=== PATIENT | female | born 1955 | race Caucasian/White ===

== ENCOUNTER → 2016-12-12 | Outpatient (CLI) | payer OTHER ==
[2016-12-12 11:57] LABS: Glucose 2 Hour 123 mg/dL
== END | disposition home or self-care (01) ==
LOC: LABWHC1 08:31
PROVIDERS: ATTEND Family Medicine
DX: R42 Dizziness and giddiness (principal)
CPT/HCPCS: 36415; 82947; 82950

== ENCOUNTER 2018-01-08 10:31 | Observation (INO) | payer OTHER ==
[2018-01-08] MEDS ORDERED: IPRATROPIUM-ALBUTEROL 3 ML NEB INHALATION STA (10:50)
[2018-01-08] MEDS ORDERED: SODIUM CHLORIDE 0.9% 1,000 ML IV STA (10:50)
--- NOTE | 2018-01-08 10:54 | ED ---
SOB HPI - General Chief Complaint: Shortness of Breath Stated Complaint: SRINI Time Seen by Provider: 01/08/18 10:40 Source: patient, RN notes reviewed Mode of arrival: ambulatory Limitations: no limitations - History of Present Illness Initial Comments: This is a 62-year-old female with no prior history of heart or lung disease who states she's had shortness of breath for the past several days she states she also has some chest tightness 3 days ago. She feels like she can't get a good breath of air when she breathes. She has any cough fevers chills nausea vomiting sweats or other symptoms. She states she does have ALLERGIES does only But the Previous any ALLERGIES she states she was sent over from her doctor 's office for evaluation. She states she does not smoke she did grow with parents a smoker. MD Complaint: shortness of breath - Related Data Home Medications Medication Instructions Recorded Confirmed Ibuprofen [Motrin Ib] 400 mg PO Q8H PRN 01/08/18 01/08/18 Allergies Allergy/AdvReac Type Severity Reaction Status Date / Time latex AdvReac Rash/Hives Verified 01/08/18 11:38 mushroom AdvReac CONGESTION Verified 01/08/18 11:38 Penicillins AdvReac Rash/Hives Verified 01/08/18 11:38 Sulfa (Sulfonamide AdvReac Rash/Hives Verified 01/08/18 11:38 Antibiotics) Review of Systems ROS Statement: Those systems with pertinent positive or pertinent negative responses have been documented in the HPI. ROS Other: All systems not noted in ROS Statement are negative. Past Medical History Past Medical History: No Reported History History of Any Multi-Drug Resistant Organisms: None Reported Past Surgical History: Tubal Ligation Past Psychological History: No Psychological Hx Reported Smoking Status: Never smoker Past Alcohol Use History: Rare Past Drug Use History: None Reported General Exam - General Exam Comments Initial Comments: This is a well-developed well-nourished awake alert oriented 3 female Limitations: no limitations General appearance: alert, in no apparent distress Head exam: Present: atraumatic, normocephalic, normal inspection Eye exam: Present: normal appearance, PERRL, EOMI. Absent: scleral icterus, conjunctival injection, periorbital swelling ENT exam: Present: normal exam, mucous membranes moist Neck exam: Present: normal inspection. Absent: tenderness, meningismus, lymphadenopathy Respiratory exam: Present: decreased breath sounds. Absent: respiratory distress, wheezes, rales, rhonchi, stridor Cardiovascular Exam: Present: regular rate, normal rhythm, normal heart sounds. Absent: systolic murmur, diastolic murmur, rubs, gallop, clicks GI/Abdominal exam: Present: soft, normal bowel sounds. Absent: distended, tenderness, guarding, rebound, rigid Extremities exam: Present: normal inspection, full ROM, normal capillary refill. Absent: tenderness, pedal edema, joint swelling, calf tenderness Back exam: Present: normal inspection Neurological exam: Present: alert, oriented X3, CN II-XII intact Psychiatric exam: Present: normal affect, normal mood Skin exam: Present: warm, dry, intact, normal color. Absent: rash Course Vital Signs 01/08/18 01/08/18 01/08/18 10:36 11:17 11:26 Temperature 97.8 F Pulse Rate 67 64 64 Respiratory 18 Rate Blood Pressure 130/74 O2 Sat by Pulse 97 Oximetry 01/08/18 01/08/18 13:16 14:10 Temperature Pulse Rate 66 62 Respiratory 18 18 Rate Blood Pressure 134/66 115/60 O2 Sat by Pulse 99 99 Oximetry Medical Decision Making - Medical Decision Making I did discuss the findings with the patient and with Dr. Blackmon who is covering Dr. Bernardo. Patient will be admitted with cardiology consultation - Lab Data Result diagrams: 01/08/18 11:05 01/08/18 11:05 Lab Results 01/08/18 01/08/18 01/08/18 Range/Units 11:05 11:05 11:05 WBC 5.7 (3.8-10.6) k/uL RBC 4.77 (3.80-5.40) m/uL Hgb 14.3 (11.4-16.0) gm/dL Hct 43.6 (34.0-46.0) % MCV 91.4 (80.0-100.0) fL MCH 30.0 (25.0-35.0) pg MCHC 32.8 (31.0-37.0) g/dL RDW 12.1 (11.5-15.5) % Plt Count 240 (150-450) k/uL Neutrophils % 48 % Lymphocytes % 40 % Monocytes % 6 % Eosinophils % 4 % Basophils % 1 % Neutrophils # 2.7 (1.3-7.7) k/uL Lymphocytes # 2.3 (1.0-4.8) k/uL Monocytes # 0.4 (0-1.0) k/uL Eosinophils # 0.2 (0-0.7) k/uL Basophils # 0.0 (0-0.2) k/uL PT (9.0-12.0) sec INR (<1.2) APTT (22.0-30.0) sec D-Dimer (<0.60) mg/L FEU Sodium 140 (137-145) mmol/L Potassium 4.3 (3.5-5.1) mmol/L Chloride 108 H (98-107) mmol/L Carbon Dioxide 25 (22-30) mmol/L Anion Gap 7 mmol/L BUN 12 (7-17) mg/dL Creatinine 0.54 (0.52-1.04) mg/dL Est GFR (CKD-EPI)AfAm >90 (>60 ml/min/1.73 sqM) Est GFR (CKD-EPI)NonAf >90 (>60 ml/min/1.73 sqM) Glucose 91 (74-99) mg/dL Calcium 9.4 (8.4-10.2) mg/dL Magnesium 2.3 (1.6-2.3) mg/dL Total Bilirubin 0.9 (0.2-1.3) mg/dL AST 21 (14-36) U/L ALT 26 (9-52) U/L Alkaline Phosphatase 119 (38-126) U/L Total Creatine Kinase 51 (30-135) U/L CK-MB (CK-2) 0.4 (0.0-2.4) ng/mL CK-MB (CK-2) Rel Index 0.8 Troponin I <0.012 (0.000-0.034) ng/mL NT-Pro-B Natriuret Pep pg/mL Total Protein 6.9 (6.3-8.2) g/dL Albumin 4.1 (3.5-5.0) g/dL 01/08/18 01/08/18 Range/Units 11:05 11:05 WBC (3.8-10.6) k/uL RBC (3.80-5.40) m/uL Hgb (11.4-16.0) gm/dL Hct (34.0-46.0) % MCV (80.0-100.0) fL MCH (25.0-35.0) pg MCHC (31.0-37.0) g/dL RDW (11.5-15.5) % Plt Count (150-450) k/uL Neutrophils % % Lymphocytes % % Monocytes % % Eosinophils % % Basophils % % Neutrophils # (1.3-7.7) k/uL Lymphocytes # (1.0-4.8) k/uL Monocytes # (0-1.0) k/uL Eosinophils # (0-0.7) k/uL Basophils # (0-0.2) k/uL PT 9.6 (9.0-12.0) sec INR 1.0 (<1.2) APTT 25.2 (22.0-30.0) sec D-Dimer 0.33 (<0.60) mg/L FEU Sodium (137-145) mmol/L Potassium (3.5-5.1) mmol/L Chloride (98-107) mmol/L Carbon Dioxide (22-30) mmol/L Anion Gap mmol/L BUN (7-17) mg/dL Creatinine (0.52-1.04) mg/dL Est GFR (CKD-EPI)AfAm (>60 ml/min/1.73 sqM) Est GFR (CKD-EPI)NonAf (>60 ml/min/1.73 sqM) Glucose (74-99) mg/dL Calcium (8.4-10.2) mg/dL Magnesium (1.6-2.3) mg/dL Total Bilirubin (0.2-1.3) mg/dL AST (14-36) U/L ALT (9-52) U/L Alkaline Phosphatase (38-126) U/L Total Creatine Kinase (30-135) U/L CK-MB (CK-2) (0.0-2.4) ng/mL CK-MB (CK-2) Rel Index Troponin I (0.000-0.034) ng/mL NT-Pro-B Natriuret Pep 185 pg/mL Total Protein (6.3-8.2) g/dL Albumin (3.5-5.0) g/dL - EKG Data -: EKG Interpreted by Me EKG shows normal: sinus rhythm (Normal sinus rhythm a 62. Interval 186 QRS duration 90 QT since QTC 432/438 this is a normal-appearing EKG.) - Radiology Data Radiology results: report reviewed, image reviewed (I did review the imaging and report there is evidence of increased pulmonary vascular congestion) Disposition Clinical Impression: Chest pain, Angina at rest Disposition: ADMITTED IP TO THIS [facility] Condition: Stable Referrals: Katya Olmos MD [Primary Care Provider] - 1-2 days
[2018-01-08 11:32] LABS: ALT 26 U/L (9-52); AST 21 U/L (14-36); Albumin 4.1 g/dL (3.5-5.0); Alkaline Phosphatase 119 U/L (38-126); Anion Gap 7 mmol/L; Basophils % (A) 1 %; Blood Urea Nitrogen 12 mg/dL (7-17); Calcium 9.4 mg/dL (8.4-10.2); Carbon Dioxide 25 mmol/L (22-30); Chloride 108 mmol/L (98-107); Eosinophils # (A) 0.2 k/uL (0-0.7); Eosinophils % (A) 4 %; Glucose 91 mg/dL (74-99); HCT 43.6 % (34.0-46.0); HGB 14.3 gm/dL (11.4-16.0); Lymphocytes # (A) 2.3 k/uL (1.0-4.8); Lymphocytes % (A) 40 %; MCHC 32.8 g/dL (31.0-37.0); MCV 91.4 fL (80.0-100.0); Magnesium 2.3 mg/dL (1.6-2.3); Mean Platelet Volume 7.1; Monocytes # (A) 0.4 k/uL (0-1.0); Monocytes % (A) 6 %; Neutrophils # (A) 2.7 k/uL (1.3-7.7); Neutrophils % (A) 48 %; Platelet Count 240 k/uL (150-450); Potassium 4.3 mmol/L (3.5-5.1); RBC 4.77 m/uL (3.80-5.40); RDW 12.1 % (11.5-15.5); Sodium 140 mmol/L (137-145); Total Bilirubin 0.9 mg/dL (0.2-1.3); Total Protein 6.9 g/dL (6.3-8.2); WBC 5.7 k/uL (3.8-10.6)
[2018-01-08 11:48] LABS: Creatine Kinase 51 U/L (30-135)
[2018-01-08 12:01] LABS: Creatine Kinase MB 0.4 ng/mL (0.0-2.4); Troponin I <0.012 ng/mL (0.000-0.034)
--- NOTE | 2018-01-08 12:07 | XR ---
EXAMINATION TYPE: XR chest 2V DATE OF EXAM: 01/08/2018 COMPARISON: NONE HISTORY: Difficulty breathing today. TECHNIQUE: Frontal and lateral views of the chest are obtained. FINDINGS: Overlying EKG leads are seen. There is no focal air space opacity, pleural effusion, or pne umothorax seen. Perhaps mild central vascular congestion is present. The cardiac silhouette size is upper limits of normal. The osseous structures are intact. IMPRESSION: Perhaps mild central vascular congestion. Correlate for fluid overload state or early CH F exacerbation.
[2018-01-08 12:14] LABS: D-Dimer 0.33 mg/L FEU (<0.60); Partial Thromboplastin Time 25.2 sec (22.0-30.0); Prothrombin Time 9.6 sec (9.0-12.0)
[2018-01-08] MEDS ORDERED: NITROGLYCERIN SL TABS 0.4 MG TAB SUBLINGUAL STA (13:09)
[2018-01-08] MEDS ORDERED: HEPARIN SODIUM,PORCINE 5,000 UNIT/ML 1 ML VIAL IV ONE (15:07)
[2018-01-08] MEDS ORDERED: NITROGLYCERIN SL TABS 0.4 MG TAB SUBLINGUAL PRN (15:07)
[2018-01-08] MEDS ORDERED: HEPARIN SOD,PORK IN 0.45% NACL 25,000 UNIT in 0.45% NACL 1 500ML.BAG IV SCH (15:15)
[2018-01-08] MEDS ORDERED: SODIUM CHLORIDE 0.9% 1,000 ML IV SCH (15:15)
--- NOTE | 2018-01-08 16:07 | P.HPIM ---
History of Present Illness H&P Date: 01/08/18 Chief Complaint: Palpitation and chest tightness 62-year-old nonsmoker female fairly stable state of health had an episode of shortness of breath with the some chest tightness started about 3 days ago and symptoms have been going on comes to appointment that she decided to come into the emergency department she feels that she has some air hunger cannot take a deep breath today she felt that her throat is closing she denies any cough or sputum production denies any fever or chills, she has similar episodes about 1-1 /2 years ago which was transient and resolve, she denies any loss of consciousness and progresses denies any night sweats fever or chills, denies any nausea vomiting or diarrhea denies any bowel or bladder dysfunction otherwise, she does have history of ALLERGY to multiple agents including latex mushroom penicillin and sulfa Ammann in the emergency department her labs were normal her chest x-ray was unremarkable her EKG was sinus rhythm without any significant changes she is admitted into the hospital for further evaluation and therapy, her d-dimer was normal as well Review of Systems All systems: negative Past Medical History Past Medical History: No Reported History Additional Past Medical History / Comment(s): low bp at times History of Any Multi-Drug Resistant Organisms: None Reported Past Surgical History: Tubal Ligation Past Anesthesia/Blood Transfusion Reactions: No Reported Reaction Smoking Status: Never smoker - Past Family History Mother Additional Family Medical History / Comment(s): "heart disease" in her 70's Father Additional Family Medical History / Comment(s): "heart disease" in his 70's Medications and Allergies Home Medications Medication Instructions Recorded Confirmed Type Ibuprofen [Motrin Ib] 400 mg PO Q8H PRN 01/08/18 01/08/18 History Allergies Allergy/AdvReac Type Severity Reaction Status Date / Time latex AdvReac Rash/Hives Verified 01/08/18 11:38 mushroom AdvReac CONGESTION Verified 01/08/18 11:38 Penicillins AdvReac Rash/Hives Verified 01/08/18 11:38 Sulfa (Sulfonamide AdvReac Rash/Hives Verified 01/08/18 11:38 Antibiotics) Physical Exam Vitals: Vital Signs Temp Pulse Resp BP Pulse Ox 01/08/18 14:10 62 18 115/60 99 01/08/18 13:16 66 18 134/66 99 01/08/18 11:26 64 01/08/18 11:17 64 01/08/18 10:36 97.8 F 67 18 130/74 97 Intake and Output 01/08/18 01/08/18 01/08/18 06:59 14:59 22:59 Other: Weight 71.668 kg - Constitutional General appearance: average body habitus, cooperative, no acute distress - EENT Eyes: EOMI, PERRLA, normal appearance Ears: bilateral: normal - Neck Neck: normal ROM Carotids: bilateral: upstroke normal, bruit absent Thyroid: bilateral: normal size - Respiratory Respiratory: bilateral: CTA - Cardiovascular Heart sounds: normal: S1, S2 - Integumentary Integumentary: normal, normal turgor - Neurologic Neurologic: CNII-XII intact - Musculoskeletal Musculoskeletal: gait normal, generalized weakness, strength equal bilaterally - Psychiatric Psychiatric: A&O x's 3, appropriate affect, intact judgment & insight Results CBC & Chem 7: 01/08/18 11:05 01/08/18 11:05 Labs: Abnormal Lab Results - Last 24 Hours (Table) 01/08/18 Range/Units 11:05 Chloride 108 H (98-107) mmol/L Chest x-ray: report reviewed, image reviewed (Chest x-ray suggestive prominent interstitium vascular congestion early CHF cannot be excluded) Assessment and Plan Assessment: Acute onset of the chest tightness and shortness of breath Early mild congestive heart failure with normal BNP Interstitial pneumonia/atypical pneumonia Episode of acute asthma resolved spontaneously Plan: Serial cardiac enzyme Consult cardiology 2-D echocardiogram Patient will pulmonary evaluation with PFTs on outpatient setting however in the meantime we'll do labs for ALLERGIC asthma Put patient on as needed inhalers for now Further care plan as per finding above-mentioned test results and report and clinical response of the patient Time with Patient: Greater than 30
[2018-01-08 17:46] LABS: Creatine Kinase 42 U/L (30-135)
[2018-01-08 17:58] LABS: Creatine Kinase MB 0.3 ng/mL (0.0-2.4); Troponin I <0.012 ng/mL (0.000-0.034)
[2018-01-08 20:10] VITALS: RESP 16
[2018-01-08] MEDS: LORATADINE 10 MG TAB PO PRN (22:11)
[2018-01-08 23:28] LABS: Creatine Kinase 43 U/L (30-135)
[2018-01-08 23:40] LABS: Creatine Kinase MB 0.3 ng/mL (0.0-2.4); Troponin I <0.012 ng/mL (0.000-0.034)
[2018-01-09 04:03] LABS: Cholesterol 183 mg/dL (<200); HDL Cholesterol 55 mg/dL (40-60); LDL Cholesterol,Calculated 108 mg/dL (0-99); Triglycerides 102 mg/dL (<150)
--- NOTE | 2018-01-09 07:16 | P.CRDCN ---
History of Present Illness Consult date: 01/09/18 Chief complaint: Shortness of breath History of present illness: This is a pleasant 62-year-old female patient was no past medical history of coronary artery disease or diabetes or hypertension or dyslipidemia but history of ALLERGY presented to the hospital complaining of shortness of breath. The patient has been dealing with ALLERGY for the last several weeks and yesterday she was receiving new ALLERGY injections. She stated that the shortness of breath started after the new injections. She described the shortness of breath as difficult to take a deeper breath. He is clearly not exertional shortness of breath. Beside that she did not have any orthopnea or PND. No bilateral lower extremities edema. No chest pain or chest discomfort. No fever or chills. And no cough. The patient does not have any significant past medical history. She does not smoke or drink alcohol. And no significant family history of coronary artery disease. The EKG showed sinus rhythm without any ischemic ST or T-wave abnormalities. The cardiac enzymes were checked and came in to be unremarkable as well. The patient stated that she is already scheduled to undergo a stress test and echocardiogram this morning and will follow-up with that. Past Medical History Past Medical History: No Reported History Additional Past Medical History / Comment(s): low bp at times History of Any Multi-Drug Resistant Organisms: None Reported Past Surgical History: Tubal Ligation Past Anesthesia/Blood Transfusion Reactions: No Reported Reaction Smoking Status: Never smoker - Past Family History Mother Additional Family Medical History / Comment(s): "heart disease" in her 70's Father Additional Family Medical History / Comment(s): "heart disease" in his 70's Medications and Allergies Home Medications Medication Instructions Recorded Confirmed Type Ibuprofen [Motrin Ib] 400 mg PO Q8H PRN 01/08/18 01/08/18 History Allergies Allergy/AdvReac Type Severity Reaction Status Date / Time latex AdvReac Rash/Hives Verified 01/08/18 11:38 mushroom AdvReac CONGESTION Verified 01/08/18 11:38 Penicillins AdvReac Rash/Hives Verified 01/08/18 11:38 Sulfa (Sulfonamide AdvReac Rash/Hives Verified 01/08/18 11:38 Antibiotics) Physical Exam Vitals: Vital Signs Temp Pulse Pulse Resp BP BP Pulse Ox 01/09/18 07:11 98 01/09/18 04:00 97.8 F 77 16 115/71 98 01/09/18 03:10 16 01/08/18 23:34 16 01/08/18 23:23 98.2 F 64 16 111/62 96 01/08/18 20:10 97.4 F L 69 16 117/72 97 01/08/18 17:50 98.5 F 65 18 121/73 97 01/08/18 17:38 98.3 F 74 18 115/53 94 L 01/08/18 17:00 72 18 01/08/18 16:00 70 18 125/56 95 01/08/18 15:00 68 18 01/08/18 14:10 62 18 115/60 99 01/08/18 13:16 66 18 134/66 99 01/08/18 11:26 64 01/08/18 11:17 64 01/08/18 10:36 97.8 F 67 18 130/74 97 Intake and Output 01/08/18 01/09/18 01/09/18 22:59 06:59 14:59 Other: Voiding Method Toilet Toilet # Voids 1 Weight 71.8 kg - Constitutional General appearance: no acute distress - Respiratory Respiratory: bilateral: CTA - Cardiovascular Rhythm: regular Heart sounds: normal: S1, S2 Results 01/08/18 11:05 01/08/18 11:05 Cardiac Enzymes 01/08/18 01/08/18 01/08/18 Range/Units 11:05 11:05 17:10 AST 21 (14-36) U/L CK-MB (CK-2) 0.4 0.3 (0.0-2.4) ng/mL Troponin I <0.012 <0.012 (0.000-0.034) ng/mL 01/08/18 Range/Units 22:55 AST (14-36) U/L CK-MB (CK-2) 0.3 (0.0-2.4) ng/mL Troponin I <0.012 (0.000-0.034) ng/mL Coagulation 01/08/18 Range/Units 11:05 PT 9.6 (9.0-12.0) sec APTT 25.2 (22.0-30.0) sec Lipids 01/08/18 Range/Units 10:05 Triglycerides 102 (<150) mg/dL Cholesterol 183 (<200) mg/dL HDL Cholesterol 55 (40-60) mg/dL CBC 01/08/18 Range/Units 11:05 WBC 5.7 (3.8-10.6) k/uL RBC 4.77 (3.80-5.40) m/uL Hgb 14.3 (11.4-16.0) gm/dL Hct 43.6 (34.0-46.0) % Plt Count 240 (150-450) k/uL Comprehensive Metabolic Panel 01/08/18 Range/Units 11:05 Sodium 140 (137-145) mmol/L Potassium 4.3 (3.5-5.1) mmol/L Chloride 108 H (98-107) mmol/L Carbon Dioxide 25 (22-30) mmol/L BUN 12 (7-17) mg/dL Creatinine 0.54 (0.52-1.04) mg/dL Glucose 91 (74-99) mg/dL Calcium 9.4 (8.4-10.2) mg/dL AST 21 (14-36) U/L ALT 26 (9-52) U/L Alkaline Phosphatase 119 (38-126) U/L Total Protein 6.9 (6.3-8.2) g/dL Albumin 4.1 (3.5-5.0) g/dL Current Medications Generic Name Dose Route Start Last Admin Trade Name Freq PRN Reason Stop Dose Admin Aspirin 325 mg 01/09/18 09:00 Aspirin PO DAILY DYLAN Sodium Chloride 1,000 mls @ 20 mls/hr 01/08/18 10:50 01/08/18 13:15 Saline 0.9% IV 01/09/18 10:49 20 mls/hr .Q24H STA Administration Heparin Sodium/Sodium Chloride 500 mls @ 17.2 mls/hr 01/08/18 15:15 01/08/18 17:34 25,000 unit/ Sodium Chloride IV Not Given .Q24H DYLAN Protocol 12 UNITS/KG/HR Sodium Chloride 1,000 mls @ 20 mls/hr 01/08/18 15:15 01/08/18 17:37 Saline 0.9% IV 20 mls/hr .Q24H DYLAN Administration Loratadine 5 mg 01/08/18 21:11 01/08/18 22:11 Claritin PO 5 mg Q12HR PRN Administration Allergy Symptoms Nitroglycerin 0.4 mg 01/08/18 15:07 Nitrostat SUBLINGUAL Q5M PRN Chest Pain Intake and Output 01/08/18 01/09/18 01/09/18 22:59 06:59 14:59 Other: Voiding Method Toilet Toilet # Voids 1 Weight 71.8 kg 01/08/18 11:05 01/08/18 11:05 Assessment and Plan Assessment: Assessment #1 shortness of breath Plan #1 the patient was ruled out for acute coronary event #2 severe underlying CAD to be ruled out #3 the patient already scheduled to undergo a stress test and echocardiogram and will follow-up with that #4 follow-up with the patient Thank you for allowing us participate in her care
[2018-01-09] MEDS ORDERED: ASPIRIN 325 MG TAB PO SCH (09:00)
[2018-01-09 11:42] VITALS: BP 123/82; PULSE 68; TEMP 98.6
[2018-01-09] MEDS: LORATADINE 10 MG TAB PO PRN (11:54)
--- NOTE | 2018-01-09 12:49 | ECHOF ---
Referral Reason:Chest pain, angina MEASUREMENTS -------- HEIGHT: 160.0 cm WEIGHT: 71.7 kg BP: 115/60 RVIDd: 2.7 cm (< 3.3) IVSd: 0.8 cm (0.6 - 1.1) LVIDd: 4.3 cm (3.9 - 5.3) LVPWd: 0.9 cm (0.6 - 1.1) IVSs: 1.3 cm LVIDs: 2.8 cm LVPWs: 1.2 cm LA Diam: 4.5 cm (2.7 - 3.8) LAESV Index (A-L): 43.21 ml/m Ao Diam: 2.4 cm (2.0 - 3.7) AV Cusp: 1.4 cm (1.5 - 2.6) LA Diam: 3.7 cm (2.7 - 3.8) EPSS: 0.3 cm MV E Earl: 0.94 m/s MV DecT: 340 ms MV A Earl: 1.03 m/s MV E/A Ratio: 0.91 RAP: 5.00 mmHg RVSP: 12.90 mmHg MV EF SLOPE: 103.92 mm/s (70 - 150) MV EXCURSION: 1.68 cm (> 18.000) FINDINGS -------- Sinus rhythm. This was a technically adequate study. The left ventricular size is normal. Left ventricular wall thickness is normal. Overall left vent ricular systolic function is normal with, an EF between 55 - 60 %. The right ventricle is normal in size and function. LA is severely dilated >40 ml/m2 RA appears enlarged. Aortic valve is trileaflet and is mildly thickened. There is no evidence of aortic regurgitation. There is no evidence of aortic stenosis. The mitral valve leaflets are mildly thickened. Mild mitral annular calcification present. Modera [id number]-[id number] mitral regurgitation is present. Moderate prolapse of the posterior mitral valve leafl et. Trace tricuspid regurgitation present. Right ventricular systolic pressure is normal at < 35 mmHg. There is no evidence of pulmonary hypertension. The pulmonic valve was not well visualized. The aortic root size is normal. Normal inferior vena cava with normal inspiratory collapse consistent with estimated right atrial pre ssure of 5 mmHg. There is no pericardial effusion. CONCLUSIONS -------- 1. Sinus rhythm. 2. This was a technically adequate study. 3. The left ventricular size is normal. 4. Left ventricular wall thickness is normal. 5. Overall left ventricular systolic function is normal with, an EF between 55 - 60 %. 6. LA is severely dilated >40 ml/m2 7. RA appears enlarged. 8. Aortic valve is trileaflet and is mildly thickened. 9. The mitral valve leaflets are mildly thickened. 10. Mild mitral annular calcification present. 11. Veaywtum-nf-pwdgap mitral regurgitation is present. 12. Moderate prolapse of the posterior mitral valve leaflet. 13. Trace tricuspid regurgitation present. 14. Right ventricular systolic pressure is normal at < 35 mmHg. 15. There is no evidence of pulmonary hypertension. 16. The pulmonic valve was not well visualized. 17. The aortic root size is normal. 18. There is no pericardial effusion. CABIN FURNISHINGS INSTALLER: Joss Hernandez RDCS
--- NOTE | 2018-01-09 13:08 | EST ---
EXERCISE STRESS AGE: 62 SEX: F HT: 63 WT: 158 PROTOCOL: Stress Test STAGE: 2 DURATION OF EXERCISE: 5:15 HEART RATE REST: 76 BLOOD PRESSURE REST: 135/76 MAXIMUM HEART RATE ACHIEVED: 135 MAXIMUM BLOOD PRESSURE: 174/43 85% MPHR: 133 100% MPHR: 156. METS: 6.0 INDICATION: Chest pain. CLINICAL INFORMATION: STRESS DATA: Pretesting physical examination showed a heart rate of 76, pressure is 135/76 mmHg. Baseline EKG showed sinus mechanism. The patient exercised on the treadmill according to Avila protocol for a total of 5 minutes and achieved 6.0 of METS. Max heart rate was 135, which is about 86% of maximum predicted heart rate. Maximum blood pressure was 174/43 mmHg. Clinically, the patient developed severe shortness of breath in response to exercise and the EKG showed mild ST-segment changes, did not meet the criteria for ischemia. CONCLUSION: 1. Poor exercise tolerance. 2. Mild EKG changes and response to exercise. 3. A stress test with imaging modality is recommended for better clarification. MMODL / IJN: [id number] /
--- NOTE | 2018-01-09 15:24 | P.DS ---
Providers Date of admission: 01/08/18 15:07 Expected date of discharge: 01/09/18 Attending physician: Darron Blackmon Consults: 01/08/18 15:07 Consult Physician Urgent Consulting Provider: Nir Olmos Consult Reason/Comments: Chest pain Do you want consulting provider notified?: Yes Primary care physician: Katya Olmos Hospital Course: Discharge Diagnosis 1. Acute onset of the chest tightness and shortness of breath. D-dimer 0.033. Troponins negative. EKG showing normal sinus rhythm. Discussed case with beauty counselor Dr. Peralta. oK to discharge home and for patient to follow-up outpatient for possible EILEEN 2. Early mild congestive heart failure with normal BNP. X-ray completed showing perhaps mild central vascular congestion. Correlate for fluid overload state early CHF exacerbation. 2-D echo completed. EF 55-60%. Moderate to severe mitral regurg and moderate prolapse of the posterior mitral valve leaflet. Discussed in depth with Dr. Peralta per cardiology. Okay for patient to be discharged home and outpatient management with possible EILEEN. 3. Episode of acute asthma resolved spontaneously 4. seasonal ALLERGIES. 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 IgE 27.5 Hospital course 62-year-old nonsmoker female fairly stable state of health had an episode of shortness of breath with the some chest tightness started about 3 days ago and symptoms have been going on comes to appointment that she decided to come into the emergency department she feels that she has some air hunger cannot take a deep breath today she felt that her throat is closing she denies any cough or sputum production denies any fever or chills, she has similar episodes about 1-1 /2 years ago which was transient and resolve, she denies any loss of consciousness and progresses denies any night sweats fever or chills, denies any nausea vomiting or diarrhea denies any bowel or bladder dysfunction otherwise, she does have history of ALLERGY to multiple agents including latex mushroom penicillin and sulfa Ammann in the emergency department her labs were normal her chest x-ray was unremarkable her EKG was sinus rhythm without any significant changes she is admitted into the hospital for further evaluation and therapy, her d-dimer was normal as well On 01/09/2018 patient is eager to go home. Discussed in length with Dr. Peralta per cardiology. Patient has been cleared for discharge from cardiology will be followed up outpatient for possible EILEEN. Patient to follow-up closely with primary care provider. Patient Condition at Discharge: Stable Plan - Discharge Summary Discharge Rx Participant: No New Discharge Prescriptions: New Loratadine [Claritin] 5 mg PO Q12HR PRN tab PRN Reason: Allergy Symptoms Continue Ibuprofen [Motrin Ib] 400 mg PO Q8H PRN PRN Reason: Pain Discharge Medication List Ibuprofen [Motrin Ib] 400 mg PO Q8H PRN 01/08/18 [History] Loratadine [Claritin] 5 mg PO Q12HR PRN tab 01/09/18 [Rx] Follow up Appointment(s)/Referral(s): Katya Olmos MD [Primary Care Provider] - 1-2 days Zbigniew Mcgowan MD [STAFF PHYSICIAN] - 01/24/18 4:00 pm Patient Instructions/Handouts: Dyspnea (GEN) Activity/Diet/Wound Care/Special Instructions: diet:Regular Activity: Per cardiolgoy limited exertion until f/u appointment
[2018-01-15 23:53] LABS: Alternaria Alternata IgG < 2.0 mcg/mL (< 13.6); Aspergillus fumigatus IgG Not detected (Not detected); Aureobasidium pullulans IgG < 2.0 mcg/mL (< 13.6); Cladosporium herbarium IgG 10.9 mcg/mL (< 14.7); Phoma ssp. IgG 9.6 mcg/mL (< 6.6); Saccaharomospora viridis Not detected (Not detected); Saccaharopoly. rectivirgula Not detected (Not detected)
== END 2018-01-09 15:53 | disposition home or self-care (01) ==
LOC: EC 10:31 → 3OBS 15:07
PROVIDERS: ADMIT Internal Medicine Sleep Medicine; ATTEND Internal Medicine Sleep Medicine
DX: R07.89 Other chest pain (principal); I50.9 Heart failure, unspecified; J45.909 Unspecified asthma, uncomplicated; I34.0 Nonrheumatic mitral (valve) insufficiency; R53.1 Weakness; Z91.040 Latex allergy status; Z88.0 Allergy status to penicillin; Z88.2 Allergy status to sulfonamides; Z91.018 Allergy to other foods; Z98.51 Tubal ligation status; Z82.49 Family history of ischemic heart disease and other diseases of the circulatory system; Z81.2 Family history of tobacco abuse and dependence
CPT/HCPCS: 99285 ×2; 36415; 94640; 94760; 93005; 93017; 93306; 85379; 83880; 80061; 80053; 86001; 82550; 82553; 83735; 84484; 85025; 85610; 85730; 86609; 86606; 82785; 71046; G0378 ×2

== ENCOUNTER 2018-01-13 14:10 | Observation (INO) | payer OTHER ==
[2018-01-13] MEDS ORDERED: SODIUM CHLORIDE 0.9% 500 ML IV STA (14:12)
--- NOTE | 2018-01-13 14:16 | ED ---
General Adult HPI - General Stated complaint: Dizziness Time Seen by Provider: 01/13/18 14:10 Source: RN notes reviewed - History of Present Illness Initial comments: This is a 62-year-old female who presents to the emergency department complaining of a near syncopal episode. Patient states she was just seen in the hospital approximately one week ago for similar that had occurred after she had been fasting and getting a blood draw today she was just walking around doing her daily job and had a couple episodes of lightheadedness when she finally got back to the office she became extremely lightheaded and thought she was going to pass out. Patient denies any palpitations patient denies chest pain or pressure. Denies shortness breath or difficulty breathing. According to EMS when they arrived she seemed extremely anxious continues to be that way we and the patient was reluctant to believe any this could possibly be related to anxiety. Patient denies any recent fever chills or cough. Patient denies any history of having had a syncopal episode. Patient denies any headache patient denies numbness weakness. Patient denies any early pain. Patient denies any nausea vomiting diarrhea recently. - Related Data Home Medications Medication Instructions Recorded Confirmed Ibuprofen [Motrin Ib] 400 mg PO Q8H PRN 01/08/18 01/13/18 Cetirizine HCl [Zyrtec] 10 mg PO DAILY PRN 01/13/18 01/13/18 Fluticasone Nasal [place] [Flonase 1 spray EA NOSTRIL DAILY PRN 01/13/18 01/13/18 Nasal [place]] Allergies Allergy/AdvReac Type Severity Reaction Status Date / Time latex AdvReac Rash/Hives Verified 01/13/18 14:35 mushroom AdvReac CONGESTION Verified 01/13/18 14:35 Penicillins AdvReac Rash/Hives Verified 01/13/18 14:35 Sulfa (Sulfonamide AdvReac Rash/Hives Verified 01/13/18 14:35 Antibiotics) Review of Systems ROS Statement: Those systems with pertinent positive or pertinent negative responses have been documented in the HPI. ROS Other: All systems not noted in ROS Statement are negative. Past Medical History Past Medical History: No Reported History Additional Past Medical History / Comment(s): low bp at times History of Any Multi-Drug Resistant Organisms: None Reported Past Surgical History: Tubal Ligation Past Anesthesia/Blood Transfusion Reactions: No Reported Reaction Smoking Status: Never smoker - Past Family History Mother Additional Family Medical History / Comment(s): "heart disease" in her 70's Father Additional Family Medical History / Comment(s): "heart disease" in his 70's General Exam - General Exam Comments Initial Comments: GENERAL: Patient is well-developed and well-nourished. Patient is nontoxic and well- hydrated and is in no acute distress. ENT: Neck is soft and supple. No significant lymphadenopathy is noted. Oropharynx is clear. Moist mucous membranes. Neck has full range of motion without eliciting any pain. EYES: The sclera were anicteric and conjunctiva were pink and moist. Extraocular movements were intact and pupils were equal round and reactive to light. Eyelids were unremarkable. PULMONARY: Unlabored respirations. Good breath sounds bilaterally. No audible rales rhonchi or wheezing was noted. CARDIOVASCULAR: There is a regular rate and rhythm without any murmurs gallops or rubs. ABDOMEN: Soft and nontender with normal bowel sounds. No palpable organomegaly was noted. There is no palpable pulsatile mass. SKIN: Skin is clear with no lesions or rashes and otherwise unremarkable. NEUROLOGIC: Patient is alert and oriented x3. Cranial nerves II through XII are grossly intact. Motor and sensory are also intact. Normal speech, volume and content. Symmetrical smile. MUSCULOSKELETAL: Normal extremities with adequate strength and full range of motion. No lower extremity swelling or edema. No calf tenderness. LYMPHATICS: No significant lymphadenopathy is noted PSYCHIATRIC: Normal psychiatric evaluation. Normal interpersonal interactions appears functionally intact in deals appropriately with others. No signs of depression. No signs of anxiety Course Vital Signs 01/13/18 01/13/18 01/13/18 14:14 14:23 15:03 Temperature 98.8 F Pulse Rate 73 77 Pulse Rate [ 80 Right Sitting Supervisor Home Energy Consultant ] Pulse Rate [ 87 Right Standing Supervisor Home Energy Consultant ] Pulse Rate [ 77 Right Supine Supervisor Home Energy Consultant ] Respiratory 18 18 16 Rate Blood Pressure 138/68 124/71 Blood Pressure 123/74 [Right Arm Sitting] Blood Pressure 127/62 [Right Arm Standing] Blood Pressure 124/76 [Right Arm Supine] O2 Sat by Pulse 100 100 Oximetry Medical Decision Making - Medical Decision Making EKG shows sinus rhythm with occasional PVC at 76 bpm QRS is 88 QT interval is 186 QT interval 44 QTC is 454 patient's EKG shows no ST segment elevation or depression or T wave abnormalities are noted. I spoke with EMS they stated that the patient symptoms in the ambulance and when she was having the symptoms none of her vitals changed at all. Orthostatics were negative and the ER. CAT scan of the brain showed no acute normalities. Chest x-ray showed no acute normalities. Patient was uncomfortable about going home so I admitted the patient to Dr. Bernardo agreed to the admission I wrote admitting orders. - Lab Data Result diagrams: 01/13/18 14:20 01/13/18 14:20 Lab Results 01/13/18 01/13/18 01/13/18 Range/Units 14:18 14:20 14:20 WBC 7.4 (3.8-10.6) k/uL RBC 4.46 (3.80-5.40) m/uL Hgb 13.4 (11.4-16.0) gm/dL Hct 40.2 (34.0-46.0) % MCV 90.2 (80.0-100.0) fL MCH 30.1 (25.0-35.0) pg MCHC 33.4 (31.0-37.0) g/dL RDW 12.1 (11.5-15.5) % Plt Count 259 (150-450) k/uL Neutrophils % 52 % Lymphocytes % 39 % Monocytes % 6 % Eosinophils % 2 % Basophils % 0 % Neutrophils # 3.8 (1.3-7.7) k/uL Lymphocytes # 2.9 (1.0-4.8) k/uL Monocytes # 0.4 (0-1.0) k/uL Eosinophils # 0.1 (0-0.7) k/uL Basophils # 0.0 (0-0.2) k/uL PT (9.0-12.0) sec INR (<1.2) APTT (22.0-30.0) sec Sodium (137-145) mmol/L Potassium (3.5-5.1) mmol/L Chloride (98-107) mmol/L Carbon Dioxide (22-30) mmol/L Anion Gap mmol/L BUN (7-17) mg/dL Creatinine (0.52-1.04) mg/dL Est GFR (CKD-EPI)AfAm (>60 ml/min/1.73 sqM) Est GFR (CKD-EPI)NonAf (>60 ml/min/1.73 sqM) Glucose (74-99) mg/dL POC Glucose (mg/dL) 134 H (75-99) mg/dL POC Glu Pharmacy Technician Assistant Shantell Ybarra Calcium (8.4-10.2) mg/dL Magnesium (1.6-2.3) mg/dL Total Bilirubin (0.2-1.3) mg/dL AST (14-36) U/L ALT (9-52) U/L Alkaline Phosphatase (38-126) U/L Total Creatine Kinase 50 (30-135) U/L CK-MB (CK-2) 0.3 (0.0-2.4) ng/mL CK-MB (CK-2) Rel Index 0.6 Troponin I <0.012 (0.000-0.034) ng/mL Total Protein (6.3-8.2) g/dL Albumin (3.5-5.0) g/dL TSH (0.465-4.680) mIU/L 01/13/18 01/13/18 Range/Units 14:20 14:20 WBC (3.8-10.6) k/uL RBC (3.80-5.40) m/uL Hgb (11.4-16.0) gm/dL Hct (34.0-46.0) % MCV (80.0-100.0) fL MCH (25.0-35.0) pg MCHC (31.0-37.0) g/dL RDW (11.5-15.5) % Plt Count (150-450) k/uL Neutrophils % % Lymphocytes % % Monocytes % % Eosinophils % % Basophils % % Neutrophils # (1.3-7.7) k/uL Lymphocytes # (1.0-4.8) k/uL Monocytes # (0-1.0) k/uL Eosinophils # (0-0.7) k/uL Basophils # (0-0.2) k/uL PT 9.8 (9.0-12.0) sec INR 1.0 (<1.2) APTT 24.3 (22.0-30.0) sec Sodium 138 (137-145) mmol/L Potassium 4.0 (3.5-5.1) mmol/L Chloride 108 H (98-107) mmol/L Carbon Dioxide 21 L (22-30) mmol/L Anion Gap 9 mmol/L BUN 12 (7-17) mg/dL Creatinine 0.58 (0.52-1.04) mg/dL Est GFR (CKD-EPI)AfAm >90 (>60 ml/min/1.73 sqM) Est GFR (CKD-EPI)NonAf >90 (>60 ml/min/1.73 sqM) Glucose 129 H (74-99) mg/dL POC Glucose (mg/dL) (75-99) mg/dL POC Glu Pharmacy Technician Assistant ID Calcium 9.3 (8.4-10.2) mg/dL Magnesium 2.2 (1.6-2.3) mg/dL Total Bilirubin 0.6 (0.2-1.3) mg/dL AST 24 (14-36) U/L ALT 22 (9-52) U/L Alkaline Phosphatase 87 (38-126) U/L Total Creatine Kinase (30-135) U/L CK-MB (CK-2) (0.0-2.4) ng/mL CK-MB (CK-2) Rel Index Troponin I (0.000-0.034) ng/mL Total Protein 6.6 (6.3-8.2) g/dL Albumin 3.9 (3.5-5.0) g/dL TSH 1.510 (0.465-4.680) mIU/L Disposition Clinical Impression: Near syncope Disposition: HOME SELF-CARE Referrals: Katya Olmos MD [Primary Care Provider] - 1-2 days Time of Disposition: 15:48
[2018-01-13 14:22] LABS: Glucose,Whole Blood 134 mg/dL (75-99)
[2018-01-13 14:36] LABS: Basophils % (A) 0 %; Eosinophils # (A) 0.1 k/uL (0-0.7); Eosinophils % (A) 2 %; HCT 40.2 % (34.0-46.0); HGB 13.4 gm/dL (11.4-16.0); Lymphocytes # (A) 2.9 k/uL (1.0-4.8); Lymphocytes % (A) 39 %; MCH 30.1 pg (25.0-35.0); MCHC 33.4 g/dL (31.0-37.0); MCV 90.2 fL (80.0-100.0); Mean Platelet Volume 7.2; Monocytes # (A) 0.4 k/uL (0-1.0); Monocytes % (A) 6 %; Neutrophils # (A) 3.8 k/uL (1.3-7.7); Neutrophils % (A) 52 %; Platelet Count 259 k/uL (150-450); RBC 4.46 m/uL (3.80-5.40); RDW 12.1 % (11.5-15.5); WBC 7.4 k/uL (3.8-10.6)
[2018-01-13 14:45] LABS: Partial Thromboplastin Time 24.3 sec (22.0-30.0); Prothrombin Time 9.8 sec (9.0-12.0)
[2018-01-13 14:48] LABS: ALT 22 U/L (9-52); AST 24 U/L (14-36); Albumin 3.9 g/dL (3.5-5.0); Alkaline Phosphatase 87 U/L (38-126); Anion Gap 9 mmol/L; Blood Urea Nitrogen 12 mg/dL (7-17); Calcium 9.3 mg/dL (8.4-10.2); Carbon Dioxide 21 mmol/L (22-30); Chloride 108 mmol/L (98-107); Glucose 129 mg/dL (74-99); Magnesium 2.2 mg/dL (1.6-2.3); Sodium 138 mmol/L (137-145); Total Bilirubin 0.6 mg/dL (0.2-1.3); Total Protein 6.6 g/dL (6.3-8.2)
[2018-01-13 14:57] LABS: Creatine Kinase 50 U/L (30-135)
--- NOTE | 2018-01-13 15:00 | XR ---
EXAMINATION TYPE: XR chest 2V DATE OF EXAM: 01/13/2018 COMPARISON: 01/08/2018 HISTORY: Difficulty breathing. TECHNIQUE: Frontal and lateral views of the chest are obtained. FINDINGS: There is no focal air space opacity, pleural effusion, or pneumothorax seen. The cardiac silhouette size is within normal limits. The osseous structures are intact. Bilateral nipple shadow s are noted. IMPRESSION: No acute cardiopulmonary process.
[2018-01-13 15:08] LABS: Creatine Kinase MB 0.3 ng/mL (0.0-2.4); Troponin I <0.012 ng/mL (0.000-0.034)
--- NOTE | 2018-01-13 15:19 | CT ---
EXAMINATION TYPE: CT brain wo con DATE OF EXAM: 01/13/2018 COMPARISON: None HISTORY: Dizziness and lightheadedness x [address] DLP: 1090.[address] of the brain was performed. The ventricles, basal cisterns and sulci overlying the cerebral convexities demonstrate mild enlargem ent. There is no evidence for intracranial hemorrhage or sulcal effacement. There is decreased attenuation about the periventricular white matter and deep white matter of both c erebral hemispheres, compatible with chronic small vessel ischemia. Differential diagnosis does inclu de demyelination. No mass effects are seen.No midline shift. Osseous calvarium is intact. If symptoms persist consider MRI. IMPRESSION: 1. Age related atrophic and chronic small vessel ischemic change without acute intracranial process s een at this time.
[2018-01-13] MEDS ORDERED: SODIUM CHLORIDE 0.9% 1,000 ML IV ONE (15:48)
--- NOTE | 2018-01-13 21:53 | P.CNNES ---
History of Present Illness Consult date: 01/13/18 History of Present Illness: The patient is a 62-year-old woman who states that at 1:00 this afternoon she was sitting at her desk at work and she felt lightheadedness. She could not continue her work. She tried to lay down. Her coworkers suggested calling EMS. Her coworker said she looked pale and felt warm. The patient states she was diaphoretic. States she felt like she was on a pass out but she did not. There is no history of syncope. She denied any other neurologic complaints such as focal weakness numbness headache or vertigo. Patient was admitted last week to [facility] similar symptoms. Dates she's had these symptoms off and on for the last 2 years. Patient had a CT of the brain which showed age-related atrophy and chronic small vessel ischemic changes. When asked to describe what symptoms she experiences when she gets lightheaded she states her eyes become blurry she feels like she is can a blackout and she feels a need to take a deep inspiration. Feels as if her diaphragm is not working or functioning properly. Times he continues to get this feeling in the diaphragm even without the lightheadedness. Review of Systems Constitutional: Denies chills, Denies fever Eyes: denies blurred vision, denies pain Ears, nose, mouth and throat: Reports as per HPI Cardiovascular: Denies chest pain, Denies shortness of breath Respiratory: Denies cough Musculoskeletal: Denies myalgias Neurological: Reports as per HPI Psychiatric: Denies anxiety, Denies depression Past Medical History Past Medical History: Chest Pain / Angina Additional Past Medical History / Comment(s): low bp at times, stress test . pt stated she" has a leaky mitral vlave" History of Any Multi-Drug Resistant Organisms: None Reported Past Surgical History: Tubal Ligation Past Anesthesia/Blood Transfusion Reactions: No Reported Reaction Smoking Status: Never smoker - Past Family History Mother Additional Family Medical History / Comment(s): "heart disease" in her 70's Father Additional Family Medical History / Comment(s): "heart disease" in his 70's Medications and Allergies Home Medications Medication Instructions Recorded Confirmed Type Ibuprofen [Motrin Ib] 400 mg PO Q8H PRN 01/08/18 01/13/18 History Cetirizine HCl [Zyrtec] 10 mg PO DAILY PRN 01/13/18 01/13/18 History Fluticasone Nasal [place] [Flonase 1 spray EA NOSTRIL DAILY PRN 01/13/18 01/13/18 History Nasal [place]] Allergies Allergy/AdvReac Type Severity Reaction Status Date / Time latex AdvReac Rash/Hives Verified 01/13/18 14:35 mushroom AdvReac CONGESTION Verified 01/13/18 14:35 Penicillins AdvReac Rash/Hives Verified 01/13/18 14:35 Sulfa (Sulfonamide AdvReac Rash/Hives Verified 01/13/18 14:35 Antibiotics) Physical Examination - Vital Signs Vital Signs: Vital Signs Temp Pulse Pulse Pulse Pulse Resp BP 01/13/18 19:32 98.8 F 71 16 130/76 01/13/18 16:40 98.4 F 77 16 121/71 01/13/18 15:03 77 16 124/71 01/13/18 14:23 80 87 77 18 01/13/18 14:14 98.8 F 73 18 138/68 BP BP BP Pulse Ox 01/13/18 19:32 99 01/13/18 16:40 100 01/13/18 15:03 100 01/13/18 14:23 123/74 127/62 124/76 01/13/18 14:14 100 Intake and Output 01/13/18 01/13/18 01/13/18 06:59 14:59 22:59 Other: Weight 68.039 kg - Constitutional General appearance: cooperative - EENT EENT: PERRL, hearing intact, vision intact - Respiratory Respiratory: lungs clear - Cardiovascular Cardiovascular: regular rate, normal S1 - Neurologic Neurologic examination: Mental status he she was awake alert and oriented. There was no a aphasia or dysarthria. Cranial nerve examination: EOMI, VFF, face symmetric, tongue midline, intact Speech examination: intact Sensorimotor examination: intact Detailed motor examination: grossly full strength in all extremities Detailed sensory examination: intact Reflex and gait examination: intact Reflexes: 2+: knee - Psychiatric Psychiatric: mood/affect appropriate Results - Laboratory Findings CBC and BMP: 01/13/18 14:20 01/13/18 14:20 Abnormal Lab Findings: Abnormal Labs 01/13/18 01/13/18 14:18 14:20 Chloride 108 H Carbon Dioxide 21 L Glucose 129 H POC Glucose (mg/dL) 134 H Assessment and Plan (1) Near syncope Current Visit: Yes Status: Acute SNOMED Code(s): 739817534 Plan: The patient is a 62-year-old woman with near syncopal symptoms for 2 years off- and-on with a recent exacerbation in the past week. Recommend cardiology consultation. If cardiac workup negative also there was s recommend possible pulmonary evaluation for pulmonary status and pulmonary function testing. Will check EEG and carotid ultrasound.
[2018-01-14] MEDS ORDERED: FLUTICASONE 50MCG/SPRAY NASAL 16GM EA NOSTRIL PRN (09:01)
[2018-01-14] MEDS ORDERED: IBUPROFEN 400 MG TAB PO PRN (09:01)
[2018-01-14] MEDS ORDERED: LORATADINE 10 MG TAB PO PRN (09:01)
--- NOTE | 2018-01-14 09:16 | P.HPIM ---
History of Present Illness H&P Date: 01/14/18 Chief Complaint: dizziness and SOB This is a 62-year-old female patient of Dr. Olmos. Patient presented to the emergency department with complaints of near syncopal episode. Patient was here for the same reason approximately 1 week ago. At that time cardiology service was consulted and a stress test was completed. Patient was cleared for discharge from cardiology and was supposed to follow-up outpatient for a EILEEN. Patient has a known past medical history of chest pain, low blood pressure and tubal ligation. CT of the head was completed showing age-related atrophic and chronic small vessel ischemic change without acute intracranial process seen at this time. EKG completed showing sinus rhythm with occasional premature ventricular complexes. Neurology services consulted. EEG and carotid ultrasound have been ordered per neurology. Pulmonary cardiology services also consulted. Patient denies chest pain this time. Denies nausea vomiting or diarrhea. Nice any urinary symptoms Review of Systems please refer to HPI otherwise unremarkable Past Medical History Past Medical History: Chest Pain / Angina Additional Past Medical History / Comment(s): low bp at times, stress test . pt stated she" has a leaky mitral vlave" History of Any Multi-Drug Resistant Organisms: None Reported Past Surgical History: Tubal Ligation Past Anesthesia/Blood Transfusion Reactions: No Reported Reaction Smoking Status: Never smoker - Past Family History Mother Additional Family Medical History / Comment(s): "heart disease" in her 70's Father Additional Family Medical History / Comment(s): "heart disease" in his 70's Medications and Allergies Home Medications Medication Instructions Recorded Confirmed Type Ibuprofen [Motrin Ib] 400 mg PO Q8H PRN 01/08/18 01/13/18 History Cetirizine HCl [Zyrtec] 10 mg PO DAILY PRN 01/13/18 01/13/18 History Fluticasone Nasal [place] [Flonase 1 spray EA NOSTRIL DAILY PRN 01/13/18 01/13/18 History Nasal [place]] Allergies Allergy/AdvReac Type Severity Reaction Status Date / Time latex AdvReac Rash/Hives Verified 01/13/18 14:35 mushroom AdvReac CONGESTION Verified 01/13/18 14:35 Penicillins AdvReac Rash/Hives Verified 01/13/18 14:35 Sulfa (Sulfonamide AdvReac Rash/Hives Verified 01/13/18 14:35 Antibiotics) Physical Exam Vitals: Vital Signs Temp Pulse Pulse Pulse Pulse Resp BP 01/14/18 08:00 97.9 F 75 90 18 01/14/18 04:00 97.1 F L 74 16 01/14/18 00:00 97.6 F 65 17 01/13/18 23:13 97.6 F 76 90 89 16 01/13/18 19:32 98.8 F 71 16 130/76 01/13/18 16:40 98.4 F 77 16 121/71 01/13/18 15:03 77 16 124/71 01/13/18 14:23 80 87 77 18 01/13/18 14:14 98.8 F 73 18 138/68 BP BP BP Pulse Ox 01/14/18 08:00 98 01/14/18 04:00 95/66 97 01/14/18 00:00 98/44 97 01/13/18 23:13 128/69 114/75 126/66 96 01/13/18 19:32 99 01/13/18 16:40 100 01/13/18 15:03 100 01/13/18 14:23 123/74 127/62 124/76 01/13/18 14:14 100 Intake and Output 01/13/18 01/14/18 01/14/18 22:59 06:59 14:59 Intake Total 10 600 Output Total 500 Balance -490 600 Intake: Intake, IV Titration 10 Amount Sodium Chloride 0.9% 1, 10 000 ml @ 75 mls/hr IV . [id number] ONE Rx#:[id number] Oral 600 Output: Urine 500 Other: Voiding Method Toilet Toilet # Voids 2 Weight 66 kg Head normocephalic Neck supple Lungs clear to auscultation bilaterally no wheezing or crackles Heart regular rate and rhythm S1-S2, no rub or gallop Abdomen is soft nontender nondistended positive bowel sounds no hepatosplenomegaly Extremities no edema Neuro alert and orientated to 3 Results CBC & Chem 7: 01/13/18 14:20 01/13/18 14:20 Labs: Abnormal Lab Results - Last 24 Hours (Table) 01/13/18 01/13/18 Range/Units 14:18 14:20 Chloride 108 H (98-107) mmol/L Carbon Dioxide 21 L (22-30) mmol/L Glucose 129 H (74-99) mg/dL POC Glucose (mg/dL) 134 H (75-99) mg/dL Thrombosis Risk Factor Assmnt - Choose All That Apply Any of the Below Risk Factors Present?: No Other Risk Factors: Yes Each Risk Factor Represents 2 Points: Age 61-74 years Other congenital or acquired thrombophilia - If yes, enter type in comment: No Thrombosis Risk Factor Assessment Total Risk Factor Score: 2 Thrombosis Risk Factor Assessment Level: Low Risk Assessment and Plan Assessment: 1. Near syncopal episode. CT of head completed showing age-related atrophic and chronic small vessel ischemic change without acute intracranial process seen at this time. Neurology services have been consulted. EEG and carotid ultrasound have been ordered. 2. Shortness of breath. Chest x-ray completed showing no acute cardiopulmonary process. Dr. Blackmon per pulmonary services have been consulted. D -dimer has been ordered. 3. History of early mild congestive heart failure. Cardiology services have been consulted. Last admission patient underwent stress. Patient was to follow -up on a 01/[address] Mcgowan for possible EILEEN. EKG completed showing sinus rhythm with occasional PVCs. Troponin negative. Cardiology services have been consulted. 4. History of asthma. No exacerbation noted at this time. Pulmonary services have been consulted 5. Seasonal ALLERGIES. 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 Patient has been receiving ALLERGY shots. IgE completed last admission 27.5. Home Claritin and Flonase have been ordered DVT prophylaxis Lovenox. GI prophylaxis Pepcid Repeat AM labs have been ordered Time with Patient: Greater than 30 (Greater than 60% of the total time spent in counseling and coordination of care. I performed an examination of the patient and discussed their management with the Nurse Practitioner. I have reviewed the Nurse Practitioner's notes and agree with the documented findings and plan of care)
--- NOTE | 2018-01-14 09:42 | P.CNPUL ---
History of Present Illness Consult date: 01/14/18 Reason for consult: dyspnea, chest pain Chief complaint: Ongoing intermittent dizziness and lightheadedness for several weeks History of present illness: 62-year-old nonsmoker female has been having dizzy episodes going on for couple of weeks patient was initially admitted earlier this month was evaluated by cardiovascular services she does have symptoms of some chest tightness and feeling of closure in throat she underwent as my evaluation of formal PFT has not been performed by her labs for ALLERGIC asthma including IgE level is normal , patient had an echocardiogram performed in last admitted to revealed severe mitral regurgitation with enlarged LA right atrial dilatation was noted as well however no significant pulmonary hypertension was noted patient was supposed to go to [facility] and follow with cardiovascular services however readmitted for recurrence of symptoms, she denies any cough or sputum production does have intermittent feeling of chest tightness and feeling of throat closure though she does get short of breath on activity and exertion symptoms have significantly progressed in the last several weeks, review of the data revealed that patient d-dimer was normal previous admission, on specific questioning she denies any night sweats fever or chills denies any sputum production does not have any significant cough denies any seizure-like activity or complete loss of consciousness, denies any bowel or bladder dysfunction Ammann she does have a history of multiple ALLERGIES including latex mushroom penicillin sulfa medications Review of Systems All systems: negative Past Medical History Past Medical History: Chest Pain / Angina Additional Past Medical History / Comment(s): low bp at times, stress test . pt stated she" has a leaky mitral vlave" History of Any Multi-Drug Resistant Organisms: None Reported Past Surgical History: Tubal Ligation Past Anesthesia/Blood Transfusion Reactions: No Reported Reaction Smoking Status: Never smoker - Past Family History Mother Additional Family Medical History / Comment(s): "heart disease" in her 70's Father Additional Family Medical History / Comment(s): "heart disease" in his 70's Medications and Allergies Home Medications Medication Instructions Recorded Confirmed Type Ibuprofen [Motrin Ib] 400 mg PO Q8H PRN 01/08/18 01/13/18 History Cetirizine HCl [Zyrtec] 10 mg PO DAILY PRN 01/13/18 01/13/18 History Fluticasone Nasal [place] [Flonase 1 spray EA NOSTRIL DAILY PRN 01/13/18 01/13/18 History Nasal [place]] Allergies Allergy/AdvReac Type Severity Reaction Status Date / Time latex AdvReac Rash/Hives Verified 01/13/18 14:35 mushroom AdvReac CONGESTION Verified 01/13/18 14:35 Penicillins AdvReac Rash/Hives Verified 01/13/18 14:35 Sulfa (Sulfonamide AdvReac Rash/Hives Verified 01/13/18 14:35 Antibiotics) Physical Exam Vitals: Vital Signs Temp Pulse Pulse Pulse Pulse Resp BP 01/14/18 08:00 97.9 F 75 90 18 01/14/18 04:00 97.1 F L 74 16 01/14/18 00:00 97.6 F 65 17 01/13/18 23:13 97.6 F 76 90 89 16 01/13/18 19:32 98.8 F 71 16 130/76 01/13/18 16:40 98.4 F 77 16 121/71 01/13/18 15:03 77 16 124/71 01/13/18 14:23 80 87 77 18 01/13/18 14:14 98.8 F 73 18 138/68 BP BP BP Pulse Ox 01/14/18 08:00 98 01/14/18 04:00 95/66 97 01/14/18 00:00 98/44 97 01/13/18 23:13 128/69 114/75 126/66 96 01/13/18 19:32 99 01/13/18 16:40 100 01/13/18 15:03 100 01/13/18 14:23 123/74 127/62 124/76 01/13/18 14:14 100 Intake and Output 01/13/18 01/14/18 01/14/18 22:59 06:59 14:59 Intake Total 10 600 Output Total 500 Balance -490 600 Intake: Intake, IV Titration 10 Amount Sodium Chloride 0.9% 1, 10 000 ml @ 75 mls/hr IV . [id number] ONE Rx#:[id number] Oral 600 Output: Urine 500 Other: Voiding Method Toilet Toilet # Voids 2 Weight 66 kg GENERAL: Patient is well-developed and well-nourished. Patient is nontoxic and well- hydrated and is in no acute distress. ENT: Neck is soft and supple. No significant lymphadenopathy is noted. Oropharynx is clear. Moist mucous membranes. Neck has full range of motion without eliciting any pain. EYES: The sclera were anicteric and conjunctiva were pink and moist. Extraocular movements were intact and pupils were equal round and reactive to light. Eyelids were unremarkable. PULMONARY: Unlabored respirations. Good breath sounds bilaterally. No audible rales rhonchi or wheezing was noted. CARDIOVASCULAR: There is a regular rate and rhythm without any murmurs gallops or rubs. ABDOMEN: Soft and nontender with normal bowel sounds. No palpable organomegaly was noted. There is no palpable pulsatile mass. SKIN: Skin is clear with no lesions or rashes and otherwise unremarkable. NEUROLOGIC: Patient is alert and oriented x3. Cranial nerves II through XII are grossly intact. Motor and sensory are also intact. Normal speech, volume and content. Symmetrical smile. MUSCULOSKELETAL: Normal extremities with adequate strength and full range of motion. No lower extremity swelling or edema. No calf tenderness. LYMPHATICS: No significant lymphadenopathy is noted PSYCHIATRIC: Normal psychiatric evaluation. Normal interpersonal interactions appears functionally intact in deals appropriately with others. No signs of depression. No signs of anxiety Results - Laboratory Findings CBC and BMP: 01/13/18 14:20 01/13/18 14:20 PT/INR, D-dimer PT 9.8 sec (9.0-12.0) 01/13/18 14:20 INR 1.0 (<1.2) 01/13/18 14:20 Abnormal lab findings: Abnormal Labs 01/13/18 01/13/18 14:18 14:20 Chloride 108 H Carbon Dioxide 21 L Glucose 129 H POC Glucose (mg/dL) 134 H - Diagnostic Findings Chest x-ray: report reviewed, image reviewed (Chest x-ray is normal) Assessment and Plan Assessment: Near syncope, Likely etiology is valvular heart disease and heart failure related to severe mitral regurgitation Severe mitral regurgitation Acute systolic heart failure with apparent normal ejection fraction but in light of severe mitral regurgitation it is in fact suboptimal History of chest tightness throat closure likely related to low cardiac output Doubt pneumonia or asthma, similarly doubt pulmonary embolism however in case if d-dimer is elevated would do a spiral computed tomography scan of the chest Arrange a pulmonary function test as well Plan: As noted above Time with Patient: Greater than 30
--- NOTE | 2018-01-14 10:34 | US ---
EXAMINATION TYPE: US carotid duplex BILAT DATE OF EXAM: 01/14/2018 COMPARISON: NONE CLINICAL HISTORY: Near syncope. EXAM MEASUREMENTS: RIGHT: Peak Systolic Velocity (PSV) cm/sec ----- Right CCA: 73.8 ----- Right ICA: 76.3 ----- Right ECA: 89.8 ICA/CCA ratio: 1.0 RIGHT: End Diastole cm/sec ----- Right CCA: 19.7 ----- Right ICA: 26.7 ----- Right ECA: 13.8 LEFT: Peak Systolic Velocity (PSV) cm/sec ----- Left CCA: 83.1 ----- Left ICA: 67.9 ----- Left ECA: 92.1 ICA/CCA ratio: 0.8 LEFT: End Diastole cm/sec ----- Left CCA: 22.6 ----- Left ICA: 26.0 ----- Left ECA: 16.0 VERTEBRALS (direction of flow): Right Vertebral: Antegrade Left Vertebral: Antegrade Rhythm: Normal Grayscale images show no significant focal plaque at carotid bulb level bilaterally. IMPRESSION: No hemodynamically significant stenosis is seen in either internal carotid artery. Criteria for Assigning % of Stenosis / Diameter reduction (Estimation based on the indirect measurements of the internal carotid artery velocities (ICA PSV). 1. Normal (no stenosis)=ICA PSV < 125 cm/s: ratio < 2.0: ICA EDV<40 cm/s. 2. Less than 50% stenosis=ICA PSV < 125 cm/s: ratio < 2.0: ICA EDV<40 cm/s. 3. 50 to 69% stenosis=ICA PSV of 125 to 230 cm/s: ration 2.0 ? 4.0: ICA EDV 40-100 cm/s. 4. Greater than 70% stenosis to near occlusion= ICA PSV > 230 cm/s: ratio > 4.0: ICA EDV > 100 cm/s. 5. Near occlusion= ICA PSV velocities may be low or undetectable: variable ratio and ICA EDV. 6. Total occlusion=unable to detect flow.
--- NOTE | 2018-01-14 19:37 | EEG ---
ELECTROENCEPHALOGRAM REPORT DATE OF EE01/14/2018 ELECTROENCEPHALOGRAPHIC EXAMINATION REPORT: INDICATION FOR EXAMINATION: This patient is a 62-year-old female being evaluated for syncopal episode at work. AGE: [age]. EEG FINDINGS: A routine 21-channel awake digital EEG recording was accomplished utilizing the 10-20 international system with bipolar and referential montages. The background activity in the most alert resting state consists of a low to medium amplitude, fairly well developed and well sustained 7-8 Hz activity over the posterior head regions. This posterior rhythm attenuates to eye opening. There is a small amount of low amplitude 18-20 Hz beta activity seen maximally over the anterior head regions. Muscle and movement artifact was observed on a few occasions during the tracing. Hyperventilation was not performed. Photic stimulation at flash frequencies of 2-30 Hz produced a good symmetrical occipital driving response. No epileptiform discharges were seen. IMPRESSION: This EEG is within normal limits for the patient's age. The EEG failed to reveal any focal, lateralized, or epileptiform abnormalities. Clinical correlation is recommended. MMODL / IJN: [id number] /
--- NOTE | 2018-01-14 22:43 | CONS ---
CONSULTATION Mrs. Daily is a 62-year-old female, who is seen for cardiac evaluation. The patient's medical records reviewed. The patient was working and sitting at her desk at work and she felt lightheaded. She could not continue to work. She tried to lay down but her coworker suggested calling EMS. The patient looked pale and felt warm. The patient was also diaphoretic. She felt like that she may pass out but she did not. The patient did not have any definite syncope. The patient denied any chest pain or fluttering. This patient was admitted with symptoms of reaction to the allergy shots about a week ago. At that time, patient had a CT scan of the brain which is revealed age related atrophy and chronic small vessel disease. The patient does have intermittent episodes of dizziness. Review of the system is otherwise unremarkable. PAST MEDICAL HISTORY: Includes angina. The patient denies any significant shortness of breath. During the previous admission patient was found to have moderate to severe mitral regurgitation. Mitral valve prolapse and she had a stress test which showed nonspecific ST-T changes. HOME MEDICATIONS: Include Zyrtec and nasal spray and ibuprofen. PHYSICAL EXAMINATION: At present reveals a 62-year-old female, who does not appear to be in any acute distress. Blood pressure is 124/76 mmHg. Head/ENT examination is unremarkable. Chest is symmetrical. Heart the PMI is not felt. First and second heart sounds are normal. There is a grade 3/6 mid systolic murmur is noted. Lungs are clinically clear to auscultation and percussion. Abdomen is negative. Extremities: Peripheral pulses are 2+. EKG shows nonspecific ST wave changes. Patient's electrolytes are normal. D-dimer test was 0.3 and the troponins are normal. FINAL IMPRESSION: This patient has a history suggestive of a vasovagal episode. Patient did not have a definite syncope. The patient does have a moderate to severe mitral regurgitation. The patient's symptoms are not related to that. The patient was supposed to be evaluated by Dr. Mcgowan as an outpatient with a [facility]. I discussed with the patient, we will watch her 24 hour. If she is doing well, she can be discharged home and we will schedule for [facility] as an outpatient. MMODL / IJN: [id number] /
[2018-01-15 06:13] LABS: Basophils % (A) 1 %; Eosinophils # (A) 0.2 k/uL (0-0.7); Eosinophils % (A) 3 %; HCT 41.9 % (34.0-46.0); HGB 13.6 gm/dL (11.4-16.0); Lymphocytes # (A) 2.7 k/uL (1.0-4.8); Lymphocytes % (A) 42 %; MCH 29.8 pg (25.0-35.0); MCHC 32.6 g/dL (31.0-37.0); MCV 91.4 fL (80.0-100.0); Mean Platelet Volume 7.2; Monocytes # (A) 0.5 k/uL (0-1.0); Monocytes % (A) 8 %; Neutrophils # (A) 2.8 k/uL (1.3-7.7); Neutrophils % (A) 45 %; Platelet Count 259 k/uL (150-450); RBC 4.58 m/uL (3.80-5.40); RDW 12.2 % (11.5-15.5); WBC 6.3 k/uL (3.8-10.6)
[2018-01-15 06:23] LABS: ALT 21 U/L (9-52); AST 16 U/L (14-36); Albumin 3.7 g/dL (3.5-5.0); Alkaline Phosphatase 88 U/L (38-126); Anion Gap 7 mmol/L; Blood Urea Nitrogen 15 mg/dL (7-17); Calcium 9.1 mg/dL (8.4-10.2); Carbon Dioxide 25 mmol/L (22-30); Chloride 108 mmol/L (98-107); Glucose 91 mg/dL (74-99); Potassium 4.3 mmol/L (3.5-5.1); Sodium 140 mmol/L (137-145); Total Bilirubin 0.6 mg/dL (0.2-1.3); Total Protein 6.3 g/dL (6.3-8.2)
[2018-01-15] MEDS ORDERED: ENOXAPARIN 40 MG/0.4 ML SYRINGE SQ SCH (09:00)
[2018-01-15] MEDS ORDERED: FAMOTIDINE 20 MG TAB PO SCH (09:00)
[2018-01-15 11:13] VITALS: BP 116/75; PULSE 72; RESP 18; TEMP 97
--- NOTE | 2018-01-15 14:16 | P.PN ---
Subjective Progress Note Date: 01/15/18 This is a 62-year-old female seen in consultation by Dr. VC Olmos yesterday. Patient presented to the hospital following a near syncopal episode. She denied any chest discomfort or fluttering in the chest. She does intermittently get episodes of dizziness. Past medical history significant for moderate to severe mitral regurgitation, mitral valve prolapse. Patient's symptoms on presentation here were not secondary to her mitral valve. Patient was supposed to be evaluated by Dr. Peralta as an outpatient with a [facility], we will get a date for that to be scheduled prior to her discharge. Hemodynamically she is stable today, she should be able to be discharged home from our perspective. Objective - Vital Signs Vital signs: Vital Signs Temp 97.0 F L 01/15/18 08:00 Pulse 72 01/15/18 11:19 Resp 18 01/15/18 11:19 BP 116/75 01/15/18 08:00 Pulse Ox 95 01/15/18 08:00 Intake & Output 01/14/18 01/15/18 01/15/18 18:59 06:59 18:59 Intake Total 660 10 Output Total 0 Balance 660 10 0 Weight 70.2 kg Intake: IV 10 Invasive Line 1 10 Oral 660 Output: Urine 0 Other: Voiding Method Toilet Toilet Toilet # Voids 1 2 - Exam PHYSICAL EXAMINATION: GENERAL: 62-year-old female in no acute distress at the time of my examination HEENT: Head is atraumatic, normocephalic. Pupils equal, round. Sclera anicteric. Conjunctiva are clear. Mucous membranes of the mouth are moist. Neck is supple. There is no elevated jugular venous pressure.] bruit is heard. HEART EXAMINATION: Heart S1-S2 there is a grade 3/6 mid systolic murmur noted CHEST EXAMINATION: Lungs are clear to auscultation and precussion. No chest wall tenderness is noted on palpation or with deep breathing. ABDOMEN: Soft, nontender. Bowel sounds are heard. No organomegaly noted. EXTREMITIES: 2+ peripheral pulses with no evidence of peripheral edema and no calf tenderness noted. NEUROLOGIC patient is awake, alert and oriented ?-3. . - Labs CBC & Chem 7: 01/15/18 05:46 01/15/18 05:46 Labs: Abnormal Lab Results - Last 24 Hours (Table) 01/15/18 Range/Units 05:46 Chloride 108 H (98-107) mmol/L Assessment and Plan Plan: Assessment and plan #1 symptoms suggestive of vasovagal episode. hemodynamically the patient is stable. #2 moderate to severe mitral regurgitation #3 history of asthma Plan From cardiology's perspective, patient may be able to be discharged home today. We will schedule her for an outpatient [facility] before she leaves. After the [facility] is performed she can follow-up with Dr. Peralta in the office. DNP note has been reviewed, I agree with a documented findings and plan of care. Patient was seen and examined.
--- NOTE | 2018-01-15 14:43 | P.DS ---
Providers Date of admission: 01/13/18 15:48 Expected date of discharge: 01/15/18 Attending physician: Ariadne Bernardo Consults: 01/13/18 15:48 Consult Physician Urgent Consulting Provider: Yulissa Pearce Consult Reason/Comments: Near syncope Do you want consulting provider notified?: Yes 01/14/18 08:59 Consult Physician Routine Consulting Provider: Darron Blackmon Consult Reason/Comments: follow up from previous admission Do you want consulting provider notified?: Yes Consult Physician Routine Consulting Provider: Zbigniew Mcgowan Consult Reason/Comments: syncopal episode Do you want consulting provider notified?: Yes Primary care physician: Katya Olmos [facility] Course: Discharge diagnosis 1. Near syncopal episode. CT of head completed showing age-related atrophic and chronic small vessel ischemic change without acute intracranial process seen at this time. Neurology services have been consulted. EEG and carotid ultrasound have been ordered. EEG completed showing within normal limits for the patient's age. Cardiology symptoms suggestive of vasovagal episode. EEG failed to reveal any focal lateralized or epileptiform abnormalities. Carotid Doppler completed showing no hemodynamically significant stenosis is seen in either internal carotid artery. Patient will follow up outpatient with neurology 2. Shortness of breath. Chest x-ray completed showing no acute cardiopulmonary process. Dr. Blackmon per pulmonary services have been consulted. D -dimer has been ordered. D-dimer 0.43. Patient will be discharged and follow- up outpatient with Dr. Blackmon per pulmonary services for pulmonary function test 3. History of early mild congestive heart failure. Cardiology services have been consulted. Last admission patient underwent stress. Patient was to follow -up on a 01/[address] Mcgowan for possible [facility]. EKG completed showing sinus rhythm with occasional PVCs. Troponin negative. Cardiology services have been consulted. ALLERGIES cleared patient for discharge. [facility] will be scheduled for outpatient and patient will be further followed by Dr. Peralta in the office. 4. History of asthma. No exacerbation noted at this time. Pulmonary services have been consulted. Patient will be discharged and follow-up outpatient with Dr. Blackmon per pulmonary services for pulmonary function test 5. Seasonal ALLERGIES. 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 Patient has been receiving ALLERGY shots. IgE completed last admission 27.5. Home Claritin and Flonase have been ordered Hospital Course This is a 62-year-old female patient of Dr. Olmos. Patient presented to the emergency department with complaints of near syncopal episode. Patient was here for the same reason approximately 1 week ago. At that time cardiology service was consulted and a stress test was completed. Patient was cleared for discharge from cardiology and was supposed to follow-up outpatient for a [facility]. Patient has a known past medical history of chest pain, low blood pressure and tubal ligation. CT of the head was completed showing age-related atrophic and chronic small vessel ischemic change without acute intracranial process seen at this time. EKG completed showing sinus rhythm with occasional premature ventricular complexes. Neurology services consulted. EEG and carotid ultrasound have been ordered per neurology. Pulmonary cardiology services also consulted. Patient denies chest pain this time. Denies nausea vomiting or diarrhea. Nice any urinary symptoms On 01/15/2018 patient has been cleared for discharge from consulting providers. Per cardiology patient will follow-up outpatient with [facility] and in his office with Dr. Peralta. Denies chest pain or shortness breath at this time. Denies nausea vomiting or diarrhea. Patient denies any urinary symptoms. patient to follow-up closely with primary care provider Dr. olmos. Patient Condition at Discharge: Stable Plan - Discharge Summary Discharge Rx Participant: Yes New Discharge Prescriptions: Continue Ibuprofen [Motrin Ib] 400 mg PO Q8H PRN PRN Reason: Pain Fluticasone Nasal [place] [Flonase Nasal [place]] 1 spray EA NOSTRIL DAILY PRN PRN Reason: Allergy Symptoms Cetirizine HCl [Zyrtec] 10 mg PO DAILY PRN PRN Reason: Allergy Symptoms Discharge Medication List Ibuprofen [Motrin Ib] 400 mg PO Q8H PRN 01/08/18 [History] Cetirizine HCl [Zyrtec] 10 mg PO DAILY PRN 01/13/18 [History] Fluticasone Nasal [place] [Flonase Nasal [place]] 1 spray EA NOSTRIL DAILY PRN 01/13 [History] Follow up Appointment(s)/Referral(s): Catrachita Grossman NPC [Nurse Practitioner] - 01/23/18 8:00 am () Shaye Pearce MD [STAFF PHYSICIAN] - 1 Week (Office to call with follow up appointment.) Darron Blackmon MD [STAFF PHYSICIAN] - 1 Week Katya Olmos MD [Primary Care Provider] - 1-2 Days Zbigniew Mcgowan MD [STAFF PHYSICIAN] - 1 Week Activity/Diet/Wound Care/Special Instructions: Diet heart healthy Activity as tolerated Patient to have scheduled [facility] outpatient arranged prior to discharge Discharge Disposition: HOME SELF-CARE
== END 2018-01-15 15:59 | disposition home or self-care (01) ==
LOC: EC 14:10 → 3OBS 15:48 → 6SEL 20:12
PROVIDERS: ADMIT Internal Medicine; ATTEND Internal Medicine
DX: R55 Syncope and collapse (principal); J45.909 Unspecified asthma, uncomplicated; Z82.49 Family history of ischemic heart disease and other diseases of the circulatory system; Z79.51 Long term (current) use of inhaled steroids; Z91.040 Latex allergy status; Z88.0 Allergy status to penicillin; Z88.2 Allergy status to sulfonamides; Z91.018 Allergy to other foods; R61 Generalized hyperhidrosis; I34.0 Nonrheumatic mitral (valve) insufficiency; I50.21 Acute systolic (congestive) heart failure; I34.1 Nonrheumatic mitral (valve) prolapse
CPT/HCPCS: 99285; 96360 ×2; 36415; 95819; 93005; 85379; 80053 ×2; 82550; 82553; 83735; 84443; 84484; 85025 ×2; 85610; 85730; 71046; 93880; 70450; G0378 ×4

== ENCOUNTER 2018-01-22 07:22 | Day surgery (SDC) | payer OTHER ==
[2018-01-17 11:47] VITALS: BMI 27.4
[2018-01-22] MEDS ORDERED: IV FLUID CONTINUATION 400 ML IV ONE (07:45)
[2018-01-22 07:54] VITALS: PULSE 68; RESP 20; TEMP 97.9
[2018-01-22] MEDS ORDERED: MIDAZOLAM 2 MG/2 ML VIAL ONE ×2 (08:41→09:06)
[2018-01-22] MEDS ORDERED: fentaNYL (PF) 50 MCG/ML 2 ML AMP ONE (08:41)
[2018-01-22] MEDS ORDERED: BENZOCAINE SPRAY 1 CAN MUCOUS MEM ONE (08:52)
[2018-01-22] MEDS ORDERED: MIDAZOLAM 2 MG/2 ML VIAL IVP ONE ×2 (08:55→09:07)
[2018-01-22] MEDS: MIDAZOLAM 2 MG/2 ML VIAL IVP ONE ×2 (08:57→08:59)
[2018-01-22] MEDS ORDERED: fentaNYL (PF) 50 MCG/ML 2 ML AMP IVP ONE (09:00)
[2018-01-22] MEDS ORDERED: PHENYLEPHRINE-0.9% NACL SYG 1 MG/10 ML SYRINGE ONE (09:25)
[2018-01-22] MEDS ORDERED: LIDOCAINE 1% INJ 10MG/ML (20 ML MDV) ONE (09:25)
[2018-01-22] MEDS ORDERED: PROPOFOL 10 MG/ML 20 ML VIAL IV ONE (09:25)
--- NOTE | 2018-01-22 10:21 | ECHOT ---
TRANSESOPHAGEAL ECHOCARDIOGRAM DATE OF SERVICE: January 22, 2018 PERFORMING PHYSICIAN: Zbigniew Mcgowan MD, metal mover. PROCEDURE PERFORMED: Transesophageal echocardiogram. INDICATION: This is a pleasant 62-year-old female patient who presented to the hospital few weeks ago with shortness of breath. She was ruled out for acute coronary event. She underwent an echocardiogram and that revealed moderate to severe mitral regurgitation. She was brought today for further evaluation of the mitral valve apparatus. COMPLICATION: None. LEVEL OF SEDATION: Initially we tried conscious sedation, but the patient did not tolerate it and because of that we pursued with deep sedation with propofol with SCALE TANK OPERATOR in the room. PROCEDURE DESCRIPTION: After obtaining an informed consent, the patient was brought to the transesophageal echocardiogram suite. The pulse oximetry and heart rate monitors were attached to the patient. Subsequently the patient was turned into left lateral position. We attempted giving the patient 4 mg of Versed and 25 mcg of fentanyl and the patient did not tolerate advancing the probe to the mid esophagus and we had to pull the probe out. Because of that, we called anesthesia. The patient was given a propofol. Subsequently the transesophageal echocardiogram probe was advanced to the mid esophagus where 2D echocardiogram images and color Doppler images of various cardiac structures were obtained. Particular attention was made to the mitral valve apparatus. The procedure itself was performed without any complication. FINDINGS: The left ventricular dimension and systolic function appeared to be within normal limits. The ejection fraction appeared to be in the range of 55% and normal wall motion. Right ventricle is of normal size and function. The left atrium appeared to be moderately dilated. The left atrial appendage appeared to be free from any thrombus. The aortic valve is trileaflet valve without stenosis or regurgitation. The mitral valve is thickened and calcified with evidence of mitral valve prolapse of both the anterior as well as posterior mitral leaflet with more dominant P2 prolapsing of the posterior mitral leaflet and evidence of severe mitral regurgitation by color flow Doppler, by Vena Contracta, by and evidence of reversal flow in the pulmonic vein. The tricuspid valve and pulmonic valve appear to be within normal limits. There is no evidence of any pericardial effusion seen. CONCLUSION: 1. 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 The severe mitral regurgitation was confirmed by color-flow Doppler, Vena contracta, by , and there was evidence of reversal of flow in the pulmonic vein. 2. Normal left ventricular dimension and systolic function. The ejection fraction appeared to be in the range of 55%. 3. Trileaflet aortic valve without stenosis or regurgitation. 4. Normal tricuspid valve and pulmonic valve. 5. Intact interatrial septum without any evidence of shunt. 6. Normal left atrial appendage. 7. No evidence of pericardial effusion. MMODL / IJN: [id number] /
[2018-01-22 14:06] VITALS: BP 114/62
== END 2018-01-22 13:30 | disposition home or self-care (01) ==
LOC: CATHCVL 07:22
PROVIDERS: ATTEND Internal Medicine Interventional Cardiology
DX: I34.0 Nonrheumatic mitral (valve) insufficiency (principal); Z91.040 Latex allergy status; Z88.0 Allergy status to penicillin; Z88.2 Allergy status to sulfonamides; Z91.018 Allergy to other foods
CPT/HCPCS: 93312; 93320; 93325; J2250; J2001; J3010; J2370; J2704

== ENCOUNTER → 2018-02-04 | Day surgery (SDC) | payer OTHER ==
[2018-01-29 12:02] VITALS: BMI 27.4
[~2018-02-04] MED LIST: ALPRAZolam 0.25 MG TAB PO PRN; ALPRAZolam 0.5 MG TAB PO PRN; ASPIRIN 325 MG TAB PO STA; ATORVASTATIN 80 MG TAB PO STA; HEPARIN SODIUM 1,000 UN/ML (10ML VL) ONE; IOPAMIDOL-370 125ML BTL INJ ONE; IV FLUID CONTINUATION 1,000 ML IV ONE; LIDOCAINE 2% (PF) 20 MG/ML 10 ML AMP SQ ONE; MIDAZOLAM 2 MG/2 ML VIAL IV ONE; MIDAZOLAM 2 MG/2 ML VIAL ONE; NITROGLYCERIN SL TABS 0.4 MG TAB SUBLINGUAL PRN; RX INFO: IV CONTRAST WAS GIVEN 1 EACH MISC MISCELLANE PRN; SODIUM CHLORIDE 0.9% 1,000 ML IV SCH; SODIUM CHLORIDE 0.9% 1,000 ML in EMPTY BAG 1 BAG IV ONE; VERAPAMIL 2.5 MG/ML 2 ML AMP ONE; fentaNYL (PF) 50 MCG/ML 2 ML AMP IV ONE; fentaNYL (PF) 50 MCG/ML 2 ML AMP ONE
[2018-02-04] MEDS: VERAPAMIL SYRINGE (5 MG/10 ML) INTRAARTER ONE ×2 (12:02→12:14)
--- NOTE | 2018-02-04 12:51 | CC ---
CARDIAC CATHETERIZATION REPORT DATE OF SERVICE: February 04, 2018 PERFORMING PHYSICIAN: Zbigniew Mcgowan MD, mass communications professor. PROCEDURE PERFORMED: 1. Selective right and left coronary angiogram. 2. Left heart catheterization. 3. Left ventriculography. INDICATION: This is a pleasant 62-year-old female patient who diagnosed recently with severe symptomatic mitral regurgitation and she is scheduled to undergo an open heart surgery for mitral valve repair. She was brought today to undergo a heart catheterization for her open heart surgery. APPROACH: Right radial artery. COMPLICATION: None. LEVEL OF SEDATION: Moderate with sedation length of 16 minutes. PROCEDURE DESCRIPTION: After obtaining an informed consent, the patient was brought to cardiac labor crew supervisor. The right radial artery was cannulated using micropuncture technique, the micropuncture wire passed easily then I placed a 5-Sierra Leonean sheath in the right radial artery. After that, I did selective right and left coronary angiogram using JR4 and JL3.5 catheters. Left heart catheterization was performed using 5-Sierra Leonean pigtail catheter. The procedure was completed without any complication. SELECTIVE CORONARY ANGIOGRAM: 1. The right coronary artery is a large caliber vessel and it is a dominant vessel and it is angiographically normal. It distally bifurcates into PDA and PLV branches both are angiographically normal. 2. The left main is angiographically normal. It bifurcates into left circumflex and left anterior descending artery. 3. The left circumflex is a large caliber vessel. It is a nondominant vessel. The proximal circumflex is normal and gives rise into a large OM branch which bifurcates distally into 2 separate branches. The OM 1 is normal. The left circumflex continues after that as a medium caliber vessel in the AV groove and gives distally another second OM branch which is small to medium caliber vessel. 4. The LAD: The proximal LAD is angiographically normal. It gives rise into first diagonal branch which is a large caliber vessel, seems to be angiographically normal. The mid and distal LAD appears to be angiographically normal. HEMODYNAMICS: The left ventricular end-diastolic pressure was 12 mmHg and no significant gradient was seen across the aortic valve. LEFT VENTRICULOGRAPHY: Left ventriculography was performed in the CHAUDHRY projection and using a power injection. The left ventricular systolic function is normal with EF around 60% with at least 3+ MR. CONCLUSION: 1. Normal coronary angiogram. 2. Normal left ventricular systolic function. 3. Three plus mitral regurgitation seen. MMODL / IJN: [id number] /
--- NOTE | 2018-02-04 12:51 | LTR ---
February 04, 2018 Re: Yuko Daily Dear Dr. Olmos: Ms. Yuko Daily underwent a heart catheterization and that revealed normal coronaries. As you know, she is going to have mitral valve repair by Dr. Rory Red in the next few weeks. I want to thank you for allowing me to participate in her care and please do not hesitate to call if question or concern. Sincerely, MD POPEYE Goncalves / STEWART: [id number] /
[2018-02-04 13:26] VITALS: TEMP 98
--- NOTE | 2018-02-04 15:54 | XR ---
EXAMINATION TYPE: XR chest 2V DATE OF EXAM: 02/04/2018 COMPARISON: NONE TECHNIQUE: PA and lateral views submitted. HISTORY: Preop FINDINGS: The lungs are clear and there is no pneumothorax, pleural effusion, or focal pneumonia. Hypertrophi c changes of the spine. IMPRESSION: 1. No acute process.
[2018-02-04 16:47] LABS: Basophils % (A) 1 %; Eosinophils # (A) 0.2 k/uL (0-0.7); Eosinophils % (A) 2 %; HCT 39.7 % (34.0-46.0); HGB 12.7 gm/dL (11.4-16.0); Lymphocytes % (A) 42 %; MCH 30.1 pg (25.0-35.0); MCHC 32.1 g/dL (31.0-37.0); MCV 93.7 fL (80.0-100.0); Mean Platelet Volume 6.8; Monocytes # (A) 0.4 k/uL (0-1.0); Monocytes % (A) 6 %; Neutrophils # (A) 3.4 k/uL (1.3-7.7); Neutrophils % (A) 48 %; Platelet Count 253 k/uL (150-450); RBC 4.24 m/uL (3.80-5.40); RDW 12.2 % (11.5-15.5); WBC 7.1 k/uL (3.8-10.6)
[2018-02-04 16:54] LABS: Prothrombin Time 9.8 sec (9.0-12.0)
[2018-02-04 16:55] LABS: Partial Thromboplastin Time 28.1 sec (22.0-30.0)
[2018-02-04 17:07] LABS: ALT 25 U/L (9-52); AST 24 U/L (14-36); Albumin 3.5 g/dL (3.5-5.0); Alkaline Phosphatase 69 U/L (38-126); Anion Gap 6 mmol/L; Blood Urea Nitrogen 15 mg/dL (7-17); Calcium 8.8 mg/dL (8.4-10.2); Carbon Dioxide 25 mmol/L (22-30); Chloride 109 mmol/L (98-107); Cholesterol 171 mg/dL (<200); Glucose 103 mg/dL (74-99); HDL Cholesterol 54 mg/dL (40-60); LDL Cholesterol,Calculated 76 mg/dL (0-99); Magnesium 2.2 mg/dL (1.6-2.3); Sodium 140 mmol/L (137-145); Total Bilirubin 0.6 mg/dL (0.2-1.3); Total Protein 6.3 g/dL (6.3-8.2); Triglycerides 207 mg/dL (<150)
[2018-02-04 17:17] LABS: Potassium 4.2 mmol/L (3.5-5.1)
[2018-02-04 17:32] VITALS: BP 110/56; PULSE 68; RESP 18
[2018-02-04 20:21] LABS: Appearance,Urine Clear (Clear); Bacteria,Urine Occasional /hpf; Bilirubin,Urine Negative (Negative); Blood,Urine Negative (Negative); Color,Urine Colorless; Glucose,Urine (UA) Negative (Negative); Ketones,Urine Negative (Negative); Leukocyte Esterase,Urine Moderate (Negative); Nitrite,Urine Negative (Negative); Protein,Urine Negative (Negative); RBC,Urine 1 /hpf (0-5); Specific Gravity,Urine 1.007 (1.001-1.035); Squamous Epithelial Cell,Urine 5 /hpf (0-4); Urobilinogen,Urine <2.0 mg/dL (<2.0); WBC,Urine 5 /hpf (0-5)
[2018-02-05 05:05] LABS: Hemoglobin A1C 5.3 % (4.0-6.0)
[2018-02-05 08:55] LABS: Hepatitis B Core IgM Non-Reactive (Non-Reactive)
--- NOTE | 2018-02-05 09:15 | P.PN ---
Progress Note - Text Progress Note Date: 02/04/18 5 meter walk test completed 02/04/18: #1 4.46 sec #2 3.63 sec #3 3.63 sec
[2018-02-05 16:30] LABS: Hepatitis A Antibody IgM Non-Reactive (Non-Reactive)
== END ==
LOC: CATHCVL 10:48
PROVIDERS: ATTEND Internal Medicine Interventional Cardiology
DX: Z01.818 Encounter for other preprocedural examination (principal); I34.0 Nonrheumatic mitral (valve) insufficiency; Z79.82 Long term (current) use of aspirin; Z79.899 Other long term (current) drug therapy; Z88.0 Allergy status to penicillin
CPT/HCPCS: 94150; 93458; 83880; 80061; 80053; 80074; 84443; 83735; 85025; 85610; 85730; 81001; 87070; 87086; 83036; 71046; C1894; J2250; J2001; J3010; J1644; Q9967; 86850; 86900; 86901; 86920

== ENCOUNTER 2018-02-14 05:35 | Inpatient (IN) | payer OTHER ==
[~2018-02-14 05:35] MED LIST changes: +ALBUMIN HUMAN 25% 50 ML IV ONE; +ALBUMIN HUMAN 5% 500 ML IVPB ONE; -ALPRAZolam 0.25 MG TAB PO PRN; -ALPRAZolam 0.5 MG TAB PO PRN; -ASPIRIN 325 MG TAB PO STA; +ASPIRIN 81 MG PO ONE; +ATORVASTATIN 10 MG TAB PO ONE; -ATORVASTATIN 80 MG TAB PO STA; +CALCIUM CHLORIDE 100 MG/ML 10 ML SYRINGE IV ONE; +CARDIOPLEGIC SOLN (K+ 16 MEQ/L 1,000 ML with SODIUM BICARB (1 MEQ/ML) 20 ML, LIDOCAINE ... PERFUSION ONE; +CHLORHEXIDINE GLUCONATE 15 ML CUP MUCOUS MEM ONE; +CLEVIDIPINE BUTYRATE 25 MG in EMPTY BAG 1 BAG IV ONE; +HEPARIN SODIUM 1,000 UN/ML (10ML VL) IV ONE; -HEPARIN SODIUM 1,000 UN/ML (10ML VL) ONE; +HEPARIN SODIUM,PORCINE 5,000 UNIT in SODIUM CHLORIDE 0.9% 500 ML IV ONE; +INSULIN REGULAR 100 UNIT in SODIUM CHLORIDE 0.9% 100 ML IV ONE; -IOPAMIDOL-370 125ML BTL INJ ONE; -IV FLUID CONTINUATION 1,000 ML IV ONE; +LACTATED RINGERS 1,000 ML IV ONE; -LIDOCAINE 2% (PF) 20 MG/ML 10 ML AMP SQ ONE; +MAGNESIUM SULFATE MG 500 MG/ML VIAL IV ONE; +MANNITOL 25% 12.5 GM/50 ML VIAL IV ONE; +METOPROLOL TARTRATE 12.5 MG TAB PO ONE; -MIDAZOLAM 2 MG/2 ML VIAL IV ONE; -MIDAZOLAM 2 MG/2 ML VIAL ONE; -NITROGLYCERIN SL TABS 0.4 MG TAB SUBLINGUAL PRN; +NITROGLYCERIN-D5W PMX 25 MG/250 ML BTL IV ONE; +NITROGLYCERIN-D5W PMX 50 MG in DEXTROSE/WATER 1 250ML.BAG IV ONE; +NOREPINEPHRINE 4 MG in SODIUM CHLORIDE 0.9% 250 ML IV ONE; +PHENYLEPHRINE 40 MG in SODIUM CHLORIDE 0.9% 250 ML IV ONE; +PHENYLEPHRINE-0.9% NACL SYG 1 MG/10 ML SYRINGE IV ONE; +PROPOFOL 1,000 MG/100 ML VIAL IV ONE; +PROTAMINE SULFATE 10 MG/ML 25 ML VIAL IV ONE; +PROTAMINE SULFATE 250 MG in EMPTY BAG 1 BAG IV ONE; -RX INFO: IV CONTRAST WAS GIVEN 1 EACH MISC MISCELLANE PRN; +SODIUM BICARB 8.4% 50 ML SYR (1 MEQ/ML) IV ONE; +SODIUM CHLORIDE 0.9% 1,000 ML IV ONE; -SODIUM CHLORIDE 0.9% 1,000 ML IV SCH; -SODIUM CHLORIDE 0.9% 1,000 ML in EMPTY BAG 1 BAG IV ONE; +TRANEXAMIC ACID 2,000 MG in SODIUM CHLORIDE 0.9% 180 ML IV ONE; -VERAPAMIL 2.5 MG/ML 2 ML AMP ONE; +ceFAZolin 1,000 MG in SODIUM CHLORIDE 0.9% IRRIGATIO 1,000 ML IRRIGATION ONE; +ceFAZolin 2,000 MG in SODIUM CHLORIDE 0.9% 30 ML IVPB ONE; +ceFAZolin IN SWFI 2 GM/20 ML SYRINGE IVP ONE; -fentaNYL (PF) 50 MCG/ML 2 ML AMP IV ONE; -fentaNYL (PF) 50 MCG/ML 2 ML AMP ONE
[2018-02-14] MEDS ORDERED: VECURONIUM 10 MG VIAL IV ONE ×2 (07:51→22:30)
[2018-02-14] MEDS ORDERED: SODIUM CHLORIDE 0.9% 250 ML BAG ONE (07:51)
[2018-02-14] MEDS ORDERED: fentaNYL (PF) 50 MCG/ML 50 ML VIAL ONE (07:51)
[2018-02-14] MEDS ORDERED: ALBUMIN HUMAN 5% 500 ML VIAL IVPB ONE (07:51)
[2018-02-14] MEDS ORDERED: ELECTROLYTE-R (PH 7.4) 1,000 ML IV.SOLN IV ONE (07:51)
[2018-02-14] MEDS ORDERED: WATER FOR INJECTION, STERILE 10 ML VIAL IV ONE ×2 (07:51→22:30)
[2018-02-14] MEDS ORDERED: TRANEXAMIC ACID 1,000 MG/10 ML VIAL ONE (07:51)
[2018-02-14] MEDS ORDERED: SODIUM BICARB 8.4% 50 ML SYR (1 MEQ/ML) ONE (07:51)
[2018-02-14] MEDS ORDERED: ePHEDrine SULFATE/0.9% NACL/PF 50 MG/5 ML SYRINGE IV ONE (07:51)
[2018-02-14] MEDS ORDERED: LIDOCAINE 2% SYG (PF) 100 MG/5 ML ONE (07:51)
[2018-02-14] MEDS ORDERED: PHENYLEPHRINE-0.9% NACL SYG 1 MG/10 ML SYRINGE ONE (07:51)
[2018-02-14] MEDS ORDERED: CALCIUM CHLORIDE 100 MG/ML 10 ML SYRINGE ONE (07:51)
[2018-02-14] MEDS ORDERED: SODIUM CHLORIDE 0.9% IRRIG 1,000 ML BTL IRRIGATION ONE ×2 (07:51→22:30)
[2018-02-14] MEDS ORDERED: HEPARIN SODIUM,PORCINE 10,000 UNIT/ML 1 ML VIAL ONE (07:51)
[2018-02-14] MEDS ORDERED: PROTAMINE SULFATE 10 MG/ML 25 ML VIAL IV ONE (07:51)
[2018-02-14] MEDS ORDERED: MAGNESIUM SULFATE 4 MEQ/ML 2 ML VIAL ONE (07:51)
[2018-02-14] MEDS ORDERED: PROPOFOL 10 MG/ML 20 ML VIAL IV ONE ×2 (07:51→22:30)
[2018-02-14] MEDS ORDERED: fentaNYL (PF) 50 MCG/ML 2 ML AMP ONE (07:51)
[2018-02-14] MEDS ORDERED: MIDAZOLAM 2 MG/2 ML VIAL ONE (07:51)
[2018-02-14] MEDS ORDERED: SUCCINYLCHOLINE CHLORIDE 100 MG/5 ML SYR IV ONE (07:51)
[2018-02-14 08:29] LABS: ABG Base Excess 1.8 mmol/L; ABG HCO3 26 mmol/L (21-25); ABG PCO2 37 mmHg (35-45); ABG PH 7.45 (7.35-7.45); ABG PO2 417 mmHg (83-108); ABG Potassium Whole Blood 4.1 mmol/L (3.4-4.5); ABG Sodium Whole Blood 140 mmol/L (135-146); ABG TCO2 27 mmol/L (19-24)
[2018-02-14 09:35] LABS: ABG Base Excess -1.7 mmol/L; ABG HCO3 23 mmol/L (21-25); ABG PCO2 37 mmHg (35-45); ABG PH 7.41 (7.35-7.45); ABG PO2 408 mmHg (83-108); ABG Potassium Whole Blood 4.6 mmol/L (3.4-4.5); ABG Sodium Whole Blood 136 mmol/L (135-146); ABG TCO2 24 mmol/L (19-24)
[2018-02-14 10:06] LABS: ABG Base Excess -0.8 mmol/L; ABG HCO3 25 mmol/L (21-25); ABG PCO2 46 mmHg (35-45); ABG PH 7.34 (7.35-7.45); ABG Potassium Whole Blood 4.5 mmol/L (3.4-4.5); ABG Sodium Whole Blood 137 mmol/L (135-146); ABG TCO2 26 mmol/L (19-24)
[2018-02-14 10:40] LABS: ABG Base Excess -1.5 mmol/L; ABG HCO3 23 mmol/L (21-25); ABG PCO2 34 mmHg (35-45); ABG PH 7.43 (7.35-7.45); ABG PO2 415 mmHg (83-108); ABG Potassium Whole Blood 4.8 mmol/L (3.4-4.5); ABG Sodium Whole Blood 138 mmol/L (135-146); ABG TCO2 24 mmol/L (19-24)
[2018-02-14 11:41] LABS: ABG Base Excess -0.4 mmol/L; ABG HCO3 24 mmol/L (21-25); ABG PCO2 40 mmHg (35-45); ABG PO2 371 mmHg (83-108); ABG Potassium Whole Blood 3.9 mmol/L (3.4-4.5); ABG Sodium Whole Blood 143 mmol/L (135-146); ABG TCO2 26 mmol/L (19-24)
[2018-02-14 11:57] LABS: ABG PO2 >420 mmHg (83-108)
--- NOTE | 2018-02-14 12:27 | P.OP ---
Date of Procedure: 02/14/18 Preoperative Diagnosis: Mitral Regurgitation Postoperative Diagnosis: same Procedure(s) Performed: Complex trouble valve repair with closure of base of P1 and P2 cleft and annuloplasty with 26 mm AnnuloFlex ring, epi-aortic ultrasound, closure of left atrial appendage, EILEEN by anesthesia Implants: 26 mm AnnuloFlex ring Anesthesia: MURIEL Surgeon: Rory Red Commercial Loan Closer #1: Will Ruiz Commercial Loan Closer #2: Mat Garcia Estimated Blood Loss (ml): 200 IV fluids (ml): 2,000 Urine output (ml): 600 Pathology: none sent Condition: stable Disposition: ICU Indications for Procedure: 62-year-old female with exertional dyspnea and shortness of breath found to have severe mitral regurgitation on echocardiography confirmed on EILEEN. There is posterior leaflet prolapse without flail. There is central and somewhat anterior directed multiple jets. Ventricular function is well-preserved. Coronary catheterization was normal. There was note tricuspid regurgitation. Patient had no history of atrial fibrillation. Elective mitral valve repair was recommended and scheduled. Operative Findings: Intraoperative EILEEN findings were consistent with the preoperative EILEEN. Intraoperative epi-aortic ultrasound demonstrated posterior plaque in the mid descending thoracic aorta was protruding less than 0.5 cm. 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 The anterior leaflet was not myxomatous however the chordae were somewhat shortened and thickened leading to mild restriction of the anterior leaflet. EILEEN following repair demonstrated no evidence of mitral regurgitation, normal ventricular function. Description of Procedure: The patient was brought to the operating room, placed supine on the operating table, anesthetized and intubated. The anterior torso and lower extremities were sterilely prepped and draped in standard fashion. Midline sternotomy was performed. Bilateral pleural spaces were opened. The pericardium was opened in the midline and the patient was systemically heparinized. Heart was exposed with pericardial sutures. Epi-aortic ultrasonography was performed with evidence of some posterior plaque in the mid to proximal ascending aorta. Care was taken to cannulate and cross clamp above this area. Patient was cannulated with a 7 mm soft flow cannula in the distal ascending aorta, a 34 straight venous cannula through the right atrial appendage into the inferior vena cava, 28 right angle cannula in the superior vena cava, standard antegrade and retrograde cardioplegia lines. The atrial tissue was very thin and friable and did not hold sutures well. Patient was placed on cross-clamp and stabilized. The interatrial groove was developed. Aorta was crossclamped and the heart arrested with cold crystalloid antegrade cardioplegia followed by retrograde cardioplegia. Left atrium was opened through the inner atrial septum and the atrial valve exposed with the Tacos retractor. Left atrial appendage was oversewn from inside with a 2 layer running closure of 3-0 Prolene suture. Mitral valve was now carefully explored. 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 There was posterior annular calcification in the area P2 leading into the area of P1. The anterior leaflet was not myxomatous. It was small and somewhat restricted by short and thickened chordae. Was normally mobile however and was not felt to need any type of repair. It was felt that it was likely that and simple annuloplasty ring would control the mitral regurgitation and the given the shortening of the anterior cords that the risk of Swapnil would be very low even given the very high and enlarged posterior leaflet. Circumferential annuloplasty sutures were placed for complete ring placement. Annuloplasty sutures were difficult in the region of the calcium near P1 and P2. Once the sutures were in place the anterior leaflet was sized and a 26 AnnuloFlex ring was chosen. Annuloplasty sutures were placed through the ring and the ring was seated and the sutures tied. The valve was not tested. Regurgitation was much improved but there were still regurgitation at the base of P1 and P2 cleft. This was closed with 5 -0 Prolene with relief of the regurgitation. We injected down to about 34. We now rewarmed to systemic temperature. The left atrium was closed with a single layer running closure of 3-0 Prolene. It was de-aired prior to tying. Patient was placed in Trendelenburg and the cross-clamp was removed. Heart slowly returned to sinus rhythm. We initially paced with AV pacing but did not need that by the end of the case. The retrograde cardioplegia line was removed. The heart was de-aired under EILEEN guidance. We did not need to vent the apex. The inferior caval cannula was pulled back into the right atrium. The superior vena caval cannula was removed. Pursestring was tied bleeding from the left medial wall of the IVC and this was repaired with a single pledgeted Prolene 50 stitch. Second pledgeted 5-0 Prolene stitch was used to reinforce the cannulation site at the left atrial appendage as the tissue was very thin and tearing. We now weaned from cardiopulmonary bypass without the use of inotropic support. The aortic cannula was removed and the site reinforced with a 4-0 Prolene pledgeted suture. The aortic vent site was similarly removed and reinforced. The venous cannula was removed and the site reinforced with the previously placed 5-0 Prolene. Good hemostasis was now observed throughout. Heparin was reversed with protamine. Bilateral pleural spaces were drained with 32-Macedonian chest tubes in the mediastinum with a 36- Macedonian chest tube. After assuring good hemostasis and stable hemodynamics on no inotropic support and also assuring the EILEEN findings of no mitral regurgitation and good ventricular function, the chest was irrigated with antibiotic solution and the sternum closed with 8 sternal wires. The fascia was closed with 0 Ethibond. Subcutaneous and subcuticular layers with layers of Vicryl suture. Dry sterile dressings were applied and the patient was transferred to CCU in stable hemodynamic condition. Patient required no blood transfusions.
[2018-02-14] MEDS ORDERED: IPRATROPIUM-ALBUTEROL 3 ML NEB INHALATION PRN (12:40)
[2018-02-14] MEDS ORDERED: Phosphorus Replacement Protoco 1 EACH MISC MISCELLANE PRN (12:40)
[2018-02-14] MEDS ORDERED: BENZOCAINE/MENTHOL LOZENG 1 EACH LOZENGE MUCOUS MEM PRN (12:40)
[2018-02-14] MEDS ORDERED: AMIODARONE 450 MG in DEXTROSE 5% IN WATER 250 ML IV PRN ×2 (12:40)
[2018-02-14] MEDS ORDERED: Potassium Replacement Protocol 1 EACH MISC MISCELLANE PRN ×2 (12:40→19:08)
[2018-02-14] MEDS ORDERED: Magnesium Replacement Protocol 1 EACH MISC MISCELLANE PRN (12:40)
[2018-02-14] MEDS ORDERED: METOCLOPRAMIDE 5 MG/ML 2 ML VIAL IVP PRN (12:40)
[2018-02-14] MEDS: PROPOFOL 1,000 MG in EMPTY BAG 1 BAG IV SCH ×2 (12:40→18:32)
[2018-02-14] MEDS ORDERED: DEXTROSE 5% IN WATER 100 ML with AMIODARONE 150 MG IV PRN (12:40)
[2018-02-14] MEDS ORDERED: CALCIUM CHLORIDE 1,000 MG in SODIUM CHLORIDE 0.9% 100 ML IV PRN (12:40)
[2018-02-14 12:43] LABS: ABG Base Excess -4.8 mmol/L; ABG HCO3 20 mmol/L (21-25); ABG PCO2 37 mmHg (35-45); ABG PH 7.35 (7.35-7.45); ABG PO2 377 mmHg (83-108); ABG Potassium Whole Blood 3.9 mmol/L (3.4-4.5); ABG Sodium Whole Blood 139 mmol/L (135-146); ABG TCO2 22 mmol/L (19-24)
[2018-02-14 12:49] LABS: Glucose,Whole Blood 105 mg/dL (75-99)
[2018-02-14 13:04] LABS: Basophils % (A) 0 %; Eosinophils # (A) 0.1 k/uL (0-0.7); Eosinophils % (A) 1 %; Lymphocytes # (A) 1.4 k/uL (1.0-4.8); Lymphocytes % (A) 14 %; MCH 31.1 pg (25.0-35.0); MCV 94.5 fL (80.0-100.0); Mean Platelet Volume 7.5; Monocytes # (A) 0.3 k/uL (0-1.0); Monocytes % (A) 3 %; Neutrophils # (A) 8.1 k/uL (1.3-7.7); Neutrophils % (A) 82 %; RBC 1.97 m/uL (3.80-5.40); RDW 12.3 % (11.5-15.5); WBC 9.9 k/uL (3.8-10.6)
[2018-02-14 13:09] LABS: INR 1.4 (<1.2); Prothrombin Time 13.5 sec (9.0-12.0)
[2018-02-14 13:10] LABS: Partial Thromboplastin Time 48.6 sec (22.0-30.0)
[2018-02-14 13:11] LABS: Ionized Calcium 4.2 mg/dL (4.5-5.3)
[2018-02-14 13:12] LABS: HGB 6.1 gm/dL (11.4-16.0)
[2018-02-14 13:13] LABS: HCT 18.6 % (34.0-46.0)
--- NOTE | 2018-02-14 13:16 | XR ---
EXAMINATION TYPE: XR chest 1V portable DATE OF EXAM: 02/14/2018 CLINICAL HISTORY: Post open cardiac surgery. TECHNIQUE: Single AP portable frontal supine view of the chest is obtained. COMPARISON: Chest x-ray from 10 days earlier. FINDINGS: There is new endotracheal tube terminating at inferior clavicular level approximately 4 to 5 cm above gina. There is new orogastric tube projecting below left hemidiaphragm. There is new ri ght internal jugular Caro-Abimael catheter terminating at level of the pulmonary outflow track in the ce ntral mid chest. There are new bilateral chest tubes and mediastinal drainage catheter. There are new sternotomy wires noted as well as hypodense cardiac valvular ring just superior to mitral annular ca lcifications. There is more prominent cardiomegaly with bilateral central horizontal opacities favoring atelectasis and/or fluid within fissures. Small bilateral pleural effusions are felt present. No sizable pneumot horax is seen. There is patchy left basilar atelectasis now identified. Osseous structures are intact . IMPRESSION: 1. New tubes and lines felt satisfactory in position as detailed above. 2. More prominent cardiomegaly with mild central vascular congestion and small bilateral pleural effu sions with bilateral perihilar mild fluid in fissure or linear atelectasis and patchy left basilar at electasis all now identified.
[2018-02-14 13:36] LABS: Platelet Count 79 k/uL (150-450)
[2018-02-14 13:40] LABS: ABG HCO3 24 mmol/L (21-25); ABG PCO2 52 mmHg (35-45); ABG PH 7.27 (7.35-7.45); ABG PO2 280 mmHg (83-108); ABG TCO2 26 mmol/L (19-24)
[2018-02-14 13:54] LABS: Glucose,Whole Blood 161 mg/dL (75-99)
[2018-02-14 13:59] LABS: ALT 26 U/L (9-52); AST 26 U/L (14-36); Albumin 2.8 g/dL (3.5-5.0); Alkaline Phosphatase 26 U/L (38-126); Anion Gap 8 mmol/L; Blood Urea Nitrogen 8 mg/dL (7-17); Carbon Dioxide 23 mmol/L (22-30); Chloride 111 mmol/L (98-107); Glucose 92 mg/dL (74-99); Magnesium 3.1 mg/dL (1.6-2.3); Potassium 4.3 mmol/L (3.5-5.1); Sodium 142 mmol/L (137-145); Total Bilirubin 0.6 mg/dL (0.2-1.3); Total Protein 4.3 g/dL (6.3-8.2)
[2018-02-14 14:12] LABS: Calcium 6.3 mg/dL (8.4-10.2)
--- NOTE | 2018-02-14 14:49 | P.CONS ---
History of Present Illness - Reason for Consult Consult date: 02/14/18 Medical management Requesting physician: Rory Red - Chief Complaint Mitral valve repair - History of Present Illness This is a 62-year-old female, patient of Dr. Olmos. She has a known past medical history of severe mitral regurgitation. Otherwise no real significant other history. She does have some seasonal ALLERGIES. Patient underwent mitral valve repair today with Dr. Red. She's currently in the ICU and intubated. Hemoglobin was 6.1 and she is receiving 1 unit of blood. Patient has been slightly hypotensive and is receiving fluids. Currently not on any vasopressors. We have been consulted for medical management. Patient is currently stable. Review of Systems Please refer to HPI otherwise unremarkable Past Medical History Past Medical History: Chest Pain / Angina Additional Past Medical History / Comment(s): low bp at times, " has a leaky mitral valve",occasional feeling of lightheadness, seasonal allergies starting History of Any Multi-Drug Resistant Organisms: None Reported Past Surgical History: Heart Catheterization, Tubal Ligation Additional Past Surgical History / Comment(s): recent EILEEN & heart cath. Past Anesthesia/Blood Transfusion Reactions: No Reported Reaction Smoking Status: Never smoker - Past Family History Mother Additional Family Medical History / Comment(s): "heart disease" in her 70's Father Additional Family Medical History / Comment(s): "heart disease" in his 70's Medications and Allergies Home Medications Medication Instructions Recorded Confirmed Type Ibuprofen [Motrin Ib] 400 mg PO Q8H PRN 01/08/18 02/14/18 History Cetirizine HCl [Zyrtec] 10 mg PO QAM PRN 01/13/18 02/11/18 History Aspirin 81 mg PO DAILY 01/29/18 02/14/18 History Metoprolol Succinate [Toprol XL] 25 mg PO HS 01/29/18 02/14/18 History Triamcinolone Acetonide [Nasacort] 1 spray EA NOSTRIL DAILY PRN 02/11/18 History Azelastine HCl [Astepro] 1 spray NASAL BID PRN 02/13/18 02/14/18 History Allergies Allergy/AdvReac Type Severity Reaction Status Date / Time latex AdvReac Rash/Hives Verified 02/14/18 05:50 mushroom AdvReac CONGESTION Verified 02/14/18 05:50 Penicillins AdvReac Rash/Hives Verified 02/14/18 05:50 Sulfa (Sulfonamide AdvReac Rash/Hives Verified 02/14/18 05:50 Antibiotics) Physical Exam Vitals: Vital Signs Temp Pulse Pulse Resp BP BP BP 02/14/18 14:35 97.0 F L 85 40 H 69/32 02/14/18 14:34 97.0 F L 82 25 H 81/38 02/14/18 14:25 97.7 F 82 35 H 79/38 02/14/18 14:13 97.7 F 81 25 H 81/45 02/14/18 13:43 97.5 F L 82 25 H 87/52 02/14/18 13:33 97.7 F 82 19 92/54 02/14/18 13:30 97.7 F 82 12 02/14/18 13:20 81 12 02/14/18 13:10 81 12 02/14/18 13:00 87 12 02/14/18 12:50 96.8 F L 82 12 02/14/18 12:43 82 12 02/14/18 12:40 02/14/18 05:59 97.1 F L 72 16 135/85 131/78 Pulse Ox 02/14/18 14:35 95 02/14/18 14:34 02/14/18 14:25 96 02/14/18 14:13 96 02/14/18 13:43 94 L 02/14/18 13:33 100 02/14/18 13:30 100 02/14/18 13:20 100 02/14/18 13:10 100 02/14/18 13:00 100 02/14/18 12:50 100 02/14/18 12:43 100 02/14/18 12:40 100 02/14/18 05:59 98 Intake and Output 02/13/18 02/14/18 02/14/18 22:59 06:59 14:59 Intake Total 50 583 Output Total 2525 Balance 50 -194 Intake: IV 50 2 Blood Product 581 Ffp 24 Cpd Unit 0 [id number] Ffp 24 Cpd Unit 271 [id number] Rc Cpda-1 Unit 310 [id number] Output: Urine 525 Estimated Blood Loss 1999 Other: Weight 71.1 kg ABP, PAP, CO, CI - Last 8 Hours Arterial Blood Pressure 97/50 Arterial Blood Pressure 105/56 Arterial Blood Pressure 108/60 Arterial Blood Pressure 116/63 Arterial Blood Pressure 114/63 Arterial Blood Pressure 121/69 Pulmonary Artery Pressure 35/20 Pulmonary Artery Pressure 34/20 Pulmonary Artery Pressure 36/21 Pulmonary Artery Pressure 37/22 Pulmonary Artery Pressure 37/23 Pulmonary Artery Pressure 37/24 Cardiac Output 4.7 Cardiac Output 4.9 Cardiac Output 4.9 Cardiac Output 4.9 Cardiac Output 4.9 Cardiac Index 2.7 Cardiac Index 2.8 Head normocephalic Neck supple Lungs clear to auscultation bilaterally no wheezing or crackles chest tubes present Heart regular rate and rhythm S1-S2, no rub or gallop positive murmur Abdomen is soft nontender nondistended positive bowel sounds no hepatosplenomegaly Extremities no edema Neuro patient is intubated and sedated Results CBC & Chem 7: 02/14/18 12:40 02/14/18 12:40 Labs: Abnormal Lab Results - Last 24 Hours (Table) 02/04/18 02/14/18 02/14/18 Range/Units 16:15 06:09 08:32 RBC (3.80-5.40) m/uL Hgb (11.4-16.0) gm/dL Hct (34.0-46.0) % Plt Count (150-450) k/uL Neutrophils # (1.3-7.7) k/uL PT (9.0-12.0) sec INR (<1.2) APTT (22.0-30.0) sec Fibrinogen (200-500) mg/dL ABG pH (7.35-7.45) ABG pCO2 (35-45) mmHg ABG pO2 417 H (83-108) mmHg ABG HCO3 26 H (21-25) mmol/L ABG Total CO2 27 H (19-24) mmol/L ABG O2 Saturation 100.0 H (94-97) % ABG Hematocrit (34.0-46.0) % ABG Potassium (3.4-4.5) mmol/L ABG Ionized Calcium (4.5-5.3) mg/dL ABG Glucose 111 H (75-99) mg/dL ABG Lactic Acid (0.5-1.6) mmol/L Hemoglobin (11.4-16.0) gm/dL Chloride (98-107) mmol/L Creatinine (0.52-1.04) mg/dL POC Glucose (mg/dL) (75-99) mg/dL Calcium (8.4-10.2) mg/dL Ionized Calcium Gavin (4.5-5.3) mg/dL Magnesium (1.6-2.3) mg/dL Alkaline Phosphatase (38-126) U/L Total Protein (6.3-8.2) g/dL Albumin (3.5-5.0) g/dL Arterial Blood Potassium (3.4-4.5) mmol/L Arterial Blood Glucose 111 H (75-99) mg/dL Crossmatch See Detail See Detail 02/14/18 02/14/18 02/14/18 Range/Units 09:38 10:09 10:42 RBC (3.80-5.40) m/uL Hgb (11.4-16.0) gm/dL Hct (34.0-46.0) % Plt Count (150-450) k/uL Neutrophils # (1.3-7.7) k/uL PT (9.0-12.0) sec INR (<1.2) APTT (22.0-30.0) sec Fibrinogen (200-500) mg/dL ABG pH 7.34 L (7.35-7.45) ABG pCO2 46 H 34 L (35-45) mmHg ABG pO2 408 H >420 H 415 H (83-108) mmHg ABG HCO3 (21-25) mmol/L ABG Total CO2 26 H (19-24) mmol/L ABG O2 Saturation 100.0 H 100.0 H 100.0 H (94-97) % ABG Hematocrit 20 L* 24 L 21 L (34.0-46.0) % ABG Potassium 4.6 H 4.8 H (3.4-4.5) mmol/L ABG Ionized Calcium 3.9 L 4.3 L 4.0 L (4.5-5.3) mg/dL ABG Glucose 120 H 142 H 155 H (75-99) mg/dL ABG Lactic Acid (0.5-1.6) mmol/L Hemoglobin 6.7 L* 7.8 L 7.0 L* (11.4-16.0) gm/dL Chloride (98-107) mmol/L Creatinine (0.52-1.04) mg/dL POC Glucose (mg/dL) (75-99) mg/dL Calcium (8.4-10.2) mg/dL Ionized Calcium Gavin (4.5-5.3) mg/dL Magnesium (1.6-2.3) mg/dL Alkaline Phosphatase (38-126) U/L Total Protein (6.3-8.2) g/dL Albumin (3.5-5.0) g/dL Arterial Blood Potassium 4.6 H 4.8 H (3.4-4.5) mmol/L Arterial Blood Glucose 120 H 142 H 155 H (75-99) mg/dL Crossmatch 02/14/18 02/14/18 02/14/18 Range/Units 11:33 11:44 12:40 RBC 1.97 L (3.80-5.40) m/uL Hgb 6.1 L* (11.4-16.0) gm/dL Hct 18.6 L* (34.0-46.0) % Plt Count 79 L (150-450) k/uL Neutrophils # 8.1 H (1.3-7.7) k/uL PT (9.0-12.0) sec INR (<1.2) APTT (22.0-30.0) sec Fibrinogen (200-500) mg/dL ABG pH (7.35-7.45) ABG pCO2 (35-45) mmHg ABG pO2 377 H 371 H (83-108) mmHg ABG HCO3 20 L (21-25) mmol/L ABG Total CO2 26 H (19-24) mmol/L ABG O2 Saturation 100.0 H 100.0 H (94-97) % ABG Hematocrit 21 L 22 L (34.0-46.0) % ABG Potassium (3.4-4.5) mmol/L ABG Ionized Calcium 3.8 L 3.7 L (4.5-5.3) mg/dL ABG Glucose 124 H 116 H (75-99) mg/dL ABG Lactic Acid 3.0 H* 2.5 H* (0.5-1.6) mmol/L Hemoglobin 6.7 L* 7.3 L (11.4-16.0) gm/dL Chloride (98-107) mmol/L Creatinine (0.52-1.04) mg/dL POC Glucose (mg/dL) (75-99) mg/dL Calcium (8.4-10.2) mg/dL Ionized Calcium Gavin (4.5-5.3) mg/dL Magnesium (1.6-2.3) mg/dL Alkaline Phosphatase (38-126) U/L Total Protein (6.3-8.2) g/dL Albumin (3.5-5.0) g/dL Arterial Blood Potassium (3.4-4.5) mmol/L Arterial Blood Glucose 124 H 116 H (75-99) mg/dL Crossmatch 02/14/18 02/14/18 02/14/18 Range/Units 12:40 12:40 12:40 RBC (3.80-5.40) m/uL Hgb (11.4-16.0) gm/dL Hct (34.0-46.0) % Plt Count (150-450) k/uL Neutrophils # (1.3-7.7) k/uL PT 13.5 H (9.0-12.0) sec INR 1.4 H (<1.2) APTT 48.6 H (22.0-30.0) sec Fibrinogen 105 L (200-500) mg/dL ABG pH (7.35-7.45) ABG pCO2 (35-45) mmHg ABG pO2 (83-108) mmHg ABG HCO3 (21-25) mmol/L ABG Total CO2 (19-24) mmol/L ABG O2 Saturation (94-97) % ABG Hematocrit (34.0-46.0) % ABG Potassium (3.4-4.5) mmol/L ABG Ionized Calcium (4.5-5.3) mg/dL ABG Glucose (75-99) mg/dL ABG Lactic Acid (0.5-1.6) mmol/L Hemoglobin (11.4-16.0) gm/dL Chloride 111 H (98-107) mmol/L Creatinine 0.43 L (0.52-1.04) mg/dL POC Glucose (mg/dL) (75-99) mg/dL Calcium 6.3 L* (8.4-10.2) mg/dL Ionized Calcium Gavin 4.2 L (4.5-5.3) mg/dL Magnesium 3.1 H (1.6-2.3) mg/dL Alkaline Phosphatase 26 L (38-126) U/L Total Protein 4.3 L (6.3-8.2) g/dL Albumin 2.8 L (3.5-5.0) g/dL Arterial Blood Potassium (3.4-4.5) mmol/L Arterial Blood Glucose (75-99) mg/dL Crossmatch 02/14/18 02/14/18 02/14/18 Range/Units 12:47 13:36 13:50 RBC (3.80-5.40) m/uL Hgb (11.4-16.0) gm/dL Hct (34.0-46.0) % Plt Count (150-450) k/uL Neutrophils # (1.3-7.7) k/uL PT (9.0-12.0) sec INR (<1.2) APTT (22.0-30.0) sec Fibrinogen (200-500) mg/dL ABG pH 7.27 L (7.35-7.45) ABG pCO2 52 H (35-45) mmHg ABG pO2 280 H (83-108) mmHg ABG HCO3 (21-25) mmol/L ABG Total CO2 26 H (19-24) mmol/L ABG O2 Saturation 100.0 H (94-97) % ABG Hematocrit (34.0-46.0) % ABG Potassium (3.4-4.5) mmol/L ABG Ionized Calcium (4.5-5.3) mg/dL ABG Glucose (75-99) mg/dL ABG Lactic Acid (0.5-1.6) mmol/L Hemoglobin (11.4-16.0) gm/dL Chloride (98-107) mmol/L Creatinine (0.52-1.04) mg/dL POC Glucose (mg/dL) 105 H 161 H (75-99) mg/dL Calcium (8.4-10.2) mg/dL Ionized Calcium Gavin (4.5-5.3) mg/dL Magnesium (1.6-2.3) mg/dL Alkaline Phosphatase (38-126) U/L Total Protein (6.3-8.2) g/dL Albumin (3.5-5.0) g/dL Arterial Blood Potassium (3.4-4.5) mmol/L Arterial Blood Glucose (75-99) mg/dL Crossmatch Assessment and Plan Assessment: 1. Severe mitral regurgitation status post mitral valve repair with Dr. Red. Postop day #0. 2. Postoperative mechanical ventilation: pulmonary service to manage 3. Expected acute blood loss anemia secondary to surgery. Hemoglobin 6.1 patient receiving 1 unit of blood 4. Hyperlipidemia continue Lipitor 5. Hypocalcemia patient receiving calcium chloride 6. Seasonal ALLERGIES Thank you for this consultation. We will continue to follow along during patient's hospitalization. Time with Patient: Greater than 30 (Greater than 60% of the total time spent in counseling and coordination of care.I performed an examination of the patient and discussed their management with the physician Pricing Analyst. I have reviewed the Physician Pricing Analyst's notes and agree with the documented findings and plan of care)
[2018-02-14] MEDS ORDERED: methylPREDNISolone SOD SUCCI 125 MG/2 ML VIAL IV STA (14:50)
[2018-02-14] MEDS ORDERED: EPINEPHrine 2 MG in DEXTROSE 5% IN WATER 250 ML IV SCH ×2 (15:00)
[2018-02-14 15:07] LABS: ABG Base Excess -1.7 mmol/L; ABG HCO3 24 mmol/L (21-25); ABG Oxygen Saturation 89.3 % (94-97); ABG PCO2 43 mmHg (35-45); ABG PH 7.36 (7.35-7.45); ABG TCO2 25 mmol/L (19-24)
[2018-02-14] MEDS: EPINEPHrine 2 MG in DEXTROSE 5% IN WATER 250 ML IV SCH ×2 (15:07)
[2018-02-14 15:12] LABS: ABG PO2 53 mmHg (83-108)
[2018-02-14] MEDS: diphenhydrAMINE 50 MG/ML 1 ML VIAL IVP STA ×2 (15:16→15:26)
[2018-02-14] MEDS ORDERED: diphenhydrAMINE 50 MG/ML 1 ML VIAL IVP STA (15:28)
[2018-02-14] MEDS: INSULIN REGULAR 100 UNIT in SODIUM CHLORIDE 0.9% 100 ML IV SCH (15:35)
[2018-02-14 15:38] LABS: Glucose,Whole Blood 197 mg/dL (75-99)
[2018-02-14] MEDS: LACTATED RINGERS 1,000 ML IV SCH (15:40)
[2018-02-14 15:53] LABS: ABG Base Excess -3.5 mmol/L; ABG HCO3 22 mmol/L (21-25); ABG PCO2 42 mmHg (35-45); ABG PH 7.33 (7.35-7.45); ABG PO2 225 mmHg (83-108); ABG TCO2 24 mmol/L (19-24)
[2018-02-14] MEDS: CLEVIDIPINE BUTYRATE 25 MG in EMPTY BAG 1 BAG IV SCH (15:57)
[2018-02-14] MEDS: ceFAZolin IN SWFI 2 GM/20 ML SYRINGE IVP SCH (15:58)
[2018-02-14] MEDS ORDERED: IPRATROPIUM-ALBUTEROL 3 ML NEB INHALATION SCH (16:00)
[2018-02-14] MEDS ORDERED: MEPERIDINE 50 MG/ML SYRINGE IVP STA (16:03)
[2018-02-14 16:28] LABS: Basophils % (A) 0 %; Eosinophils % (A) 0 %; Lymphocytes % (A) 21 %; MCH 31.3 pg (25.0-35.0); MCHC 33.3 g/dL (31.0-37.0); Monocytes # (A) 0.4 k/uL (0-1.0); Monocytes % (A) 4 %; Neutrophils # (A) 6.9 k/uL (1.3-7.7); Neutrophils % (A) 74 %; RBC 1.78 m/uL (3.80-5.40); RDW 12.8 % (11.5-15.5); WBC 9.3 k/uL (3.8-10.6)
[2018-02-14] MEDS: IPRATROPIUM-ALBUTEROL 3 ML NEB INHALATION SCH ×2 (16:29→20:23)
[2018-02-14 16:32] LABS: HCT 16.8 % (34.0-46.0); HGB 5.6 gm/dL (11.4-16.0); Platelet Count 171 k/uL (150-450)
[2018-02-14 17:23] LABS: Glucose,Whole Blood 203 mg/dL (75-99)
[2018-02-14] MEDS ORDERED: ALBUMIN HUMAN 5% 250 ML in EMPTY BAG 1 BAG IVPB ONE (18:00)
[2018-02-14 18:03] LABS: Potassium 3.5 mmol/L (3.5-5.1)
[2018-02-14 18:17] LABS: Glucose,Whole Blood 164 mg/dL (75-99)
[2018-02-14] MEDS: ACETAMINOPHEN IV (For NPO) 1,000 MG in EMPTY BAG 1 BAG IVPB SCH (19:10)
[2018-02-14] MEDS: ALBUMIN HUMAN 5% 250 ML in EMPTY BAG 1 BAG IVPB PRN ×3 (19:16→21:21)
[2018-02-14 19:19] LABS: Glucose,Whole Blood 173 mg/dL (75-99)
[2018-02-14] MEDS ORDERED: CALCIUM GLUCONATE 1,000 MG in SODIUM CHLORIDE 0.9% 100 ML IVPB ONE (20:04)
[2018-02-14 20:10] LABS: Glucose,Whole Blood 162 mg/dL (75-99)
[2018-02-14 20:19] LABS: Basophils % (A) 0 %; Eosinophils % (A) 0 %; HCT 20.2 % (34.0-46.0); Lymphocytes % (A) 9 %; MCH 31.3 pg (25.0-35.0); MCHC 34.6 g/dL (31.0-37.0); MCV 90.5 fL (80.0-100.0); Mean Platelet Volume 6.9; Monocytes % (A) 3 %; Neutrophils % (A) 87 %; Platelet Count 131 k/uL (150-450); RBC 2.23 m/uL (3.80-5.40); RDW 13.3 % (11.5-15.5); WBC 4.9 k/uL (3.8-10.6)
[2018-02-14 20:20] LABS: Lymphocytes # (A) 0.5 k/uL (1.0-4.8); Monocytes # (A) 0.2 k/uL (0-1.0); Neutrophils # (A) 4.3 k/uL (1.3-7.7)
[2018-02-14 20:28] LABS: INR 1.2 (<1.2); Partial Thromboplastin Time 29.7 sec (22.0-30.0); Prothrombin Time 11.6 sec (9.0-12.0)
[2018-02-14] MEDS: POTASSIUM CHLORIDE 20 MEQ in WATER FOR INJECTION 1 100ML.BAG IVPB SCH (20:33)
[2018-02-14] MEDS ORDERED: MUPIROCIN 2% OINT 22 GM TUBE NASAL SCH (21:00)
[2018-02-14 21:08] LABS: Glucose,Whole Blood 196 mg/dL (75-99)
[2018-02-14] MEDS ORDERED: ceFAZolin 1,000 MG in SODIUM CHLORIDE 0.9% 1,000 ML IRRIGATION ONE (23:21)
--- NOTE | 2018-02-14 23:42 | P.CNPUL ---
History of Present Illness Consult date: 02/14/18 Reason for consult: hypoxemia Chief complaint: Critical care management History of present illness: 62-year-old female who was seen evaluated examined in the ICU patient is intubated on full ventilator support patient underwent mitral valve replacement for severe mitral regurgitation patient was seen evaluated examined postoperatively in the ICU she just have received the blood products developed some hives it is not clear if they were associated with the cephalosporin or blood products anyhow patient has significant bleeding from the chest tubes as well as which seems to be settling down, ventilator setting reviewed patient has significant hypercapnia hypoxemia ventilator has been adjusted with requiring higher PEEP of 8, patient is not a candidate for rapid weaning and extubation given mediastinal bleeding, labs reviewed medications reviewed radiographic studies reviewed as well, patient has been taken back to OR for reexploration and clot removal for details please look at the operative report Review of Systems ROS unobtainable: due to endotracheal tube Past Medical History Past Medical History: Chest Pain / Angina Additional Past Medical History / Comment(s): low bp at times, " has a leaky mitral valve",occasional feeling of lightheadness, seasonal allergies starting History of Any Multi-Drug Resistant Organisms: None Reported Past Surgical History: Heart Catheterization, Tubal Ligation Additional Past Surgical History / Comment(s): recent EILEEN & heart cath. Past Anesthesia/Blood Transfusion Reactions: No Reported Reaction Smoking Status: Never smoker - Past Family History Mother Additional Family Medical History / Comment(s): "heart disease" in her 70's Father Additional Family Medical History / Comment(s): "heart disease" in his 70's Medications and Allergies Home Medications Medication Instructions Recorded Confirmed Type Ibuprofen [Motrin Ib] 400 mg PO Q8H PRN 01/08/18 02/14/18 History Cetirizine HCl [Zyrtec] 10 mg PO QAM PRN 01/13/18 02/14/18 History Aspirin 81 mg PO DAILY 01/29/18 02/14/18 History Metoprolol Succinate [Toprol XL] 25 mg PO HS 01/29/18 02/14/18 History Triamcinolone Acetonide [Nasacort] 1 spray EA NOSTRIL DAILY PRN 02/11/18 History Azelastine HCl [Astepro] 1 spray NASAL BID PRN 02/13/18 02/14/18 History Allergies Allergy/AdvReac Type Severity Reaction Status Date / Time latex AdvReac Rash/Hives Verified 02/14/18 22:54 mushroom AdvReac CONGESTION Verified 02/14/18 22:54 Penicillins AdvReac Rash/Hives Verified 02/14/18 22:54 Sulfa (Sulfonamide AdvReac Rash/Hives Verified 02/14/18 22:54 Antibiotics) Physical Exam Vitals: Vital Signs Temp Pulse Pulse Resp BP BP BP 02/14/18 22:10 100.6 F H 109 H 26 H 86/47 02/14/18 22:03 100.5 F H 111 H 24 98/69 02/14/18 22:00 112 H 26 H 116/44 02/14/18 21:58 100.5 F H 112 H 24 116/44 02/14/18 21:48 100.6 F H 113 H 20 76/55 02/14/18 21:30 111 H 20 02/14/18 21:00 110 H 20 02/14/18 20:30 105 H 20 02/14/18 20:24 102 H 02/14/18 20:00 92 20 02/14/18 19:30 92 20 97/59 02/14/18 19:00 100.4 F H 92 20 97/59 02/14/18 18:47 100.2 F H 95 20 113/61 02/14/18 18:30 100.2 F H 105 H 20 97/59 02/14/18 18:02 100 F H 108 H 20 106/63 02/14/18 18:00 100 F H 111 H 02/14/18 17:30 110 H 02/14/18 17:00 108 H 02/14/18 16:50 107 H 02/14/18 16:44 100 F H 82 21 96/54 02/14/18 16:42 100 F H 110 H 21 90/52 02/14/18 16:40 111 H 02/14/18 16:30 100 F H 115 H 02/14/18 16:29 107 H 02/14/18 16:18 107 H 02/14/18 16:04 99.5 F 105 H 20 113/59 02/14/18 16:00 108 H 66/38 02/14/18 15:57 99.1 F 108 H 20 115/61 02/14/18 15:47 98.8 F 105 H 20 105/59 02/14/18 15:44 98.6 F 103 H 20 94/59 02/14/18 15:34 98.1 F 101 H 20 81/47 18 15:31 98.1 F 101 H 20 83/54 02/14/18 15:30 97.7 F 95 66/38 02/14/18 15:24 97.5 F L 93 20 89/49 02/14/18 15:00 93 66/38 02/14/18 14:52 96.3 F L 87 24 82/36 02/14/18 14:40 96.6 F L 97 66/38 02/14/18 14:35 97.0 F L 85 40 H 69/32 02/14/18 14:34 97.0 F L 82 25 H 81/38 02/14/18 14:30 97.2 F L 84 66/38 02/14/18 14:25 97.7 F 82 35 H 79/38 02/14/18 14:20 82 02/14/18 14:13 97.7 F 81 25 H 81/45 02/14/18 14:10 83 02/14/18 14:00 85 02/14/18 13:50 84 02/14/18 13:43 97.5 F L 82 25 H 87/52 02/14/18 13:40 97.7 F 83 02/14/18 13:33 97.7 F 82 19 92/54 02/14/18 13:30 97.7 F 82 12 02/14/18 13:20 81 12 02/14/18 13:10 81 12 02/14/18 13:00 87 20 02/14/18 12:50 96.8 F L 82 12 02/14/18 12:43 82 12 02/14/18 12:40 02/14/18 05:59 97.1 F L 72 16 135/85 131/78 Pulse Ox 02/14/18 22:10 100 02/14/18 22:03 02/14/18 22:00 100 02/14/18 21:58 02/14/18 21:48 02/14/18 21:30 100 02/14/18 21:00 100 02/14/18 20:30 100 02/14/18 20:24 09/14/18 20:00 100 02/14/18 19:30 100 02/14/18 19:00 100 02/14/18 18:47 100 02/14/18 18:30 100 02/14/18 18:02 100 02/14/18 18:00 100 02/14/18 17:30 100 02/14/18 17:00 100 02/14/18 16:50 100 02/14/18 16:44 100 02/14/18 16:42 100 02/14/18 16:40 100 02/14/18 16:30 100 02/14/18 16:29 02/14/18 16:18 02/14/18 16:04 100 02/14/18 16:00 100 02/14/18 15:57 100 02/14/18 15:47 100 02/14/18 15:44 99 02/14/18 15:34 100 02/14/18 15:31 100 02/14/18 15:30 99 02/14/18 15:24 97 02/14/18 15:00 92 L 02/14/18 14:52 02/14/18 14:40 82 L 02/14/18 14:35 95 02/14/18 14:34 02/14/18 14:30 91 L 02/14/18 14:25 96 02/14/18 14:20 62 L 02/14/18 14:13 96 02/14/18 14:10 100 02/14/18 14:00 100 02/14/18 13:50 100 02/14/18 13:43 94 L 02/14/18 13:40 100 02/14/18 13:33 100 02/14/18 13:30 100 02/14/18 13:20 100 02/14/18 13:10 100 02/14/18 13:00 100 02/14/18 12:50 100 02/14/18 12:43 100 02/14/18 12:40 100 02/14/18 05:59 98 Intake and Output 02/14/18 02/14/18 02/15/18 14:59 22:59 06:59 Intake Total 1281 3535.456 1 Output Total 4195 2651 Balance -2914 884.456 1 Intake: IV 240 1504 1 Albumin Human 5% 250 ml 500 In Empty Bag 1 bag @ 250 mls/hr IVPB Q1HR PRN Rx#: [id number] Bolus CO 70 130 Calcium Gluconate 1,000 100 mg In Sodium Chloride 0.9 % 100 ml @ 100 mls/hr IVPB ONCE ONE Rx#: [id number] Lactated Ringers 1,000 ml 225 @ 50 mls/hr IV .Q20H [facility] Rx#:[id number] NS 150 395 NS Pressure Bag 18 54 Potassium Chloride 20 meq 100 In Water For Injection 1 100ml.bag @ 50 mls/hr IVPB Q2H [facility] Rx#: [id number] Intake, IV Titration 181.456 Amount EPINEPHrine 2 mg In 95.571 Dextrose 5% in Water 250 ml @ 2 MCG/MIN 15.12 mls/ hr IV .[id number] [facility] Rx#: [id number] Insulin Regular 100 unit 16.222 In Sodium Chloride 0.9% 100 ml @ Per Protocol IV .Q0M [facility] Rx#:[id number] Propofol 1,000 mg In 69.663 Empty Bag 1 bag @ Titrate IV .Q0M [facility] Rx#: [id number] Blood Product 1041 1550 Ffp 24 Cpd Unit 312 [id number] Ffp 24 Cpd Unit 262 [id number] Ffp 24 Cpd Unit 271 [id number] Platelet Pheresis Acda2 198 Unit [id number] Platelet Pheresis Acda2 199 Unit [id number] Pooled Cryoprecipitate 109 Unit [id number] Rc As-1 Unit 310 [id number] Rc As-3 Unit 0 [id number] Rc As-3 Unit 310 [id number] Rc Cpda-1 Unit 310 [id number] Rc Cpda-1 Unit 310 [id number] Other 300 Rc As-1 Unit 300 [id number] Output: Chest Tube Drainage 1310 2062 Chest Tube Bilateral 435 1270 Chest Tube Upper 875 792 Mediastinal Urine 885 589 Estimated Blood Loss 1999 Other: Voiding Method Indwelling Catheter Weight 71.1 kg ABP, PAP, CO, CI - Last 8 Hours Arterial Blood Pressure 84/76 Arterial Blood Pressure 73/52 Arterial Blood Pressure 85/53 Arterial Blood Pressure 86/53 Arterial Blood Pressure 83/49 Arterial Blood Pressure 94/54 Arterial Blood Pressure 106/59 Arterial Blood Pressure 112/64 Arterial Blood Pressure 82/54 Arterial Blood Pressure 112/62 Arterial Blood Pressure 116/64 Arterial Blood Pressure 105/58 Arterial Blood Pressure 109/60 Arterial Blood Pressure 104/60 Arterial Blood Pressure 110/55 Pulmonary Artery Pressure 46/18 Pulmonary Artery Pressure 40/30 Pulmonary Artery Pressure 40/29 Pulmonary Artery Pressure 32/19 Pulmonary Artery Pressure 34/22 Pulmonary Artery Pressure 35/23 Pulmonary Artery Pressure 34/23 Pulmonary Artery Pressure 41/26 Pulmonary Artery Pressure 38/27 Pulmonary Artery Pressure 38/26 Pulmonary Artery Pressure 41/28 Pulmonary Artery Pressure 40/27 Pulmonary Artery Pressure 41/26 Pulmonary Artery Pressure 42/29 Pulmonary Artery Pressure 54/35 Cardiac Output 5 Cardiac Output 5 Cardiac Output 3.1 Cardiac Output 3.1 Cardiac Output 3.8 Cardiac Output 3.8 Cardiac Output 3.8 Cardiac Output 5.3 Cardiac Output 5.3 Cardiac Output 5.3 Cardiac Index 2.9 Cardiac Index 1.8 Cardiac Index 2.2 - Constitutional General appearance: average body habitus, disheveled, no acute distress - EENT Eyes: anicteric sclerae, dentition normal, normal appearance Ears: bilateral: normal - Neck Neck: normal ROM Carotids: bilateral: upstroke normal Thyroid: bilateral: normal size - Respiratory Respiratory: bilateral: diminished, rales (At the bases) - Cardiovascular Heart sounds: normal: S1, S2 - Gastrointestinal General gastrointestinal: decreased bowel sounds, soft - Integumentary Integumentary: decreased turgor, normal, normal turgor - Neurologic Neurologic: CNII-XII intact - Musculoskeletal Unable to assess patient being on a ventilator - Psychiatric Unable to assess at length this patient has been intubated and on ventilator Results - Laboratory Findings CBC and BMP: 02/14/18 20:07 02/14/18 17:40 ABG ABG pH 7.33 (7.35-7.45) L 02/14/18 15:51 ABG pCO2 42 mmHg (35-45) 02/14/18 15:51 ABG pO2 225 mmHg (83-108) H 02/14/18 15:51 ABG O2 Saturation 100.0 % (94-97) H 02/14/18 15:51 PT/INR, D-dimer PT 11.6 sec (9.0-12.0) 02/14/18 20:07 INR 1.2 (<1.2) H 02/14/18 20:07 Abnormal lab findings: Abnormal Labs 02/04/18 02/14/18 02/14/18 16:15 06:09 08:32 RBC Hgb Hct Plt Count Neutrophils # Lymphocytes # PT INR APTT Fibrinogen ABG pH ABG pCO2 ABG pO2 417 H ABG HCO3 26 H ABG Total CO2 27 H ABG O2 Saturation 100.0 H ABG Hematocrit ABG Potassium ABG Ionized Calcium ABG Glucose 111 H ABG Lactic Acid Hemoglobin Chloride Creatinine POC Glucose (mg/dL) Calcium Ionized Calcium Gavin Magnesium Alkaline Phosphatase Total Protein Albumin Arterial Blood Potassium Arterial Blood Glucose 111 H Crossmatch See Detail See Detail 02/14/18 02/14/18 02/14/18 09:38 10:09 10:42 RBC Hgb Hct Plt Count Neutrophils # Lymphocytes # PT INR APTT Fibrinogen ABG pH 7.34 L ABG pCO2 46 H 34 L ABG pO2 408 H >420 H 415 H ABG HCO3 ABG Total CO2 26 H ABG O2 Saturation 100.0 H 100.0 H 100.0 H ABG Hematocrit 20 L* 24 L 21 L ABG Potassium 4.6 H 4.8 H ABG Ionized Calcium 3.9 L 4.3 L 4.0 L ABG Glucose 120 H 142 H 155 H ABG Lactic Acid Hemoglobin 6.7 L* 7.8 L 7.0 L* Chloride Creatinine POC Glucose (mg/dL) Calcium Ionized Calcium Gavin Magnesium Alkaline Phosphatase Total Protein Albumin Arterial Blood Potassium 4.6 H 4.8 H Arterial Blood Glucose 120 H 142 H 155 H Crossmatch 02/14/18 02/14/18 02/14/18 11:33 11:44 12:40 RBC 1.97 L Hgb 6.1 L* Hct 18.6 L* Plt Count 79 L Neutrophils # 8.1 H Lymphocytes # PT INR APTT Fibrinogen ABG pH ABG pCO2 ABG pO2 377 H 371 H ABG HCO3 20 L ABG Total CO2 26 H ABG O2 Saturation 100.0 H 100.0 H ABG Hematocrit 21 L 22 L ABG Potassium ABG Ionized Calcium 3.8 L 3.7 L ABG Glucose 124 H 116 H ABG Lactic Acid 3.0 H* 2.5 H* Hemoglobin 6.7 L* 7.3 L Chloride Creatinine POC Glucose (mg/dL) Calcium Ionized Calcium Gavin Magnesium Alkaline Phosphatase Total Protein Albumin Arterial Blood Potassium Arterial Blood Glucose 124 H 116 H Crossmatch 02/14/18 02/14/18 02/14/18 12:40 12:40 12:40 RBC Hgb Hct Plt Count Neutrophils # Lymphocytes # PT 13.5 H INR 1.4 H APTT 48.6 H Fibrinogen 105 L ABG pH ABG pCO2 ABG pO2 ABG HCO3 ABG Total CO2 ABG O2 Saturation ABG Hematocrit ABG Potassium ABG Ionized Calcium ABG Glucose ABG Lactic Acid Hemoglobin Chloride 111 H Creatinine 0.43 L POC Glucose (mg/dL) Calcium 6.3 L* Ionized Calcium Gavin 4.2 L Magnesium 3.1 H Alkaline Phosphatase 26 L Total Protein 4.3 L Albumin 2.8 L Arterial Blood Potassium Arterial Blood Glucose Crossmatch 02/14/18 02/14/18 02/14/18 12:47 13:36 13:50 RBC Hgb Hct Plt Count Neutrophils # Lymphocytes # PT INR APTT Fibrinogen ABG pH 7.27 L ABG pCO2 52 H ABG pO2 280 H ABG HCO3 ABG Total CO2 26 H ABG O2 Saturation 100.0 H ABG Hematocrit ABG Potassium ABG Ionized Calcium ABG Glucose ABG Lactic Acid Hemoglobin Chloride Creatinine POC Glucose (mg/dL) 105 H 161 H Calcium Ionized Calcium Gavin Magnesium Alkaline Phosphatase Total Protein Albumin Arterial Blood Potassium Arterial Blood Glucose Crossmatch 02/14/18 02/14/18 02/14/18 15:31 15:51 16:10 RBC 1.78 L Hgb 5.6 L* Hct 16.8 L* Plt Count Neutrophils # Lymphocytes # PT INR APTT Fibrinogen ABG pH 7.33 L ABG pCO2 ABG pO2 225 H ABG HCO3 ABG Total CO2 ABG O2 Saturation 100.0 H ABG Hematocrit ABG Potassium ABG Ionized Calcium ABG Glucose ABG Lactic Acid Hemoglobin Chloride Creatinine POC Glucose (mg/dL) 197 H Calcium Ionized Calcium Gavin Magnesium Alkaline Phosphatase Total Protein Albumin Arterial Blood Potassium Arterial Blood Glucose Crossmatch 02/14/18 02/14/18 02/14/18 17:22 17:40 17:40 RBC Hgb Hct Plt Count Neutrophils # Lymphocytes # PT INR APTT Fibrinogen ABG pH ABG pCO2 ABG pO2 ABG HCO3 ABG Total CO2 ABG O2 Saturation ABG Hematocrit ABG Potassium ABG Ionized Calcium ABG Glucose ABG Lactic Acid Hemoglobin Chloride 109 H Creatinine POC Glucose (mg/dL) 203 H Calcium 7.6 L Ionized Calcium Gavin Magnesium Alkaline Phosphatase Total Protein Albumin Arterial Blood Potassium Arterial Blood Glucose Crossmatch 02/14/18 02/14/18 02/14/18 18:16 19:16 20:07 RBC Hgb Hct Plt Count Neutrophils # Lymphocytes # PT INR 1.2 H APTT Fibrinogen ABG pH ABG pCO2 ABG pO2 ABG HCO3 ABG Total CO2 ABG O2 Saturation ABG Hematocrit ABG Potassium ABG Ionized Calcium ABG Glucose ABG Lactic Acid Hemoglobin Chloride Creatinine POC Glucose (mg/dL) 164 H 173 H Calcium Ionized Calcium Gavin Magnesium Alkaline Phosphatase Total Protein Albumin Arterial Blood Potassium Arterial Blood Glucose Crossmatch 02/14/18 02/14/18 02/14/18 20:07 20:07 21:06 RBC 2.23 L Hgb 7.0 L Hct 20.2 L Plt Count 131 L Neutrophils # Lymphocytes # 0.5 L PT INR APTT Fibrinogen ABG pH ABG pCO2 ABG pO2 ABG HCO3 ABG Total CO2 ABG O2 Saturation ABG Hematocrit ABG Potassium ABG Ionized Calcium ABG Glucose ABG Lactic Acid Hemoglobin Chloride Creatinine POC Glucose (mg/dL) 162 H 196 H Calcium Ionized Calcium Gavin Magnesium Alkaline Phosphatase Total Protein Albumin Arterial Blood Potassium Arterial Blood Glucose Crossmatch - Diagnostic Findings Chest x-ray: report reviewed, image reviewed Assessment and Plan Assessment: 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
--- NOTE | 2018-02-14 23:53 | P.OP ---
Date of Procedure: 02/14/18 Preoperative Diagnosis: Postoperative hemorrhage Postoperative Diagnosis: Same Procedure(s) Performed: Sternal re-exploration with evacuation of hematoma Anesthesia: MURIEL Surgeon: Rory Red Ticket Marker #1: Will Ruiz Ticket Marker #2: Mat Garcia Estimated Blood Loss (ml): 2,000 IV fluids (ml): 1,000 Urine output (ml): 200 Pathology: none sent Condition: stable Disposition: ICU Indications for Procedure: Patient 62-year-old female status post mitral valve repair. At the time of closure the sternum chest was dry. The patient had some left pleural chest tube drainage in ICU. When this persisted she was treated with some blood products. It improved but then worsened again. He developed some mild hemodynamic instability. She again responded to volume but we decided to bring her back to the OR for persistent chest tube drainage. Operative Findings: There was no active bleeding. There was quite a bit of blood clot between the heart and the sternum particularly to the left and a large amount of blood clot and bloody fluid in the left pleural cavity. All of this was evacuated for a total of 2 L. Description of Procedure: The patient was brought to the operating room in stable hemodynamic condition. He is placed on the operating table. The anterior chest was sterilely prepped and draped following induction of general anesthesia and placement of a EILEEN probe. The EILEEN probe demonstrated excellent ventricular function with no evidence of mitral regurgitation and evidence of left pleural clot. Midline sternotomy was reopened. There was no active bleeding noted. There was moderate clot anteriorly in the mediastinum extending into the left pleural cavity. There was a large volume of clot and bloody fluid in the left pleural space. There was minimal fluid in the right pleural space. We aggressively evacuated all the clot and fluid. Once the clot and fluid was all evacuated, there was no evidence of ongoing bleeding. After completely evacuating all the hematoma from the chest and exploring both pleural cavities and the entire mediastinum, the chest was irrigated with antibiotic solution. The clots were removed from the chest tubes and they were replaced. After again assuring good hemostasis, the sternum was again closed with 8 sternal wires. Fascia was closed with 0 Ethibond. Subcutaneous and subcuticular layers were closed with layers of Vicryl suture. Dry sterile dressings were applied and the patient was transferred back to ICU. Patient remained hemodynamically stable throughout. Once the chest was opened, we were able to discontinue the epinephrine drip that had been started in the ICU.
[2018-02-15 00:24] LABS: Basophils % (A) 0 %; Eosinophils % (A) 1 %; Lymphocytes # (A) 0.7 k/uL (1.0-4.8); Lymphocytes % (A) 18 %; MCH 30.2 pg (25.0-35.0); MCHC 32.9 g/dL (31.0-37.0); MCV 91.6 fL (80.0-100.0); Mean Platelet Volume 7.7; Monocytes # (A) 0.2 k/uL (0-1.0); Monocytes % (A) 5 %; Neutrophils # (A) 3.2 k/uL (1.3-7.7); Neutrophils % (A) 77 %; RBC 2.05 m/uL (3.80-5.40); RDW 13.6 % (11.5-15.5); WBC 4.1 k/uL (3.8-10.6)
[2018-02-15 00:27] LABS: HCT 18.8 % (34.0-46.0); HGB 6.2 gm/dL (11.4-16.0)
[2018-02-15 00:29] LABS: INR 1.5 (<1.2); Ionized Calcium 4.7 mg/dL (4.5-5.3)
[2018-02-15 00:38] LABS: ALT 29 U/L (9-52); AST 44 U/L (14-36); Alkaline Phosphatase <20 U/L (38-126); Anion Gap 6 mmol/L; Blood Urea Nitrogen 10 mg/dL (7-17); Calcium 6.9 mg/dL (8.4-10.2); Carbon Dioxide 25 mmol/L (22-30); Chloride 110 mmol/L (98-107); Glucose 149 mg/dL (74-99); Potassium 4.2 mmol/L (3.5-5.1); Sodium 141 mmol/L (137-145); Total Protein 3.2 g/dL (6.3-8.2)
[2018-02-15 00:44] LABS: Platelet Count 67 k/uL (150-450)
[2018-02-15 00:44] LABS: Glucose,Whole Blood 167 mg/dL (75-99)
[2018-02-15 01:05] LABS: Glucose,Whole Blood 205 mg/dL (75-99)
[2018-02-15] MEDS: POTASSIUM CHLORIDE 20 MEQ in WATER FOR INJECTION 1 100ML.BAG IVPB SCH (01:09)
[2018-02-15] MEDS: ceFAZolin IN SWFI 2 GM/20 ML SYRINGE IVP SCH ×2 (01:13→08:14)
[2018-02-15] MEDS: ACETAMINOPHEN IV (For NPO) 1,000 MG in EMPTY BAG 1 BAG IVPB SCH ×4 (01:14→17:38)
--- NOTE | 2018-02-15 02:03 | P.PCN ---
Date of Procedure: 02/15/18 Preoperative Diagnosis: Mitral regurgitation, status post mitral valvular replacement, acute blood loss anemia Postoperative Diagnosis: As above Procedure(s) Performed: Right-sided PA [place]-Abimael catheter placement Surgeon: Darron Blackmon Condition: critical Disposition: ICU Indications for Procedure: As above Operative Findings: As below Description of Procedure: Through the existing right internal jugular introducer 8.5-Greek PA catheter was inserted after passing about 12-14 cm balloon was inflated the balloon was inflated CVP was around 12-14 RV pressure couldn't be assessed due to lack of taking good waveform however able to get PA pressure which was 38/24, the wedge pressure was 20, catheter secured at 50 cm stone, post procedure chest x-ray checked good position of PA catheter into the descending branch of right PA, patient tolerated the procedure well no complication noted
[2018-02-15 02:06] LABS: Glucose,Whole Blood 167 mg/dL (75-99)
--- NOTE | 2018-02-15 02:11 | XR ---
EXAMINATION TYPE: XR chest 1V portable DATE OF EXAM: 02/15/2018 COMPARISON: 02/14/2018 HISTORY: Gipsy placement TECHNIQUE: Single frontal view of the chest is obtained. FINDINGS: There is right jugular catheter with the tip in the right pulmonary artery. There are ster nal wires. Endotracheal tube appears in good position 5 cm from the gina. There is nasogastric tube in good position. There are bilateral chest tubes. No heart failure. There is some patchy atelectasi s in both lungs. IMPRESSION: Tubing in good position. There is some atelectasis that is improved compared to last exa m. No heart failure.
[2018-02-15 03:21] LABS: Glucose,Whole Blood 131 mg/dL (75-99)
[2018-02-15 03:39] LABS: ABG Base Excess 0.8 mmol/L; ABG HCO3 23 mmol/L (21-25); ABG PCO2 28 mmHg (35-45); ABG PH 7.54 (7.35-7.45); ABG PO2 115 mmHg (83-108); ABG TCO2 24 mmol/L (19-24)
[2018-02-15 04:09] LABS: Glucose,Whole Blood 121 mg/dL (75-99)
[2018-02-15 04:19] LABS: Basophils % (A) 0 %; Eosinophils % (A) 0 %; HCT 23.9 % (34.0-46.0); Lymphocytes # (A) 1.8 k/uL (1.0-4.8); Lymphocytes % (A) 27 %; MCH 30.2 pg (25.0-35.0); MCHC 34.2 g/dL (31.0-37.0); MCV 88.5 fL (80.0-100.0); Mean Platelet Volume 8.4; Monocytes # (A) 0.5 k/uL (0-1.0); Monocytes % (A) 8 %; Neutrophils # (A) 4.1 k/uL (1.3-7.7); Neutrophils % (A) 63 %; RDW 14.1 % (11.5-15.5); WBC 6.4 k/uL (3.8-10.6)
[2018-02-15 04:25] LABS: HGB 8.2 gm/dL (11.4-16.0); Platelet Count 119 k/uL (150-450)
[2018-02-15] MEDS: PROPOFOL 1,000 MG in EMPTY BAG 1 BAG IV SCH (05:08)
[2018-02-15 05:18] LABS: Glucose,Whole Blood 128 mg/dL (75-99)
[2018-02-15 06:11] LABS: Glucose,Whole Blood 129 mg/dL (75-99)
--- NOTE | 2018-02-15 06:53 | XR ---
EXAMINATION TYPE: XR chest 1V portable DATE OF EXAM: 02/15/2018 HISTORY: Post Operative Cardiac Surgery. REFERENCE: Previous study dated 02/15/2018. FINDINGS: The patient is intubated. ET tube is unchanged in appearance. There is an NG tube in place. There is a [place]-Abimael catheter in place via a right internal jugular approach. The tip is in the righ t interlobar artery. There are bilateral pleural drains in place. There is vascular congestion. There is left basilar airspace disease. There are small, bilateral effu sions. IMPRESSION: CONTINUING POSTOPERATIVE CHANGE.
[2018-02-15 07:17] LABS: Glucose,Whole Blood 126 mg/dL (75-99)
[2018-02-15] MEDS: IPRATROPIUM-ALBUTEROL 3 ML NEB INHALATION SCH ×4 (07:21→19:40)
[2018-02-15 08:02] LABS: Ionized Calcium 4.8 mg/dL (4.5-5.3)
[2018-02-15 08:12] LABS: Glucose,Whole Blood 128 mg/dL (75-99)
[2018-02-15] MEDS: ASPIRIN 325 MG TAB PO SCH (08:14)
[2018-02-15] MEDS: EPINEPHrine 2 MG in DEXTROSE 5% IN WATER 250 ML IV SCH ×2 (08:15)
[2018-02-15] MEDS: PANTOPRAZOLE 40 MG/10 ML VIAL IVP SCH (08:17)
[2018-02-15 08:28] LABS: ALT 25 U/L (9-52); AST 81 U/L (14-36); Albumin 2.4 g/dL (3.5-5.0); Alkaline Phosphatase 29 U/L (38-126); Anion Gap 4 mmol/L; Blood Urea Nitrogen 11 mg/dL (7-17); Calcium 7.5 mg/dL (8.4-10.2); Carbon Dioxide 25 mmol/L (22-30); Chloride 112 mmol/L (98-107); Glucose 115 mg/dL (74-99); Magnesium 2.2 mg/dL (1.6-2.3); Phosphorus 1.9 mg/dL (2.5-4.5); Potassium 3.8 mmol/L (3.5-5.1); Sodium 141 mmol/L (137-145); Total Bilirubin 1.5 mg/dL (0.2-1.3); Total Protein 4.1 g/dL (6.3-8.2)
[2018-02-15] MEDS ORDERED: DEXMEDETOMIDINE/0.9% NACL(PMX) 400 MCG in EMPTY BAG 1 BAG IV SCH (08:45)
[2018-02-15 09:11] LABS: Glucose,Whole Blood 107 mg/dL (75-99)
--- NOTE | 2018-02-15 09:11 | P.PN ---
Subjective Progress Note Date: 02/15/18 Principal diagnosis: Congestive heart failure related to valvular heart disease associated with severe mitral regurgitation, acute blood loss anemia postoperative anticipated complication of mitral valve surgery, status post mitral valve replacement for severe mitral regurgitation, hypertension hypertensive cardiovascular disease 02/15/2018, patient seen and evaluated examined during the rounds critical care time spent 35 minutes, patient is supposed up day #2 of mitral valve replacement and evacuation of blood clots from mediastinum afterwards care plan discussed with cardiothoracic surgery as well, patient is on assist control mode with PEEP of 8 respiratory rate is 20 patient is breathing about 20-21 currently she is on propofol also on 1 unit of insulin drip, patient is getting LR on maintenance basis, chest x-ray reviewed the output through the chest tube are minimal, [place]-Abimael catheter in a stable position descending branch PA, noted. Pressure are improved now is 35/24, patient is making urine, does respond to physical stimuli, and labs reviewed medications reviewed radiographic studies reviewed as well 62-year-old female who was seen evaluated examined in the ICU patient is intubated on full ventilator support patient underwent mitral valve replacement for severe mitral regurgitation patient was seen evaluated examined postoperatively in the ICU she just have received the blood products developed some hives it is not clear if they were associated with the cephalosporin or blood products anyhow patient has significant bleeding from the chest tubes as well as which seems to be settling down, ventilator setting reviewed patient has significant hypercapnia hypoxemia ventilator has been adjusted with requiring higher PEEP of 8, patient is not a candidate for rapid weaning and extubation given mediastinal bleeding, labs reviewed medications reviewed radiographic studies reviewed as well, patient has been taken back to OR for reexploration and clot removal for details please look at the operative report Objective - Vital Signs Vital signs: Vital Signs Temp 99.5 F 02/15/18 03:35 Pulse 85 02/15/18 08:00 Resp 20 02/15/18 08:00 BP 114/59 02/15/18 08:00 Pulse Ox 100 02/15/18 08:00 Intake & Output 02/14/18 02/15/18 02/15/18 18:59 06:59 18:59 Intake Total 3342.613 4275.277 186.421 Output Total 5537 3891 234 Balance -2194.387 384.277 -47.579 Weight 71.1 kg 83.5 kg Intake: IV 626 2938 122 ACETAMINOPHEN IV (For NPO 200 ) 1,000 mg In Empty Bag 1 bag @ 400 mls/hr IVPB Q6HR [facility] Rx#:[id number] Albumin Human 5% 250 ml 500 In Empty Bag 1 bag @ 250 mls/hr IVPB Q1HR PRN Rx#: [id number] Bolus CO 120 170 20 Calcium Gluconate 1,000 100 mg In Sodium Chloride 0.9 % 100 ml @ 100 mls/hr IVPB ONCE ONE Rx#: [id number] Lactated Ringers 1,000 ml 505 90 @ 50 mls/hr IV .Q20H [facility] Rx#:[id number] NS 450 195 NS Pressure Bag 54 36 12 PLT 201 PRBC 930 Potassium Chloride 20 meq 100 In Water For Injection 1 100ml.bag @ 50 mls/hr IVPB Q2H [facility] Rx#: [id number] Intake, IV Titration 135.613 206.277 64.421 Amount EPINEPHrine 2 mg In 56.826 38.745 Dextrose 5% in Water 250 ml @ 2 MCG/MIN 15.12 mls/ hr IV .[id number] [facility] Rx#: [id number] Heparin Sodium,Porcine 5, 37 000 unit In Sodium Chloride 0.9% 500 ml @ Per Protocol IV ONCE ONE Rx#:[id number] Insulin Regular 100 unit 9.124 26.053 5.252 In Sodium Chloride 0.9% 100 ml @ Per Protocol IV .Q0M [facility] Rx#:[id number] Propofol 1,000 mg In 69.663 104.479 59.169 Empty Bag 1 bag @ Titrate IV .Q0M [facility] Rx#: [id number] Blood Product 2281 1131 Ffp 24 Cpd Unit 312 [id number] Ffp 24 Cpd Unit 262 [id number] Ffp 24 Cpd Unit 271 [id number] Platelet Pheresis Acda1 201 Unit [id number] Platelet Pheresis Acda2 198 Unit [id number] Platelet Pheresis Acda2 199 Unit [id number] Pooled Cryoprecipitate 109 Unit [id number] Rc As-1 Unit 310 [id number] Rc As-1 Unit 310 [id number] Rc As-3 Unit 310 [id number] Rc As-3 Unit 310 [id number] Rc Cpda-1 Unit 310 [id number] Rc Cpda-1 Unit 310 [id number] Other 300 Rc As-1 Unit 300 [id number] Output: Chest Tube Drainage 2372 1277 64 Chest Tube Bilateral 875 876 24 Chest Tube Upper 1497 401 40 Mediastinal Urine 1165 614 170 Estimated Blood Loss 1999 1999 Other: Voiding Method Indwelling Catheter Indwelling Catheter Indwelling Catheter ABP, PAP, CO, CI - Last Documented Arterial Blood Pressure 136/67 Pulmonary Artery Pressure 31/21 Cardiac Output 4.5 Cardiac Index 2.6 - Exam - Constitutional General appearance: average body habitus, disheveled, no acute distress - EENT Eyes: anicteric sclerae, dentition normal, normal appearance Ears: bilateral: normal - Neck Neck: normal ROM Carotids: bilateral: upstroke normal Thyroid: bilateral: normal size - Respiratory Respiratory: bilateral: diminished, rales (At the bases) - Cardiovascular Heart sounds: normal: S1, S2 - Gastrointestinal General gastrointestinal: decreased bowel sounds, soft - Integumentary Integumentary: decreased turgor, normal, normal turgor - Neurologic Neurologic: CNII-XII intact - Musculoskeletal Unable to assess patient being on a ventilator - Psychiatric Unable to assess at length this patient has been intubated and on ventilator - Labs CBC & Chem 7: 02/15/18 04:12 02/15/18 07:35 Labs: Abnormal Lab Results - Last 24 Hours (Table) 02/04/18 02/14/18 02/14/18 Range/Units 16:15 06:09 08:32 RBC (3.80-5.40) m/uL Hgb (11.4-16.0) gm/dL Hct (34.0-46.0) % Plt Count (150-450) k/uL Neutrophils # (1.3-7.7) k/uL Lymphocytes # (1.0-4.8) k/uL PT (9.0-12.0) sec INR (<1.2) APTT (22.0-30.0) sec Fibrinogen (200-500) mg/dL ABG pH (7.35-7.45) ABG pCO2 (35-45) mmHg ABG pO2 417 H (83-108) mmHg ABG HCO3 26 H (21-25) mmol/L ABG Total CO2 27 H (19-24) mmol/L ABG O2 Saturation 100.0 H (94-97) % ABG Hematocrit (34.0-46.0) % ABG Potassium (3.4-4.5) mmol/L ABG Ionized Calcium (4.5-5.3) mg/dL ABG Glucose 111 H (75-99) mg/dL ABG Lactic Acid (0.5-1.6) mmol/L Hemoglobin (11.4-16.0) gm/dL Chloride (98-107) mmol/L Creatinine (0.52-1.04) mg/dL Glucose (74-99) mg/dL POC Glucose (mg/dL) (75-99) mg/dL Calcium (8.4-10.2) mg/dL Ionized Calcium Gavin (4.5-5.3) mg/dL Phosphorus (2.5-4.5) mg/dL Magnesium (1.6-2.3) mg/dL Total Bilirubin (0.2-1.3) mg/dL AST (14-36) U/L Alkaline Phosphatase (38-126) U/L Total Protein (6.3-8.2) g/dL Albumin (3.5-5.0) g/dL Arterial Blood Potassium (3.4-4.5) mmol/L Arterial Blood Glucose 111 H (75-99) mg/dL Crossmatch See Detail See Detail 02/14/18 02/14/18 02/14/18 Range/Units 09:38 10:09 10:42 RBC (3.80-5.40) m/uL Hgb (11.4-16.0) gm/dL Hct (34.0-46.0) % Plt Count (150-450) k/uL Neutrophils # (1.3-7.7) k/uL Lymphocytes # (1.0-4.8) k/uL PT (9.0-12.0) sec INR (<1.2) APTT (22.0-30.0) sec Fibrinogen (200-500) mg/dL ABG pH 7.34 L (7.35-7.45) ABG pCO2 46 H 34 L (35-45) mmHg ABG pO2 408 H >420 H 415 H (83-108) mmHg ABG HCO3 (21-25) mmol/L ABG Total CO2 26 H (19-24) mmol/L ABG O2 Saturation 100.0 H 100.0 H 100.0 H (94-97) % ABG Hematocrit 20 L* 24 L 21 L (34.0-46.0) % ABG Potassium 4.6 H 4.8 H (3.4-4.5) mmol/L ABG Ionized Calcium 3.9 L 4.3 L 4.0 L (4.5-5.3) mg/dL ABG Glucose 120 H 142 H 155 H (75-99) mg/dL ABG Lactic Acid (0.5-1.6) mmol/L Hemoglobin 6.7 L* 7.8 L 7.0 L* (11.4-16.0) gm/dL Chloride (98-107) mmol/L Creatinine (0.52-1.04) mg/dL Glucose (74-99) mg/dL POC Glucose (mg/dL) (75-99) mg/dL Calcium (8.4-10.2) mg/dL Ionized Calcium Gavin (4.5-5.3) mg/dL Phosphorus (2.5-4.5) mg/dL Magnesium (1.6-2.3) mg/dL Total Bilirubin (0.2-1.3) mg/dL AST (14-36) U/L Alkaline Phosphatase (38-126) U/L Total Protein (6.3-8.2) g/dL Albumin (3.5-5.0) g/dL Arterial Blood Potassium 4.6 H 4.8 H (3.4-4.5) mmol/L Arterial Blood Glucose 120 H 142 H 155 H (75-99) mg/dL Crossmatch 02/14/18 02/14/18 02/14/18 Range/Units 11:33 11:44 12:40 RBC 1.97 L (3.80-5.40) m/uL Hgb 6.1 L* (11.4-16.0) gm/dL Hct 18.6 L* (34.0-46.0) % Plt Count 79 L (150-450) k/uL Neutrophils # 8.1 H (1.3-7.7) k/uL Lymphocytes # (1.0-4.8) k/uL PT (9.0-12.0) sec INR (<1.2) APTT (22.0-30.0) sec Fibrinogen (200-500) mg/dL ABG pH (7.35-7.45) ABG pCO2 (35-45) mmHg ABG pO2 377 H 371 H (83-108) mmHg ABG HCO3 20 L (21-25) mmol/L ABG Total CO2 26 H (19-24) mmol/L ABG O2 Saturation 100.0 H 100.0 H (94-97) % ABG Hematocrit 21 L 22 L (34.0-46.0) % ABG Potassium (3.4-4.5) mmol/L ABG Ionized Calcium 3.8 L 3.7 L (4.5-5.3) mg/dL ABG Glucose 124 H 116 H (75-99) mg/dL ABG Lactic Acid 3.0 H* 2.5 H* (0.5-1.6) mmol/L Hemoglobin 6.7 L* 7.3 L (11.4-16.0) gm/dL Chloride (98-107) mmol/L Creatinine (0.52-1.04) mg/dL Glucose (74-99) mg/dL POC Glucose (mg/dL) (75-99) mg/dL Calcium (8.4-10.2) mg/dL Ionized Calcium Gavin (4.5-5.3) mg/dL Phosphorus (2.5-4.5) mg/dL Magnesium (1.6-2.3) mg/dL Total Bilirubin (0.2-1.3) mg/dL AST (14-36) U/L Alkaline Phosphatase (38-126) U/L Total Protein (6.3-8.2) g/dL Albumin (3.5-5.0) g/dL Arterial Blood Potassium (3.4-4.5) mmol/L Arterial Blood Glucose 124 H 116 H (75-99) mg/dL Crossmatch 02/14/18 02/14/18 02/14/18 Range/Units 12:40 12:40 12:40 RBC (3.80-5.40) m/uL Hgb (11.4-16.0) gm/dL Hct (34.0-46.0) % Plt Count (150-450) k/uL Neutrophils # (1.3-7.7) k/uL Lymphocytes # (1.0-4.8) k/uL PT 13.5 H (9.0-12.0) sec INR 1.4 H (<1.2) APTT 48.6 H (22.0-30.0) sec Fibrinogen 105 L (200-500) mg/dL ABG pH (7.35-7.45) ABG pCO2 (35-45) mmHg ABG pO2 (83-108) mmHg ABG HCO3 (21-25) mmol/L ABG Total CO2 (19-24) mmol/L ABG O2 Saturation (94-97) % ABG Hematocrit (34.0-46.0) % ABG Potassium (3.4-4.5) mmol/L ABG Ionized Calcium (4.5-5.3) mg/dL ABG Glucose (75-99) mg/dL ABG Lactic Acid (0.5-1.6) mmol/L Hemoglobin (11.4-16.0) gm/dL Chloride 111 H (98-107) mmol/L Creatinine 0.43 L (0.52-1.04) mg/dL Glucose (74-99) mg/dL POC Glucose (mg/dL) (75-99) mg/dL Calcium 6.3 L* (8.4-10.2) mg/dL Ionized Calcium Gavin 4.2 L (4.5-5.3) mg/dL Phosphorus (2.5-4.5) mg/dL Magnesium 3.1 H (1.6-2.3) mg/dL Total Bilirubin (0.2-1.3) mg/dL AST (14-36) U/L Alkaline Phosphatase 26 L (38-126) U/L Total Protein 4.3 L (6.3-8.2) g/dL Albumin 2.8 L (3.5-5.0) g/dL Arterial Blood Potassium (3.4-4.5) mmol/L Arterial Blood Glucose (75-99) mg/dL Crossmatch 02/14/18 02/14/18 02/14/18 Range/Units 12:47 13:36 13:50 RBC (3.80-5.40) m/uL Hgb (11.4-16.0) gm/dL Hct (34.0-46.0) % Plt Count (150-450) k/uL Neutrophils # (1.3-7.7) k/uL Lymphocytes # (1.0-4.8) k/uL PT (9.0-12.0) sec INR (<1.2) APTT (22.0-30.0) sec Fibrinogen (200-500) mg/dL ABG pH 7.27 L (7.35-7.45) ABG pCO2 52 H (35-45) mmHg ABG pO2 280 H (83-108) mmHg ABG HCO3 (21-25) mmol/L ABG Total CO2 26 H (19-24) mmol/L ABG O2 Saturation 100.0 H (94-97) % ABG Hematocrit (34.0-46.0) % ABG Potassium (3.4-4.5) mmol/L ABG Ionized Calcium (4.5-5.3) mg/dL ABG Glucose (75-99) mg/dL ABG Lactic Acid (0.5-1.6) mmol/L Hemoglobin (11.4-16.0) gm/dL Chloride (98-107) mmol/L Creatinine (0.52-1.04) mg/dL Glucose (74-99) mg/dL POC Glucose (mg/dL) 105 H 161 H (75-99) mg/dL Calcium (8.4-10.2) mg/dL Ionized Calcium Gavin (4.5-5.3) mg/dL Phosphorus (2.5-4.5) mg/dL Magnesium (1.6-2.3) mg/dL Total Bilirubin (0.2-1.3) mg/dL AST (14-36) U/L Alkaline Phosphatase (38-126) U/L Total Protein (6.3-8.2) g/dL Albumin (3.5-5.0) g/dL Arterial Blood Potassium (3.4-4.5) mmol/L Arterial Blood Glucose (75-99) mg/dL Crossmatch 02/14/18 02/14/18 02/14/18 Range/Units 15:31 15:51 16:10 RBC 1.78 L (3.80-5.40) m/uL Hgb 5.6 L* (11.4-16.0) gm/dL Hct 16.8 L* (34.0-46.0) % Plt Count (150-450) k/uL Neutrophils # (1.3-7.7) k/uL Lymphocytes # (1.0-4.8) k/uL PT (9.0-12.0) sec INR (<1.2) APTT (22.0-30.0) sec Fibrinogen (200-500) mg/dL ABG pH 7.33 L (7.35-7.45) ABG pCO2 (35-45) mmHg ABG pO2 225 H (83-108) mmHg ABG HCO3 (21-25) mmol/L ABG Total CO2 (19-24) mmol/L ABG O2 Saturation 100.0 H (94-97) % ABG Hematocrit (34.0-46.0) % ABG Potassium (3.4-4.5) mmol/L ABG Ionized Calcium (4.5-5.3) mg/dL ABG Glucose (75-99) mg/dL ABG Lactic Acid (0.5-1.6) mmol/L Hemoglobin (11.4-16.0) gm/dL Chloride (98-107) mmol/L Creatinine (0.52-1.04) mg/dL Glucose (74-99) mg/dL POC Glucose (mg/dL) 197 H (75-99) mg/dL Calcium (8.4-10.2) mg/dL Ionized Calcium Gavin (4.5-5.3) mg/dL Phosphorus (2.5-4.5) mg/dL Magnesium (1.6-2.3) mg/dL Total Bilirubin (0.2-1.3) mg/dL AST (14-36) U/L Alkaline Phosphatase (38-126) U/L Total Protein (6.3-8.2) g/dL Albumin (3.5-5.0) g/dL Arterial Blood Potassium (3.4-4.5) mmol/L Arterial Blood Glucose (75-99) mg/dL Crossmatch 02/14/18 02/14/18 02/14/18 Range/Units 17:22 17:40 17:40 RBC (3.80-5.40) m/uL Hgb (11.4-16.0) gm/dL Hct (34.0-46.0) % Plt Count (150-450) k/uL Neutrophils # (1.3-7.7) k/uL Lymphocytes # (1.0-4.8) k/uL PT (9.0-12.0) sec INR (<1.2) APTT (22.0-30.0) sec Fibrinogen (200-500) mg/dL ABG pH (7.35-7.45) ABG pCO2 (35-45) mmHg ABG pO2 (83-108) mmHg ABG HCO3 (21-25) mmol/L ABG Total CO2 (19-24) mmol/L ABG O2 Saturation (94-97) % ABG Hematocrit (34.0-46.0) % ABG Potassium (3.4-4.5) mmol/L ABG Ionized Calcium (4.5-5.3) mg/dL ABG Glucose (75-99) mg/dL ABG Lactic Acid (0.5-1.6) mmol/L Hemoglobin (11.4-16.0) gm/dL Chloride 109 H (98-107) mmol/L Creatinine (0.52-1.04) mg/dL Glucose (74-99) mg/dL POC Glucose (mg/dL) 203 H (75-99) mg/dL Calcium 7.6 L (8.4-10.2) mg/dL Ionized Calcium Gavin (4.5-5.3) mg/dL Phosphorus (2.5-4.5) mg/dL Magnesium (1.6-2.3) mg/dL Total Bilirubin (0.2-1.3) mg/dL AST (14-36) U/L Alkaline Phosphatase (38-126) U/L Total Protein (6.3-8.2) g/dL Albumin (3.5-5.0) g/dL Arterial Blood Potassium (3.4-4.5) mmol/L Arterial Blood Glucose (75-99) mg/dL Crossmatch 02/14/18 02/14/18 02/14/18 Range/Units 18:16 19:16 20:07 RBC (3.80-5.40) m/uL Hgb (11.4-16.0) gm/dL Hct (34.0-46.0) % Plt Count (150-450) k/uL Neutrophils # (1.3-7.7) k/uL Lymphocytes # (1.0-4.8) k/uL PT (9.0-12.0) sec INR 1.2 H (<1.2) APTT (22.0-30.0) sec Fibrinogen (200-500) mg/dL ABG pH (7.35-7.45) ABG pCO2 (35-45) mmHg ABG pO2 (83-108) mmHg ABG HCO3 (21-25) mmol/L ABG Total CO2 (19-24) mmol/L ABG O2 Saturation (94-97) % ABG Hematocrit (34.0-46.0) % ABG Potassium (3.4-4.5) mmol/L ABG Ionized Calcium (4.5-5.3) mg/dL ABG Glucose (75-99) mg/dL ABG Lactic Acid (0.5-1.6) mmol/L Hemoglobin (11.4-16.0) gm/dL Chloride (98-107) mmol/L Creatinine (0.52-1.04) mg/dL Glucose (74-99) mg/dL POC Glucose (mg/dL) 164 H 173 H (75-99) mg/dL Calcium (8.4-10.2) mg/dL Ionized Calcium Gavin (4.5-5.3) mg/dL Phosphorus (2.5-4.5) mg/dL Magnesium (1.6-2.3) mg/dL Total Bilirubin (0.2-1.3) mg/dL AST (14-36) U/L Alkaline Phosphatase (38-126) U/L Total Protein (6.3-8.2) g/dL Albumin (3.5-5.0) g/dL Arterial Blood Potassium (3.4-4.5) mmol/L Arterial Blood Glucose (75-99) mg/dL Crossmatch 02/14/18 02/14/18 02/14/18 Range/Units 20:07 20:07 21:06 RBC 2.23 L (3.80-5.40) m/uL Hgb 7.0 L (11.4-16.0) gm/dL Hct 20.2 L (34.0-46.0) % Plt Count 131 L (150-450) k/uL Neutrophils # (1.3-7.7) k/uL Lymphocytes # 0.5 L (1.0-4.8) k/uL PT (9.0-12.0) sec INR (<1.2) APTT (22.0-30.0) sec Fibrinogen (200-500) mg/dL ABG pH (7.35-7.45) ABG pCO2 (35-45) mmHg ABG pO2 (83-108) mmHg ABG HCO3 (21-25) mmol/L ABG Total CO2 (19-24) mmol/L ABG O2 Saturation (94-97) % ABG Hematocrit (34.0-46.0) % ABG Potassium (3.4-4.5) mmol/L ABG Ionized Calcium (4.5-5.3) mg/dL ABG Glucose (75-99) mg/dL ABG Lactic Acid (0.5-1.6) mmol/L Hemoglobin (11.4-16.0) gm/dL Chloride (98-107) mmol/L Creatinine (0.52-1.04) mg/dL Glucose (74-99) mg/dL POC Glucose (mg/dL) 162 H 196 H (75-99) mg/dL Calcium (8.4-10.2) mg/dL Ionized Calcium Gavin (4.5-5.3) mg/dL Phosphorus (2.5-4.5) mg/dL Magnesium (1.6-2.3) mg/dL Total Bilirubin (0.2-1.3) mg/dL AST (14-36) U/L Alkaline Phosphatase (38-126) U/L Total Protein (6.3-8.2) g/dL Albumin (3.5-5.0) g/dL Arterial Blood Potassium (3.4-4.5) mmol/L Arterial Blood Glucose (75-99) mg/dL Crossmatch 02/15/18 02/15/18 02/15/18 Range/Units 00:14 00:14 00:14 RBC (3.80-5.40) m/uL Hgb (11.4-16.0) gm/dL Hct (34.0-46.0) % Plt Count (150-450) k/uL Neutrophils # (1.3-7.7) k/uL Lymphocytes # (1.0-4.8) k/uL PT 14.0 H (9.0-12.0) sec INR 1.5 H (<1.2) APTT (22.0-30.0) sec Fibrinogen (200-500) mg/dL ABG pH (7.35-7.45) ABG pCO2 (35-45) mmHg ABG pO2 (83-108) mmHg ABG HCO3 (21-25) mmol/L ABG Total CO2 (19-24) mmol/L ABG O2 Saturation (94-97) % ABG Hematocrit (34.0-46.0) % ABG Potassium (3.4-4.5) mmol/L ABG Ionized Calcium (4.5-5.3) mg/dL ABG Glucose (75-99) mg/dL ABG Lactic Acid (0.5-1.6) mmol/L Hemoglobin (11.4-16.0) gm/dL Chloride 110 H (98-107) mmol/L Creatinine 0.41 L (0.52-1.04) mg/dL Glucose 149 H (74-99) mg/dL POC Glucose (mg/dL) 167 H (75-99) mg/dL Calcium 6.9 L (8.4-10.2) mg/dL Ionized Calcium Gavin (4.5-5.3) mg/dL Phosphorus (2.5-4.5) mg/dL Magnesium (1.6-2.3) mg/dL Total Bilirubin 2.0 H (0.2-1.3) mg/dL AST 44 H (14-36) U/L Alkaline Phosphatase <20 L (38-126) U/L Total Protein 3.2 L (6.3-8.2) g/dL Albumin 2.0 L (3.5-5.0) g/dL Arterial Blood Potassium (3.4-4.5) mmol/L Arterial Blood Glucose (75-99) mg/dL Crossmatch 02/15/18 02/15/18 02/15/18 Range/Units 00:17 01:03 02:05 RBC 2.05 L (3.80-5.40) m/uL Hgb 6.2 L* (11.4-16.0) gm/dL Hct 18.8 L* (34.0-46.0) % Plt Count 67 L (150-450) k/uL Neutrophils # (1.3-7.7) k/uL Lymphocytes # 0.7 L (1.0-4.8) k/uL PT (9.0-12.0) sec INR (<1.2) APTT (22.0-30.0) sec Fibrinogen (200-500) mg/dL ABG pH (7.35-7.45) ABG pCO2 (35-45) mmHg ABG pO2 (83-108) mmHg ABG HCO3 (21-25) mmol/L ABG Total CO2 (19-24) mmol/L ABG O2 Saturation (94-97) % ABG Hematocrit (34.0-46.0) % ABG Potassium (3.4-4.5) mmol/L ABG Ionized Calcium (4.5-5.3) mg/dL ABG Glucose (75-99) mg/dL ABG Lactic Acid (0.5-1.6) mmol/L Hemoglobin (11.4-16.0) gm/dL Chloride (98-107) mmol/L Creatinine (0.52-1.04) mg/dL Glucose (74-99) mg/dL POC Glucose (mg/dL) 205 H 167 H (75-99) mg/dL Calcium (8.4-10.2) mg/dL Ionized Calcium Gavin (4.5-5.3) mg/dL Phosphorus (2.5-4.5) mg/dL Magnesium (1.6-2.3) mg/dL Total Bilirubin (0.2-1.3) mg/dL AST (14-36) U/L Alkaline Phosphatase (38-126) U/L Total Protein (6.3-8.2) g/dL Albumin (3.5-5.0) g/dL Arterial Blood Potassium (3.4-4.5) mmol/L Arterial Blood Glucose (75-99) mg/dL Crossmatch 02/15/18 02/15/18 02/15/18 Range/Units 03:18 03:35 04:07 RBC (3.80-5.40) m/uL Hgb (11.4-16.0) gm/dL Hct (34.0-46.0) % Plt Count (150-450) k/uL Neutrophils # (1.3-7.7) k/uL Lymphocytes # (1.0-4.8) k/uL PT (9.0-12.0) sec INR (<1.2) APTT (22.0-30.0) sec Fibrinogen (200-500) mg/dL ABG pH 7.54 H (7.35-7.45) ABG pCO2 28 L (35-45) mmHg ABG pO2 115 H (83-108) mmHg ABG HCO3 (21-25) mmol/L ABG Total CO2 (19-24) mmol/L ABG O2 Saturation 100.0 H (94-97) % ABG Hematocrit (34.0-46.0) % ABG Potassium (3.4-4.5) mmol/L ABG Ionized Calcium (4.5-5.3) mg/dL ABG Glucose (75-99) mg/dL ABG Lactic Acid (0.5-1.6) mmol/L Hemoglobin (11.4-16.0) gm/dL Chloride (98-107) mmol/L Creatinine (0.52-1.04) mg/dL Glucose (74-99) mg/dL POC Glucose (mg/dL) 131 H 121 H (75-99) mg/dL Calcium (8.4-10.2) mg/dL Ionized Calcium Gavin (4.5-5.3) mg/dL Phosphorus (2.5-4.5) mg/dL Magnesium (1.6-2.3) mg/dL Total Bilirubin (0.2-1.3) mg/dL AST (14-36) U/L Alkaline Phosphatase (38-126) U/L Total Protein (6.3-8.2) g/dL Albumin (3.5-5.0) g/dL Arterial Blood Potassium (3.4-4.5) mmol/L Arterial Blood Glucose (75-99) mg/dL Crossmatch 02/15/18 02/15/18 02/15/18 Range/Units 04:12 05:04 06:09 RBC 2.70 L (3.80-5.40) m/uL Hgb 8.2 L D (11.4-16.0) gm/dL Hct 23.9 L (34.0-46.0) % Plt Count 119 L D (150-450) k/uL Neutrophils # (1.3-7.7) k/uL Lymphocytes # (1.0-4.8) k/uL PT (9.0-12.0) sec INR (<1.2) APTT (22.0-30.0) sec Fibrinogen (200-500) mg/dL ABG pH (7.35-7.45) ABG pCO2 (35-45) mmHg ABG pO2 (83-108) mmHg ABG HCO3 (21-25) mmol/L ABG Total CO2 (19-24) mmol/L ABG O2 Saturation (94-97) % ABG Hematocrit (34.0-46.0) % ABG Potassium (3.4-4.5) mmol/L ABG Ionized Calcium (4.5-5.3) mg/dL ABG Glucose (75-99) mg/dL ABG Lactic Acid (0.5-1.6) mmol/L Hemoglobin (11.4-16.0) gm/dL Chloride (98-107) mmol/L Creatinine (0.52-1.04) mg/dL Glucose (74-99) mg/dL POC Glucose (mg/dL) 128 H 129 H (75-99) mg/dL Calcium (8.4-10.2) mg/dL Ionized Calcium Gavin (4.5-5.3) mg/dL Phosphorus (2.5-4.5) mg/dL Magnesium (1.6-2.3) mg/dL Total Bilirubin (0.2-1.3) mg/dL AST (14-36) U/L Alkaline Phosphatase (38-126) U/L Total Protein (6.3-8.2) g/dL Albumin (3.5-5.0) g/dL Arterial Blood Potassium (3.4-4.5) mmol/L Arterial Blood Glucose (75-99) mg/dL Crossmatch 02/15/18 02/15/18 02/15/18 Range/Units 07:16 07:35 08:10 RBC (3.80-5.40) m/uL Hgb (11.4-16.0) gm/dL Hct (34.0-46.0) % Plt Count (150-450) k/uL Neutrophils # (1.3-7.7) k/uL Lymphocytes # (1.0-4.8) k/uL PT (9.0-12.0) sec INR (<1.2) APTT (22.0-30.0) sec Fibrinogen (200-500) mg/dL ABG pH (7.35-7.45) ABG pCO2 (35-45) mmHg ABG pO2 (83-108) mmHg ABG HCO3 (21-25) mmol/L ABG Total CO2 (19-24) mmol/L ABG O2 Saturation (94-97) % ABG Hematocrit (34.0-46.0) % ABG Potassium (3.4-4.5) mmol/L ABG Ionized Calcium (4.5-5.3) mg/dL ABG Glucose (75-99) mg/dL ABG Lactic Acid (0.5-1.6) mmol/L Hemoglobin (11.4-16.0) gm/dL Chloride 112 H (98-107) mmol/L Creatinine 0.47 L (0.52-1.04) mg/dL Glucose 115 H (74-99) mg/dL POC Glucose (mg/dL) 126 H 128 H (75-99) mg/dL Calcium 7.5 L (8.4-10.2) mg/dL Ionized Calcium Gavin (4.5-5.3) mg/dL Phosphorus 1.9 L (2.5-4.5) mg/dL Magnesium (1.6-2.3) mg/dL Total Bilirubin 1.5 H (0.2-1.3) mg/dL AST 81 H (14-36) U/L Alkaline Phosphatase 29 L (38-126) U/L Total Protein 4.1 L (6.3-8.2) g/dL Albumin 2.4 L (3.5-5.0) g/dL Arterial Blood Potassium (3.4-4.5) mmol/L Arterial Blood Glucose (75-99) mg/dL Crossmatch Assessment and Plan Assessment: 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, status post mitral valve replacement postop day #1 Significant mediastinal bleed anticipated postoperative course, requiring reexploration and removal of clots, postop day #1 Acute blood loss anemia Hypertension hypertensive cardiovascular disease Morbid obesity Plan: Continue ventilator support and adjust FiO2 and PEEP as tolerated Ready for weaning and extubation protocol, care plan discussed with cardiothoracic surgery and nursing staff once switch of sedation completed then we will initiate the CPAP and do CPAP gases We will initiate patient on Precedex and DC propofol Ventilator setting adjusted Blood products as needed follow clinical course closely further recommendations pending, initiate weaning once patient is lifting more stable Time with Patient: Greater than 30
[2018-02-15] MEDS: POTASSIUM PHOSPHATE 10 MMOL in SODIUM CHLORIDE 0.9% 100 ML IV SCH ×2 (09:35→12:35)
[2018-02-15] MEDS: METOPROLOL TARTRATE 25 MG TAB PO SCH ×2 (09:40→21:08)
[2018-02-15] MEDS: LACTATED RINGERS 1,000 ML IV SCH ×2 (09:42→15:01)
[2018-02-15 10:13] LABS: Glucose,Whole Blood 126 mg/dL (75-99)
--- NOTE | 2018-02-15 10:40 | P.PN ---
Subjective Progress Note Date: 02/15/18 Principal diagnosis: Severe mitral valve regurgitation, history of asthma, hypertriglyceridemia and history of near syncopal event. POD #1 complex mitral valve repair with closure of the base of P1 and P2 cleft and annuloplasty with a #26 mm a little flex ring, closure of left atrial appendage, intraoperative epi-aortic ultrasound and intraoperative transesophageal echocardiogram performed by anesthesia. POD #1 sternal reexploration with evacuation of hematoma. Postoperative hemorrhage, an unexpected but potential outcome of surgery. The patient remains intubated with mechanical ventilator support, she remains sedated on propofol drip at 45 mcg/kg/m. She is in no acute distress. The patient had some postoperative bleeding and hemodynamic instability requiring sternal reexploration with evacuation of hematoma performed by Dr. Red. Currently the patient is not following any verbal commands but is moving all 4 extremities and withdraws from noxious stimuli.. Since her postoperative reexploration with removal of hematoma her chest tube drainage has been controlled. She is hemodynamically stable with current cardiac output 5.1 and cardiac index 2.9. Current laboratory results are showing a hemoglobin of 8.2, platelets 119, BUN 11, creatinine 0.47, potassium 3.8, phosphorus 1.9. Objective - Vital Signs Vital signs: Vital Signs Temp 99.5 F 02/15/18 03:35 Pulse 85 02/15/18 07:33 Resp 20 02/15/18 07:30 BP 110/63 02/15/18 07:00 Pulse Ox 100 02/15/18 07:54 Intake & Output 02/14/18 02/15/18 02/15/18 18:59 06:59 18:59 Intake Total 3342.613 4275.277 43 Output Total 5537 3891 104 Balance -2194.387 384.277 -61 Weight 71.1 kg 83.5 kg Intake: IV 626 2938 43 ACETAMINOPHEN IV (For NPO 200 ) 1,000 mg In Empty Bag 1 bag @ 400 mls/hr IVPB Q6HR [facility] Rx#:[id number] Albumin Human 5% 250 ml 500 In Empty Bag 1 bag @ 250 mls/hr IVPB Q1HR PRN Rx#: [id number] Bolus CO 120 170 Calcium Gluconate 1,000 100 mg In Sodium Chloride 0.9 % 100 ml @ 100 mls/hr IVPB ONCE ONE Rx#: [id number] Lactated Ringers 1,000 ml 505 40 @ 50 mls/hr IV .Q20H [facility] Rx#:[id number] NS 450 195 NS Pressure Bag 54 36 3 PLT 201 PRBC 930 Potassium Chloride 20 meq 100 In Water For Injection 1 100ml.bag @ 50 mls/hr IVPB Q2H [facility] Rx#: [id number] Intake, IV Titration 135.613 206.277 Amount EPINEPHrine 2 mg In 56.826 38.745 Dextrose 5% in Water 250 ml @ 2 MCG/MIN 15.12 mls/ hr IV .[id number] [facility] Rx#: [id number] Heparin Sodium,Porcine 5, 37 000 unit In Sodium Chloride 0.9% 500 ml @ Per Protocol IV ONCE ONE Rx#:[id number] Insulin Regular 100 unit 9.124 26.053 In Sodium Chloride 0.9% 100 ml @ Per Protocol IV .Q0M [facility] Rx#:[id number] Propofol 1,000 mg In 69.663 104.479 Empty Bag 1 bag @ Titrate IV .Q0M [facility] Rx#: [id number] Blood Product 2281 1131 Ffp 24 Cpd Unit 312 [id number] Ffp 24 Cpd Unit 262 [id number] Ffp 24 Cpd Unit 271 [id number] Platelet Pheresis Acda1 201 Unit [id number] Platelet Pheresis Acda2 198 Unit [id number] Platelet Pheresis Acda2 199 Unit [id number] Pooled Cryoprecipitate 109 Unit [id number] Rc As-1 Unit 310 [id number] Rc As-1 Unit 310 [id number] Rc As-3 Unit 310 [id number] Rc As-3 Unit 310 [id number] Rc Cpda-1 Unit 310 [id number] Rc Cpda-1 Unit 310 [id number] Other 300 Rc As-1 Unit 300 [id number] Output: Chest Tube Drainage 2372 1277 34 Chest Tube Bilateral 875 876 14 Chest Tube Upper 1497 401 20 Mediastinal Urine 1165 614 70 Estimated Blood Loss 1999 1999 Other: Voiding Method Indwelling Catheter Indwelling Catheter ABP, PAP, CO, CI - Last Documented Arterial Blood Pressure 151/73 Pulmonary Artery Pressure 32/22 Cardiac Output 5.1 Cardiac Index 2.9 - Constitutional Constitutional Comment(s): Remains with mechanical ventilator support, sedated with propofol drip at 45 mcg /kg/m. Moving all 4 extremities, not following any verbal commands at this time. General appearance: Present: no acute distress, obese - EENT Eyes: Present: PERRLA - Respiratory Details: Lungs sounds are essentially clear throughout, diminished bilateral bases. Respirations are symmetrical and nonlabored with mechanical ventilator support. Current ventilator settings are as follows: AC 20, TV 500, FiO2 40%, PEEP of 5. ABG results this morning are pH 7.54, pCO2 28, pO2 115, HCO3 23, BE 0.8, O2 sats 100%. Oxygen saturations are 100% on current ventilator settings. Mediastinal, left and right pleural chest tubes in place to low continuous wall suction -20 cm H2O. No air leak is present. Draining thin serosanguineous drainage. Mediastinal chest tubes with 1800 mL output since surgery, 210 mL output the last 8 hours. Left and right pleural chest tubes with 1750 mL output since surgery, 170 mL output in the last 8 hours. - Cardiovascular Details: Regular rhythm and rate. S1 and S2 present, negative for S3, gallop or murmur. Sternum is stable. Bedside telemetry showing normal sinus rhythm heart rate 85. Left radial arterial line intact and functioning. Right IJ Cordis with [place]-Abimael catheter in place and functioning. Current cardiac output is 5.1, cardiac index 2.9, PA pressures 31/21, CVP 16 mmHg. Atrial and ventricular epicardial pacemaker wires intact and connected to a backup generator with a VVIR 50. Heart hugger is in place. Knee-high sequential compression devices and Christofer wrap's in place to bilateral lower extremities. +1 generalized edema present. - Gastrointestinal Gastrointestinal Comment(s): Abdomen is soft, nontender and nondistended. Hypoactive bowel sounds present to all 4 abdominal quadrants. OG tube in place with 50 mL output in the last 8 hours. - Genitourinary Genitourinary Comment(s): Lisa catheter for accurate I&O. Draining clear yellow urine. 475 mL output in the last 8 hours. - Integumentary Integumentary Comment(s): Skin is warm and dry. No clubbing or cyanosis present. Midline sternal incision clean dry and approximated. No drainage or redness present. No rash or abnormal pigmentation present. - Neurologic Neurologic: Present: CNII-XII intact - Musculoskeletal Musculoskeletal: Present: generalized weakness - Psychiatric Psychiatric Comment(s): Remains sedated on propofol drip. - Allied health notes Allied health notes reviewed: nursing - Labs CBC & Chem 7: 02/15/18 04:12 02/15/18 07:35 Labs: Abnormal Lab Results - Last 24 Hours (Table) 02/04/18 02/14/18 02/14/18 Range/Units 16:15 06:09 08:32 RBC (3.80-5.40) m/uL Hgb (11.4-16.0) gm/dL Hct (34.0-46.0) % Plt Count (150-450) k/uL Neutrophils # (1.3-7.7) k/uL Lymphocytes # (1.0-4.8) k/uL PT (9.0-12.0) sec INR (<1.2) APTT (22.0-30.0) sec Fibrinogen (200-500) mg/dL ABG pH (7.35-7.45) ABG pCO2 (35-45) mmHg ABG pO2 417 H (83-108) mmHg ABG HCO3 26 H (21-25) mmol/L ABG Total CO2 27 H (19-24) mmol/L ABG O2 Saturation 100.0 H (94-97) % ABG Hematocrit (34.0-46.0) % ABG Potassium (3.4-4.5) mmol/L ABG Ionized Calcium (4.5-5.3) mg/dL ABG Glucose 111 H (75-99) mg/dL ABG Lactic Acid (0.5-1.6) mmol/L Hemoglobin (11.4-16.0) gm/dL Chloride (98-107) mmol/L Creatinine (0.52-1.04) mg/dL Glucose (74-99) mg/dL POC Glucose (mg/dL) (75-99) mg/dL Calcium (8.4-10.2) mg/dL Ionized Calcium Gavin (4.5-5.3) mg/dL Magnesium (1.6-2.3) mg/dL Total Bilirubin (0.2-1.3) mg/dL AST (14-36) U/L Alkaline Phosphatase (38-126) U/L Total Protein (6.3-8.2) g/dL Albumin (3.5-5.0) g/dL Arterial Blood Potassium (3.4-4.5) mmol/L Arterial Blood Glucose 111 H (75-99) mg/dL Crossmatch See Detail See Detail 02/14/18 02/14/18 02/14/18 Range/Units 09:38 10:09 10:42 RBC (3.80-5.40) m/uL Hgb (11.4-16.0) gm/dL Hct (34.0-46.0) % Plt Count (150-450) k/uL Neutrophils # (1.3-7.7) k/uL Lymphocytes # (1.0-4.8) k/uL PT (9.0-12.0) sec INR (<1.2) APTT (22.0-30.0) sec Fibrinogen (200-500) mg/dL ABG pH 7.34 L (7.35-7.45) ABG pCO2 46 H 34 L (35-45) mmHg ABG pO2 408 H >420 H 415 H (83-108) mmHg ABG HCO3 (21-25) mmol/L ABG Total CO2 26 H (19-24) mmol/L ABG O2 Saturation 100.0 H 100.0 H 100.0 H (94-97) % ABG Hematocrit 20 L* 24 L 21 L (34.0-46.0) % ABG Potassium 4.6 H 4.8 H (3.4-4.5) mmol/L ABG Ionized Calcium 3.9 L 4.3 L 4.0 L (4.5-5.3) mg/dL ABG Glucose 120 H 142 H 155 H (75-99) mg/dL ABG Lactic Acid (0.5-1.6) mmol/L Hemoglobin 6.7 L* 7.8 L 7.0 L* (11.4-16.0) gm/dL Chloride (98-107) mmol/L Creatinine (0.52-1.04) mg/dL Glucose (74-99) mg/dL POC Glucose (mg/dL) (75-99) mg/dL Calcium (8.4-10.2) mg/dL Ionized Calcium Gavin (4.5-5.3) mg/dL Magnesium (1.6-2.3) mg/dL Total Bilirubin (0.2-1.3) mg/dL AST (14-36) U/L Alkaline Phosphatase (38-126) U/L Total Protein (6.3-8.2) g/dL Albumin (3.5-5.0) g/dL Arterial Blood Potassium 4.6 H 4.8 H (3.4-4.5) mmol/L Arterial Blood Glucose 120 H 142 H 155 H (75-99) mg/dL Crossmatch 02/14/18 02/14/18 02/14/18 Range/Units 11:33 11:44 12:40 RBC 1.97 L (3.80-5.40) m/uL Hgb 6.1 L* (11.4-16.0) gm/dL Hct 18.6 L* (34.0-46.0) % Plt Count 79 L (150-450) k/uL Neutrophils # 8.1 H (1.3-7.7) k/uL Lymphocytes # (1.0-4.8) k/uL PT (9.0-12.0) sec INR (<1.2) APTT (22.0-30.0) sec Fibrinogen (200-500) mg/dL ABG pH (7.35-7.45) ABG pCO2 (35-45) mmHg ABG pO2 377 H 371 H (83-108) mmHg ABG HCO3 20 L (21-25) mmol/L ABG Total CO2 26 H (19-24) mmol/L ABG O2 Saturation 100.0 H 100.0 H (94-97) % ABG Hematocrit 21 L 22 L (34.0-46.0) % ABG Potassium (3.4-4.5) mmol/L ABG Ionized Calcium 3.8 L 3.7 L (4.5-5.3) mg/dL ABG Glucose 124 H 116 H (75-99) mg/dL ABG Lactic Acid 3.0 H* 2.5 H* (0.5-1.6) mmol/L Hemoglobin 6.7 L* 7.3 L (11.4-16.0) gm/dL Chloride (98-107) mmol/L Creatinine (0.52-1.04) mg/dL Glucose (74-99) mg/dL POC Glucose (mg/dL) (75-99) mg/dL Calcium (8.4-10.2) mg/dL Ionized Calcium Gavin (4.5-5.3) mg/dL Magnesium (1.6-2.3) mg/dL Total Bilirubin (0.2-1.3) mg/dL AST (14-36) U/L Alkaline Phosphatase (38-126) U/L Total Protein (6.3-8.2) g/dL Albumin (3.5-5.0) g/dL Arterial Blood Potassium (3.4-4.5) mmol/L Arterial Blood Glucose 124 H 116 H (75-99) mg/dL Crossmatch 02/14/18 02/14/18 02/14/18 Range/Units 12:40 12:40 12:40 RBC (3.80-5.40) m/uL Hgb (11.4-16.0) gm/dL Hct (34.0-46.0) % Plt Count (150-450) k/uL Neutrophils # (1.3-7.7) k/uL Lymphocytes # (1.0-4.8) k/uL PT 13.5 H (9.0-12.0) sec INR 1.4 H (<1.2) APTT 48.6 H (22.0-30.0) sec Fibrinogen 105 L (200-500) mg/dL ABG pH (7.35-7.45) ABG pCO2 (35-45) mmHg ABG pO2 (83-108) mmHg ABG HCO3 (21-25) mmol/L ABG Total CO2 (19-24) mmol/L ABG O2 Saturation (94-97) % ABG Hematocrit (34.0-46.0) % ABG Potassium (3.4-4.5) mmol/L ABG Ionized Calcium (4.5-5.3) mg/dL ABG Glucose (75-99) mg/dL ABG Lactic Acid (0.5-1.6) mmol/L Hemoglobin (11.4-16.0) gm/dL Chloride 111 H (98-107) mmol/L Creatinine 0.43 L (0.52-1.04) mg/dL Glucose (74-99) mg/dL POC Glucose (mg/dL) (75-99) mg/dL Calcium 6.3 L* (8.4-10.2) mg/dL Ionized Calcium Gavin 4.2 L (4.5-5.3) mg/dL Magnesium 3.1 H (1.6-2.3) mg/dL Total Bilirubin (0.2-1.3) mg/dL AST (14-36) U/L Alkaline Phosphatase 26 L (38-126) U/L Total Protein 4.3 L (6.3-8.2) g/dL Albumin 2.8 L (3.5-5.0) g/dL Arterial Blood Potassium (3.4-4.5) mmol/L Arterial Blood Glucose (75-99) mg/dL Crossmatch 02/14/18 02/14/18 02/14/18 Range/Units 12:47 13:36 13:50 RBC (3.80-5.40) m/uL Hgb (11.4-16.0) gm/dL Hct (34.0-46.0) % Plt Count (150-450) k/uL Neutrophils # (1.3-7.7) k/uL Lymphocytes # (1.0-4.8) k/uL PT (9.0-12.0) sec INR (<1.2) APTT (22.0-30.0) sec Fibrinogen (200-500) mg/dL ABG pH 7.27 L (7.35-7.45) ABG pCO2 52 H (35-45) mmHg ABG pO2 280 H (83-108) mmHg ABG HCO3 (21-25) mmol/L ABG Total CO2 26 H (19-24) mmol/L ABG O2 Saturation 100.0 H (94-97) % ABG Hematocrit (34.0-46.0) % ABG Potassium (3.4-4.5) mmol/L ABG Ionized Calcium (4.5-5.3) mg/dL ABG Glucose (75-99) mg/dL ABG Lactic Acid (0.5-1.6) mmol/L Hemoglobin (11.4-16.0) gm/dL Chloride (98-107) mmol/L Creatinine (0.52-1.04) mg/dL Glucose (74-99) mg/dL POC Glucose (mg/dL) 105 H 161 H (75-99) mg/dL Calcium (8.4-10.2) mg/dL Ionized Calcium Gavin (4.5-5.3) mg/dL Magnesium (1.6-2.3) mg/dL Total Bilirubin (0.2-1.3) mg/dL AST (14-36) U/L Alkaline Phosphatase (38-126) U/L Total Protein (6.3-8.2) g/dL Albumin (3.5-5.0) g/dL Arterial Blood Potassium (3.4-4.5) mmol/L Arterial Blood Glucose (75-99) mg/dL Crossmatch 02/14/18 02/14/18 02/14/18 Range/Units 15:31 15:51 16:10 RBC 1.78 L (3.80-5.40) m/uL Hgb 5.6 L* (11.4-16.0) gm/dL Hct 16.8 L* (34.0-46.0) % Plt Count (150-450) k/uL Neutrophils # (1.3-7.7) k/uL Lymphocytes # (1.0-4.8) k/uL PT (9.0-12.0) sec INR (<1.2) APTT (22.0-30.0) sec Fibrinogen (200-500) mg/dL ABG pH 7.33 L (7.35-7.45) ABG pCO2 (35-45) mmHg ABG pO2 225 H (83-108) mmHg ABG HCO3 (21-25) mmol/L ABG Total CO2 (19-24) mmol/L ABG O2 Saturation 100.0 H (94-97) % ABG Hematocrit (34.0-46.0) % ABG Potassium (3.4-4.5) mmol/L ABG Ionized Calcium (4.5-5.3) mg/dL ABG Glucose (75-99) mg/dL ABG Lactic Acid (0.5-1.6) mmol/L Hemoglobin (11.4-16.0) gm/dL Chloride (98-107) mmol/L Creatinine (0.52-1.04) mg/dL Glucose (74-99) mg/dL POC Glucose (mg/dL) 197 H (75-99) mg/dL Calcium (8.4-10.2) mg/dL Ionized Calcium Gavin (4.5-5.3) mg/dL Magnesium (1.6-2.3) mg/dL Total Bilirubin (0.2-1.3) mg/dL AST (14-36) U/L Alkaline Phosphatase (38-126) U/L Total Protein (6.3-8.2) g/dL Albumin (3.5-5.0) g/dL Arterial Blood Potassium (3.4-4.5) mmol/L Arterial Blood Glucose (75-99) mg/dL Crossmatch 02/14/18 02/14/18 02/14/18 Range/Units 17:22 17:40 17:40 RBC (3.80-5.40) m/uL Hgb (11.4-16.0) gm/dL Hct (34.0-46.0) % Plt Count (150-450) k/uL Neutrophils # (1.3-7.7) k/uL Lymphocytes # (1.0-4.8) k/uL PT (9.0-12.0) sec INR (<1.2) APTT (22.0-30.0) sec Fibrinogen (200-500) mg/dL ABG pH (7.35-7.45) ABG pCO2 (35-45) mmHg ABG pO2 (83-108) mmHg ABG HCO3 (21-25) mmol/L ABG Total CO2 (19-24) mmol/L ABG O2 Saturation (94-97) % ABG Hematocrit (34.0-46.0) % ABG Potassium (3.4-4.5) mmol/L ABG Ionized Calcium (4.5-5.3) mg/dL ABG Glucose (75-99) mg/dL ABG Lactic Acid (0.5-1.6) mmol/L Hemoglobin (11.4-16.0) gm/dL Chloride 109 H (98-107) mmol/L Creatinine (0.52-1.04) mg/dL Glucose (74-99) mg/dL POC Glucose (mg/dL) 203 H (75-99) mg/dL Calcium 7.6 L (8.4-10.2) mg/dL Ionized Calcium Gavin (4.5-5.3) mg/dL Magnesium (1.6-2.3) mg/dL Total Bilirubin (0.2-1.3) mg/dL AST (14-36) U/L Alkaline Phosphatase (38-126) U/L Total Protein (6.3-8.2) g/dL Albumin (3.5-5.0) g/dL Arterial Blood Potassium (3.4-4.5) mmol/L Arterial Blood Glucose (75-99) mg/dL Crossmatch 02/14/18 02/14/18 02/14/18 Range/Units 18:16 19:16 20:07 RBC (3.80-5.40) m/uL Hgb (11.4-16.0) gm/dL Hct (34.0-46.0) % Plt Count (150-450) k/uL Neutrophils # (1.3-7.7) k/uL Lymphocytes # (1.0-4.8) k/uL PT (9.0-12.0) sec INR 1.2 H (<1.2) APTT (22.0-30.0) sec Fibrinogen (200-500) mg/dL ABG pH (7.35-7.45) ABG pCO2 (35-45) mmHg ABG pO2 (83-108) mmHg ABG HCO3 (21-25) mmol/L ABG Total CO2 (19-24) mmol/L ABG O2 Saturation (94-97) % ABG Hematocrit (34.0-46.0) % ABG Potassium (3.4-4.5) mmol/L ABG Ionized Calcium (4.5-5.3) mg/dL ABG Glucose (75-99) mg/dL ABG Lactic Acid (0.5-1.6) mmol/L Hemoglobin (11.4-16.0) gm/dL Chloride (98-107) mmol/L Creatinine (0.52-1.04) mg/dL Glucose (74-99) mg/dL POC Glucose (mg/dL) 164 H 173 H (75-99) mg/dL Calcium (8.4-10.2) mg/dL Ionized Calcium Gavin (4.5-5.3) mg/dL Magnesium (1.6-2.3) mg/dL Total Bilirubin (0.2-1.3) mg/dL AST (14-36) U/L Alkaline Phosphatase (38-126) U/L Total Protein (6.3-8.2) g/dL Albumin (3.5-5.0) g/dL Arterial Blood Potassium (3.4-4.5) mmol/L Arterial Blood Glucose (75-99) mg/dL Crossmatch 02/14/18 02/14/18 02/14/18 Range/Units 20:07 20:07 21:06 RBC 2.23 L (3.80-5.40) m/uL Hgb 7.0 L (11.4-16.0) gm/dL Hct 20.2 L (34.0-46.0) % Plt Count 131 L (150-450) k/uL Neutrophils # (1.3-7.7) k/uL Lymphocytes # 0.5 L (1.0-4.8) k/uL PT (9.0-12.0) sec INR (<1.2) APTT (22.0-30.0) sec Fibrinogen (200-500) mg/dL ABG pH (7.35-7.45) ABG pCO2 (35-45) mmHg ABG pO2 (83-108) mmHg ABG HCO3 (21-25) mmol/L ABG Total CO2 (19-24) mmol/L ABG O2 Saturation (94-97) % ABG Hematocrit (34.0-46.0) % ABG Potassium (3.4-4.5) mmol/L ABG Ionized Calcium (4.5-5.3) mg/dL ABG Glucose (75-99) mg/dL ABG Lactic Acid (0.5-1.6) mmol/L Hemoglobin (11.4-16.0) gm/dL Chloride (98-107) mmol/L Creatinine (0.52-1.04) mg/dL Glucose (74-99) mg/dL POC Glucose (mg/dL) 162 H 196 H (75-99) mg/dL Calcium (8.4-10.2) mg/dL Ionized Calcium Gavin (4.5-5.3) mg/dL Magnesium (1.6-2.3) mg/dL Total Bilirubin (0.2-1.3) mg/dL AST (14-36) U/L Alkaline Phosphatase (38-126) U/L Total Protein (6.3-8.2) g/dL Albumin (3.5-5.0) g/dL Arterial Blood Potassium (3.4-4.5) mmol/L Arterial Blood Glucose (75-99) mg/dL Crossmatch 02/15/18 02/15/18 02/15/18 Range/Units 00:14 00:14 00:14 RBC (3.80-5.40) m/uL Hgb (11.4-16.0) gm/dL Hct (34.0-46.0) % Plt Count (150-450) k/uL Neutrophils # (1.3-7.7) k/uL Lymphocytes # (1.0-4.8) k/uL PT 14.0 H (9.0-12.0) sec INR 1.5 H (<1.2) APTT (22.0-30.0) sec Fibrinogen (200-500) mg/dL ABG pH (7.35-7.45) ABG pCO2 (35-45) mmHg ABG pO2 (83-108) mmHg ABG HCO3 (21-25) mmol/L ABG Total CO2 (19-24) mmol/L ABG O2 Saturation (94-97) % ABG Hematocrit (34.0-46.0) % ABG Potassium (3.4-4.5) mmol/L ABG Ionized Calcium (4.5-5.3) mg/dL ABG Glucose (75-99) mg/dL ABG Lactic Acid (0.5-1.6) mmol/L Hemoglobin (11.4-16.0) gm/dL Chloride 110 H (98-107) mmol/L Creatinine 0.41 L (0.52-1.04) mg/dL Glucose 149 H (74-99) mg/dL POC Glucose (mg/dL) 167 H (75-99) mg/dL Calcium 6.9 L (8.4-10.2) mg/dL Ionized Calcium Gavin (4.5-5.3) mg/dL Magnesium (1.6-2.3) mg/dL Total Bilirubin 2.0 H (0.2-1.3) mg/dL AST 44 H (14-36) U/L Alkaline Phosphatase <20 L (38-126) U/L Total Protein 3.2 L (6.3-8.2) g/dL Albumin 2.0 L (3.5-5.0) g/dL Arterial Blood Potassium (3.4-4.5) mmol/L Arterial Blood Glucose (75-99) mg/dL Crossmatch 02/15/18 02/15/18 02/15/18 Range/Units 00:17 01:03 02:05 RBC 2.05 L (3.80-5.40) m/uL Hgb 6.2 L* (11.4-16.0) gm/dL Hct 18.8 L* (34.0-46.0) % Plt Count 67 L (150-450) k/uL Neutrophils # (1.3-7.7) k/uL Lymphocytes # 0.7 L (1.0-4.8) k/uL PT (9.0-12.0) sec INR (<1.2) APTT (22.0-30.0) sec Fibrinogen (200-500) mg/dL ABG pH (7.35-7.45) ABG pCO2 (35-45) mmHg ABG pO2 (83-108) mmHg ABG HCO3 (21-25) mmol/L ABG Total CO2 (19-24) mmol/L ABG O2 Saturation (94-97) % ABG Hematocrit (34.0-46.0) % ABG Potassium (3.4-4.5) mmol/L ABG Ionized Calcium (4.5-5.3) mg/dL ABG Glucose (75-99) mg/dL ABG Lactic Acid (0.5-1.6) mmol/L Hemoglobin (11.4-16.0) gm/dL Chloride (98-107) mmol/L Creatinine (0.52-1.04) mg/dL Glucose (74-99) mg/dL POC Glucose (mg/dL) 205 H 167 H (75-99) mg/dL Calcium (8.4-10.2) mg/dL Ionized Calcium Gavin (4.5-5.3) mg/dL Magnesium (1.6-2.3) mg/dL Total Bilirubin (0.2-1.3) mg/dL AST (14-36) U/L Alkaline Phosphatase (38-126) U/L Total Protein (6.3-8.2) g/dL Albumin (3.5-5.0) g/dL Arterial Blood Potassium (3.4-4.5) mmol/L Arterial Blood Glucose (75-99) mg/dL Crossmatch 02/15/18 02/15/18 02/15/18 Range/Units 03:18 03:35 04:07 RBC (3.80-5.40) m/uL Hgb (11.4-16.0) gm/dL Hct (34.0-46.0) % Plt Count (150-450) k/uL Neutrophils # (1.3-7.7) k/uL Lymphocytes # (1.0-4.8) k/uL PT (9.0-12.0) sec INR (<1.2) APTT (22.0-30.0) sec Fibrinogen (200-500) mg/dL ABG pH 7.54 H (7.35-7.45) ABG pCO2 28 L (35-45) mmHg ABG pO2 115 H (83-108) mmHg ABG HCO3 (21-25) mmol/L ABG Total CO2 (19-24) mmol/L ABG O2 Saturation 100.0 H (94-97) % ABG Hematocrit (34.0-46.0) % ABG Potassium (3.4-4.5) mmol/L ABG Ionized Calcium (4.5-5.3) mg/dL ABG Glucose (75-99) mg/dL ABG Lactic Acid (0.5-1.6) mmol/L Hemoglobin (11.4-16.0) gm/dL Chloride (98-107) mmol/L Creatinine (0.52-1.04) mg/dL Glucose (74-99) mg/dL POC Glucose (mg/dL) 131 H 121 H (75-99) mg/dL Calcium (8.4-10.2) mg/dL Ionized Calcium Gavin (4.5-5.3) mg/dL Magnesium (1.6-2.3) mg/dL Total Bilirubin (0.2-1.3) mg/dL AST (14-36) U/L Alkaline Phosphatase (38-126) U/L Total Protein (6.3-8.2) g/dL Albumin (3.5-5.0) g/dL Arterial Blood Potassium (3.4-4.5) mmol/L Arterial Blood Glucose (75-99) mg/dL Crossmatch 02/15/18 02/15/18 02/15/18 Range/Units 04:12 05:04 06:09 RBC 2.70 L (3.80-5.40) m/uL Hgb 8.2 L D (11.4-16.0) gm/dL Hct 23.9 L (34.0-46.0) % Plt Count 119 L D (150-450) k/uL Neutrophils # (1.3-7.7) k/uL Lymphocytes # (1.0-4.8) k/uL PT (9.0-12.0) sec INR (<1.2) APTT (22.0-30.0) sec Fibrinogen (200-500) mg/dL ABG pH (7.35-7.45) ABG pCO2 (35-45) mmHg ABG pO2 (83-108) mmHg ABG HCO3 (21-25) mmol/L ABG Total CO2 (19-24) mmol/L ABG O2 Saturation (94-97) % ABG Hematocrit (34.0-46.0) % ABG Potassium (3.4-4.5) mmol/L ABG Ionized Calcium (4.5-5.3) mg/dL ABG Glucose (75-99) mg/dL ABG Lactic Acid (0.5-1.6) mmol/L Hemoglobin (11.4-16.0) gm/dL Chloride (98-107) mmol/L Creatinine (0.52-1.04) mg/dL Glucose (74-99) mg/dL POC Glucose (mg/dL) 128 H 129 H (75-99) mg/dL Calcium (8.4-10.2) mg/dL Ionized Calcium Gavin (4.5-5.3) mg/dL Magnesium (1.6-2.3) mg/dL Total Bilirubin (0.2-1.3) mg/dL AST (14-36) U/L Alkaline Phosphatase (38-126) U/L Total Protein (6.3-8.2) g/dL Albumin (3.5-5.0) g/dL Arterial Blood Potassium (3.4-4.5) mmol/L Arterial Blood Glucose (75-99) mg/dL Crossmatch 02/15/18 Range/Units 07:16 RBC (3.80-5.40) m/uL Hgb (11.4-16.0) gm/dL Hct (34.0-46.0) % Plt Count (150-450) k/uL Neutrophils # (1.3-7.7) k/uL Lymphocytes # (1.0-4.8) k/uL PT (9.0-12.0) sec INR (<1.2) APTT (22.0-30.0) sec Fibrinogen (200-500) mg/dL ABG pH (7.35-7.45) ABG pCO2 (35-45) mmHg ABG pO2 (83-108) mmHg ABG HCO3 (21-25) mmol/L ABG Total CO2 (19-24) mmol/L ABG O2 Saturation (94-97) % ABG Hematocrit (34.0-46.0) % ABG Potassium (3.4-4.5) mmol/L ABG Ionized Calcium (4.5-5.3) mg/dL ABG Glucose (75-99) mg/dL ABG Lactic Acid (0.5-1.6) mmol/L Hemoglobin (11.4-16.0) gm/dL Chloride (98-107) mmol/L Creatinine (0.52-1.04) mg/dL Glucose (74-99) mg/dL POC Glucose (mg/dL) 126 H (75-99) mg/dL Calcium (8.4-10.2) mg/dL Ionized Calcium Gavin (4.5-5.3) mg/dL Magnesium (1.6-2.3) mg/dL Total Bilirubin (0.2-1.3) mg/dL AST (14-36) U/L Alkaline Phosphatase (38-126) U/L Total Protein (6.3-8.2) g/dL Albumin (3.5-5.0) g/dL Arterial Blood Potassium (3.4-4.5) mmol/L Arterial Blood Glucose (75-99) mg/dL Crossmatch - Imaging and Cardiology Chest x-ray: report reviewed, image reviewed Assessment and Plan (1) Severe mitral regurgitation Current Visit: Yes Status: Acute Code(s): I34.0 - NONRHEUMATIC MITRAL (VALVE ) INSUFFICIENCY SNOMED Code(s): 83440150 (2) Asthma Current Visit: Yes Status: Acute Code(s): J45.909 - UNSPECIFIED ASTHMA, UNCOMPLICATED SNOMED Code(s): 088008969 (3) Postoperative hemorrhage Current Visit: Yes Status: Acute Code(s): HCR4363 - SNOMED Code(s): 716275184 Plan: 1. Continue aspirin, statin, beta roseanne. Will increase beta roseanne therapy as tolerated. 2. Wean mechanical ventilator to extubate, managed by Dr. Blackmon from pulmonary medicine. 3. Once extubated increase activity, ambulate as tolerated. PT/OT/cardiac rehab consulted. 4. Discontinue propofol drip, start Precedex drip. 5. Continue right IJ [place] and [place] catheter. 6. Medical and insulin management per primary care service. 7. Monitor daily labs, chest x-rays. 8. GI/DVT prophylaxis. 9. Pain control per current when necessary orders. 10. Bronchodilators per pulmonology. 11. Continue chest tubes to low continuous wall suction. 12. More recommendations to follow based on patient's clinical course. Time with Patient: Greater than 30
[2018-02-15 11:00] LABS: ABG Base Excess 1.1 mmol/L; ABG HCO3 25 mmol/L (21-25); ABG Oxygen Saturation 99.4 % (94-97); ABG PCO2 36 mmHg (35-45); ABG PH 7.45 (7.35-7.45); ABG PO2 106 mmHg (83-108); ABG TCO2 26 mmol/L (19-24)
[2018-02-15 11:13] LABS: Glucose,Whole Blood 134 mg/dL (75-99)
[2018-02-15] MEDS: ALBUMIN HUMAN 5% 250 ML in EMPTY BAG 1 BAG IVPB PRN ×3 (11:57→14:38)
[2018-02-15] MEDS ORDERED: METOPROLOL TARTRATE 12.5 MG TAB PO SCH (12:15)
[2018-02-15 12:30] LABS: Glucose,Whole Blood 142 mg/dL (75-99)
[2018-02-15] MEDS: CLEVIDIPINE BUTYRATE 25 MG in EMPTY BAG 1 BAG IV SCH (12:48)
[2018-02-15] MEDS: ONDANSETRON 4 MG/2 ML VIAL IVP PRN (12:56)
[2018-02-15] MEDS: ATORVASTATIN 40 MG TAB PO SCH (13:11)
--- NOTE | 2018-02-15 13:22 | P.PN ---
Subjective Patient admitted for management of severe mitral valve regurgitation status post complex mitral valve repair left atrial appendage closure and sternal reexploration with hematoma evacuation for postoperative hemorrhage Her blood pressure this time is stable she is in sinus rhythm she is resting comfortably in bed no respiratory distress breath sounds are reduced bilaterally heart sounds are soft extremities are warm Impression mitral valve repair status post surgery Plan Continue current medications and watch for any atrial arrhythmias Objective - Vital Signs Vital signs: Vital Signs Temp 99.5 F 02/15/18 03:35 Pulse 84 02/15/18 13:00 Resp 14 02/15/18 13:00 BP 85/50 02/15/18 13:00 Pulse Ox 100 02/15/18 13:00 Intake & Output 02/14/18 02/15/18 02/15/18 18:59 06:59 18:59 Intake Total 3342.613 4275.277 1085.415 Output Total 5537 3891 504 Balance -2194.387 384.277 581.415 Weight 71.1 kg 83.5 kg 83.5 kg Intake: IV 626 2938 537 ACETAMINOPHEN IV (For NPO 200 100 ) 1,000 mg In Empty Bag 1 bag @ 400 mls/hr IVPB Q6HR [facility] Rx#:[id number] Albumin Human 5% 250 ml 500 In Empty Bag 1 bag @ 250 mls/hr IVPB Q1HR PRN Rx#: [id number] Bolus CO 120 170 40 Calcium Gluconate 1,000 100 mg In Sodium Chloride 0.9 % 100 ml @ 100 mls/hr IVPB ONCE ONE Rx#: [id number] Lactated Ringers 1,000 ml 505 340 @ 50 mls/hr IV .Q20H [facility] Rx#:[id number] NS 450 195 NS Pressure Bag 54 36 57 PLT 201 PRBC 930 Potassium Chloride 20 meq 100 In Water For Injection 1 100ml.bag @ 50 mls/hr IVPB Q2H [facility] Rx#: [id number] Intake, IV Titration 135.613 206.277 548.415 Amount Albumin Human 5% 250 ml 250 In Empty Bag 1 bag @ 250 mls/hr IVPB Q1HR PRN Rx#: [id number] Dexmedetomidine/0.9% NaCl 31.6 (Pmx) 400 mcg In Empty Bag 1 bag @ Titrate IV . Q0M [facility] Rx#:[id number] EPINEPHrine 2 mg In 56.826 38.745 Dextrose 5% in Water 250 ml @ 2 MCG/MIN 15.12 mls/ hr IV .[id number] [facility] Rx#: [id number] Heparin Sodium,Porcine 5, 37 000 unit In Sodium Chloride 0.9% 500 ml @ Per Protocol IV ONCE ONE Rx#:[id number] Insulin Regular 100 unit 9.124 26.053 7.646 In Sodium Chloride 0.9% 100 ml @ Per Protocol IV .Q0M [facility] Rx#:[id number] Potassium Phosphate 10 200 mmol In Sodium Chloride 0 .9% 100 ml @ 50 mls/hr IV Q2H [facility] Rx#:[id number] Propofol 1,000 mg In 69.663 104.479 59.169 Empty Bag 1 bag @ Titrate IV .Q0M [facility] Rx#: [id number] Blood Product 2281 1131 Ffp 24 Cpd Unit 312 [id number] Ffp 24 Cpd Unit 262 [id number] Ffp 24 Cpd Unit 271 [id number] Platelet Pheresis Acda1 201 Unit [id number] Platelet Pheresis Acda2 198 Unit [id number] Platelet Pheresis Acda2 199 Unit [id number] Pooled Cryoprecipitate 109 Unit [id number] Rc As-1 Unit 310 [id number] Rc As-1 Unit 310 [id number] Rc As-3 Unit 310 [id number] Rc As-3 Unit 310 [id number] Rc Cpda-1 Unit 310 [id number] Rc Cpda-1 Unit 310 [id number] Other 300 Rc As-1 Unit 300 [id number] Output: Chest Tube Drainage 2372 1277 184 Chest Tube Bilateral 875 876 44 Chest Tube Upper 1497 401 140 Mediastinal Urine 1165 614 320 Estimated Blood Loss 1999 1999 Other: Voiding Method Indwelling Catheter Indwelling Catheter Indwelling Catheter ABP, PAP, CO, CI - Last Documented Arterial Blood Pressure 92/51 Pulmonary Artery Pressure 28/16 Cardiac Output 6.5 Cardiac Index 3.1 - Labs CBC & Chem 7: 02/15/18 04:12 02/15/18 07:35 Labs: Abnormal Lab Results - Last 24 Hours (Table) 02/04/18 02/14/18 02/14/18 Range/Units 16:15 06:09 12:40 RBC 1.97 L (3.80-5.40) m/uL Hgb 6.1 L* (11.4-16.0) gm/dL Hct 18.6 L* (34.0-46.0) % Plt Count 79 L (150-450) k/uL Neutrophils # 8.1 H (1.3-7.7) k/uL Lymphocytes # (1.0-4.8) k/uL PT (9.0-12.0) sec INR (<1.2) Fibrinogen (200-500) mg/dL ABG pH (7.35-7.45) ABG pCO2 (35-45) mmHg ABG pO2 (83-108) mmHg ABG Total CO2 (19-24) mmol/L ABG O2 Saturation (94-97) % Chloride (98-107) mmol/L Creatinine (0.52-1.04) mg/dL Glucose (74-99) mg/dL POC Glucose (mg/dL) (75-99) mg/dL Calcium (8.4-10.2) mg/dL Ionized Calcium Gavin (4.5-5.3) mg/dL Phosphorus (2.5-4.5) mg/dL Magnesium (1.6-2.3) mg/dL Total Bilirubin (0.2-1.3) mg/dL AST (14-36) U/L Alkaline Phosphatase (38-126) U/L Total Protein (6.3-8.2) g/dL Albumin (3.5-5.0) g/dL Crossmatch See Detail See Detail 02/14/18 02/14/18 02/14/18 Range/Units 12:40 12:40 13:36 RBC (3.80-5.40) m/uL Hgb (11.4-16.0) gm/dL Hct (34.0-46.0) % Plt Count (150-450) k/uL Neutrophils # (1.3-7.7) k/uL Lymphocytes # (1.0-4.8) k/uL PT (9.0-12.0) sec INR (<1.2) Fibrinogen 105 L (200-500) mg/dL ABG pH 7.27 L (7.35-7.45) ABG pCO2 52 H (35-45) mmHg ABG pO2 280 H (83-108) mmHg ABG Total CO2 26 H (19-24) mmol/L ABG O2 Saturation 100.0 H (94-97) % Chloride 111 H (98-107) mmol/L Creatinine 0.43 L (0.52-1.04) mg/dL Glucose (74-99) mg/dL POC Glucose (mg/dL) (75-99) mg/dL Calcium 6.3 L* (8.4-10.2) mg/dL Ionized Calcium Gavin 4.2 L (4.5-5.3) mg/dL Phosphorus (2.5-4.5) mg/dL Magnesium 3.1 H (1.6-2.3) mg/dL Total Bilirubin (0.2-1.3) mg/dL AST (14-36) U/L Alkaline Phosphatase 26 L (38-126) U/L Total Protein 4.3 L (6.3-8.2) g/dL Albumin 2.8 L (3.5-5.0) g/dL Crossmatch 02/14/18 02/14/18 02/14/18 Range/Units 13:50 15:31 15:51 RBC (3.80-5.40) m/uL Hgb (11.4-16.0) gm/dL Hct (34.0-46.0) % Plt Count (150-450) k/uL Neutrophils # (1.3-7.7) k/uL Lymphocytes # (1.0-4.8) k/uL PT (9.0-12.0) sec INR (<1.2) Fibrinogen (200-500) mg/dL ABG pH 7.33 L (7.35-7.45) ABG pCO2 (35-45) mmHg ABG pO2 225 H (83-108) mmHg ABG Total CO2 (19-24) mmol/L ABG O2 Saturation 100.0 H (94-97) % Chloride (98-107) mmol/L Creatinine (0.52-1.04) mg/dL Glucose (74-99) mg/dL POC Glucose (mg/dL) 161 H 197 H (75-99) mg/dL Calcium (8.4-10.2) mg/dL Ionized Calcium Gavin (4.5-5.3) mg/dL Phosphorus (2.5-4.5) mg/dL Magnesium (1.6-2.3) mg/dL Total Bilirubin (0.2-1.3) mg/dL AST (14-36) U/L Alkaline Phosphatase (38-126) U/L Total Protein (6.3-8.2) g/dL Albumin (3.5-5.0) g/dL Crossmatch 02/14/18 02/14/18 02/14/18 Range/Units 16:10 17:22 17:40 RBC 1.78 L (3.80-5.40) m/uL Hgb 5.6 L* (11.4-16.0) gm/dL Hct 16.8 L* (34.0-46.0) % Plt Count (150-450) k/uL Neutrophils # (1.3-7.7) k/uL Lymphocytes # (1.0-4.8) k/uL PT (9.0-12.0) sec INR (<1.2) Fibrinogen (200-500) mg/dL ABG pH (7.35-7.45) ABG pCO2 (35-45) mmHg ABG pO2 (83-108) mmHg ABG Total CO2 (19-24) mmol/L ABG O2 Saturation (94-97) % Chloride 109 H (98-107) mmol/L Creatinine (0.52-1.04) mg/dL Glucose (74-99) mg/dL POC Glucose (mg/dL) 203 H (75-99) mg/dL Calcium (8.4-10.2) mg/dL Ionized Calcium Gavin (4.5-5.3) mg/dL Phosphorus (2.5-4.5) mg/dL Magnesium (1.6-2.3) mg/dL Total Bilirubin (0.2-1.3) mg/dL AST (14-36) U/L Alkaline Phosphatase (38-126) U/L Total Protein (6.3-8.2) g/dL Albumin (3.5-5.0) g/dL Crossmatch 02/14/18 02/14/18 02/14/18 Range/Units 17:40 18:16 19:16 RBC (3.80-5.40) m/uL Hgb (11.4-16.0) gm/dL Hct (34.0-46.0) % Plt Count (150-450) k/uL Neutrophils # (1.3-7.7) k/uL Lymphocytes # (1.0-4.8) k/uL PT (9.0-12.0) sec INR (<1.2) Fibrinogen (200-500) mg/dL ABG pH (7.35-7.45) ABG pCO2 (35-45) mmHg ABG pO2 (83-108) mmHg ABG Total CO2 (19-24) mmol/L ABG O2 Saturation (94-97) % Chloride (98-107) mmol/L Creatinine (0.52-1.04) mg/dL Glucose (74-99) mg/dL POC Glucose (mg/dL) 164 H 173 H (75-99) mg/dL Calcium 7.6 L (8.4-10.2) mg/dL Ionized Calcium Gavin (4.5-5.3) mg/dL Phosphorus (2.5-4.5) mg/dL Magnesium (1.6-2.3) mg/dL Total Bilirubin (0.2-1.3) mg/dL AST (14-36) U/L Alkaline Phosphatase (38-126) U/L Total Protein (6.3-8.2) g/dL Albumin (3.5-5.0) g/dL Crossmatch 02/14/18 02/14/18 02/14/18 Range/Units 20:07 20:07 20:07 RBC 2.23 L (3.80-5.40) m/uL Hgb 7.0 L (11.4-16.0) gm/dL Hct 20.2 L (34.0-46.0) % Plt Count 131 L (150-450) k/uL Neutrophils # (1.3-7.7) k/uL Lymphocytes # 0.5 L (1.0-4.8) k/uL PT (9.0-12.0) sec INR 1.2 H (<1.2) Fibrinogen (200-500) mg/dL ABG pH (7.35-7.45) ABG pCO2 (35-45) mmHg ABG pO2 (83-108) mmHg ABG Total CO2 (19-24) mmol/L ABG O2 Saturation (94-97) % Chloride (98-107) mmol/L Creatinine (0.52-1.04) mg/dL Glucose (74-99) mg/dL POC Glucose (mg/dL) 162 H (75-99) mg/dL Calcium (8.4-10.2) mg/dL Ionized Calcium Gavin (4.5-5.3) mg/dL Phosphorus (2.5-4.5) mg/dL Magnesium (1.6-2.3) mg/dL Total Bilirubin (0.2-1.3) mg/dL AST (14-36) U/L Alkaline Phosphatase (38-126) U/L Total Protein (6.3-8.2) g/dL Albumin (3.5-5.0) g/dL Crossmatch 02/14/18 02/15/18 02/15/18 Range/Units 21:06 00:14 00:14 RBC (3.80-5.40) m/uL Hgb (11.4-16.0) gm/dL Hct (34.0-46.0) % Plt Count (150-450) k/uL Neutrophils # (1.3-7.7) k/uL Lymphocytes # (1.0-4.8) k/uL PT 14.0 H (9.0-12.0) sec INR 1.5 H (<1.2) Fibrinogen (200-500) mg/dL ABG pH (7.35-7.45) ABG pCO2 (35-45) mmHg ABG pO2 (83-108) mmHg ABG Total CO2 (19-24) mmol/L ABG O2 Saturation (94-97) % Chloride 110 H (98-107) mmol/L Creatinine 0.41 L (0.52-1.04) mg/dL Glucose 149 H (74-99) mg/dL POC Glucose (mg/dL) 196 H (75-99) mg/dL Calcium 6.9 L (8.4-10.2) mg/dL Ionized Calcium Gavin (4.5-5.3) mg/dL Phosphorus (2.5-4.5) mg/dL Magnesium (1.6-2.3) mg/dL Total Bilirubin 2.0 H (0.2-1.3) mg/dL AST 44 H (14-36) U/L Alkaline Phosphatase <20 L (38-126) U/L Total Protein 3.2 L (6.3-8.2) g/dL Albumin 2.0 L (3.5-5.0) g/dL Crossmatch 02/15/18 02/15/18 02/15/18 Range/Units 00:14 00:17 01:03 RBC 2.05 L (3.80-5.40) m/uL Hgb 6.2 L* (11.4-16.0) gm/dL Hct 18.8 L* (34.0-46.0) % Plt Count 67 L (150-450) k/uL Neutrophils # (1.3-7.7) k/uL Lymphocytes # 0.7 L (1.0-4.8) k/uL PT (9.0-12.0) sec INR (<1.2) Fibrinogen (200-500) mg/dL ABG pH (7.35-7.45) ABG pCO2 (35-45) mmHg ABG pO2 (83-108) mmHg ABG Total CO2 (19-24) mmol/L ABG O2 Saturation (94-97) % Chloride (98-107) mmol/L Creatinine (0.52-1.04) mg/dL Glucose (74-99) mg/dL POC Glucose (mg/dL) 167 H 205 H (75-99) mg/dL Calcium (8.4-10.2) mg/dL Ionized Calcium Gavin (4.5-5.3) mg/dL Phosphorus (2.5-4.5) mg/dL Magnesium (1.6-2.3) mg/dL Total Bilirubin (0.2-1.3) mg/dL AST (14-36) U/L Alkaline Phosphatase (38-126) U/L Total Protein (6.3-8.2) g/dL Albumin (3.5-5.0) g/dL Crossmatch 02/15/18 02/15/18 02/15/18 Range/Units 02:05 03:18 03:35 RBC (3.80-5.40) m/uL Hgb (11.4-16.0) gm/dL Hct (34.0-46.0) % Plt Count (150-450) k/uL Neutrophils # (1.3-7.7) k/uL Lymphocytes # (1.0-4.8) k/uL PT (9.0-12.0) sec INR (<1.2) Fibrinogen (200-500) mg/dL ABG pH 7.54 H (7.35-7.45) ABG pCO2 28 L (35-45) mmHg ABG pO2 115 H (83-108) mmHg ABG Total CO2 (19-24) mmol/L ABG O2 Saturation 100.0 H (94-97) % Chloride (98-107) mmol/L Creatinine (0.52-1.04) mg/dL Glucose (74-99) mg/dL POC Glucose (mg/dL) 167 H 131 H (75-99) mg/dL Calcium (8.4-10.2) mg/dL Ionized Calcium Gavin (4.5-5.3) mg/dL Phosphorus (2.5-4.5) mg/dL Magnesium (1.6-2.3) mg/dL Total Bilirubin (0.2-1.3) mg/dL AST (14-36) U/L Alkaline Phosphatase (38-126) U/L Total Protein (6.3-8.2) g/dL Albumin (3.5-5.0) g/dL Crossmatch 02/15/18 02/15/18 02/15/18 Range/Units 04:07 04:12 05:04 RBC 2.70 L (3.80-5.40) m/uL Hgb 8.2 L D (11.4-16.0) gm/dL Hct 23.9 L (34.0-46.0) % Plt Count 119 L D (150-450) k/uL Neutrophils # (1.3-7.7) k/uL Lymphocytes # (1.0-4.8) k/uL PT (9.0-12.0) sec INR (<1.2) Fibrinogen (200-500) mg/dL ABG pH (7.35-7.45) ABG pCO2 (35-45) mmHg ABG pO2 (83-108) mmHg ABG Total CO2 (19-24) mmol/L ABG O2 Saturation (94-97) % Chloride (98-107) mmol/L Creatinine (0.52-1.04) mg/dL Glucose (74-99) mg/dL POC Glucose (mg/dL) 121 H 128 H (75-99) mg/dL Calcium (8.4-10.2) mg/dL Ionized Calcium Gavin (4.5-5.3) mg/dL Phosphorus (2.5-4.5) mg/dL Magnesium (1.6-2.3) mg/dL Total Bilirubin (0.2-1.3) mg/dL AST (14-36) U/L Alkaline Phosphatase (38-126) U/L Total Protein (6.3-8.2) g/dL Albumin (3.5-5.0) g/dL Crossmatch 02/15/18 02/15/18 02/15/18 Range/Units 06:09 07:16 07:35 RBC (3.80-5.40) m/uL Hgb (11.4-16.0) gm/dL Hct (34.0-46.0) % Plt Count (150-450) k/uL Neutrophils # (1.3-7.7) k/uL Lymphocytes # (1.0-4.8) k/uL PT (9.0-12.0) sec INR (<1.2) Fibrinogen (200-500) mg/dL ABG pH (7.35-7.45) ABG pCO2 (35-45) mmHg ABG pO2 (83-108) mmHg ABG Total CO2 (19-24) mmol/L ABG O2 Saturation (94-97) % Chloride 112 H (98-107) mmol/L Creatinine 0.47 L (0.52-1.04) mg/dL Glucose 115 H (74-99) mg/dL POC Glucose (mg/dL) 129 H 126 H (75-99) mg/dL Calcium 7.5 L (8.4-10.2) mg/dL Ionized Calcium Gavin (4.5-5.3) mg/dL Phosphorus 1.9 L (2.5-4.5) mg/dL Magnesium (1.6-2.3) mg/dL Total Bilirubin 1.5 H (0.2-1.3) mg/dL AST 81 H (14-36) U/L Alkaline Phosphatase 29 L (38-126) U/L Total Protein 4.1 L (6.3-8.2) g/dL Albumin 2.4 L (3.5-5.0) g/dL Crossmatch 02/15/18 02/15/18 02/15/18 Range/Units 08:10 09:09 10:09 RBC (3.80-5.40) m/uL Hgb (11.4-16.0) gm/dL Hct (34.0-46.0) % Plt Count (150-450) k/uL Neutrophils # (1.3-7.7) k/uL Lymphocytes # (1.0-4.8) k/uL PT (9.0-12.0) sec INR (<1.2) Fibrinogen (200-500) mg/dL ABG pH (7.35-7.45) ABG pCO2 (35-45) mmHg ABG pO2 (83-108) mmHg ABG Total CO2 (19-24) mmol/L ABG O2 Saturation (94-97) % Chloride (98-107) mmol/L Creatinine (0.52-1.04) mg/dL Glucose (74-99) mg/dL POC Glucose (mg/dL) 128 H 107 H 126 H (75-99) mg/dL Calcium (8.4-10.2) mg/dL Ionized Calcium Gavin (4.5-5.3) mg/dL Phosphorus (2.5-4.5) mg/dL Magnesium (1.6-2.3) mg/dL Total Bilirubin (0.2-1.3) mg/dL AST (14-36) U/L Alkaline Phosphatase (38-126) U/L Total Protein (6.3-8.2) g/dL Albumin (3.5-5.0) g/dL Crossmatch 02/15/18 02/15/18 02/15/18 Range/Units 10:57 11:11 12:27 RBC (3.80-5.40) m/uL Hgb (11.4-16.0) gm/dL Hct (34.0-46.0) % Plt Count (150-450) k/uL Neutrophils # (1.3-7.7) k/uL Lymphocytes # (1.0-4.8) k/uL PT (9.0-12.0) sec INR (<1.2) Fibrinogen (200-500) mg/dL ABG pH (7.35-7.45) ABG pCO2 (35-45) mmHg ABG pO2 (83-108) mmHg ABG Total CO2 26 H (19-24) mmol/L ABG O2 Saturation 99.4 H (94-97) % Chloride (98-107) mmol/L Creatinine (0.52-1.04) mg/dL Glucose (74-99) mg/dL POC Glucose (mg/dL) 134 H 142 H (75-99) mg/dL Calcium (8.4-10.2) mg/dL Ionized Calcium Gavin (4.5-5.3) mg/dL Phosphorus (2.5-4.5) mg/dL Magnesium (1.6-2.3) mg/dL Total Bilirubin (0.2-1.3) mg/dL AST (14-36) U/L Alkaline Phosphatase (38-126) U/L Total Protein (6.3-8.2) g/dL Albumin (3.5-5.0) g/dL Crossmatch
[2018-02-15 14:07] LABS: Glucose,Whole Blood 133 mg/dL (75-99)
[2018-02-15 14:24] LABS: Basophils % (A) 0 %; Eosinophils % (A) 0 %; Lymphocytes # (A) 1.3 k/uL (1.0-4.8); Lymphocytes % (A) 19 %; MCH 31.5 pg (25.0-35.0); MCHC 34.6 g/dL (31.0-37.0); MCV 91.1 fL (80.0-100.0); Mean Platelet Volume 7.8; Monocytes # (A) 0.4 k/uL (0-1.0); Monocytes % (A) 6 %; Neutrophils # (A) 5.1 k/uL (1.3-7.7); Neutrophils % (A) 74 %; Platelet Count 107 k/uL (150-450); RBC 2.17 m/uL (3.80-5.40); RDW 14.5 % (11.5-15.5)
[2018-02-15 14:26] LABS: HCT 19.8 % (34.0-46.0)
[2018-02-15 14:27] LABS: HGB 6.8 gm/dL (11.4-16.0)
[2018-02-15 15:07] LABS: Glucose,Whole Blood 132 mg/dL (75-99)
[2018-02-15 16:03] LABS: Glucose,Whole Blood 132 mg/dL (75-99)
--- NOTE | 2018-02-15 16:17 | P.PN ---
Subjective Progress Note Date: 02/15/18 This is a 62-year-old female, patient of Dr. Olmos. She has a known past medical history of severe mitral regurgitation. Otherwise no real significant other history. She does have some seasonal ALLERGIES. Patient underwent mitral valve repair today with Dr. Red. She's currently in the ICU and intubated. Hemoglobin was 6.1 and she is receiving 1 unit of blood. Patient has been slightly hypotensive and is receiving fluids. Currently not on any vasopressors. We have been consulted for medical management. Patient is currently stable. On 02/15/2018 patient was seen and examined in the intensive care unit, since yesterday she has been extubated, she has been maintained on oxygen via nasal cannula and is tolerating well, she is complaining that she is and able to take a deeper breath, she is complaining of pain at the surgical site but reasonably well-controlled, otherwise she denies any complaints there is no fever or chills no headache or dizziness no chest pain no cough no nausea or vomiting no abdominal pain and no urinary symptoms Objective - Vital Signs Vital signs: Vital Signs Temp 99.5 F 02/15/18 03:35 Pulse 84 02/15/18 16:02 Resp 16 02/15/18 16:00 BP 97/48 02/15/18 16:00 Pulse Ox 100 02/15/18 16:00 Intake & Output 02/14/18 02/15/18 02/15/18 18:59 06:59 18:59 Intake Total 3342.613 4275.277 1349.980 Output Total 5537 3891 729 Balance -2194.387 384.277 620.980 Weight 71.1 kg 83.5 kg 83.5 kg Intake: IV 636 2338 734 ACETAMINOPHEN IV (For NPO 200 100 ) 1,000 mg In Empty Bag 1 bag @ 400 mls/hr IVPB Q6HR [facility] Rx#:[id number] Albumin Human 5% 250 ml 500 In Empty Bag 1 bag @ 250 mls/hr IVPB Q1HR PRN Rx#: [id number] Bolus CO 120 170 60 Calcium Gluconate 1,000 100 mg In Sodium Chloride 0.9 % 100 ml @ 100 mls/hr IVPB ONCE ONE Rx#: [id number] Lactated Ringers 1,000 ml 505 490 @ 50 mls/hr IV .Q20H [facility] Rx#:[id number] NS 450 195 NS Pressure Bag 54 36 84 PLT 201 PRBC 930 Potassium Chloride 20 meq 100 In Water For Injection 1 100ml.bag @ 50 mls/hr IVPB Q2H [facility] Rx#: [id number] Intake, IV Titration 135.613 206.277 615.980 Amount Albumin Human 5% 250 ml 250 In Empty Bag 1 bag @ 250 mls/hr IVPB Q1HR PRN Rx#: [id number] Dexmedetomidine/0.9% NaCl 97.734 (Pmx) 400 mcg In Empty Bag 1 bag @ Titrate IV . Q0M [facility] Rx#:[id number] EPINEPHrine 2 mg In 56.826 38.745 Dextrose 5% in Water 250 ml @ 2 MCG/MIN 15.12 mls/ hr IV .[id number] [facility] Rx#: [id number] Heparin Sodium,Porcine 5, 37 000 unit In Sodium Chloride 0.9% 500 ml @ Per Protocol IV ONCE ONE Rx#:[id number] Insulin Regular 100 unit 9.124 26.053 9.077 In Sodium Chloride 0.9% 100 ml @ Per Protocol IV .Q0M [facility] Rx#:[id number] Potassium Phosphate 10 200 mmol In Sodium Chloride 0 .9% 100 ml @ 50 mls/hr IV Q2H [facility] Rx#:[id number] Propofol 1,000 mg In 69.663 104.479 59.169 Empty Bag 1 bag @ Titrate IV .Q0M [facility] Rx#: [id number] Blood Product 2281 1131 Ffp 24 Cpd Unit 312 [id number] Ffp 24 Cpd Unit 262 [id number] Ffp 24 Cpd Unit 271 [id number] Platelet Pheresis Acda1 201 Unit [id number] Platelet Pheresis Acda2 198 Unit [id number] Platelet Pheresis Acda2 199 Unit [id number] Pooled Cryoprecipitate 109 Unit [id number] Rc As-1 Unit 310 [id number] Rc As-1 Unit 310 [id number] Rc As-3 Unit 310 [id number] Rc As-3 Unit 310 [id number] Rc Cpda-1 Unit 310 [id number] Rc Cpda-1 Unit 310 [id number] Other 300 Rc As-1 Unit 300 [id number] Output: Chest Tube Drainage 2372 1277 324 Chest Tube Bilateral 875 876 94 Chest Tube Upper 1497 401 230 Mediastinal Urine 1165 614 405 Estimated Blood Loss 1999 1999 Other: Voiding Method Indwelling Catheter Indwelling Catheter Indwelling Catheter ABP, PAP, CO, CI - Last Documented Arterial Blood Pressure 100/47 Pulmonary Artery Pressure 28/17 Cardiac Output 5.2 Cardiac Index 3.0 - Exam Head normocephalic and atraumatic Neck supple no JVD no goiter Lungs clear to auscultation bilaterally no wheezing or crackles chest tubes present Heart regular rate and rhythm S1-S2, no rub or gallop positive murmur Abdomen is soft nontender nondistended positive bowel sounds no hepatosplenomegaly Extremities no edema no cyanosis or clubbing - Labs CBC & Chem 7: 02/15/18 14:05 02/15/18 07:35 Labs: Abnormal Lab Results - Last 24 Hours (Table) 02/04/18 02/14/18 02/14/18 Range/Units 16:15 06:09 16:10 RBC 1.78 L (3.80-5.40) m/uL Hgb 5.6 L* (11.4-16.0) gm/dL Hct 16.8 L* (34.0-46.0) % Plt Count (150-450) k/uL Lymphocytes # (1.0-4.8) k/uL PT (9.0-12.0) sec INR (<1.2) ABG pH (7.35-7.45) ABG pCO2 (35-45) mmHg ABG pO2 (83-108) mmHg ABG Total CO2 (19-24) mmol/L ABG O2 Saturation (94-97) % Chloride (98-107) mmol/L Creatinine (0.52-1.04) mg/dL Glucose (74-99) mg/dL POC Glucose (mg/dL) (75-99) mg/dL Calcium (8.4-10.2) mg/dL Phosphorus (2.5-4.5) mg/dL Total Bilirubin (0.2-1.3) mg/dL AST (14-36) U/L Alkaline Phosphatase (38-126) U/L Total Protein (6.3-8.2) g/dL Albumin (3.5-5.0) g/dL Crossmatch See Detail See Detail 02/14/18 02/14/18 02/14/18 Range/Units 17:22 17:40 17:40 RBC (3.80-5.40) m/uL Hgb (11.4-16.0) gm/dL Hct (34.0-46.0) % Plt Count (150-450) k/uL Lymphocytes # (1.0-4.8) k/uL PT (9.0-12.0) sec INR (<1.2) ABG pH (7.35-7.45) ABG pCO2 (35-45) mmHg ABG pO2 (83-108) mmHg ABG Total CO2 (19-24) mmol/L ABG O2 Saturation (94-97) % Chloride 109 H (98-107) mmol/L Creatinine (0.52-1.04) mg/dL Glucose (74-99) mg/dL POC Glucose (mg/dL) 203 H (75-99) mg/dL Calcium 7.6 L (8.4-10.2) mg/dL Phosphorus (2.5-4.5) mg/dL Total Bilirubin (0.2-1.3) mg/dL AST (14-36) U/L Alkaline Phosphatase (38-126) U/L Total Protein (6.3-8.2) g/dL Albumin (3.5-5.0) g/dL Crossmatch 02/14/18 02/14/18 02/14/18 Range/Units 18:16 19:16 20:07 RBC (3.80-5.40) m/uL Hgb (11.4-16.0) gm/dL Hct (34.0-46.0) % Plt Count (150-450) k/uL Lymphocytes # (1.0-4.8) k/uL PT (9.0-12.0) sec INR 1.2 H (<1.2) ABG pH (7.35-7.45) ABG pCO2 (35-45) mmHg ABG pO2 (83-108) mmHg ABG Total CO2 (19-24) mmol/L ABG O2 Saturation (94-97) % Chloride (98-107) mmol/L Creatinine (0.52-1.04) mg/dL Glucose (74-99) mg/dL POC Glucose (mg/dL) 164 H 173 H (75-99) mg/dL Calcium (8.4-10.2) mg/dL Phosphorus (2.5-4.5) mg/dL Total Bilirubin (0.2-1.3) mg/dL AST (14-36) U/L Alkaline Phosphatase (38-126) U/L Total Protein (6.3-8.2) g/dL Albumin (3.5-5.0) g/dL Crossmatch 02/14/18 02/14/18 02/14/18 Range/Units 20:07 20:07 21:06 RBC 2.23 L (3.80-5.40) m/uL Hgb 7.0 L (11.4-16.0) gm/dL Hct 20.2 L (34.0-46.0) % Plt Count 131 L (150-450) k/uL Lymphocytes # 0.5 L (1.0-4.8) k/uL PT (9.0-12.0) sec INR (<1.2) ABG pH (7.35-7.45) ABG pCO2 (35-45) mmHg ABG pO2 (83-108) mmHg ABG Total CO2 (19-24) mmol/L ABG O2 Saturation (94-97) % Chloride (98-107) mmol/L Creatinine (0.52-1.04) mg/dL Glucose (74-99) mg/dL POC Glucose (mg/dL) 162 H 196 H (75-99) mg/dL Calcium (8.4-10.2) mg/dL Phosphorus (2.5-4.5) mg/dL Total Bilirubin (0.2-1.3) mg/dL AST (14-36) U/L Alkaline Phosphatase (38-126) U/L Total Protein (6.3-8.2) g/dL Albumin (3.5-5.0) g/dL Crossmatch 02/15/18 02/15/18 02/15/18 Range/Units 00:14 00:14 00:14 RBC (3.80-5.40) m/uL Hgb (11.4-16.0) gm/dL Hct (34.0-46.0) % Plt Count (150-450) k/uL Lymphocytes # (1.0-4.8) k/uL PT 14.0 H (9.0-12.0) sec INR 1.5 H (<1.2) ABG pH (7.35-7.45) ABG pCO2 (35-45) mmHg ABG pO2 (83-108) mmHg ABG Total CO2 (19-24) mmol/L ABG O2 Saturation (94-97) % Chloride 110 H (98-107) mmol/L Creatinine 0.41 L (0.52-1.04) mg/dL Glucose 149 H (74-99) mg/dL POC Glucose (mg/dL) 167 H (75-99) mg/dL Calcium 6.9 L (8.4-10.2) mg/dL Phosphorus (2.5-4.5) mg/dL Total Bilirubin 2.0 H (0.2-1.3) mg/dL AST 44 H (14-36) U/L Alkaline Phosphatase <20 L (38-126) U/L Total Protein 3.2 L (6.3-8.2) g/dL Albumin 2.0 L (3.5-5.0) g/dL Crossmatch 02/15/18 02/15/18 02/15/18 Range/Units 00:17 01:03 02:05 RBC 2.05 L (3.80-5.40) m/uL Hgb 6.2 L* (11.4-16.0) gm/dL Hct 18.8 L* (34.0-46.0) % Plt Count 67 L (150-450) k/uL Lymphocytes # 0.7 L (1.0-4.8) k/uL PT (9.0-12.0) sec INR (<1.2) ABG pH (7.35-7.45) ABG pCO2 (35-45) mmHg ABG pO2 (83-108) mmHg ABG Total CO2 (19-24) mmol/L ABG O2 Saturation (94-97) % Chloride (98-107) mmol/L Creatinine (0.52-1.04) mg/dL Glucose (74-99) mg/dL POC Glucose (mg/dL) 205 H 167 H (75-99) mg/dL Calcium (8.4-10.2) mg/dL Phosphorus (2.5-4.5) mg/dL Total Bilirubin (0.2-1.3) mg/dL AST (14-36) U/L Alkaline Phosphatase (38-126) U/L Total Protein (6.3-8.2) g/dL Albumin (3.5-5.0) g/dL Crossmatch 02/15/18 02/15/18 02/15/18 Range/Units 03:18 03:35 04:07 RBC (3.80-5.40) m/uL Hgb (11.4-16.0) gm/dL Hct (34.0-46.0) % Plt Count (150-450) k/uL Lymphocytes # (1.0-4.8) k/uL PT (9.0-12.0) sec INR (<1.2) ABG pH 7.54 H (7.35-7.45) ABG pCO2 28 L (35-45) mmHg ABG pO2 115 H (83-108) mmHg ABG Total CO2 (19-24) mmol/L ABG O2 Saturation 100.0 H (94-97) % Chloride (98-107) mmol/L Creatinine (0.52-1.04) mg/dL Glucose (74-99) mg/dL POC Glucose (mg/dL) 131 H 121 H (75-99) mg/dL Calcium (8.4-10.2) mg/dL Phosphorus (2.5-4.5) mg/dL Total Bilirubin (0.2-1.3) mg/dL AST (14-36) U/L Alkaline Phosphatase (38-126) U/L Total Protein (6.3-8.2) g/dL Albumin (3.5-5.0) g/dL Crossmatch 02/15/18 02/15/18 02/15/18 Range/Units 04:12 05:04 06:09 RBC 2.70 L (3.80-5.40) m/uL Hgb 8.2 L D (11.4-16.0) gm/dL Hct 23.9 L (34.0-46.0) % Plt Count 119 L D (150-450) k/uL Lymphocytes # (1.0-4.8) k/uL PT (9.0-12.0) sec INR (<1.2) ABG pH (7.35-7.45) ABG pCO2 (35-45) mmHg ABG pO2 (83-108) mmHg ABG Total CO2 (19-24) mmol/L ABG O2 Saturation (94-97) % Chloride (98-107) mmol/L Creatinine (0.52-1.04) mg/dL Glucose (74-99) mg/dL POC Glucose (mg/dL) 128 H 129 H (75-99) mg/dL Calcium (8.4-10.2) mg/dL Phosphorus (2.5-4.5) mg/dL Total Bilirubin (0.2-1.3) mg/dL AST (14-36) U/L Alkaline Phosphatase (38-126) U/L Total Protein (6.3-8.2) g/dL Albumin (3.5-5.0) g/dL Crossmatch 02/15/18 02/15/18 02/15/18 Range/Units 07:16 07:35 08:10 RBC (3.80-5.40) m/uL Hgb (11.4-16.0) gm/dL Hct (34.0-46.0) % Plt Count (150-450) k/uL Lymphocytes # (1.0-4.8) k/uL PT (9.0-12.0) sec INR (<1.2) ABG pH (7.35-7.45) ABG pCO2 (35-45) mmHg ABG pO2 (83-108) mmHg ABG Total CO2 (19-24) mmol/L ABG O2 Saturation (94-97) % Chloride 112 H (98-107) mmol/L Creatinine 0.47 L (0.52-1.04) mg/dL Glucose 115 H (74-99) mg/dL POC Glucose (mg/dL) 126 H 128 H (75-99) mg/dL Calcium 7.5 L (8.4-10.2) mg/dL Phosphorus 1.9 L (2.5-4.5) mg/dL Total Bilirubin 1.5 H (0.2-1.3) mg/dL AST 81 H (14-36) U/L Alkaline Phosphatase 29 L (38-126) U/L Total Protein 4.1 L (6.3-8.2) g/dL Albumin 2.4 L (3.5-5.0) g/dL Crossmatch 02/15/18 02/15/18 02/15/18 Range/Units 09:09 10:09 10:57 RBC (3.80-5.40) m/uL Hgb (11.4-16.0) gm/dL Hct (34.0-46.0) % Plt Count (150-450) k/uL Lymphocytes # (1.0-4.8) k/uL PT (9.0-12.0) sec INR (<1.2) ABG pH (7.35-7.45) ABG pCO2 (35-45) mmHg ABG pO2 (83-108) mmHg ABG Total CO2 26 H (19-24) mmol/L ABG O2 Saturation 99.4 H (94-97) % Chloride (98-107) mmol/L Creatinine (0.52-1.04) mg/dL Glucose (74-99) mg/dL POC Glucose (mg/dL) 107 H 126 H (75-99) mg/dL Calcium (8.4-10.2) mg/dL Phosphorus (2.5-4.5) mg/dL Total Bilirubin (0.2-1.3) mg/dL AST (14-36) U/L Alkaline Phosphatase (38-126) U/L Total Protein (6.3-8.2) g/dL Albumin (3.5-5.0) g/dL Crossmatch 02/15/18 02/15/18 02/15/18 Range/Units 11:11 12:27 14:05 RBC 2.17 L (3.80-5.40) m/uL Hgb 6.8 L* (11.4-16.0) gm/dL Hct 19.8 L* (34.0-46.0) % Plt Count 107 L (150-450) k/uL Lymphocytes # (1.0-4.8) k/uL PT (9.0-12.0) sec INR (<1.2) ABG pH (7.35-7.45) ABG pCO2 (35-45) mmHg ABG pO2 (83-108) mmHg ABG Total CO2 (19-24) mmol/L ABG O2 Saturation (94-97) % Chloride (98-107) mmol/L Creatinine (0.52-1.04) mg/dL Glucose (74-99) mg/dL POC Glucose (mg/dL) 134 H 142 H (75-99) mg/dL Calcium (8.4-10.2) mg/dL Phosphorus (2.5-4.5) mg/dL Total Bilirubin (0.2-1.3) mg/dL AST (14-36) U/L Alkaline Phosphatase (38-126) U/L Total Protein (6.3-8.2) g/dL Albumin (3.5-5.0) g/dL Crossmatch 02/15/18 02/15/18 02/15/18 Range/Units 14:05 15:04 16:01 RBC (3.80-5.40) m/uL Hgb (11.4-16.0) gm/dL Hct (34.0-46.0) % Plt Count (150-450) k/uL Lymphocytes # (1.0-4.8) k/uL PT (9.0-12.0) sec INR (<1.2) ABG pH (7.35-7.45) ABG pCO2 (35-45) mmHg ABG pO2 (83-108) mmHg ABG Total CO2 (19-24) mmol/L ABG O2 Saturation (94-97) % Chloride (98-107) mmol/L Creatinine (0.52-1.04) mg/dL Glucose (74-99) mg/dL POC Glucose (mg/dL) 133 H 132 H 132 H (75-99) mg/dL Calcium (8.4-10.2) mg/dL Phosphorus (2.5-4.5) mg/dL Total Bilirubin (0.2-1.3) mg/dL AST (14-36) U/L Alkaline Phosphatase (38-126) U/L Total Protein (6.3-8.2) g/dL Albumin (3.5-5.0) g/dL Crossmatch Assessment and Plan Plan: 1. Severe mitral regurgitation status post mitral valve repair with Dr. Red. Postop day #1. 2. Postoperative mechanical ventilation: pulmonary service to manage, patient extubated since yesterday and tolerating well 3. Expected acute blood loss anemia secondary to surgery. Hemoglobin 6.1 patient receiving 1 unit of blood 4. Hyperlipidemia continue Lipitor 5. Hypocalcemia patient receiving calcium chloride 6. Seasonal ALLERGIES
[2018-02-15] MEDS: INSULIN REGULAR 100 UNIT in SODIUM CHLORIDE 0.9% 100 ML IV SCH (17:08)
[2018-02-15 17:09] LABS: Glucose,Whole Blood 131 mg/dL (75-99)
[2018-02-15 18:09] LABS: Glucose,Whole Blood 133 mg/dL (75-99)
[2018-02-15 20:12] LABS: Glucose,Whole Blood 140 mg/dL (75-99)
[2018-02-15] MEDS: SENNOSIDES-DOCUSATE SODIUM 1 EACH TAB PO SCH (21:08)
[2018-02-15] MEDS ORDERED: NOREPINEPHRINE 16 MG in SODIUM CHLORIDE 0.9% 250 ML IV SCH (21:15)
[2018-02-15 21:23] LABS: Glucose,Whole Blood 145 mg/dL (75-99)
[2018-02-16 00:05] LABS: Glucose,Whole Blood 114 mg/dL (75-99)
[2018-02-16] MEDS: HYDROcodone/APAP 5-325MG 1 EACH TAB PO PRN ×6 (00:12→19:59)
[2018-02-16] MEDS: ONDANSETRON 4 MG/2 ML VIAL IVP PRN ×4 (00:15→19:58)
[2018-02-16 01:11] LABS: Glucose,Whole Blood 120 mg/dL (75-99)
[2018-02-16 03:17] LABS: Glucose,Whole Blood 121 mg/dL (75-99)
[2018-02-16 05:18] LABS: Glucose,Whole Blood 134 mg/dL (75-99)
[2018-02-16 05:32] LABS: Basophils % (A) 0 %; Eosinophils # (A) 0.1 k/uL (0-0.7); Eosinophils % (A) 1 %; HCT 20.4 % (34.0-46.0); Lymphocytes # (A) 2.9 k/uL (1.0-4.8); Lymphocytes % (A) 23 %; MCH 31.3 pg (25.0-35.0); MCV 92.3 fL (80.0-100.0); Mean Platelet Volume 7.1; Monocytes # (A) 0.7 k/uL (0-1.0); Monocytes % (A) 6 %; Neutrophils # (A) 8.5 k/uL (1.3-7.7); Neutrophils % (A) 69 %; Platelet Count 110 k/uL (150-450); RBC 2.21 m/uL (3.80-5.40); RDW 14.9 % (11.5-15.5); WBC 12.4 k/uL (3.8-10.6)
[2018-02-16 05:33] LABS: HGB 6.9 gm/dL (11.4-16.0)
[2018-02-16 05:36] LABS: Ionized Calcium 4.8 mg/dL (4.5-5.3)
[2018-02-16 05:43] LABS: ALT 27 U/L (9-52); AST 52 U/L (14-36); Albumin 2.4 g/dL (3.5-5.0); Alkaline Phosphatase 30 U/L (38-126); Anion Gap 3 mmol/L; Blood Urea Nitrogen 14 mg/dL (7-17); Calcium 7.3 mg/dL (8.4-10.2); Carbon Dioxide 26 mmol/L (22-30); Chloride 107 mmol/L (98-107); Glucose 112 mg/dL (74-99); Magnesium 2.2 mg/dL (1.6-2.3); Potassium 3.9 mmol/L (3.5-5.1); Sodium 136 mmol/L (137-145); Total Bilirubin 0.9 mg/dL (0.2-1.3); Total Protein 4.1 g/dL (6.3-8.2)
--- NOTE | 2018-02-16 06:49 | XR ---
EXAMINATION TYPE: XR chest 1V portable DATE OF EXAM: 02/16/2018 HISTORY: Post Operative Cardiac Surgery. REFERENCE: Previous study dated 02/15/2018. FINDINGS: The patient has been extubated. The NG tube is been removed. There continues to be a Hague-G anz catheter in place via a right internal jugular approach. Its tip is in the right interlobar arter y. There are bilateral chest tubes in place. There has been a midline sternotomy. No definite pneumothorax is identified. The heart is mildly enlarged. There is left basilar airspace disease. There are small, bilateral effusions. There is developed subtle interstitial change from the previous study. IMPRESSION: 1. CONTINUING LEFT BASILAR AIRSPACE DISEASE. 2. SUBTLE CHANGES OF CONGESTIVE HEART FAILURE. 3. POSTSURGICAL CHANGE.
[2018-02-16] MEDS: IPRATROPIUM-ALBUTEROL 3 ML NEB INHALATION SCH ×4 (07:17→20:19)
[2018-02-16 07:30] LABS: Glucose,Whole Blood 131 mg/dL (75-99)
[2018-02-16] MEDS: PANTOPRAZOLE 40 MG/10 ML VIAL IVP SCH (08:11)
[2018-02-16] MEDS: ASPIRIN 325 MG TAB PO SCH (08:11)
[2018-02-16] MEDS: ATORVASTATIN 40 MG TAB PO SCH (08:11)
[2018-02-16] MEDS: INSULIN ASPART 100 UNIT/ML 1 ML 10 ML VIAL SQ SCH ×4 (08:11→19:56)
[2018-02-16] MEDS ORDERED: POTASSIUM CHLORIDE ER 20 MEQ TAB.ER PO SCH (09:00)
[2018-02-16] MEDS ORDERED: FUROSEMIDE 10 MG/ML 2 ML VIAL IV ONE (09:01)
--- NOTE | 2018-02-16 09:01 | P.PN ---
Subjective Progress Note Date: 02/16/18 Principal diagnosis: Severe mitral valve regurgitation, history of asthma, hypertriglyceridemia and history of near syncopal event. POD #2 complex mitral valve repair with closure of the base of P1 and P2 cleft and annuloplasty with a #26 mm a little flex ring, closure of left atrial appendage, intraoperative epi-aortic ultrasound and intraoperative transesophageal echocardiogram performed by anesthesia. POD #2 sternal reexploration with evacuation of hematoma. Postoperative hemorrhage, an unexpected but potential outcome of surgery. Postoperative acute blood loss anemia, and expected outcome of surgery due to cardiopulmonary bypass and hemodilution. The patient is sitting up to the bedside chair. She is in no acute distress. She denies any complaints of pain or shortness of breath at this time. Oxygen saturations are 95% on 2 L nasal cannula. She is achieving 500-750 mL on her incentive spirometry. She is awake, alert and oriented 3. Moving all 4 extremities appropriately. Laboratory results this morning show a WBC count of 12.4, hemoglobin 6.9, platelets of 110. Objective - Vital Signs Vital signs: Vital Signs Temp 99.5 F 02/15/18 03:35 Pulse 86 02/16/18 07:17 Resp 16 02/16/18 02:30 BP 103/53 02/16/18 02:30 Pulse Ox 95 02/16/18 02:30 Intake & Output 02/15/18 02/16/18 02/16/18 18:59 06:59 18:59 Intake Total 1569.438 741.447 Output Total 869 796 Balance 700.438 -54.553 Weight 83.5 kg 89.3 kg Intake: IV 952 556 ACETAMINOPHEN IV (For NPO 200 ) 1,000 mg In Empty Bag 1 bag @ 400 mls/hr IVPB Q6HR [facility] Rx#:[id number] Bolus CO 60 30 Lactated Ringers 1,000 ml 590 490 @ 50 mls/hr IV .Q20H [facility] Rx#:[id number] NS Pressure Bag 102 36 Intake, IV Titration 617.438 5.447 Amount Albumin Human 5% 250 ml 250 In Empty Bag 1 bag @ 250 mls/hr IVPB Q1HR PRN Rx#: [id number] Dexmedetomidine/0.9% NaCl 97.734 (Pmx) 400 mcg In Empty Bag 1 bag @ Titrate IV . Q0M [facility] Rx#:[id number] Insulin Regular 100 unit 10.535 5.447 In Sodium Chloride 0.9% 100 ml @ Per Protocol IV .Q0M [facility] Rx#:[id number] Potassium Phosphate 10 200 mmol In Sodium Chloride 0 .9% 100 ml @ 50 mls/hr IV Q2H [facility] Rx#:[id number] Propofol 1,000 mg In 59.169 Empty Bag 1 bag @ Titrate IV .Q0M [facility] Rx#: [id number] Oral 180 Output: Chest Tube Drainage 394 540 Chest Tube Bilateral 134 320 Chest Tube Upper 260 220 Mediastinal Urine 475 256 Other: Voiding Method Indwelling Catheter Indwelling Catheter ABP, PAP, CO, CI - Last Documented Arterial Blood Pressure 92/54 Pulmonary Artery Pressure 35/17 Cardiac Output 6 Cardiac Index 3.4 - Constitutional General appearance: Present: cooperative, no acute distress, obese - Respiratory Details: Lung sounds essentially clear throughout, few scattered crackles to bilateral bases. Respirations are symmetrical and nonlabored. Oxygen saturation are 95% on 2 L nasal cannula. She is achieving 500-750 mL on her incentive spirometry. Mediastinal, right and left pleural chest tubes in place to low continuous wall suction. Air leak present to pleural chest tubes. Chest tubes are draining thin serosanguineous drainage. Mediastinal chest tub drained 160 mL output in the last 8 hours, 570 mL output in the last 24 hours. Right and left pleural chest tubes drained 630 mL output in the last 8 hours, 930 mL output since surgery. - Cardiovascular Details: Regular rhythm and rate. S1 and S2 present, negative for S3, gallop or murmur. Sternum is stable. Bedside telemetry showing normal sinus rhythm heart rate 86. Heart hugger is in place and she is demonstrating appropriate use. No edema present. Atrial and ventricular epicardial pacemaker wires in place and grounded. Knee-high MARISA hose and sequential compression devices in place to bilateral lower extremities. Left radial arterial line in place and functioning. Right IJ Cordis with [place]-Abimael catheter in place and functioning. Current cardiac output 6.2, cardiac index 3.6, PA pressures 30/12, CVP 10 mmHg. - Gastrointestinal Gastrointestinal Comment(s): Abdomen is soft, nontender and nondistended. Hypoactive bowel sounds to all 4 abdominal quadrants. Tolerating oral intake. - Genitourinary Genitourinary Comment(s): Lisa catheter for accurate I&O. Draining clear yellow urine. 240 mL output in the last 8 hours. - Integumentary Integumentary Comment(s): Skin is warm and dry. No clubbing or cyanosis present. Midline sternal incision clean dry and approximated. No drainage or redness present. No rash or abnormal pigmentation present. Ecchymotic area to her left lateral thigh. - Neurologic Neurologic Comment(s): No focal deficits. Neurologic: Present: CNII-XII intact - Musculoskeletal Musculoskeletal: Present: gait normal, generalized weakness, strength equal bilaterally - Psychiatric Psychiatric: Present: A&O x's 3, appropriate affect, intact judgment & insight - Allied health notes Allied health notes reviewed: nursing - Labs CBC & Chem 7: 02/16/18 05:20 02/16/18 05:20 Labs: Abnormal Lab Results - Last 24 Hours (Table) 02/04/18 02/15/18 02/15/18 Range/Units 16:15 07:35 08:10 WBC (3.8-10.6) k/uL RBC (3.80-5.40) m/uL Hgb (11.4-16.0) gm/dL Hct (34.0-46.0) % Plt Count (150-450) k/uL Neutrophils # (1.3-7.7) k/uL ABG Total CO2 (19-24) mmol/L ABG O2 Saturation (94-97) % Sodium (137-145) mmol/L Chloride 112 H (98-107) mmol/L Creatinine 0.47 L (0.52-1.04) mg/dL Glucose 115 H (74-99) mg/dL POC Glucose (mg/dL) 128 H (75-99) mg/dL Calcium 7.5 L (8.4-10.2) mg/dL Phosphorus 1.9 L (2.5-4.5) mg/dL Total Bilirubin 1.5 H (0.2-1.3) mg/dL AST 81 H (14-36) U/L Alkaline Phosphatase 29 L (38-126) U/L Total Protein 4.1 L (6.3-8.2) g/dL Albumin 2.4 L (3.5-5.0) g/dL Crossmatch See Detail 02/15/18 02/15/18 02/15/18 Range/Units 09:09 10:09 10:57 WBC (3.8-10.6) k/uL RBC (3.80-5.40) m/uL Hgb (11.4-16.0) gm/dL Hct (34.0-46.0) % Plt Count (150-450) k/uL Neutrophils # (1.3-7.7) k/uL ABG Total CO2 26 H (19-24) mmol/L ABG O2 Saturation 99.4 H (94-97) % Sodium (137-145) mmol/L Chloride (98-107) mmol/L Creatinine (0.52-1.04) mg/dL Glucose (74-99) mg/dL POC Glucose (mg/dL) 107 H 126 H (75-99) mg/dL Calcium (8.4-10.2) mg/dL Phosphorus (2.5-4.5) mg/dL Total Bilirubin (0.2-1.3) mg/dL AST (14-36) U/L Alkaline Phosphatase (38-126) U/L Total Protein (6.3-8.2) g/dL Albumin (3.5-5.0) g/dL Crossmatch 02/15/18 02/15/18 02/15/18 Range/Units 11:11 12:27 14:05 WBC (3.8-10.6) k/uL RBC 2.17 L (3.80-5.40) m/uL Hgb 6.8 L* (11.4-16.0) gm/dL Hct 19.8 L* (34.0-46.0) % Plt Count 107 L (150-450) k/uL Neutrophils # (1.3-7.7) k/uL ABG Total CO2 (19-24) mmol/L ABG O2 Saturation (94-97) % Sodium (137-145) mmol/L Chloride (98-107) mmol/L Creatinine (0.52-1.04) mg/dL Glucose (74-99) mg/dL POC Glucose (mg/dL) 134 H 142 H (75-99) mg/dL Calcium (8.4-10.2) mg/dL Phosphorus (2.5-4.5) mg/dL Total Bilirubin (0.2-1.3) mg/dL AST (14-36) U/L Alkaline Phosphatase (38-126) U/L Total Protein (6.3-8.2) g/dL Albumin (3.5-5.0) g/dL Crossmatch 02/15/18 02/15/18 02/15/18 Range/Units 14:05 15:04 16:01 WBC (3.8-10.6) k/uL RBC (3.80-5.40) m/uL Hgb (11.4-16.0) gm/dL Hct (34.0-46.0) % Plt Count (150-450) k/uL Neutrophils # (1.3-7.7) k/uL ABG Total CO2 (19-24) mmol/L ABG O2 Saturation (94-97) % Sodium (137-145) mmol/L Chloride (98-107) mmol/L Creatinine (0.52-1.04) mg/dL Glucose (74-99) mg/dL POC Glucose (mg/dL) 133 H 132 H 132 H (75-99) mg/dL Calcium (8.4-10.2) mg/dL Phosphorus (2.5-4.5) mg/dL Total Bilirubin (0.2-1.3) mg/dL AST (14-36) U/L Alkaline Phosphatase (38-126) U/L Total Protein (6.3-8.2) g/dL Albumin (3.5-5.0) g/dL Crossmatch 02/15/18 02/15/18 02/15/18 Range/Units 17:07 18:07 20:11 WBC (3.8-10.6) k/uL RBC (3.80-5.40) m/uL Hgb (11.4-16.0) gm/dL Hct (34.0-46.0) % Plt Count (150-450) k/uL Neutrophils # (1.3-7.7) k/uL ABG Total CO2 (19-24) mmol/L ABG O2 Saturation (94-97) % Sodium (137-145) mmol/L Chloride (98-107) mmol/L Creatinine (0.52-1.04) mg/dL Glucose (74-99) mg/dL POC Glucose (mg/dL) 131 H 133 H 140 H (75-99) mg/dL Calcium (8.4-10.2) mg/dL Phosphorus (2.5-4.5) mg/dL Total Bilirubin (0.2-1.3) mg/dL AST (14-36) U/L Alkaline Phosphatase (38-126) U/L Total Protein (6.3-8.2) g/dL Albumin (3.5-5.0) g/dL Crossmatch 02/15/18 02/16/18 02/16/18 Range/Units 21:11 00:03 01:09 WBC (3.8-10.6) k/uL RBC (3.80-5.40) m/uL Hgb (11.4-16.0) gm/dL Hct (34.0-46.0) % Plt Count (150-450) k/uL Neutrophils # (1.3-7.7) k/uL ABG Total CO2 (19-24) mmol/L ABG O2 Saturation (94-97) % Sodium (137-145) mmol/L Chloride (98-107) mmol/L Creatinine (0.52-1.04) mg/dL Glucose (74-99) mg/dL POC Glucose (mg/dL) 145 H 114 H 120 H (75-99) mg/dL Calcium (8.4-10.2) mg/dL Phosphorus (2.5-4.5) mg/dL Total Bilirubin (0.2-1.3) mg/dL AST (14-36) U/L Alkaline Phosphatase (38-126) U/L Total Protein (6.3-8.2) g/dL Albumin (3.5-5.0) g/dL Crossmatch 02/16/18 02/16/18 02/16/18 Range/Units 03:16 05:16 05:20 WBC (3.8-10.6) k/uL RBC (3.80-5.40) m/uL Hgb (11.4-16.0) gm/dL Hct (34.0-46.0) % Plt Count (150-450) k/uL Neutrophils # (1.3-7.7) k/uL ABG Total CO2 (19-24) mmol/L ABG O2 Saturation (94-97) % Sodium 136 L (137-145) mmol/L Chloride (98-107) mmol/L Creatinine 0.48 L (0.52-1.04) mg/dL Glucose 112 H (74-99) mg/dL POC Glucose (mg/dL) 121 H 134 H (75-99) mg/dL Calcium 7.3 L (8.4-10.2) mg/dL Phosphorus (2.5-4.5) mg/dL Total Bilirubin (0.2-1.3) mg/dL AST 52 H (14-36) U/L Alkaline Phosphatase 30 L (38-126) U/L Total Protein 4.1 L (6.3-8.2) g/dL Albumin 2.4 L (3.5-5.0) g/dL Crossmatch 02/16/18 02/16/18 Range/Units 05:20 07:29 WBC 12.4 H (3.8-10.6) k/uL RBC 2.21 L (3.80-5.40) m/uL Hgb 6.9 L* (11.4-16.0) gm/dL Hct 20.4 L (34.0-46.0) % Plt Count 110 L (150-450) k/uL Neutrophils # 8.5 H (1.3-7.7) k/uL ABG Total CO2 (19-24) mmol/L ABG O2 Saturation (94-97) % Sodium (137-145) mmol/L Chloride (98-107) mmol/L Creatinine (0.52-1.04) mg/dL Glucose (74-99) mg/dL POC Glucose (mg/dL) 131 H (75-99) mg/dL Calcium (8.4-10.2) mg/dL Phosphorus (2.5-4.5) mg/dL Total Bilirubin (0.2-1.3) mg/dL AST (14-36) U/L Alkaline Phosphatase (38-126) U/L Total Protein (6.3-8.2) g/dL Albumin (3.5-5.0) g/dL Crossmatch - Imaging and Cardiology Chest x-ray: report reviewed, image reviewed Assessment and Plan (1) Severe mitral regurgitation Current Visit: Yes Status: Acute Code(s): I34.0 - NONRHEUMATIC MITRAL (VALVE ) INSUFFICIENCY SNOMED Code(s): 66819717 (2) Asthma Current Visit: Yes Status: Acute Code(s): J45.909 - UNSPECIFIED ASTHMA, UNCOMPLICATED SNOMED Code(s): 826108690 (3) Postoperative hemorrhage Current Visit: Yes Status: Acute Code(s): GSM9335 - SNOMED Code(s): 986253800 Plan: 1. Continue aspirin, statin, beta roseanne. Will decrease her metoprolol tartrate 12.5 mg by mouth twice a day. 2. Wean oxygen as tolerated. Encourage use of their incentive spirometry every hour while awake. 3. Increase activity as tolerated. PT/OT/cardiac rehab following. 4. Pulmonary management per Dr. Blackmon. 5. Continue right IJ Cordis and discontinue [place]-Abimael catheter. 6. Medical and insulin management per primary care service. 7. Monitor daily labs, chest x-rays. 8. GI/DVT prophylaxis. 9. Pain control per current when necessary orders. 10. Lasix 20 mg IV 1 now. 11. Continue chest tubes to low continuous wall suction. 12. More recommendations to follow based on patient's clinical course. Time with Patient: Greater than 30
--- NOTE | 2018-02-16 09:08 | P.PN ---
Subjective Progress Note Date: 02/16/18 Principal diagnosis: Congestive heart failure related to valvular heart disease associated with severe mitral regurgitation, acute blood loss anemia postoperative anticipated complication of mitral valve surgery, status post mitral valve replacement for severe mitral regurgitation, hypertension hypertensive cardiovascular disease 02/16/2018, patient seen eval examined during the rounds clinically patient has been doing well she has been successfully weaned and extubated sitting upright on the chair breathing relatively more comfortably off of oxygen patient is off of insulin currently on KVO LR, [place]-Abimael catheter is in stable position chest x -ray reviewed borderline cardiomegaly interstitial edema and trace pleural effusion is noted, both mediastinal and pleural chest tube in stable serous sanguinous pleural fluid and mediastinal fluid has been obtained but no significant hemorrhage has been noted, hemoglobin remained stable hemodynamic status stable last hemoglobin check was hemoglobin was 6.9 plan is to monitor observe, likely will keep the chest tube in today patient will be kept in ICU, medications reviewed laboratory data reviewed care plan discussed with cardiothoracic surgery as well as nursing staff at length 02/15/2018, patient seen and evaluated examined during the rounds critical care time spent 35 minutes, patient is supposed up day #2 of mitral valve replacement and evacuation of blood clots from mediastinum afterwards care plan discussed with cardiothoracic surgery as well, patient is on assist control mode with PEEP of 8 respiratory rate is 20 patient is breathing about 20-21 currently she is on propofol also on 1 unit of insulin drip, patient is getting LR on maintenance basis, chest x-ray reviewed the output through the chest tube are minimal, [place]-Abimael catheter in a stable position descending branch PA, noted. Pressure are improved now is 35/24, patient is making urine, does respond to physical stimuli, and labs reviewed medications reviewed radiographic studies reviewed as well 62-year-old female who was seen evaluated examined in the ICU patient is intubated on full ventilator support patient underwent mitral valve replacement for severe mitral regurgitation patient was seen evaluated examined postoperatively in the ICU she just have received the blood products developed some hives it is not clear if they were associated with the cephalosporin or blood products anyhow patient has significant bleeding from the chest tubes as well as which seems to be settling down, ventilator setting reviewed patient has significant hypercapnia hypoxemia ventilator has been adjusted with requiring higher PEEP of 8, patient is not a candidate for rapid weaning and extubation given mediastinal bleeding, labs reviewed medications reviewed radiographic studies reviewed as well, patient has been taken back to OR for reexploration and clot removal for details please look at the operative report Objective - Vital Signs Vital signs: Vital Signs Temp 99.5 F 02/15/18 03:35 Pulse 94 02/16/18 08:00 Resp 14 02/16/18 08:00 BP 99/56 02/16/18 08:00 Pulse Ox 96 02/16/18 08:00 Intake & Output 02/15/18 02/16/18 02/16/18 18:59 06:59 18:59 Intake Total 1569.438 907.447 262 Output Total 869 951 605 Balance 700.438 -43.553 -343 Weight 83.5 kg 89.3 kg Intake: IV 952 662 102 ACETAMINOPHEN IV (For NPO 200 ) 1,000 mg In Empty Bag 1 bag @ 400 mls/hr IVPB Q6HR [facility] Rx#:[id number] Bolus CO 60 30 20 Lactated Ringers 1,000 ml 590 590 70 @ 50 mls/hr IV .Q20H [facility] Rx#:[id number] NS Pressure Bag 102 42 12 Intake, IV Titration 617.438 5.447 Amount Albumin Human 5% 250 ml 250 In Empty Bag 1 bag @ 250 mls/hr IVPB Q1HR PRN Rx#: [id number] Dexmedetomidine/0.9% NaCl 97.734 (Pmx) 400 mcg In Empty Bag 1 bag @ Titrate IV . Q0M [facility] Rx#:[id number] Insulin Regular 100 unit 10.535 5.447 In Sodium Chloride 0.9% 100 ml @ Per Protocol IV .Q0M [facility] Rx#:[id number] Potassium Phosphate 10 200 mmol In Sodium Chloride 0 .9% 100 ml @ 50 mls/hr IV Q2H [facility] Rx#:[id number] Propofol 1,000 mg In 59.169 Empty Bag 1 bag @ Titrate IV .Q0M [facility] Rx#: [id number] Oral 240 160 Output: Chest Tube Drainage 394 640 500 Chest Tube Bilateral 134 390 420 Chest Tube Upper 260 250 80 Mediastinal Urine 475 311 105 Other: Voiding Method Indwelling Catheter Indwelling Catheter ABP, PAP, CO, CI - Last Documented Arterial Blood Pressure 96/52 Pulmonary Artery Pressure 30/15 Cardiac Output 5.7 Cardiac Index 3.3 - Exam - Constitutional General appearance: average body habitus, disheveled, no acute distress - EENT Eyes: anicteric sclerae, dentition normal, normal appearance Ears: bilateral: normal - Neck Neck: normal ROM Carotids: bilateral: upstroke normal Thyroid: bilateral: normal size - Respiratory Respiratory: bilateral: diminished, rales (At the bases), improved air entry bilaterally - Cardiovascular Heart sounds: normal: S1, S2, regular rate rhythm - Gastrointestinal General gastrointestinal: decreased bowel sounds, soft - Integumentary Integumentary: decreased turgor, normal, normal turgor - Neurologic Neurologic: CNII-XII intact - Musculoskeletal Good bilateral strength - Psychiatric Awake and alert, and comfortable - Labs CBC & Chem 7: 02/16/18 05:20 02/16/18 05:20 Labs: Abnormal Lab Results - Last 24 Hours (Table) 02/04/18 02/15/18 02/15/18 Range/Units 16:15 09:09 10:09 WBC (3.8-10.6) k/uL RBC (3.80-5.40) m/uL Hgb (11.4-16.0) gm/dL Hct (34.0-46.0) % Plt Count (150-450) k/uL Neutrophils # (1.3-7.7) k/uL ABG Total CO2 (19-24) mmol/L ABG O2 Saturation (94-97) % Sodium (137-145) mmol/L Creatinine (0.52-1.04) mg/dL Glucose (74-99) mg/dL POC Glucose (mg/dL) 107 H 126 H (75-99) mg/dL Calcium (8.4-10.2) mg/dL AST (14-36) U/L Alkaline Phosphatase (38-126) U/L Total Protein (6.3-8.2) g/dL Albumin (3.5-5.0) g/dL Crossmatch See Detail 02/15/18 02/15/18 02/15/18 Range/Units 10:57 11:11 12:27 WBC (3.8-10.6) k/uL RBC (3.80-5.40) m/uL Hgb (11.4-16.0) gm/dL Hct (34.0-46.0) % Plt Count (150-450) k/uL Neutrophils # (1.3-7.7) k/uL ABG Total CO2 26 H (19-24) mmol/L ABG O2 Saturation 99.4 H (94-97) % Sodium (137-145) mmol/L Creatinine (0.52-1.04) mg/dL Glucose (74-99) mg/dL POC Glucose (mg/dL) 134 H 142 H (75-99) mg/dL Calcium (8.4-10.2) mg/dL AST (14-36) U/L Alkaline Phosphatase (38-126) U/L Total Protein (6.3-8.2) g/dL Albumin (3.5-5.0) g/dL Crossmatch 02/15/18 02/15/18 02/15/18 Range/Units 14:05 14:05 15:04 WBC (3.8-10.6) k/uL RBC 2.17 L (3.80-5.40) m/uL Hgb 6.8 L* (11.4-16.0) gm/dL Hct 19.8 L* (34.0-46.0) % Plt Count 107 L (150-450) k/uL Neutrophils # (1.3-7.7) k/uL ABG Total CO2 (19-24) mmol/L ABG O2 Saturation (94-97) % Sodium (137-145) mmol/L Creatinine (0.52-1.04) mg/dL Glucose (74-99) mg/dL POC Glucose (mg/dL) 133 H 132 H (75-99) mg/dL Calcium (8.4-10.2) mg/dL AST (14-36) U/L Alkaline Phosphatase (38-126) U/L Total Protein (6.3-8.2) g/dL Albumin (3.5-5.0) g/dL Crossmatch 02/15/18 02/15/18 02/15/18 Range/Units 16:01 17:07 18:07 WBC (3.8-10.6) k/uL RBC (3.80-5.40) m/uL Hgb (11.4-16.0) gm/dL Hct (34.0-46.0) % Plt Count (150-450) k/uL Neutrophils # (1.3-7.7) k/uL ABG Total CO2 (19-24) mmol/L ABG O2 Saturation (94-97) % Sodium (137-145) mmol/L Creatinine (0.52-1.04) mg/dL Glucose (74-99) mg/dL POC Glucose (mg/dL) 132 H 131 H 133 H (75-99) mg/dL Calcium (8.4-10.2) mg/dL AST (14-36) U/L Alkaline Phosphatase (38-126) U/L Total Protein (6.3-8.2) g/dL Albumin (3.5-5.0) g/dL Crossmatch 02/15/18 02/15/18 02/16/18 Range/Units 20:11 21:11 00:03 WBC (3.8-10.6) k/uL RBC (3.80-5.40) m/uL Hgb (11.4-16.0) gm/dL Hct (34.0-46.0) % Plt Count (150-450) k/uL Neutrophils # (1.3-7.7) k/uL ABG Total CO2 (19-24) mmol/L ABG O2 Saturation (94-97) % Sodium (137-145) mmol/L Creatinine (0.52-1.04) mg/dL Glucose (74-99) mg/dL POC Glucose (mg/dL) 140 H 145 H 114 H (75-99) mg/dL Calcium (8.4-10.2) mg/dL AST (14-36) U/L Alkaline Phosphatase (38-126) U/L Total Protein (6.3-8.2) g/dL Albumin (3.5-5.0) g/dL Crossmatch 02/16/18 02/16/18 02/16/18 Range/Units 01:09 03:16 05:16 WBC (3.8-10.6) k/uL RBC (3.80-5.40) m/uL Hgb (11.4-16.0) gm/dL Hct (34.0-46.0) % Plt Count (150-450) k/uL Neutrophils # (1.3-7.7) k/uL ABG Total CO2 (19-24) mmol/L ABG O2 Saturation (94-97) % Sodium (137-145) mmol/L Creatinine (0.52-1.04) mg/dL Glucose (74-99) mg/dL POC Glucose (mg/dL) 120 H 121 H 134 H (75-99) mg/dL Calcium (8.4-10.2) mg/dL AST (14-36) U/L Alkaline Phosphatase (38-126) U/L Total Protein (6.3-8.2) g/dL Albumin (3.5-5.0) g/dL Crossmatch 02/16/18 02/16/18 02/16/18 Range/Units 05:20 05:20 07:29 WBC 12.4 H (3.8-10.6) k/uL RBC 2.21 L (3.80-5.40) m/uL Hgb 6.9 L* (11.4-16.0) gm/dL Hct 20.4 L (34.0-46.0) % Plt Count 110 L (150-450) k/uL Neutrophils # 8.5 H (1.3-7.7) k/uL ABG Total CO2 (19-24) mmol/L ABG O2 Saturation (94-97) % Sodium 136 L (137-145) mmol/L Creatinine 0.48 L (0.52-1.04) mg/dL Glucose 112 H (74-99) mg/dL POC Glucose (mg/dL) 131 H (75-99) mg/dL Calcium 7.3 L (8.4-10.2) mg/dL AST 52 H (14-36) U/L Alkaline Phosphatase 30 L (38-126) U/L Total Protein 4.1 L (6.3-8.2) g/dL Albumin 2.4 L (3.5-5.0) g/dL Crossmatch Assessment and Plan Assessment: 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, status post mitral valve replacement postop day #2 Significant mediastinal bleed anticipated postoperative course, requiring reexploration and removal of clots, postop day #2 Recurrent near-syncope related to severe mitral regurgitation and suboptimal cardiac output Acute blood loss anemia Hypertension hypertensive cardiovascular disease Morbid obesity Plan: Continue supplemental oxygen and adjust FiO2 as tolerated E breathing exercises incentive spirometry Blood products as needed follow clinical course closely further recommendations pending, initiate his increasing activity as tolerated We will recommend to leave mediastinal and pleural chest tube for now [place]-Abimael catheter can be removed Time with Patient: Greater than 30
[2018-02-16] MEDS: METOPROLOL TARTRATE 12.5 MG TAB PO SCH ×2 (09:09→21:18)
[2018-02-16] MEDS: FERROUS SULFATE 325 MG TAB PO SCH ×2 (11:56→13:29)
[2018-02-16] MEDS: ASCORBIC ACID 500 MG TAB PO SCH (11:56)
[2018-02-16 12:03] LABS: Glucose,Whole Blood 127 mg/dL (75-99)
--- NOTE | 2018-02-16 12:11 | P.PN ---
Subjective Patient is resting comfortably in bed. Does not appear to be short of breath. Sinus rhythm in the 90s. Beta roseanne dose was reduced on account of her low blood pressure Overall doing fairly well after mitral valve repair and left atrial appendectomy Breath sounds are reduced bilaterally Heart sounds are distant Abdomen soft No JVD no lower extremity edema Impression Complex mitral valve repair and left atrial appendectomy, maintains sinus rhythm , beta roseanne dose is being lowered at this time Suggest Continue current medications and maximize beta blockers as clinically tolerated Objective - Vital Signs Vital signs: Vital Signs Temp 99.5 F 02/15/18 03:35 Pulse 98 02/16/18 12:00 Resp 14 02/16/18 12:00 BP 105/55 02/16/18 12:00 Pulse Ox 97 02/16/18 12:00 Intake & Output 02/15/18 02/16/18 02/16/18 18:59 06:59 18:59 Intake Total 1569.438 907.447 486 Output Total 696 431 1299 Balance 700.438 -43.553 -1104 Weight 83.5 kg 89.3 kg Intake: IV 952 662 206 ACETAMINOPHEN IV (For NPO 200 ) 1,000 mg In Empty Bag 1 bag @ 400 mls/hr IVPB Q6HR [facility] Rx#:[id number] Bolus CO 60 30 20 Lactated Ringers 1,000 ml 590 590 150 @ 20 mls/hr IV .Q24H [facility] Rx#:[id number] NS Pressure Bag 102 42 36 Intake, IV Titration 617.438 5.447 Amount Albumin Human 5% 250 ml 250 In Empty Bag 1 bag @ 250 mls/hr IVPB Q1HR [facility] Rx#: [id number] Dexmedetomidine/0.9% NaCl 97.734 (Pmx) 400 mcg In Empty Bag 1 bag @ Titrate IV . Q0M [facility] Rx#:[id number] Insulin Regular 100 unit 10.535 5.447 In Sodium Chloride 0.9% 100 ml @ Per Protocol IV .Q0M [facility] Rx#:[id number] Potassium Phosphate 10 200 mmol In Sodium Chloride 0 .9% 100 ml @ 50 mls/hr IV Q2H [facility] Rx#:[id number] Propofol 1,000 mg In 59.169 Empty Bag 1 bag @ Titrate IV .Q0M [facility] Rx#: [id number] Oral 240 280 Output: Chest Tube Drainage 394 640 650 Chest Tube Bilateral 134 390 500 Chest Tube Upper 260 250 150 Mediastinal Urine 475 311 940 Other: Voiding Method Indwelling Catheter Indwelling Catheter Indwelling Catheter ABP, PAP, CO, CI - Last Documented Arterial Blood Pressure 93/55 Pulmonary Artery Pressure 32/16 Cardiac Output 5.7 Cardiac Index 3.3 - Labs CBC & Chem 7: 02/16/18 05:20 02/16/18 05:20 Labs: Abnormal Lab Results - Last 24 Hours (Table) 02/04/18 02/15/18 02/15/18 Range/Units 16:15 12:27 14:05 WBC (3.8-10.6) k/uL RBC 2.17 L (3.80-5.40) m/uL Hgb 6.8 L* (11.4-16.0) gm/dL Hct 19.8 L* (34.0-46.0) % Plt Count 107 L (150-450) k/uL Neutrophils # (1.3-7.7) k/uL Sodium (137-145) mmol/L Creatinine (0.52-1.04) mg/dL Glucose (74-99) mg/dL POC Glucose (mg/dL) 142 H (75-99) mg/dL Calcium (8.4-10.2) mg/dL AST (14-36) U/L Alkaline Phosphatase (38-126) U/L Total Protein (6.3-8.2) g/dL Albumin (3.5-5.0) g/dL Crossmatch See Detail 02/15/18 02/15/18 02/15/18 Range/Units 14:05 15:04 16:01 WBC (3.8-10.6) k/uL RBC (3.80-5.40) m/uL Hgb (11.4-16.0) gm/dL Hct (34.0-46.0) % Plt Count (150-450) k/uL Neutrophils # (1.3-7.7) k/uL Sodium (137-145) mmol/L Creatinine (0.52-1.04) mg/dL Glucose (74-99) mg/dL POC Glucose (mg/dL) 133 H 132 H 132 H (75-99) mg/dL Calcium (8.4-10.2) mg/dL AST (14-36) U/L Alkaline Phosphatase (38-126) U/L Total Protein (6.3-8.2) g/dL Albumin (3.5-5.0) g/dL Crossmatch 02/15/18 02/15/18 02/15/18 Range/Units 17:07 18:07 20:11 WBC (3.8-10.6) k/uL RBC (3.80-5.40) m/uL Hgb (11.4-16.0) gm/dL Hct (34.0-46.0) % Plt Count (150-450) k/uL Neutrophils # (1.3-7.7) k/uL Sodium (137-145) mmol/L Creatinine (0.52-1.04) mg/dL Glucose (74-99) mg/dL POC Glucose (mg/dL) 131 H 133 H 140 H (75-99) mg/dL Calcium (8.4-10.2) mg/dL AST (14-36) U/L Alkaline Phosphatase (38-126) U/L Total Protein (6.3-8.2) g/dL Albumin (3.5-5.0) g/dL Crossmatch 02/15/18 02/16/18 02/16/18 Range/Units 21:11 00:03 01:09 WBC (3.8-10.6) k/uL RBC (3.80-5.40) m/uL Hgb (11.4-16.0) gm/dL Hct (34.0-46.0) % Plt Count (150-450) k/uL Neutrophils # (1.3-7.7) k/uL Sodium (137-145) mmol/L Creatinine (0.52-1.04) mg/dL Glucose (74-99) mg/dL POC Glucose (mg/dL) 145 H 114 H 120 H (75-99) mg/dL Calcium (8.4-10.2) mg/dL AST (14-36) U/L Alkaline Phosphatase (38-126) U/L Total Protein (6.3-8.2) g/dL Albumin (3.5-5.0) g/dL Crossmatch 02/16/18 02/16/18 02/16/18 Range/Units 03:16 05:16 05:20 WBC (3.8-10.6) k/uL RBC (3.80-5.40) m/uL Hgb (11.4-16.0) gm/dL Hct (34.0-46.0) % Plt Count (150-450) k/uL Neutrophils # (1.3-7.7) k/uL Sodium 136 L (137-145) mmol/L Creatinine 0.48 L (0.52-1.04) mg/dL Glucose 112 H (74-99) mg/dL POC Glucose (mg/dL) 121 H 134 H (75-99) mg/dL Calcium 7.3 L (8.4-10.2) mg/dL AST 52 H (14-36) U/L Alkaline Phosphatase 30 L (38-126) U/L Total Protein 4.1 L (6.3-8.2) g/dL Albumin 2.4 L (3.5-5.0) g/dL Crossmatch 02/16/18 02/16/18 02/16/18 Range/Units 05:20 07:29 12:00 WBC 12.4 H (3.8-10.6) k/uL RBC 2.21 L (3.80-5.40) m/uL Hgb 6.9 L* (11.4-16.0) gm/dL Hct 20.4 L (34.0-46.0) % Plt Count 110 L (150-450) k/uL Neutrophils # 8.5 H (1.3-7.7) k/uL Sodium (137-145) mmol/L Creatinine (0.52-1.04) mg/dL Glucose (74-99) mg/dL POC Glucose (mg/dL) 131 H 127 H (75-99) mg/dL Calcium (8.4-10.2) mg/dL AST (14-36) U/L Alkaline Phosphatase (38-126) U/L Total Protein (6.3-8.2) g/dL Albumin (3.5-5.0) g/dL Crossmatch
--- NOTE | 2018-02-16 15:42 | P.PN ---
Subjective Progress Note Date: 02/16/18 This is a 62-year-old female, patient of Dr. Olmos. She has a known past medical history of severe mitral regurgitation. Otherwise no real significant other history. She does have some seasonal ALLERGIES. Patient underwent mitral valve repair today with Dr. Red. She's currently in the ICU and intubated. Hemoglobin was 6.1 and she is receiving 1 unit of blood. Patient has been slightly hypotensive and is receiving fluids. Currently not on any vasopressors. We have been consulted for medical management. Patient is currently stable. On 02/15/2018 patient was seen and examined in the intensive care unit, since yesterday she has been extubated, she has been maintained on oxygen via nasal cannula and is tolerating well, she is complaining that she is and able to take a deeper breath, she is complaining of pain at the surgical site but reasonably well-controlled, otherwise she denies any complaints there is no fever or chills no headache or dizziness no chest pain no cough no nausea or vomiting no abdominal pain and no urinary symptoms On 02/16/2018 patient was seen and examined in ICU she is alert and oriented 3 she is maintained on oxygen via nasal cannula and tolerating well she has some pain in the chest wall when moving otherwise she denies any complaints there is no fever or chills no headache or dizziness no shortness of breath no cough no nausea or vomiting no abdominal pain no diarrhea and no urinary symptoms. Objective - Vital Signs Vital signs: Vital Signs Temp 98.2 F 02/16/18 13:00 Pulse 90 02/16/18 15:35 Resp 18 02/16/18 15:00 BP 90/47 02/16/18 15:00 Pulse Ox 96 02/16/18 15:25 Intake & Output 02/15/18 02/16/18 02/16/18 18:59 06:59 18:59 Intake Total 1569.438 907.447 555 Output Total 089 764 6737 Balance 700.438 -43.553 -1370 Weight 83.5 kg 89.3 kg Intake: IV 952 662 275 ACETAMINOPHEN IV (For NPO 200 ) 1,000 mg In Empty Bag 1 bag @ 400 mls/hr IVPB Q6HR [facility] Rx#:[id number] Bolus CO 60 30 20 Lactated Ringers 1,000 ml 590 590 210 @ 20 mls/hr IV .Q24H [facility] Rx#:[id number] NS Pressure Bag 102 42 45 Intake, IV Titration 617.438 5.447 Amount Albumin Human 5% 250 ml 250 In Empty Bag 1 bag @ 250 mls/hr IVPB Q1HR [facility]N Rx#: [id number] Dexmedetomidine/0.9% NaCl 97.734 (Pmx) 400 mcg In Empty Bag 1 bag @ Titrate IV . Q0M [facility] Rx#:[id number] Insulin Regular 100 unit 10.535 5.447 In Sodium Chloride 0.9% 100 ml @ Per Protocol IV .Q0M [facility] Rx#:[id number] Potassium Phosphate 10 200 mmol In Sodium Chloride 0 .9% 100 ml @ 50 mls/hr IV Q2H [facility] Rx#:[id number] Propofol 1,000 mg In 59.169 Empty Bag 1 bag @ Titrate IV .Q0M [facility] Rx#: [id number] Oral 240 280 Output: Chest Tube Drainage 394 640 890 Chest Tube Bilateral 134 390 660 Chest Tube Upper 260 250 230 Mediastinal Urine 718 657 5378 Other: Voiding Method Indwelling Catheter Indwelling Catheter Indwelling Catheter ABP, PAP, CO, CI - Last Documented Arterial Blood Pressure 93/55 Pulmonary Artery Pressure 32/16 Cardiac Output 5.7 Cardiac Index 3.3 - Exam Head normocephalic and atraumatic Neck supple no JVD no goiter Lungs clear to auscultation bilaterally no wheezing or crackles chest tubes present Heart regular rate and rhythm S1-S2, no rub or gallop positive murmur Abdomen is soft nontender nondistended positive bowel sounds no hepatosplenomegaly Extremities no edema no cyanosis or clubbing - Labs CBC & Chem 7: 02/16/18 05:20 02/16/18 05:20 Labs: Abnormal Lab Results - Last 24 Hours (Table) 02/04/18 02/15/18 02/15/18 Range/Units 16:15 16:01 17:07 WBC (3.8-10.6) k/uL RBC (3.80-5.40) m/uL Hgb (11.4-16.0) gm/dL Hct (34.0-46.0) % Plt Count (150-450) k/uL Neutrophils # (1.3-7.7) k/uL Sodium (137-145) mmol/L Creatinine (0.52-1.04) mg/dL Glucose (74-99) mg/dL POC Glucose (mg/dL) 132 H 131 H (75-99) mg/dL Calcium (8.4-10.2) mg/dL AST (14-36) U/L Alkaline Phosphatase (38-126) U/L Total Protein (6.3-8.2) g/dL Albumin (3.5-5.0) g/dL Crossmatch See Detail 02/15/18 02/15/18 02/15/18 Range/Units 18:07 20:11 21:11 WBC (3.8-10.6) k/uL RBC (3.80-5.40) m/uL Hgb (11.4-16.0) gm/dL Hct (34.0-46.0) % Plt Count (150-450) k/uL Neutrophils # (1.3-7.7) k/uL Sodium (137-145) mmol/L Creatinine (0.52-1.04) mg/dL Glucose (74-99) mg/dL POC Glucose (mg/dL) 133 H 140 H 145 H (75-99) mg/dL Calcium (8.4-10.2) mg/dL AST (14-36) U/L Alkaline Phosphatase (38-126) U/L Total Protein (6.3-8.2) g/dL Albumin (3.5-5.0) g/dL Crossmatch 02/16/18 02/16/18 02/16/18 Range/Units 00:03 01:09 03:16 WBC (3.8-10.6) k/uL RBC (3.80-5.40) m/uL Hgb (11.4-16.0) gm/dL Hct (34.0-46.0) % Plt Count (150-450) k/uL Neutrophils # (1.3-7.7) k/uL Sodium (137-145) mmol/L Creatinine (0.52-1.04) mg/dL Glucose (74-99) mg/dL POC Glucose (mg/dL) 114 H 120 H 121 H (75-99) mg/dL Calcium (8.4-10.2) mg/dL AST (14-36) U/L Alkaline Phosphatase (38-126) U/L Total Protein (6.3-8.2) g/dL Albumin (3.5-5.0) g/dL Crossmatch 02/16/18 02/16/18 02/16/18 Range/Units 05:16 05:20 05:20 WBC 12.4 H (3.8-10.6) k/uL RBC 2.21 L (3.80-5.40) m/uL Hgb 6.9 L* (11.4-16.0) gm/dL Hct 20.4 L (34.0-46.0) % Plt Count 110 L (150-450) k/uL Neutrophils # 8.5 H (1.3-7.7) k/uL Sodium 136 L (137-145) mmol/L Creatinine 0.48 L (0.52-1.04) mg/dL Glucose 112 H (74-99) mg/dL POC Glucose (mg/dL) 134 H (75-99) mg/dL Calcium 7.3 L (8.4-10.2) mg/dL AST 52 H (14-36) U/L Alkaline Phosphatase 30 L (38-126) U/L Total Protein 4.1 L (6.3-8.2) g/dL Albumin 2.4 L (3.5-5.0) g/dL Crossmatch 02/16/18 02/16/18 Range/Units 07:29 12:00 WBC (3.8-10.6) k/uL RBC (3.80-5.40) m/uL Hgb (11.4-16.0) gm/dL Hct (34.0-46.0) % Plt Count (150-450) k/uL Neutrophils # (1.3-7.7) k/uL Sodium (137-145) mmol/L Creatinine (0.52-1.04) mg/dL Glucose (74-99) mg/dL POC Glucose (mg/dL) 131 H 127 H (75-99) mg/dL Calcium (8.4-10.2) mg/dL AST (14-36) U/L Alkaline Phosphatase (38-126) U/L Total Protein (6.3-8.2) g/dL Albumin (3.5-5.0) g/dL Crossmatch Assessment and Plan Plan: 1. Severe mitral regurgitation status post mitral valve repair with Dr. Red. Postop day #2. Patient is progressing well was uneventful post surgical course will continue to follow. 2. Postoperative mechanical ventilation: pulmonary service to manage, patient extubated since yesterday and tolerating well 3. Expected acute blood loss anemia secondary to surgery. Hemoglobin 6.1 patient receiving 1 unit of blood 4. Hyperlipidemia continue Lipitor 5. Hypocalcemia patient receiving calcium chloride 6. Seasonal ALLERGIES
[2018-02-16 17:22] LABS: Glucose,Whole Blood 144 mg/dL (75-99)
[2018-02-16] MEDS: LACTATED RINGERS 1,000 ML IV SCH (17:26)
[2018-02-16 19:52] LABS: Glucose,Whole Blood 114 mg/dL (75-99)
[2018-02-16] MEDS: SENNOSIDES-DOCUSATE SODIUM 1 EACH TAB PO SCH (21:18)
[2018-02-17] MEDS: HYDROcodone/APAP 5-325MG 1 EACH TAB PO PRN ×5 (00:30→20:38)
[2018-02-17 04:40] LABS: Basophils % (A) 0 %; Eosinophils # (A) 0.3 k/uL (0-0.7); Eosinophils % (A) 2 %; HCT 21.3 % (34.0-46.0); Lymphocytes % (A) 23 %; MCH 30.8 pg (25.0-35.0); MCHC 32.5 g/dL (31.0-37.0); MCV 94.6 fL (80.0-100.0); Mean Platelet Volume 6.7; Monocytes # (A) 0.7 k/uL (0-1.0); Monocytes % (A) 6 %; Neutrophils # (A) 8.9 k/uL (1.3-7.7); Neutrophils % (A) 68 %; Platelet Count 127 k/uL (150-450); RBC 2.25 m/uL (3.80-5.40)
[2018-02-17 04:43] LABS: Ionized Calcium 4.9 mg/dL (4.5-5.3)
[2018-02-17 04:52] LABS: ALT 32 U/L (9-52); AST 35 U/L (14-36); Albumin 2.5 g/dL (3.5-5.0); Alkaline Phosphatase 44 U/L (38-126); Anion Gap 6 mmol/L; Blood Urea Nitrogen 11 mg/dL (7-17); Calcium 7.6 mg/dL (8.4-10.2); Carbon Dioxide 27 mmol/L (22-30); Chloride 101 mmol/L (98-107); Glucose 96 mg/dL (74-99); Phosphorus 2.7 mg/dL (2.5-4.5); Sodium 134 mmol/L (137-145); Total Bilirubin 0.8 mg/dL (0.2-1.3); Total Protein 4.3 g/dL (6.3-8.2)
[2018-02-17 04:54] LABS: HGB 6.9 gm/dL (11.4-16.0)
[2018-02-17] MEDS: IPRATROPIUM-ALBUTEROL 3 ML NEB INHALATION SCH ×4 (07:24→19:45)
[2018-02-17 07:30] LABS: Glucose,Whole Blood 135 mg/dL (75-99)
[2018-02-17] MEDS: INSULIN ASPART 100 UNIT/ML 1 ML 10 ML VIAL SQ SCH ×4 (08:14→20:04)
[2018-02-17] MEDS: ASPIRIN 81 MG PO SCH (08:15)
[2018-02-17] MEDS: ATORVASTATIN 40 MG TAB PO SCH (08:15)
[2018-02-17] MEDS: HEPARIN SODIUM,PORCINE 5,000 UNIT/ML 1 ML VIAL SQ SCH ×2 (08:15→16:55)
[2018-02-17] MEDS: METOPROLOL TARTRATE 12.5 MG TAB PO SCH ×2 (08:15→20:10)
[2018-02-17] MEDS: PANTOPRAZOLE 40 MG TABLET PO SCH (08:15)
[2018-02-17] MEDS ORDERED: FUROSEMIDE 10 MG/ML 2 ML VIAL IV ONE (08:18)
--- NOTE | 2018-02-17 08:28 | P.PN ---
Subjective Progress Note Date: 02/17/18 Principal diagnosis: Severe mitral regurgitation. History of asthma, hypertriglyceridemia, and near syncopal event. Obesity. POD #3 complex mitral valve repair with closure of base of P1 and P2 cleft and annuloplasty with 26 mm AnnuloFlex ring, epi-aortic ultrasound, closure of left atrial appendage, transesophageal echocardiogram by anesthesia. Postoperative hemorrhage, an unexpected outcome. POD #3 sternal reexploration with evacuation of hematoma. Postoperative acute blood loss anemia, an expected outcome secondary to cardiopulmonary bypass and hemodilution as well as blood loss after surgery. The patient is currently sitting up in the recliner in no acute distress. States pain is controlled, denies shortness of breath. Patient has stood at the bedside and marched in place but has not ambulated in hallway yet. [place] was discontinued yesterday. Patient remains hemodynamically stable. Objective - Vital Signs Vital signs: Vital Signs Temp 98.4 F 02/17/18 04:00 Pulse 89 02/17/18 07:35 Resp 11 L 02/17/18 06:00 BP 98/48 02/17/18 06:00 Pulse Ox 97 02/17/18 06:00 Intake & Output 02/16/1818 18 18:59 06:59 18:59 Intake Total 887 683 Output Total 2080 1735 Balance -1193 -1052 Intake: IV 367 283 Bolus CO 20 Lactated Ringers 1,000 ml 290 220 @ 20 mls/hr IV .Q24H [facility] Rx#:[id number] NS 30 NS Pressure Bag 57 33 Oral 520 400 Output: Chest Tube Drainage 920 450 Chest Tube Bilateral 670 300 Chest Tube Upper 250 150 Mediastinal Urine 1160 1285 Other: Voiding Method Indwelling Catheter Indwelling Catheter ABP, PAP, CO, CI - Last Documented Arterial Blood Pressure 93/55 Pulmonary Artery Pressure 32/16 Cardiac Output 5.7 Cardiac Index 3.3 - Constitutional General appearance: Present: cooperative, no acute distress, obese - Respiratory Details: Lungs sounds diminished bilaterally. Respirations even, nonlabored. Currently on 2 L nasal cannula with oxygen saturation 98%. Only able to achieve 500 mL on her incentive spirometry. Weak cough. Mediastinal chest tube to continuous wall suction, 80 mL serosanguineous drainage overnight, 350 mL in the last 24 hours. Left/right pleural chest tube to continuous wall suction, 170 mL serosanguineous drainage overnight 750 mL in the last 24 hours. No air leaks present. - Cardiovascular Details: S1, S2 present. Regular rate and rhythm, sinus rhythm on telemetry. Sternum stable. A/V epicardial pacemaker wires present, connected to generator, VVI mode with backup rate 60 bpm. Palpable peripheral pulses bilaterally. Generalized edema present. No calf pain or tenderness noted. Right internal jugular Cordis present. Heart hugger in place with patient demonstrating appropriate use. Antiembolism stockings, SCDs present. - Gastrointestinal Gastrointestinal Comment(s): Abdomen soft, nontender, nondistended. Active bowel sounds 4 quadrants. Tolerating full liquid diet. Positive flatus, negative bowel movement. - Genitourinary Genitourinary Comment(s): Lisa catheter present draining clear, yellow urine. Output 50-160 mL/h overnight, 865 mL in the last 8 hours. - Integumentary Integumentary Comment(s): Skin is warm and dry with evidence of good perfusion. Anterior chest incision well approximated and covered with dry intact dressing. - Neurologic Neurologic: Present: CNII-XII intact - Musculoskeletal Musculoskeletal: Present: strength equal bilaterally - Psychiatric Psychiatric: Present: A&O x's 3, appropriate affect, intact judgment & insight - Allied health notes Allied health notes reviewed: nursing - Labs CBC & Chem 7: 02/17/18 04:30 02/17/18 04:30 Labs: Abnormal Lab Results - Last 24 Hours (Table) 02/16/18 02/16/18 02/16/18 Range/Units 12:00 17:20 19:51 WBC (3.8-10.6) k/uL RBC (3.80-5.40) m/uL Hgb (11.4-16.0) gm/dL Hct (34.0-46.0) % Plt Count (150-450) k/uL Neutrophils # (1.3-7.7) k/uL Sodium (137-145) mmol/L Creatinine (0.52-1.04) mg/dL POC Glucose (mg/dL) 127 H 144 H 114 H (75-99) mg/dL Calcium (8.4-10.2) mg/dL Total Protein (6.3-8.2) g/dL Albumin (3.5-5.0) g/dL 02/17/18 02/17/18 02/17/18 Range/Units 04:30 04:30 07:22 WBC 13.0 H (3.8-10.6) k/uL RBC 2.25 L (3.80-5.40) m/uL Hgb 6.9 L* (11.4-16.0) gm/dL Hct 21.3 L (34.0-46.0) % Plt Count 127 L (150-450) k/uL Neutrophils # 8.9 H (1.3-7.7) k/uL Sodium 134 L (137-145) mmol/L Creatinine 0.46 L (0.52-1.04) mg/dL POC Glucose (mg/dL) 135 H (75-99) mg/dL Calcium 7.6 L (8.4-10.2) mg/dL Total Protein 4.3 L (6.3-8.2) g/dL Albumin 2.5 L (3.5-5.0) g/dL - Imaging and Cardiology Chest x-ray: image reviewed Assessment and Plan (1) History of asthma Current Visit: Yes Status: Chronic Code(s): Z87.09 - PERSONAL HISTORY OF OTHER DISEASES OF THE RESPIRATORY SYSTEM SNOMED Code(s): 250446866 (2) Postoperative hemorrhage Current Visit: Yes Status: Acute Code(s): DBC1647 - SNOMED Code(s): 647609947 (3) Severe mitral regurgitation Current Visit: Yes Status: Chronic Code(s): I34.0 - NONRHEUMATIC MITRAL ( VALVE) INSUFFICIENCY SNOMED Code(s): 57073089 Plan: 1. Continue low-dose aspirin, statin, beta roseanne. Will increase beta roseanne therapy as tolerated. 2. Wean O2 as tolerated. Encourage incentive spirometry use 10 times every hour while awake. 3. Increase activity, ambulate in hallway. PT/OT/cardiac rehab following. 4. Bronchodilators per pulmonology. 5. Pain control is current medication regimen. 6. Will monitor daily labs and x-rays. No further blood transfusions at this point. 7. Insulin management per primary care service. 8. GI prophylaxis with Protonix. DVT prophylaxis with subcu heparin, SCDs. 9. Will give Lasix 20 mg IV push 1. 10. Will discontinue mediastinal chest tube, keep and split left and right pleural chest tubes. 11. Discontinue Lisa catheter, discontinue Cordis. May ground epicardial pacemaker wires. 12. Will keep in ICU for 1 more day for close monitoring. 13. More recommendations to follow. Time with Patient: Greater than 30
--- NOTE | 2018-02-17 08:34 | XR ---
EXAMINATION TYPE: XR chest 1V DATE OF EXAM: 02/17/2018 COMPARISON: 02/16/2018 HISTORY: SOB, Follow Up FINDINGS: [place] catheter has been removed. Right IJ sheath in place. Remaining Indwelling tubes and cathete rs are unchanged. No evidence for sizable pneumothorax. Patchy perihilar and basilar infiltrates persist. Improving pulmonary venous congestion. Stable appearance of the cardio-mediastinal structures at this time. Pleural effusion unchanged. IMPRESSION: 1. Patchy perihilar and basilar infiltrates persist. Improving pulmonary venous congestion.
--- NOTE | 2018-02-17 10:08 | P.PN ---
Subjective Progress Note Date: 02/17/18 This is a 62-year-old female, patient of Dr. Olmos. She has a known past medical history of severe mitral regurgitation. Otherwise no real significant other history. She does have some seasonal ALLERGIES. Patient underwent mitral valve repair today with Dr. Red. She's currently in the ICU and intubated. Hemoglobin was 6.1 and she is receiving 1 unit of blood. Patient has been slightly hypotensive and is receiving fluids. Currently not on any vasopressors. We have been consulted for medical management. Patient is currently stable. On 02/15/2018 patient was seen and examined in the intensive care unit, since yesterday she has been extubated, she has been maintained on oxygen via nasal cannula and is tolerating well, she is complaining that she is and able to take a deeper breath, she is complaining of pain at the surgical site but reasonably well-controlled, otherwise she denies any complaints there is no fever or chills no headache or dizziness no chest pain no cough no nausea or vomiting no abdominal pain and no urinary symptoms On 02/16/2018 patient was seen and examined in ICU she is alert and oriented 3 she is maintained on oxygen via nasal cannula and tolerating well she has some pain in the chest wall when moving otherwise she denies any complaints there is no fever or chills no headache or dizziness no shortness of breath no cough no nausea or vomiting no abdominal pain no diarrhea and no urinary symptoms. On 02/17/2018 patient is alert and oriented 3. Patient remains in intensive care unit. Patient did have cordis line removed today. HemoGlobin 6.9. No further blood transfusion per cardiovascular surgical team. Patient was given Lasix 20 mg once. Patient does complain of some chest pain. Patient has been up moving around. Encouraged incentive spirometer use. Denies nausea vomiting or diarrhea. Denies any urinary symptoms Objective - Vital Signs Vital signs: Vital Signs Temp 98.5 F 02/17/18 08:00 Pulse 92 02/17/18 09:00 Resp 17 02/17/18 09:00 BP 87/52 02/17/18 09:00 Pulse Ox 97 02/17/18 09:00 Intake & Output 02/16/18 02/17/18 02/17/18 18:59 06:59 18:59 Intake Total 887 683 166 Output Total 0852 9338 705 Balance -0013 -1052 -539 Intake: IV 367 283 46 Bolus CO 20 Lactated Ringers 1,000 ml 290 220 40 @ 20 mls/hr IV .Q24H [facility] [place] Rx#:[id number] NS 30 NS Pressure Bag 57 33 6 Oral 520 400 120 Output: Chest Tube Drainage 920 450 210 Chest Tube Bilateral 670 300 150 Chest Tube Upper 250 150 60 Mediastinal Urine 1160 1285 495 Other: Voiding Method Indwelling Catheter Indwelling Catheter Indwelling Catheter ABP, PAP, CO, CI - Last Documented Arterial Blood Pressure 93/55 Pulmonary Artery Pressure 32/16 Cardiac Output 5.7 Cardiac Index 3.3 - Exam Head normocephalic Neck supple Lungs clear to auscultation bilaterally no wheezing or crackles Heart regular rate and rhythm S1-S2, no rub or gallop Abdomen is soft nontender nondistended positive bowel sounds no hepatosplenomegaly Extremities no edema Neuro alert and orientated to 3 - Labs CBC & Chem 7: 02/17/18 04:30 02/17/18 04:30 Labs: Abnormal Lab Results - Last 24 Hours (Table) 02/16/18 02/16/18 02/16/18 Range/Units 12:00 17:20 19:51 WBC (3.8-10.6) k/uL RBC (3.80-5.40) m/uL Hgb (11.4-16.0) gm/dL Hct (34.0-46.0) % Plt Count (150-450) k/uL Neutrophils # (1.3-7.7) k/uL Sodium (137-145) mmol/L Creatinine (0.52-1.04) mg/dL POC Glucose (mg/dL) 127 H 144 H 114 H (75-99) mg/dL Calcium (8.4-10.2) mg/dL Total Protein (6.3-8.2) g/dL Albumin (3.5-5.0) g/dL 02/17/18 02/17/18 02/17/18 Range/Units 04:30 04:30 07:22 WBC 13.0 H (3.8-10.6) k/uL RBC 2.25 L (3.80-5.40) m/uL Hgb 6.9 L* (11.4-16.0) gm/dL Hct 21.3 L (34.0-46.0) % Plt Count 127 L (150-450) k/uL Neutrophils # 8.9 H (1.3-7.7) k/uL Sodium 134 L (137-145) mmol/L Creatinine 0.46 L (0.52-1.04) mg/dL POC Glucose (mg/dL) 135 H (75-99) mg/dL Calcium 7.6 L (8.4-10.2) mg/dL Total Protein 4.3 L (6.3-8.2) g/dL Albumin 2.5 L (3.5-5.0) g/dL Assessment and Plan Assessment: 1. Severe mitral regurgitation status post mitral valve repair with Dr. Red. Postop day #3. Patient is progressing well was uneventful post surgical course will continue to follow. Cortisporin has been removed. Patient received 1 dose of IV Lasix per her neurovascular surgical team. N blood transfusions at this point per cardiovascular surgical team. 2. Postoperative mechanical ventilation: pulmonary service to manage, patient extubated since yesterday and tolerating well. Patient currently on nasal cannula 2 L 3. Expected acute blood loss anemia secondary to surgery. Hemoglobin 6.9 . No blood transfusions at this point per cardiovascular surgical team. Continue Ferrous sulfate 4. Hyperlipidemia continue Lipitor 5. Hypocalcemia patient receiving calcium chloride 6. Seasonal ALLERGIES I performed an examination of the patient and discussed their management with the Nurse Practitioner. I have reviewed the Nurse Practitioner's notes and agree with the documented findings and plan of care
[2018-02-17 11:41] LABS: Glucose,Whole Blood 123 mg/dL (75-99)
[2018-02-17] MEDS: FERROUS SULFATE 325 MG TAB PO SCH (12:16)
[2018-02-17] MEDS: ASCORBIC ACID 500 MG TAB PO SCH (12:20)
--- NOTE | 2018-02-17 14:14 | P.PN ---
Subjective Patient is sitting up in a chair. She states she feels a lot better today. Her blood pressure is still low in the mid 90s. She is on low dose of beta blockers. Maintains sinus rhythm now atrial fibrillation Breath sounds are reduced bilaterally Heart sounds are distant Extremities are warm Impression Status post complex mitral valve repair and left atrial appendectomy Postoperative bleeding requiring reexploration Suggest Continue current medications without any changes and continue postop CT surgery for/ICU care Objective - Vital Signs Vital signs: Vital Signs Temp 98.4 F 02/17/18 13:00 Pulse 92 02/17/18 14:00 Resp 13 02/17/18 14:00 BP 101/53 02/17/18 14:00 Pulse Ox 100 02/17/18 14:00 Intake & Output 02/16/18 02/17/18 02/17/18 18:59 06:59 18:59 Intake Total 887 683 406 Output Total 2080 1735 1770 Balance -9317 -5958 -2352 Intake: IV 367 283 46 Bolus CO 20 Lactated Ringers 1,000 ml 290 220 40 @ 20 mls/hr IV .Q24H [facility] Rx#:[id number] NS 30 NS Pressure Bag 57 33 6 Oral 520 400 360 Output: Chest Tube Drainage 920 450 295 Chest Tube Bilateral 670 300 150 Chest Tube Upper 250 150 [address] 60 Urine 1160 1285 1475 Other: Voiding Method Indwelling Catheter Indwelling Catheter Indwelling Catheter ABP, PAP, CO, CI - Last Documented Arterial Blood Pressure 93/55 Pulmonary Artery Pressure 32/16 Cardiac Output 5.7 Cardiac Index 3.3 - Labs CBC & Chem 7: 02/17/18 04:30 02/17/18 04:30 Labs: Abnormal Lab Results - Last 24 Hours (Table) 02/16/18 02/16/18 02/17/18 Range/Units 17:20 19:51 04:30 WBC (3.8-10.6) k/uL RBC (3.80-5.40) m/uL Hgb (11.4-16.0) gm/dL Hct (34.0-46.0) % Plt Count (150-450) k/uL Neutrophils # (1.3-7.7) k/uL Sodium 134 L (137-145) mmol/L Creatinine 0.46 L (0.52-1.04) mg/dL POC Glucose (mg/dL) 144 H 114 H (75-99) mg/dL Calcium 7.6 L (8.4-10.2) mg/dL Total Protein 4.3 L (6.3-8.2) g/dL Albumin 2.5 L (3.5-5.0) g/dL 02/17/18 02/17/18 02/17/18 Range/Units 04:30 07:22 11:33 WBC 13.0 H (3.8-10.6) k/uL RBC 2.25 L (3.80-5.40) m/uL Hgb 6.9 L* (11.4-16.0) gm/dL Hct 21.3 L (34.0-46.0) % Plt Count 127 L (150-450) k/uL Neutrophils # 8.9 H (1.3-7.7) k/uL Sodium (137-145) mmol/L Creatinine (0.52-1.04) mg/dL POC Glucose (mg/dL) 135 H 123 H (75-99) mg/dL Calcium (8.4-10.2) mg/dL Total Protein (6.3-8.2) g/dL Albumin (3.5-5.0) g/dL
[2018-02-17 17:04] LABS: Glucose,Whole Blood 134 mg/dL (75-99)
[2018-02-17] MEDS: ONDANSETRON 4 MG/2 ML VIAL IVP PRN (17:58)
--- NOTE | 2018-02-17 18:57 | PN ---
PROGRESS NOTE DATE OF SERVICE: February 17, 2018 Ms. Yuko Daily is a 62-year-old female who is status post postop day #3 of mitral valve replacement, evacuation of blood clot from mediastinum. The patient still have a pleural chest tube present. Mediastinal tubes have been removed. [place]-Abimael catheter has been removed as well. She is sitting upright in the chair, breathing comfortably. No obvious distress present. Hemodynamics status stable. The patient is currently being rehydrated. Her last set of vitals include blood pressure is 100/50, respiratory rate 22, pulse of 98 and a temperature 99, saturation of 99%. She is in sinus rhythm. HEENT examination otherwise unremarkable. Neck is supple. Lungs, good air entry bilaterally. A few crackles at bases. Heart regular rate, rhythm. Abdomen is soft. No rebound. No rigidity. Extremities +1 peripheral pulses. Neurological exam is otherwise awake and alert. Medications reviewed. LABORATORY DATA: Reviewed as well. White cell count is 13,000, hemoglobin and hematocrit is 6.9 and 21, platelet count 127,000. Sodium 134, potassium 4.0, BUN and creatinine of 11 and 0.46. IMPRESSION: 1. Severe degree of mitral regurgitation with heart failure. 2. Severe anemia of acute blood loss. 3. Generalized weakness and medical debility. 4. Hypertension/hypertensive cardiovascular disease. 5. History of syncope. PLAN AND RECOMMENDATION: Continue deep breathing for incentive spirometry. Continue supplemental oxygen. Increase activity as tolerated. Monitor hemoglobin closely. Maintain patient on DVT and peptic ulcer disease prophylaxis. Will follow clinical course closely. Further recommendations pending. Plan of care as per clinical response of the patient. MMODL / IJN: [id number] /
[2018-02-17 20:05] LABS: Glucose,Whole Blood 129 mg/dL (75-99)
[2018-02-17] MEDS: SENNOSIDES-DOCUSATE SODIUM 1 EACH TAB PO SCH (20:10)
[2018-02-18] MEDS: HYDROcodone/APAP 5-325MG 1 EACH TAB PO PRN ×5 (00:45→21:06)
[2018-02-18] MEDS: HEPARIN SODIUM,PORCINE 5,000 UNIT/ML 1 ML VIAL SQ SCH ×3 (00:46→15:41)
[2018-02-18 05:18] LABS: Ionized Calcium 4.8 mg/dL (4.5-5.3)
[2018-02-18 05:26] LABS: ALT 29 U/L (9-52); AST 24 U/L (14-36); Albumin 2.5 g/dL (3.5-5.0); Alkaline Phosphatase 50 U/L (38-126); Anion Gap 4 mmol/L; Blood Urea Nitrogen 9 mg/dL (7-17); Calcium 7.8 mg/dL (8.4-10.2); Carbon Dioxide 30 mmol/L (22-30); Chloride 104 mmol/L (98-107); Glucose 96 mg/dL (74-99); Magnesium 2.3 mg/dL (1.6-2.3); Phosphorus 2.9 mg/dL (2.5-4.5); Potassium 3.9 mmol/L (3.5-5.1); Sodium 138 mmol/L (137-145); Total Bilirubin 0.7 mg/dL (0.2-1.3); Total Protein 4.3 g/dL (6.3-8.2)
[2018-02-18 05:28] LABS: Anisocytosis Slight; Basophils % (A) 0 %; Eosinophils # (A) 0.4 k/uL (0-0.7); Eosinophils % (A) 4 %; HCT 20.2 % (34.0-46.0); Lymphocytes # (A) 2.5 k/uL (1.0-4.8); Lymphocytes % (A) 25 %; MCH 31.5 pg (25.0-35.0); MCHC 33.1 g/dL (31.0-37.0); MCV 95.1 fL (80.0-100.0); Mean Platelet Volume 6.9; Monocytes # (A) 0.5 k/uL (0-1.0); Monocytes % (A) 5 %; Neutrophils # (A) 6.6 k/uL (1.3-7.7); Neutrophils % (A) 65 %; Platelet Count 182 k/uL (150-450); RBC 2.13 m/uL (3.80-5.40); RDW 16.6 % (11.5-15.5); WBC 10.1 k/uL (3.8-10.6)
[2018-02-18 05:47] LABS: HGB 6.7 gm/dL (11.4-16.0)
[2018-02-18] MEDS ORDERED: POTASSIUM CHLORIDE ER 20 MEQ TAB.ER PO SCH (07:00)
[2018-02-18 07:03] LABS: Glucose,Whole Blood 119 mg/dL (75-99)
[2018-02-18] MEDS: INSULIN ASPART 100 UNIT/ML 1 ML 10 ML VIAL SQ SCH ×4 (07:06→21:05)
[2018-02-18] MEDS: PANTOPRAZOLE 40 MG TABLET PO SCH (07:07)
[2018-02-18] MEDS: IPRATROPIUM-ALBUTEROL 3 ML NEB INHALATION SCH ×4 (07:19→19:18)
--- NOTE | 2018-02-18 07:56 | P.PN ---
Subjective Progress Note Date: 02/18/18 Principal diagnosis: Severe mitral regurgitation. History of asthma, hypertriglyceridemia, and near syncopal event. Obesity. POD #4 complex mitral valve repair with closure of base of P1 and P2 cleft and annuloplasty with 26 mm AnnuloFlex ring, epi-aortic ultrasound, closure of left atrial appendage, transesophageal echocardiogram by anesthesia. Postoperative hemorrhage, an unexpected outcome. POD #4 sternal reexploration with evacuation of hematoma. Postoperative acute blood loss anemia, an expected outcome secondary to cardiopulmonary bypass and hemodilution as well as blood loss after surgery. The patient is currently sitting up in the recliner in no acute distress. States pain is controlled, denies shortness of breath. Patient ambulated in the hallway yesterday. Mediastinal chest tube was discontinued, Lisa catheter was discontinued and patient has voided. No new complaints. Objective - Vital Signs Vital signs: Vital Signs Temp 98.4 F 02/18/18 04:00 Pulse 91 02/18/18 07:29 Resp 15 02/18/18 07:00 BP 84/44 02/18/18 07:00 Pulse Ox 99 02/18/18 07:00 Intake & Output 02/17/18 02/18/18 02/18/18 18:59 06:59 18:59 Intake Total 506 1850 Output Total 2240 2001 14 Balance -1734 -152 -14 Weight 80.4 kg Intake: IV 46 Lactated Ringers 1,000 ml 40 @ 20 mls/hr IV .Q24H [facility] Rx#:[id number] NS Pressure Bag 6 Oral 460 1850 Output: Chest Tube Drainage 415 302 14 Chest Tube Bilateral 150 Chest Tube Upper [address] 150 200 10 Urine 1825 1700 Other: Voiding Method Indwelling Catheter Toilet ABP, PAP, CO, CI - Last Documented Arterial Blood Pressure 93/55 Pulmonary Artery Pressure 32/16 Cardiac Output 5.7 Cardiac Index 3.3 - Constitutional General appearance: Present: cooperative, no acute distress, obese - Respiratory Details: Lungs sounds diminished bilaterally. Respirations even, nonlabored. Currently on 2 L nasal cannula with oxygen saturation 97%. Able to achieve 750+ mL on her incentive spirometry. Strong cough. Left pleural chest tube to continuous wall suction, 75 mL serous drainage overnight 160 mL in the last 24 hours. Right pleural chest tube to continuous wall suction, 160 mL serous drainage overnight, 420 mL in the last 24 hours. No air leaks present. - Cardiovascular Details: S1, S2 present. Regular rate and rhythm, sinus rhythm on telemetry. Sternum stable. A/V epicardial pacemaker wires present, grounded. Palpable peripheral pulses bilaterally. Generalized edema present, but less than yesterday. No calf pain or tenderness noted. Heart hugger in place with patient demonstrating appropriate use. Antiembolism stockings, SCDs present. - Gastrointestinal Gastrointestinal Comment(s): Abdomen soft, nontender, nondistended. Active bowel sounds 4 quadrants. Tolerating diet. Positive flatus, negative bowel movement. - Genitourinary Genitourinary Comment(s): Lisa was discontinued yesterday. Patient has voided, output 1300 mL overnight. - Integumentary Integumentary Comment(s): Skin is warm and dry with evidence of good perfusion. Anterior chest incision well approximated and covered with dry intact dressing. - Neurologic Neurologic: Present: CNII-XII intact - Musculoskeletal Musculoskeletal: Present: gait normal, strength equal bilaterally - Psychiatric Psychiatric: Present: A&O x's 3, appropriate affect, intact judgment & insight - Allied health notes Allied health notes reviewed: nursing - Labs CBC & Chem 7: 02/18/18 04:29 02/18/18 04:29 Labs: Abnormal Lab Results - Last 24 Hours (Table) 02/17/18 02/17/18 02/17/18 Range/Units 11:33 17:01 20:03 RBC (3.80-5.40) m/uL Hgb (11.4-16.0) gm/dL Hct (34.0-46.0) % RDW (11.5-15.5) % Creatinine (0.52-1.04) mg/dL POC Glucose (mg/dL) 123 H 134 H 129 H (75-99) mg/dL Calcium (8.4-10.2) mg/dL Total Protein (6.3-8.2) g/dL Albumin (3.5-5.0) g/dL 02/18/18 02/18/18 02/18/18 Range/Units 04:29 04:29 07:01 RBC 2.13 L (3.80-5.40) m/uL Hgb 6.7 L* (11.4-16.0) gm/dL Hct 20.2 L (34.0-46.0) % RDW 16.6 H (11.5-15.5) % Creatinine 0.47 L (0.52-1.04) mg/dL POC Glucose (mg/dL) 119 H (75-99) mg/dL Calcium 7.8 L (8.4-10.2) mg/dL Total Protein 4.3 L (6.3-8.2) g/dL Albumin 2.5 L (3.5-5.0) g/dL - Imaging and Cardiology Chest x-ray: image reviewed Assessment and Plan (1) History of asthma Current Visit: Yes Status: Chronic Code(s): Z87.09 - PERSONAL HISTORY OF OTHER DISEASES OF THE RESPIRATORY SYSTEM SNOMED Code(s): 626448622 (2) Postoperative hemorrhage Current Visit: Yes Status: Acute Code(s): QCC6500 - SNOMED Code(s): 986310931 (3) Severe mitral regurgitation Current Visit: Yes Status: Chronic Code(s): I34.0 - NONRHEUMATIC MITRAL ( VALVE) INSUFFICIENCY SNOMED Code(s): 35262035 Plan: 1. Continue low-dose aspirin, statin, beta roseanne. Will increase beta roseanne therapy as tolerated. 2. Wean O2 as tolerated. Encourage incentive spirometry use 10 times every hour while awake. 3. Increase activity, ambulate in hallway. PT/OT/cardiac rehab following. 4. Bronchodilators per pulmonology. 5. Pain control is current medication regimen. 6. Will monitor daily labs and x-rays. No further blood transfusions at this point. 7. Insulin management per primary care service. 8. GI prophylaxis with Protonix. DVT prophylaxis with subcu heparin, SCDs. 9. Will give Lasix 20 mg IV push 1. 10. Will discontinue left pleural chest tube, keep right pleural chest tube. 11. Likely will transfer to [facility] care later this afternoon. 12. More recommendations to follow. Time with Patient: Greater than 30
[2018-02-18] MEDS: ATORVASTATIN 40 MG TAB PO SCH (08:37)
[2018-02-18] MEDS: ASPIRIN 81 MG PO SCH (08:37)
--- NOTE | 2018-02-18 08:56 | XR ---
EXAMINATION TYPE: XR chest 1V portable DATE OF EXAM: 02/18/2018 Comparison: 02/17/2018 Clinical History: 62-year-old female post cardiac surgery. Findings: Median sternotomy wires. Heart borderline enlarged. Diffuse interstitial densities persist with some patchy bibasilar opacities. Bilateral chest tubes with suspected trace medial left apical pneumothora x not clearly seen previously. Right IJ sheath and mediastinal drain removed in the interval. Impression: 1. Similar residual pulmonary vascular congestion and patchy pulmonary edema or atelectasis at the lo wer lungs. 2. Bilateral chest tubes. There appears to be a trace left apical pneumothorax, not clearly seen prev iously.
[2018-02-18] MEDS: METOPROLOL TARTRATE 12.5 MG TAB PO SCH ×2 (08:57→21:00)
[2018-02-18] MEDS ORDERED: ACETAMINOPHEN TAB 325 MG TAB PO PRN (09:29)
--- NOTE | 2018-02-18 09:58 | P.PN ---
Subjective Progress Note Date: 02/18/18 Principal diagnosis: Congestive heart failure related to valvular heart disease associated with severe mitral regurgitation, acute blood loss anemia postoperative anticipated complication of mitral valve surgery, status post mitral valve replacement for severe mitral regurgitation, hypertension hypertensive cardiovascular disease 02/18/2018, patient seen and evaluated examined during the rounds clinically doing much better breathing more comfortably some discomfort and pain is present the surgical site which is overall stable hemodynamic status stable Ammann does complain of generalized weakness Ammann medications reviewed laboratory data reviewed him a hemoglobin slightly down 6.7 however no source of bleeding is present platelet counts are stable chemistry overall stable [place] the chest x-ray revealed interstitial edema and some subsegmental atelectasis, stable chest tubes, thoracic surgery and remove the left-sided chest tube 02/17/2018, please refer to my dictated report 02/16/2018, patient seen eval examined during the rounds clinically patient has been doing well she has been successfully weaned and extubated sitting upright on the chair breathing relatively more comfortably off of oxygen patient is off of insulin currently on KVO LR, [place]-Abimael catheter is in stable position chest x -ray reviewed borderline cardiomegaly interstitial edema and trace pleural effusion is noted, both mediastinal and pleural chest tube in stable serous sanguinous pleural fluid and mediastinal fluid has been obtained but no significant hemorrhage has been noted, hemoglobin remained stable hemodynamic status stable last hemoglobin check was hemoglobin was 6.9 plan is to monitor observe, likely will keep the chest tube in today patient will be kept in ICU, medications reviewed laboratory data reviewed care plan discussed with cardiothoracic surgery as well as nursing staff at length 02/15/2018, patient seen and evaluated examined during the rounds critical care time spent 35 minutes, patient is supposed up day #2 of mitral valve replacement and evacuation of blood clots from mediastinum afterwards care plan discussed with cardiothoracic surgery as well, patient is on assist control mode with PEEP of 8 respiratory rate is 20 patient is breathing about 20-21 currently she is on propofol also on 1 unit of insulin drip, patient is getting LR on maintenance basis, chest x-ray reviewed the output through the chest tube are minimal, [place]-Abimael catheter in a stable position descending branch PA, noted. Pressure are improved now is 35/24, patient is making urine, does respond to physical stimuli, and labs reviewed medications reviewed radiographic studies reviewed as well 62-year-old female who was seen evaluated examined in the ICU patient is intubated on full ventilator support patient underwent mitral valve replacement for severe mitral regurgitation patient was seen evaluated examined postoperatively in the ICU she just have received the blood products developed some hives it is not clear if they were associated with the cephalosporin or blood products anyhow patient has significant bleeding from the chest tubes as well as which seems to be settling down, ventilator setting reviewed patient has significant hypercapnia hypoxemia ventilator has been adjusted with requiring higher PEEP of 8, patient is not a candidate for rapid weaning and extubation given mediastinal bleeding, labs reviewed medications reviewed radiographic studies reviewed as well, patient has been taken back to OR for reexploration and clot removal for details please look at the operative report Objective - Vital Signs Vital signs: Vital Signs Temp 97.9 F 02/18/18 08:00 Pulse 98 02/18/18 09:00 Resp 17 02/18/18 09:00 BP 92/41 02/18/18 09:00 Pulse Ox 100 02/18/18 09:00 Intake & Output 02/17/18 02/18/18 02/18/18 18:59 06:59 18:59 Intake Total 506 1850 350 Output Total 2240 2001 150 Balance -1734 -152 200 Weight 80.4 kg Intake: IV 46 Lactated Ringers 1,000 ml 40 @ 20 mls/hr IV .Q24H [facility] Rx#:[id number] NS Pressure Bag 6 Oral 460 1850 350 Output: Chest Tube Drainage 415 302 50 Chest Tube Bilateral 150 Chest Tube Upper [address] 150 200 40 Urine 1825 1700 100 Other: Voiding Method Indwelling Catheter Toilet Toilet ABP, PAP, CO, CI - Last Documented Arterial Blood Pressure 93/55 Pulmonary Artery Pressure 32/16 Cardiac Output 5.7 Cardiac Index 3.3 - Exam - Constitutional General appearance: average body habitus, disheveled, no acute distress - EENT Eyes: anicteric sclerae, dentition normal, normal appearance Ears: bilateral: normal - Neck Neck: normal ROM Carotids: bilateral: upstroke normal Thyroid: bilateral: normal size - Respiratory Respiratory: bilateral: diminished, rales (At the bases), improved air entry bilaterally - Cardiovascular Heart sounds: normal: S1, S2, regular rate rhythm - Gastrointestinal General gastrointestinal: decreased bowel sounds, soft - Integumentary Integumentary: decreased turgor, normal, normal turgor - Neurologic Neurologic: CNII-XII intact - Musculoskeletal Good bilateral strength - Psychiatric Awake and alert, and comfortable - Labs CBC & Chem 7: 02/18/18 04:29 02/18/18 04:29 Labs: Abnormal Lab Results - Last 24 Hours (Table) 02/17/18 02/17/18 02/17/18 Range/Units 11:33 17:01 20:03 RBC (3.80-5.40) m/uL Hgb (11.4-16.0) gm/dL Hct (34.0-46.0) % RDW (11.5-15.5) % Creatinine (0.52-1.04) mg/dL POC Glucose (mg/dL) 123 H 134 H 129 H (75-99) mg/dL Calcium (8.4-10.2) mg/dL Total Protein (6.3-8.2) g/dL Albumin (3.5-5.0) g/dL 02/18/18 02/18/18 02/18/18 Range/Units 04:29 04:29 07:01 RBC 2.13 L (3.80-5.40) m/uL Hgb 6.7 L* (11.4-16.0) gm/dL Hct 20.2 L (34.0-46.0) % RDW 16.6 H (11.5-15.5) % Creatinine 0.47 L (0.52-1.04) mg/dL POC Glucose (mg/dL) 119 H (75-99) mg/dL Calcium 7.8 L (8.4-10.2) mg/dL Total Protein 4.3 L (6.3-8.2) g/dL Albumin 2.5 L (3.5-5.0) g/dL Assessment and Plan Assessment: 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, status post mitral valve replacement postop day #4 Significant mediastinal bleed anticipated postoperative course, requiring reexploration and removal of clots, postop day #4 Recurrent near-syncope related to severe mitral regurgitation and suboptimal cardiac output Acute blood loss anemia Hypertension hypertensive cardiovascular disease Morbid obesity Plan: Continue supplemental oxygen and adjust FiO2 as tolerated Deep breathing exercises incentive spirometry Blood products as needed follow clinical course closely further recommendations pending, initiate his increasing activity as tolerated We will recommend to remove as tolerated chest tubes Time with Patient: Greater than 30
[2018-02-18] MEDS ORDERED: FUROSEMIDE 10 MG/ML 2 ML VIAL IV ONE (10:35)
--- NOTE | 2018-02-18 10:42 | P.PN ---
Subjective Progress Note Date: 02/18/18 This is a 62-year-old female, patient of Dr. Olmos. She has a known past medical history of severe mitral regurgitation. Otherwise no real significant other history. She does have some seasonal ALLERGIES. Patient underwent mitral valve repair today with Dr. Red. She's currently in the ICU and intubated. Hemoglobin was 6.1 and she is receiving 1 unit of blood. Patient has been slightly hypotensive and is receiving fluids. Currently not on any vasopressors. We have been consulted for medical management. Patient is currently stable. On 02/15/2018 patient was seen and examined in the intensive care unit, since yesterday she has been extubated, she has been maintained on oxygen via nasal cannula and is tolerating well, she is complaining that she is and able to take a deeper breath, she is complaining of pain at the surgical site but reasonably well-controlled, otherwise she denies any complaints there is no fever or chills no headache or dizziness no chest pain no cough no nausea or vomiting no abdominal pain and no urinary symptoms On 02/16/2018 patient was seen and examined in ICU she is alert and oriented 3 she is maintained on oxygen via nasal cannula and tolerating well she has some pain in the chest wall when moving otherwise she denies any complaints there is no fever or chills no headache or dizziness no shortness of breath no cough no nausea or vomiting no abdominal pain no diarrhea and no urinary symptoms. On 02/17/2018 patient is alert and oriented 3. Patient remains in intensive care unit. Patient did have cordis line removed today. HemoGlobin 6.9. No further blood transfusion per cardiovascular surgical team. Patient was given Lasix 20 mg once. Patient does complain of some chest pain. Patient has been up moving around. Encouraged incentive spirometer use. Denies nausea vomiting or diarrhea. Denies any urinary symptoms On 02/18/2018 patient is alert and oriented 3. Patient remains in the intensive care unit. Patient currently getting a chest tube removed. Hemoglobin 6.7. No further blood transfusion per cardiovascular surgical team. Per nursing staff patient has been up ambulating. Patient denies any chest pain or shortness of breath at this time. Denies nausea vomiting or diarrhea. Denies any urinary symptoms Objective - Vital Signs Vital signs: Vital Signs Temp 97.9 F 02/18/18 08:00 Pulse 95 02/18/18 10:00 Resp 13 02/18/18 10:00 BP 92/51 02/18/18 10:00 Pulse Ox 97 02/18/18 10:00 Intake & Output 02/17/18 02/18/18 02/18/18 18:59 06:59 18:59 Intake Total 506 1850 350 Output Total 2242001 150 Balance -1734 -152 200 Weight 80.4 kg 80.4 kg Intake: IV 46 Lactated Ringers 1,000 ml 40 @ 20 mls/hr IV .Q24H [facility] Rx#:[id number] NS Pressure Bag 6 Oral 460 1850 350 Output: Chest Tube Drainage 415 302 50 Chest Tube Bilateral 150 Chest Tube Upper [address] 150 200 40 Urine 1825 1700 100 Other: Voiding Method Indwelling Catheter Toilet Toilet ABP, PAP, CO, CI - Last Documented Arterial Blood Pressure 93/55 Pulmonary Artery Pressure 32/16 Cardiac Output 5.7 Cardiac Index 3.3 - Exam Head normocephalic Neck supple Lungs clear to auscultation bilaterally no wheezing or crackles Heart regular rate and rhythm S1-S2, no rub or gallop Abdomen is soft nontender nondistended positive bowel sounds no hepatosplenomegaly Extremities no edema Neuro alert and orientated to 3 - Labs CBC & Chem 7: 02/18/18 04:29 02/18/18 04:29 Labs: Abnormal Lab Results - Last 24 Hours (Table) 02/14/18 02/17/18 02/17/18 Range/Units 15:05 11:33 17:01 RBC (3.80-5.40) m/uL Hgb (11.4-16.0) gm/dL Hct (34.0-46.0) % RDW (11.5-15.5) % ABG pO2 53 L* (83-108) mmHg ABG Total CO2 25 H (19-24) mmol/L ABG O2 Saturation 89.3 L (94-97) % Creatinine (0.52-1.04) mg/dL POC Glucose (mg/dL) 123 H 134 H (75-99) mg/dL Calcium (8.4-10.2) mg/dL Total Protein (6.3-8.2) g/dL Albumin (3.5-5.0) g/dL 02/17/18 02/18/18 02/18/18 Range/Units 20:03 04:29 04:29 RBC 2.13 L (3.80-5.40) m/uL Hgb 6.7 L* (11.4-16.0) gm/dL Hct 20.2 L (34.0-46.0) % RDW 16.6 H (11.5-15.5) % ABG pO2 (83-108) mmHg ABG Total CO2 (19-24) mmol/L ABG O2 Saturation (94-97) % Creatinine 0.47 L (0.52-1.04) mg/dL POC Glucose (mg/dL) 129 H (75-99) mg/dL Calcium 7.8 L (8.4-10.2) mg/dL Total Protein 4.3 L (6.3-8.2) g/dL Albumin 2.5 L (3.5-5.0) g/dL 02/18/18 Range/Units 07:01 RBC (3.80-5.40) m/uL Hgb (11.4-16.0) gm/dL Hct (34.0-46.0) % RDW (11.5-15.5) % ABG pO2 (83-108) mmHg ABG Total CO2 (19-24) mmol/L ABG O2 Saturation (94-97) % Creatinine (0.52-1.04) mg/dL POC Glucose (mg/dL) 119 H (75-99) mg/dL Calcium (8.4-10.2) mg/dL Total Protein (6.3-8.2) g/dL Albumin (3.5-5.0) g/dL Assessment and Plan Assessment: 1. Severe mitral regurgitation status post mitral valve repair with Dr. Red. Postop day #4. Patient is progressing well was uneventful post surgical course will continue to follow. Cordis line has been removed. Patient received 1 dose of IV Lasix per her neurovascular surgical team. No blood transfusions at this point per cardiovascular surgical team. 2. Postoperative mechanical ventilation: pulmonary service to manage, patient extubated since yesterday and tolerating well. Patient currently on nasal cannula 2 L 3. Expected acute blood loss anemia secondary to surgery. Hemoglobin 6.7 . No blood transfusions at this point per cardiovascular surgical team. Continue Ferrous sulfate 4. Hyperlipidemia continue Lipitor 5. Hypocalcemia patient receiving calcium chloride 6. Seasonal ALLERGIES I performed an examination of the patient and discussed their management with the Nurse Practitioner. I have reviewed the Nurse Practitioner's notes and agree with the documented findings and plan of care
[2018-02-18 11:07] LABS: Glucose,Whole Blood 126 mg/dL (75-99)
[2018-02-18] MEDS: ASCORBIC ACID 500 MG TAB PO SCH (12:33)
--- NOTE | 2018-02-18 12:50 | CDI ---
Documentation Clarification Form Date: 02/18/18 CDS: Falguni Thakur RN Admit Date: 02/14/18 Patient Name: Yuko Daily ATTENTION: The Clinical Documentation Specialists (CDI) and [facility] Coding Staff appreciate your assistance in clarifying documentation. Please respond to the clarification below the line at the bottom and electronically sign. The CDI & [facility] Coding staff will review the response and follow-up if needed. Please note: Queries are made part of the Legal Health Record. If you have any questions, please contact the author of this message via ITS. Dr. Darron Blackmon, Heart failure is documented in your documentation on 02/15, 02/16, 02/17 and 02/18. Cardiology does not mention CHF Cath report from 02/04 states EF around 60%. History/Risk Factors: Chest pain/angina Clinical Indicators: VS on admission : T 97.1 P 72, R 16, 135/85, 98% RA. 02/18 96% RA Echocardiogram Results: none on file Chest X Ray: 02/16 continuing left basilar airspace disease. 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 CHF ruled out CHF ruled in Systolic Heart Failure: Acute Chronic Acute on Chronic Diastolic Heart Failure: Acute Chronic Acute on Chronic Systolic & Diastolic Heart Failure: Acute Chronic Acute on Chronic Heart Failure Unable to Determine Other, please specify Was the CHF POA or a postoperative event? MTDD
--- NOTE | 2018-02-18 13:33 | P.PN ---
Subjective Patient still has a chest tube in which is draining. A blood pressure remains in the mid 90s. She is in sinus rhythm Heart sounds S1 and S2 are normal Breath sounds are clear no rhonchi no crackles Abdomen is soft Skin is warm Impression Mitral valve repair as well as left atrial appendectomy for mitral regurgitation management surgically Suggest Continue current medications without any changes continue ICU and post CT surgery management Objective - Vital Signs Vital signs: Vital Signs Temp 97.7 F 02/18/18 12:00 Pulse 103 H 02/18/18 13:00 Resp 16 02/18/18 13:00 BP 87/47 02/18/18 13:00 Pulse Ox 94 L 02/18/18 13:00 Intake & Output 02/17/18 02/18/18 02/18/18 18:59 06:59 18:59 Intake Total 506 1850 950 Output Total 2240 2002 320 Balance -1734 -152 630 Weight 80.4 kg 80.4 kg Intake: IV 46 Lactated Ringers 1,000 ml 40 @ 20 mls/hr IV .Q24H [facility] Rx#:[id number] NS Pressure Bag 6 Oral 460 1850 950 Output: Chest Tube Drainage 415 302 90 Chest Tube Bilateral 150 Chest Tube Upper [address] 150 200 80 Urine 1825 1700 230 Other: Voiding Method Indwelling Catheter Toilet Toilet ABP, PAP, CO, CI - Last Documented Arterial Blood Pressure 93/55 Pulmonary Artery Pressure 32/16 Cardiac Output 5.7 Cardiac Index 3.3 - Labs CBC & Chem 7: 02/18/18 04:29 02/18/18 10:48 Labs: Abnormal Lab Results - Last 24 Hours (Table) 02/14/18 02/17/18 02/17/18 Range/Units 15:05 17:01 20:03 RBC (3.80-5.40) m/uL Hgb (11.4-16.0) gm/dL Hct (34.0-46.0) % RDW (11.5-15.5) % ABG pO2 53 L* (83-108) mmHg ABG Total CO2 25 H (19-24) mmol/L ABG O2 Saturation 89.3 L (94-97) % Creatinine (0.52-1.04) mg/dL POC Glucose (mg/dL) 134 H 129 H (75-99) mg/dL Calcium (8.4-10.2) mg/dL Total Protein (6.3-8.2) g/dL Albumin (3.5-5.0) g/dL 18 02/18/18 02/18/18 Range/Units 04:29 04:29 07:01 RBC 2.13 L (3.80-5.40) m/uL Hgb 6.7 L* (11.4-16.0) gm/dL Hct 20.2 L (34.0-46.0) % RDW 16.6 H (11.5-15.5) % ABG pO2 (83-108) mmHg ABG Total CO2 (19-24) mmol/L ABG O2 Saturation (94-97) % Creatinine 0.47 L (0.52-1.04) mg/dL POC Glucose (mg/dL) 119 H (75-99) mg/dL Calcium 7.8 L (8.4-10.2) mg/dL Total Protein 4.3 L (6.3-8.2) g/dL Albumin 2.5 L (3.5-5.0) g/dL 02/18/18 Range/Units 11:06 RBC (3.80-5.40) m/uL Hgb (11.4-16.0) gm/dL Hct (34.0-46.0) % RDW (11.5-15.5) % ABG pO2 (83-108) mmHg ABG Total CO2 (19-24) mmol/L ABG O2 Saturation (94-97) % Creatinine (0.52-1.04) mg/dL POC Glucose (mg/dL) 126 H (75-99) mg/dL Calcium (8.4-10.2) mg/dL Total Protein (6.3-8.2) g/dL Albumin (3.5-5.0) g/dL
[2018-02-18] MEDS: MAGNESIUM HYDROXIDE 2,400 MG/10 ML CUP PO PRN (14:13)
[2018-02-18 17:23] LABS: Glucose,Whole Blood 126 mg/dL (75-99)
[2018-02-18 20:53] LABS: Glucose,Whole Blood 137 mg/dL (75-99)
[2018-02-18] MEDS: SENNOSIDES-DOCUSATE SODIUM 1 EACH TAB PO SCH (21:04)
[2018-02-19] MEDS: HEPARIN SODIUM,PORCINE 5,000 UNIT/ML 1 ML VIAL SQ SCH ×3 (00:45→16:17)
[2018-02-19] MEDS: HYDROcodone/APAP 5-325MG 1 EACH TAB PO PRN ×5 (01:24→21:51)
[2018-02-19 07:20] LABS: Anisocytosis Slight; Basophils % (A) 0 %; Eosinophils # (A) 0.4 k/uL (0-0.7); Eosinophils % (A) 4 %; HCT 20.5 % (34.0-46.0); Hypochromasia Slight; Lymphocytes # (A) 2.2 k/uL (1.0-4.8); Lymphocytes % (A) 23 %; MCH 31.3 pg (25.0-35.0); MCHC 32.3 g/dL (31.0-37.0); MCV 96.9 fL (80.0-100.0); Macrocytosis Slight; Mean Platelet Volume 6.5; Monocytes # (A) 0.6 k/uL (0-1.0); Monocytes % (A) 6 %; Neutrophils # (A) 6.4 k/uL (1.3-7.7); Neutrophils % (A) 66 %; Platelet Count 232 k/uL (150-450); RBC 2.11 m/uL (3.80-5.40); RDW 17.1 % (11.5-15.5); WBC 9.8 k/uL (3.8-10.6)
[2018-02-19 07:28] LABS: HGB 6.6 gm/dL (11.4-16.0)
[2018-02-19 07:38] LABS: ALT 24 U/L (9-52); AST 26 U/L (14-36); Albumin 2.5 g/dL (3.5-5.0); Alkaline Phosphatase 57 U/L (38-126); Anion Gap 4 mmol/L; Blood Urea Nitrogen 8 mg/dL (7-17); Calcium 7.8 mg/dL (8.4-10.2); Carbon Dioxide 29 mmol/L (22-30); Chloride 104 mmol/L (98-107); Glucose 104 mg/dL (74-99); Magnesium 2.3 mg/dL (1.6-2.3); Sodium 137 mmol/L (137-145); Total Bilirubin 0.6 mg/dL (0.2-1.3); Total Protein 4.4 g/dL (6.3-8.2)
[2018-02-19] MEDS ORDERED: CALCIUM CHLORIDE 1,000 MG in SODIUM CHLORIDE 0.9% 100 ML IVPB STA (07:48)
--- NOTE | 2018-02-19 07:51 | XR ---
EXAMINATION TYPE: XR chest 1V portable DATE OF EXAM: 02/19/2018 CLINICAL HISTORY: Difficulty breathing progress study. Post open cardiac surgery. TECHNIQUE: Single AP portable upright view of the chest is obtained. COMPARISON: Chest x-ray from one day earlier and older studies. FINDINGS: Overlying EKG leads are redemonstrated. There is stable right-sided chest tube. There is i nterval removal of left-sided chest tube. There may be tiny right apical pneumothorax seen better on current study. Tiny left-sided apical pneumothorax is not clearly seen on current study. Overlying st ernal wires are redemonstrated. There is persistent cardiomegaly with bibasilar atelectasis and/or in filtrates. Osseous structures are intact. IMPRESSION: Interval removal of left-sided chest tube without sizable pneumothorax currently. Perhaps tiny right apical pneumothorax despite chest tube placement seen better on current study. There is s table cardiomegaly with left greater than right bibasilar infiltrate and/or atelectasis redemonstrate d.
[2018-02-19 07:56] LABS: Glucose,Whole Blood 102 mg/dL (75-99)
[2018-02-19] MEDS: INSULIN ASPART 100 UNIT/ML 1 ML 10 ML VIAL SQ SCH ×4 (07:57→20:37)
[2018-02-19 08:04] LABS: Ionized Calcium 4.9 mg/dL (4.5-5.3)
[2018-02-19] MEDS: ASPIRIN 81 MG PO SCH (08:21)
[2018-02-19] MEDS: PANTOPRAZOLE 40 MG TABLET PO SCH (08:21)
[2018-02-19] MEDS: ATORVASTATIN 40 MG TAB PO SCH (08:21)
[2018-02-19] MEDS: MAGNESIUM HYDROXIDE 2,400 MG/10 ML CUP PO PRN (08:29)
[2018-02-19] MEDS: IPRATROPIUM-ALBUTEROL 3 ML NEB INHALATION SCH ×5 (08:41→20:02)
--- NOTE | 2018-02-19 09:10 | P.PN ---
Subjective Progress Note Date: 02/19/18 Principal diagnosis: Severe mitral regurgitation. History of asthma, hypertriglyceridemia, and near syncopal event. Obesity. POD #5 complex mitral valve repair with closure of base of P1 and P2 cleft and annuloplasty with 26 mm AnnuloFlex ring, epi-aortic ultrasound, closure of left atrial appendage, transesophageal echocardiogram by anesthesia. Postoperative hemorrhage, an unexpected outcome. POD #5 sternal reexploration with evacuation of hematoma. Postoperative acute blood loss anemia, an expected outcome secondary to cardiopulmonary bypass and hemodilution as well as blood loss after surgery. The patient is currently sitting up in bed in no acute distress. States pain is controlled, denies shortness of breath. Patient ambulated in the hallway 4 times yesterday, she has already ambulated in the hallway this morning as well. Left pleural chest tube was discontinued yesterday. No new complaints. Objective - Vital Signs Vital signs: Vital Signs Temp 97.8 F 02/19/18 04:00 Pulse 97 02/19/18 06:00 Resp 18 02/19/18 06:00 BP 93/50 02/19/18 06:00 Pulse Ox 93 L 02/19/18 06:00 Intake & Output 1818 18 02/19/18 18:59 06:59 18:59 Intake Total 1200 450 Output Total 965 1170 Balance 235 -720 Weight 80.4 kg 78.3 kg Intake: Oral 1200 450 Output: Chest Tube Drainage [address] 150 120 Urine 805 1050 Other: Voiding Method Toilet Toilet # Voids 1 ABP, PAP, CO, CI - Last Documented Arterial Blood Pressure 93/55 Pulmonary Artery Pressure 32/16 Cardiac Output 5.7 Cardiac Index 3.3 - Constitutional General appearance: Present: cooperative, no acute distress, obese - Respiratory Details: Lungs sounds diminished bilaterally. Respirations even, nonlabored. Currently on room air with oxygen saturation 93%. Able to achieve 750+ mL on her incentive spirometry. Strong cough. Right pleural chest tube to continuous wall suction, 80 mL serous drainage overnight, 400 mL in the last 24 hours. No air leaks present. - Cardiovascular Details: S1, S2 present. Regular rate and rhythm, sinus rhythm on telemetry. Sternum stable. A/V epicardial pacemaker wires present, grounded. Palpable peripheral pulses bilaterally. No edema present. No calf pain or tenderness noted. Heart hugger in place with patient demonstrating appropriate use. Antiembolism stockings, SCDs present. - Gastrointestinal Gastrointestinal Comment(s): Abdomen soft, nontender, nondistended. Active bowel sounds 4 quadrants. Tolerating diet. Positive flatus, negative bowel movement. - Genitourinary Genitourinary Comment(s): Continues to void clear, yellow urine. Output overnight 900 mL. - Integumentary Integumentary Comment(s): Skin is warm and dry with evidence of good perfusion. Anterior chest incision well approximated and covered with dry intact dressing. - Neurologic Neurologic: Present: CNII-XII intact - Musculoskeletal Musculoskeletal: Present: gait normal, strength equal bilaterally - Psychiatric Psychiatric: Present: A&O x's 3, appropriate affect, intact judgment & insight - Allied health notes Allied health notes reviewed: nursing - Labs CBC & Chem 7: 02/19/18 06:24 02/19/18 06:24 Labs: Abnormal Lab Results - Last 24 Hours (Table) 02/14/18 02/18/18 02/18/18 Range/Units 15:05 11:06 17:20 RBC (3.80-5.40) m/uL Hgb (11.4-16.0) gm/dL Hct (34.0-46.0) % RDW (11.5-15.5) % ABG pO2 53 L* (83-108) mmHg ABG Total CO2 25 H (19-24) mmol/L ABG O2 Saturation 89.3 L (94-97) % POC Glucose (mg/dL) 126 H 126 H (75-99) mg/dL 02/18/18 02/19/18 Range/Units 20:52 06:24 RBC 2.11 L (3.80-5.40) m/uL Hgb 6.6 L* (11.4-16.0) gm/dL Hct 20.5 L (34.0-46.0) % RDW 17.1 H (11.5-15.5) % ABG pO2 (83-108) mmHg ABG Total CO2 (19-24) mmol/L ABG O2 Saturation (94-97) % POC Glucose (mg/dL) 137 H (75-99) mg/dL - Imaging and Cardiology Chest x-ray: image reviewed Assessment and Plan (1) History of asthma Current Visit: Yes Status: Chronic Code(s): Z87.09 - PERSONAL HISTORY OF OTHER DISEASES OF THE RESPIRATORY SYSTEM SNOMED Code(s): 618728031 (2) Postoperative hemorrhage Current Visit: Yes Status: Acute Code(s): WFV5875 - SNOMED Code(s): 362009518 (3) Severe mitral regurgitation Current Visit: Yes Status: Chronic Code(s): I34.0 - NONRHEUMATIC MITRAL ( VALVE) INSUFFICIENCY SNOMED Code(s): 28503882 Plan: 1. Continue low-dose aspirin, statin, beta roseanne. Will increase beta roseanne therapy as tolerated. 2. Encourage incentive spirometry use 10 times every hour while awake. 3. Increase activity, ambulate in hallway. PT/OT/cardiac rehab following. 4. Bronchodilators per pulmonology. 5. Pain control is current medication regimen. 6. Will monitor daily labs and x-rays. Will transfuse 1 unit PRBCs this morning. 7. Insulin management per primary care service. 8. GI prophylaxis with Protonix. DVT prophylaxis with subcu heparin, SCDs. 9. Keep right pleural chest tube for another 24 hours. 10. More recommendations to follow. Time with Patient: Greater than 30
[2018-02-19 12:08] LABS: Glucose,Whole Blood 110 mg/dL (75-99)
--- NOTE | 2018-02-19 12:17 | P.PN ---
Subjective Progress Note Date: 02/19/18 This is a 62-year-old female, patient of Dr. Olmos. She has a known past medical history of severe mitral regurgitation. Otherwise no real significant other history. She does have some seasonal ALLERGIES. Patient underwent mitral valve repair today with Dr. Red. She's currently in the ICU and intubated. Hemoglobin was 6.1 and she is receiving 1 unit of blood. Patient has been slightly hypotensive and is receiving fluids. Currently not on any vasopressors. We have been consulted for medical management. Patient is currently stable. On 02/15/2018 patient was seen and examined in the intensive care unit, since yesterday she has been extubated, she has been maintained on oxygen via nasal cannula and is tolerating well, she is complaining that she is and able to take a deeper breath, she is complaining of pain at the surgical site but reasonably well-controlled, otherwise she denies any complaints there is no fever or chills no headache or dizziness no chest pain no cough no nausea or vomiting no abdominal pain and no urinary symptoms On 02/16/2018 patient was seen and examined in ICU she is alert and oriented 3 she is maintained on oxygen via nasal cannula and tolerating well she has some pain in the chest wall when moving otherwise she denies any complaints there is no fever or chills no headache or dizziness no shortness of breath no cough no nausea or vomiting no abdominal pain no diarrhea and no urinary symptoms. On 02/17/2018 patient is alert and oriented 3. Patient remains in intensive care unit. Patient did have cordis line removed today. HemoGlobin 6.9. No further blood transfusion per cardiovascular surgical team. Patient was given Lasix 20 mg once. Patient does complain of some chest pain. Patient has been up moving around. Encouraged incentive spirometer use. Denies nausea vomiting or diarrhea. Denies any urinary symptoms On 02/18/2018 patient is alert and oriented 3. Patient remains in the intensive care unit. Patient currently getting a chest tube removed. Hemoglobin 6.7. No further blood transfusion per cardiovascular surgical team. Per nursing staff patient has been up ambulating. Patient denies any chest pain or shortness of breath at this time. Denies nausea vomiting or diarrhea. Denies any urinary symptoms On 02/19/2018 patient is alert and oriented 3. Patient remains in intensive care unit. Patient patient remains sleepy but arousable. Discussed case with Nory anderson per cardiovascular surgery patient will be getting 1 unit of PRBCs today. Patient denies any chest pain or shortness of breath. Patient denies nausea vomiting or diarrhea. Patient denies any urinary symptoms Objective - Vital Signs Vital signs: Vital Signs Temp 99.1 F 02/19/18 10:17 Pulse 101 H 02/19/18 12:00 Resp 20 02/19/18 12:00 BP 98/56 02/19/18 12:00 Pulse Ox 97 02/19/18 12:00 Intake & Output 02/18/18 02/19/18 02/19/18 18:59 06:59 18:59 Intake Total 1200 450 300 Output Total 965 1640 80 Balance 235 -1190 220 Weight 80.4 kg 78.3 kg Intake: IV 100 calcium chloride 100 Oral 1200 450 200 Blood Product 0 Rc As-3 Unit 0 [id number] Output: Chest Tube Drainage [address] 150 190 80 Urine 805 1450 0 Other: Voiding Method Toilet Toilet Toilet # Voids 1 ABP, PAP, CO, CI - Last Documented Arterial Blood Pressure 93/55 Pulmonary Artery Pressure 32/16 Cardiac Output 5.7 Cardiac Index 3.3 - Exam Head normocephalic Neck supple Lungs clear to auscultation bilaterally no wheezing or crackles Heart regular rate and rhythm S1-S2, no rub or gallop Abdomen is soft nontender nondistended positive bowel sounds no hepatosplenomegaly Extremities no edema Neuro alert and orientated to 3 - Labs CBC & Chem 7: 02/19/18 06:24 02/19/18 06:24 Labs: Abnormal Lab Results - Last 24 Hours (Table) 02/18/18 02/18/18 02/18/18 Range/Units 14:39 17:20 20:52 RBC (3.80-5.40) m/uL Hgb (11.4-16.0) gm/dL Hct (34.0-46.0) % RDW (11.5-15.5) % Creatinine (0.52-1.04) mg/dL Glucose (74-99) mg/dL POC Glucose (mg/dL) 126 H 137 H (75-99) mg/dL Calcium (8.4-10.2) mg/dL Total Protein (6.3-8.2) g/dL Albumin (3.5-5.0) g/dL Crossmatch See Detail 02/19/18 02/19/18 02/19/18 Range/Units 06:24 06:24 07:55 RBC 2.11 L (3.80-5.40) m/uL Hgb 6.6 L* (11.4-16.0) gm/dL Hct 20.5 L (34.0-46.0) % RDW 17.1 H (11.5-15.5) % Creatinine 0.43 L (0.52-1.04) mg/dL Glucose 104 H (74-99) mg/dL POC Glucose (mg/dL) 102 H (75-99) mg/dL Calcium 7.8 L (8.4-10.2) mg/dL Total Protein 4.4 L (6.3-8.2) g/dL Albumin 2.5 L (3.5-5.0) g/dL Crossmatch 02/19/18 Range/Units 12:07 RBC (3.80-5.40) m/uL Hgb (11.4-16.0) gm/dL Hct (34.0-46.0) % RDW (11.5-15.5) % Creatinine (0.52-1.04) mg/dL Glucose (74-99) mg/dL POC Glucose (mg/dL) 110 H (75-99) mg/dL Calcium (8.4-10.2) mg/dL Total Protein (6.3-8.2) g/dL Albumin (3.5-5.0) g/dL Crossmatch Assessment and Plan Assessment: 1. Severe mitral regurgitation status post mitral valve repair with Dr. Red. Postop day #5. Patient is progressing well was uneventful post surgical course will continue to follow. Cordis line has been removed. Patient received 1 dose of IV Lasix per her neurovascular surgical team. 2. Postoperative mechanical ventilation: pulmonary service to manage, patient extubated since yesterday and tolerating well. Patient currently on nasal cannula 2 L 3. Expected acute blood loss anemia secondary to surgery. Hemoglobin 6.7 . No blood transfusions at this point per cardiovascular surgical team. Continue Ferrous sulfate. Patient will recieve 1 unit of PRBCs for hemoglobin of 6.6 4. Hyperlipidemia continue Lipitor 5. Hypocalcemia patient receiving calcium chloride 6. Seasonal ALLERGIES I performed an examination of the patient and discussed their management with the Nurse Practitioner. I have reviewed the Nurse Practitioner's notes and agree with the documented findings and plan of care
[2018-02-19] MEDS: ASCORBIC ACID 500 MG TAB PO SCH (12:19)
[2018-02-19] MEDS: METOPROLOL TARTRATE 12.5 MG TAB PO SCH ×2 (12:21→20:39)
[2018-02-19] MEDS: BISACODYL 10 MG SUPP RECTAL PRN (12:46)
[2018-02-19] MEDS ORDERED: FUROSEMIDE 10 MG/ML 2 ML VIAL IV ONE (15:00)
[2018-02-19 16:33] LABS: Glucose,Whole Blood 112 mg/dL (75-99)
[2018-02-19 20:30] LABS: Glucose,Whole Blood 151 mg/dL (75-99)
[2018-02-19] MEDS: SENNOSIDES-DOCUSATE SODIUM 1 EACH TAB PO SCH (20:41)
[2018-02-20] MEDS: HEPARIN SODIUM,PORCINE 5,000 UNIT/ML 1 ML VIAL SQ SCH ×3 (00:17→16:46)
[2018-02-20] MEDS: HYDROcodone/APAP 5-325MG 1 EACH TAB PO PRN ×4 (02:13→21:42)
[2018-02-20 04:51] LABS: Anisocytosis Slight; HCT 22.9 % (34.0-46.0); HGB 7.5 gm/dL (11.4-16.0); MCH 30.8 pg (25.0-35.0); MCHC 32.9 g/dL (31.0-37.0); MCV 93.6 fL (80.0-100.0); Mean Platelet Volume 6.6; Platelet Count 284 k/uL (150-450); Poikilocytosis Slight; RBC 2.45 m/uL (3.80-5.40); RDW 16.9 % (11.5-15.5); WBC 9.9 k/uL (3.8-10.6)
[2018-02-20 04:58] LABS: ALT 31 U/L (9-52); AST 28 U/L (14-36); Albumin 2.5 g/dL (3.5-5.0); Alkaline Phosphatase 61 U/L (38-126); Anion Gap 6 mmol/L; Blood Urea Nitrogen 8 mg/dL (7-17); Calcium 8.1 mg/dL (8.4-10.2); Carbon Dioxide 29 mmol/L (22-30); Chloride 102 mmol/L (98-107); Glucose 100 mg/dL (74-99); Magnesium 2.1 mg/dL (1.6-2.3); Potassium 4.3 mmol/L (3.5-5.1); Sodium 137 mmol/L (137-145); Total Bilirubin 0.7 mg/dL (0.2-1.3); Total Protein 4.5 g/dL (6.3-8.2)
[2018-02-20 06:54] LABS: Glucose,Whole Blood 154 mg/dL (75-99)
[2018-02-20] MEDS: INSULIN ASPART 100 UNIT/ML 1 ML 10 ML VIAL SQ SCH ×4 (06:55→21:03)
--- NOTE | 2018-02-20 07:49 | P.PN ---
Subjective Progress Note Date: 02/20/18 Principal diagnosis: Severe mitral regurgitation. History of asthma, hypertriglyceridemia, and near syncopal event. Obesity. POD #6 complex mitral valve repair with closure of base of P1 and P2 cleft and annuloplasty with 26 mm AnnuloFlex ring, epi-aortic ultrasound, closure of left atrial appendage, transesophageal echocardiogram by anesthesia. Postoperative hemorrhage, an unexpected outcome. POD #6 sternal reexploration with evacuation of hematoma. Postoperative acute blood loss anemia, an expected outcome secondary to cardiopulmonary bypass and hemodilution as well as blood loss after surgery. The patient is currently sitting up in the recliner in no acute distress. States pain is controlled, denies shortness of breath. Patient has ambulated in the hallway times every day. Received 1 unit packed red blood cells followed by Melanie yesterday. No new complaints. Objective - Vital Signs Vital signs: Vital Signs Temp 97.9 F 02/20/18 00:00 Pulse 97 02/20/18 07:00 Resp 17 02/20/18 07:00 BP 91/51 02/20/18 07:00 Pulse Ox 93 L 02/20/18 07:00 Intake & Output 02/19/18 02/20/18 02/20/18 18:59 06:59 18:59 Intake Total 610 Output Total 785 1760 Balance -175 -1760 Weight 78.2 kg Intake: IV 100 calcium chloride 100 Oral 200 Blood Product 310 Rc As-3 Unit 310 [id number] Output: Chest Tube Drainage 185 210 Left pleural chest tube [address] 100 170 Urine 600 1550 Other: Voiding Method Toilet Toilet # Voids 1 # Bowel Movements 1 ABP, PAP, CO, CI - Last Documented Arterial Blood Pressure 93/55 Pulmonary Artery Pressure 32/16 Cardiac Output 5.7 Cardiac Index 3.3 - Constitutional General appearance: Present: cooperative, no acute distress - Respiratory Details: Lungs sounds diminished bilaterally. Respirations even, nonlabored. Currently on room air with oxygen saturation 95%. Able to achieve 1000 mL on her incentive spirometry. Strong cough. Right pleural chest tube to continuous wall suction, 160 mL serous drainage overnight, 300 mL in the last 24 hours. No air leaks present. - Cardiovascular Details: S1, S2 present. Regular rate and rhythm, sinus rhythm on telemetry. Sternum stable. A/V epicardial pacemaker wires present, grounded. Palpable peripheral pulses bilaterally. Trace upper extremity edema present. No calf pain or tenderness noted. Heart hugger in place with patient demonstrating appropriate use. Antiembolism stockings, SCDs present. - Gastrointestinal Gastrointestinal Comment(s): Abdomen soft, nontender, nondistended. Active bowel sounds 4 quadrants. Tolerating diet. Positive bowel movement. - Genitourinary Genitourinary Comment(s): Continues to void clear, yellow urine. Output overnight 1050 mL. - Integumentary Integumentary Comment(s): Skin is warm and dry with evidence of good perfusion. Anterior chest incision well approximated and covered with dry intact dressing. - Neurologic Neurologic: Present: CNII-XII intact - Musculoskeletal Musculoskeletal: Present: gait normal, strength equal bilaterally - Psychiatric Psychiatric: Present: A&O x's 3, appropriate affect, intact judgment & insight - Allied health notes Allied health notes reviewed: nursing - Labs CBC & Chem 7: 02/20/18 04:27 02/20/18 04:27 Labs: Abnormal Lab Results - Last 24 Hours (Table) 02/18/18 02/19/18 02/19/18 Range/Units 14:39 07:55 12:07 RBC (3.80-5.40) m/uL Hgb (11.4-16.0) gm/dL Hct (34.0-46.0) % RDW (11.5-15.5) % Creatinine (0.52-1.04) mg/dL Glucose (74-99) mg/dL POC Glucose (mg/dL) 102 H 110 H (75-99) mg/dL Calcium (8.4-10.2) mg/dL Total Protein (6.3-8.2) g/dL Albumin (3.5-5.0) g/dL Crossmatch See Detail 02/19/18 02/19/18 02/20/18 Range/Units 16:32 20:28 04:27 RBC 2.45 L (3.80-5.40) m/uL Hgb 7.5 L (11.4-16.0) gm/dL Hct 22.9 L (34.0-46.0) % RDW 16.9 H (11.5-15.5) % Creatinine (0.52-1.04) mg/dL Glucose (74-99) mg/dL POC Glucose (mg/dL) 112 H 151 H (75-99) mg/dL Calcium (8.4-10.2) mg/dL Total Protein (6.3-8.2) g/dL Albumin (3.5-5.0) g/dL Crossmatch 02/20/18 02/20/18 Range/Units 04:27 06:52 RBC (3.80-5.40) m/uL Hgb (11.4-16.0) gm/dL Hct (34.0-46.0) % RDW (11.5-15.5) % Creatinine 0.43 L (0.52-1.04) mg/dL Glucose 100 H (74-99) mg/dL POC Glucose (mg/dL) 154 H (75-99) mg/dL Calcium 8.1 L (8.4-10.2) mg/dL Total Protein 4.5 L (6.3-8.2) g/dL Albumin 2.5 L (3.5-5.0) g/dL Crossmatch - Imaging and Cardiology Chest x-ray: image reviewed Assessment and Plan (1) History of asthma Current Visit: Yes Status: Chronic Code(s): Z87.09 - PERSONAL HISTORY OF OTHER DISEASES OF THE RESPIRATORY SYSTEM SNOMED Code(s): 917048557 (2) Postoperative hemorrhage Current Visit: Yes Status: Acute Code(s): XEM0873 - SNOMED Code(s): 486938691 (3) Severe mitral regurgitation Current Visit: Yes Status: Chronic Code(s): I34.0 - NONRHEUMATIC MITRAL ( VALVE) INSUFFICIENCY SNOMED Code(s): 19648043 Plan: 1. Continue low-dose aspirin, statin, beta roseanne. Will increase beta roseanne therapy as tolerated. 2. Encourage incentive spirometry use 10 times every hour while awake. 3. Increase activity, ambulate in hallway. PT/OT/cardiac rehab following. 4. Bronchodilators per pulmonology. 5. Pain control is current medication regimen. 6. Will monitor daily labs and x-rays. No further transfusions at this point. 7. Insulin management per primary care service. 8. GI prophylaxis with Protonix. DVT prophylaxis with subcu heparin, SCDs. 9. Will discontinue epicardial pacemaker wires today. Keep right pleural chest tube for another [address] transfer orders for 6 E. selective care today. 11. Discharge planning in progress. Likely home with home care in the next 48 hours. 12. More recommendations to follow. Time with Patient: Greater than 30
[2018-02-20] MEDS: IPRATROPIUM-ALBUTEROL 3 ML NEB INHALATION SCH ×4 (08:08→20:09)
--- NOTE | 2018-02-20 08:20 | XR ---
EXAMINATION TYPE: XR chest 1V portable DATE OF EXAM: 02/20/2018 COMPARISON: NONE HISTORY: SOB, Follow Up FINDINGS: Right-sided chest tube is in place. Small right apical pneumothorax persists and is essentially uncha nged. No change in bibasilar opacities. Stable appearance of the cardio-mediastinal structures at this time. No significant pleural effusion. IMPRESSION: 1. Stable portable chest. Clinical correlation and follow up until resolution is recommended.
[2018-02-20] MEDS: BISACODYL 10 MG SUPP RECTAL PRN (08:51)
[2018-02-20] MEDS: ATORVASTATIN 40 MG TAB PO SCH (09:05)
[2018-02-20] MEDS: PANTOPRAZOLE 40 MG TABLET PO SCH (09:05)
[2018-02-20] MEDS: METOPROLOL TARTRATE 12.5 MG TAB PO SCH ×2 (09:05→21:41)
[2018-02-20] MEDS: ASPIRIN 81 MG PO SCH (09:05)
[2018-02-20 10:04] VITALS: BMI 30.5
--- NOTE | 2018-02-20 10:51 | P.PN ---
Subjective Progress Note Date: 02/20/18 This is a 62-year-old female, patient of Dr. Olmos. She has a known past medical history of severe mitral regurgitation. Otherwise no real significant other history. She does have some seasonal ALLERGIES. Patient underwent mitral valve repair today with Dr. Red. She's currently in the ICU and intubated. Hemoglobin was 6.1 and she is receiving 1 unit of blood. Patient has been slightly hypotensive and is receiving fluids. Currently not on any vasopressors. We have been consulted for medical management. Patient is currently stable. On 02/15/2018 patient was seen and examined in the intensive care unit, since yesterday she has been extubated, she has been maintained on oxygen via nasal cannula and is tolerating well, she is complaining that she is and able to take a deeper breath, she is complaining of pain at the surgical site but reasonably well-controlled, otherwise she denies any complaints there is no fever or chills no headache or dizziness no chest pain no cough no nausea or vomiting no abdominal pain and no urinary symptoms On 02/16/2018 patient was seen and examined in ICU she is alert and oriented 3 she is maintained on oxygen via nasal cannula and tolerating well she has some pain in the chest wall when moving otherwise she denies any complaints there is no fever or chills no headache or dizziness no shortness of breath no cough no nausea or vomiting no abdominal pain no diarrhea and no urinary symptoms. On 02/17/2018 patient is alert and oriented 3. Patient remains in intensive care unit. Patient did have cordis line removed today. HemoGlobin 6.9. No further blood transfusion per cardiovascular surgical team. Patient was given Lasix 20 mg once. Patient does complain of some chest pain. Patient has been up moving around. Encouraged incentive spirometer use. Denies nausea vomiting or diarrhea. Denies any urinary symptoms On 02/18/2018 patient is alert and oriented 3. Patient remains in the intensive care unit. Patient currently getting a chest tube removed. Hemoglobin 6.7. No further blood transfusion per cardiovascular surgical team. Per nursing staff patient has been up ambulating. Patient denies any chest pain or shortness of breath at this time. Denies nausea vomiting or diarrhea. Denies any urinary symptoms On 02/19/2018 patient is alert and oriented 3. Patient remains in intensive care unit. Patient patient remains sleepy but arousable. Discussed case with Nory anderson per cardiovascular surgery patient will be getting 1 unit of PRBCs today. Patient denies any chest pain or shortness of breath. Patient denies nausea vomiting or diarrhea. Patient denies any urinary symptoms On 02/20/2018 patient is alert and oriented 3. Patient remains in intensive care unit. Patient received 1 unit of packed red blood cells yesterday. Hemoglobin improving to 10.5. Patient states feels less dizzy and less fatigue since receiving the blood product. Per cardiovascular surgical team planning to move patient of the intensive care unit today. Patient denies chest pain or shortness of breath. Patient denies any urinary burning or frequency. Patient denies nausea vomiting or diarrhea. Objective - Vital Signs Vital signs: Vital Signs Temp 98.3 F 02/20/18 08:00 Pulse 102 H 02/20/18 10:00 Resp 16 02/20/18 10:00 BP 101/55 02/20/18 10:00 Pulse Ox 92 L 02/20/18 10:00 Intake & Output 02/19/18 02/20/18 02/20/18 18:59 06:59 18:59 Intake Total 610 250 Output Total 785 1760 60 Balance -175 -1760 190 Weight 78.2 kg 78.2 kg Intake: IV 100 calcium chloride 100 Oral 200 250 Blood Product 310 Rc As-3 Unit 310 [id number] Output: Chest Tube Drainage 185 210 60 Left pleural chest tube [address] 100 170 60 Urine 600 1550 0 Other: Voiding Method Toilet Toilet Toilet # Voids 1 1 # Bowel Movements 1 ABP, PAP, CO, CI - Last Documented Arterial Blood Pressure 93/55 Pulmonary Artery Pressure 32/16 Cardiac Output 5.7 Cardiac Index 3.3 - Exam Head normocephalic Neck supple Lungs clear to auscultation bilaterally no wheezing or crackles Heart regular rate and rhythm S1-S2, no rub or gallop Abdomen is soft nontender nondistended positive bowel sounds no hepatosplenomegaly Extremities no edema Neuro alert and orientated to 3 - Labs CBC & Chem 7: 02/20/18 04:27 02/20/18 04:27 Labs: Abnormal Lab Results - Last 24 Hours (Table) 02/18/18 02/19/18 02/19/18 Range/Units 14:39 12:07 16:32 RBC (3.80-5.40) m/uL Hgb (11.4-16.0) gm/dL Hct (34.0-46.0) % RDW (11.5-15.5) % Creatinine (0.52-1.04) mg/dL Glucose (74-99) mg/dL POC Glucose (mg/dL) 110 H 112 H (75-99) mg/dL Calcium (8.4-10.2) mg/dL Total Protein (6.3-8.2) g/dL Albumin (3.5-5.0) g/dL Crossmatch See Detail 02/19/18 02/20/18 02/20/18 Range/Units 20:28 04:27 04:27 RBC 2.45 L (3.80-5.40) m/uL Hgb 7.5 L (11.4-16.0) gm/dL Hct 22.9 L (34.0-46.0) % RDW 16.9 H (11.5-15.5) % Creatinine 0.43 L (0.52-1.04) mg/dL Glucose 100 H (74-99) mg/dL POC Glucose (mg/dL) 151 H (75-99) mg/dL Calcium 8.1 L (8.4-10.2) mg/dL Total Protein 4.5 L (6.3-8.2) g/dL Albumin 2.5 L (3.5-5.0) g/dL Crossmatch 02/20/18 Range/Units 06:52 RBC (3.80-5.40) m/uL Hgb (11.4-16.0) gm/dL Hct (34.0-46.0) % RDW (11.5-15.5) % Creatinine (0.52-1.04) mg/dL Glucose (74-99) mg/dL POC Glucose (mg/dL) 154 H (75-99) mg/dL Calcium (8.4-10.2) mg/dL Total Protein (6.3-8.2) g/dL Albumin (3.5-5.0) g/dL Crossmatch Assessment and Plan Assessment: 1. Severe mitral regurgitation status post mitral valve repair with Dr. Red. Postop day #5. Patient is progressing well was uneventful post surgical course will continue to follow. Cordis line has been removed. Patient received 1 dose of IV Lasix per her cardioovascular surgical team. Hemoglobin 7.5 2. Postoperative mechanical ventilation: pulmonary service to manage. Patient currently on room air 3. Expected acute blood loss anemia secondary to surgery. Hemoglobin 6.7 . No blood transfusions at this point per cardiovascular surgical team. Continue Ferrous sulfate. Patient will recieve 1 unit of PRBCs for hemoglobin of 6.6. Hemoglobin and grooving to 7.5 4. Hyperlipidemia continue Lipitor 5. Hypocalcemia patient receiving calcium chloride 6. Seasonal ALLERGIES Per cardiovascular surgical team patient will be moved out of the intensive care unit today. Likely home with home care in the next 48 hours I performed an examination of the patient and discussed their management with the Nurse Practitioner. I have reviewed the Nurse Practitioner's notes and agree with the documented findings and plan of care
[2018-02-20 12:03] LABS: Glucose,Whole Blood 115 mg/dL (75-99)
--- NOTE | 2018-02-20 13:06 | P.PN ---
Subjective Patient is sitting up in a chair. Looks better. Blood pressure is still low 90 mmHg systolic pulse rate in the 80s afebrile With sounds are reduced bilaterally no rhonchi no crackles Heart sounds S1 and S2 are normal and crisp Extremities warm no edema Impression Complete heart block repair, postoperative bleeding chest tubes being removed today on low-dose beta blockers at this time Suggest Continue CT surgery care Low-dose beta blockers Objective - Vital Signs Vital signs: Vital Signs Temp 98.3 F 02/20/18 12:00 Pulse 104 H 02/20/18 12:00 Resp 19 02/20/18 12:00 BP 84/49 02/20/18 12:00 Pulse Ox 93 L 02/20/18 12:00 Intake & Output 02/19/18 02/20/18 02/20/18 18:59 06:59 18:59 Intake Total 610 400 Output Total 785 1760 60 Balance -175 -1760 340 Weight 78.2 kg 78.2 kg Intake: IV 100 calcium chloride 100 Oral 200 400 Blood Product 310 Rc As-3 Unit 310 [id number] Output: Chest Tube Drainage 185 210 60 Left pleural chest tube [address] 100 170 60 Urine 600 1550 0 Other: Voiding Method Toilet Toilet Toilet # Voids 1 1 # Bowel Movements 1 1 ABP, PAP, CO, CI - Last Documented Arterial Blood Pressure 93/55 Pulmonary Artery Pressure 32/16 Cardiac Output 5.7 Cardiac Index 3.3 - Labs CBC & Chem 7: 02/20/18 04:27 02/20/18 04:27 Labs: Abnormal Lab Results - Last 24 Hours (Table) 02/18/18 02/19/18 02/19/18 Range/Units 14:39 16:32 20:28 RBC (3.80-5.40) m/uL Hgb (11.4-16.0) gm/dL Hct (34.0-46.0) % RDW (11.5-15.5) % Creatinine (0.52-1.04) mg/dL Glucose (74-99) mg/dL POC Glucose (mg/dL) 112 H 151 H (75-99) mg/dL Calcium (8.4-10.2) mg/dL Total Protein (6.3-8.2) g/dL Albumin (3.5-5.0) g/dL Crossmatch See Detail 02/20/18 02/20/18 02/20/18 Range/Units 04:27 04:27 06:52 RBC 2.45 L (3.80-5.40) m/uL Hgb 7.5 L (11.4-16.0) gm/dL Hct 22.9 L (34.0-46.0) % RDW 16.9 H (11.5-15.5) % Creatinine 0.43 L (0.52-1.04) mg/dL Glucose 100 H (74-99) mg/dL POC Glucose (mg/dL) 154 H (75-99) mg/dL Calcium 8.1 L (8.4-10.2) mg/dL Total Protein 4.5 L (6.3-8.2) g/dL Albumin 2.5 L (3.5-5.0) g/dL Crossmatch 02/20/18 Range/Units 12:02 RBC (3.80-5.40) m/uL Hgb (11.4-16.0) gm/dL Hct (34.0-46.0) % RDW (11.5-15.5) % Creatinine (0.52-1.04) mg/dL Glucose (74-99) mg/dL POC Glucose (mg/dL) 115 H (75-99) mg/dL Calcium (8.4-10.2) mg/dL Total Protein (6.3-8.2) g/dL Albumin (3.5-5.0) g/dL Crossmatch
[2018-02-20] MEDS: ASCORBIC ACID 500 MG TAB PO SCH (13:30)
[2018-02-20] MEDS: FUROSEMIDE 20 MG TAB PO SCH (14:42)
--- NOTE | 2018-02-20 14:51 | P.PN ---
Subjective Progress Note Date: 02/19/18 (Late entry note) Principal diagnosis: Congestive heart failure related to valvular heart disease associated with severe mitral regurgitation, acute blood loss anemia postoperative anticipated complication of mitral valve surgery, status post mitral valve replacement for severe mitral regurgitation, hypertension hypertensive cardiovascular disease 02/19/2018, patient seen eval examined during the rounds sitting upright on the bed breathing comfortably patient was able to walk slightly better in terms of strength generalized weakness and fatigue continued to improve some aches and pain at the operative site is present which is stable 02/18/2018, patient seen and evaluated examined during the rounds clinically doing much better breathing more comfortably some discomfort and pain is present the surgical site which is overall stable hemodynamic status stable Ammann does complain of generalized weakness Ammann medications reviewed laboratory data reviewed him a hemoglobin slightly down 6.7 however no source of bleeding is present platelet counts are stable chemistry overall stable [place] the chest x-ray revealed interstitial edema and some subsegmental atelectasis, stable chest tubes, thoracic surgery and remove the left-sided chest tube 02/17/2018, please refer to my dictated report 02/16/2018, patient seen eval examined during the rounds clinically patient has been doing well she has been successfully weaned and extubated sitting upright on the chair breathing relatively more comfortably off of oxygen patient is off of insulin currently on KVO LR, [place]-Abimael catheter is in stable position chest x -ray reviewed borderline cardiomegaly interstitial edema and trace pleural effusion is noted, both mediastinal and pleural chest tube in stable serous sanguinous pleural fluid and mediastinal fluid has been obtained but no significant hemorrhage has been noted, hemoglobin remained stable hemodynamic status stable last hemoglobin check was hemoglobin was 6.9 plan is to monitor observe, likely will keep the chest tube in today patient will be kept in ICU, medications reviewed laboratory data reviewed care plan discussed with cardiothoracic surgery as well as nursing staff at length 02/15/2018, patient seen and evaluated examined during the rounds critical care time spent 35 minutes, patient is supposed up day #2 of mitral valve replacement and evacuation of blood clots from mediastinum afterwards care plan discussed with cardiothoracic surgery as well, patient is on assist control mode with PEEP of 8 respiratory rate is 20 patient is breathing about 20-21 currently she is on propofol also on 1 unit of insulin drip, patient is getting LR on maintenance basis, chest x-ray reviewed the output through the chest tube are minimal, [place]-Abimael catheter in a stable position descending branch PA, noted. Pressure are improved now is 35/24, patient is making urine, does respond to physical stimuli, and labs reviewed medications reviewed radiographic studies reviewed as well 62-year-old female who was seen evaluated examined in the ICU patient is intubated on full ventilator support patient underwent mitral valve replacement for severe mitral regurgitation patient was seen evaluated examined postoperatively in the ICU she just have received the blood products developed some hives it is not clear if they were associated with the cephalosporin or blood products anyhow patient has significant bleeding from the chest tubes as well as which seems to be settling down, ventilator setting reviewed patient has significant hypercapnia hypoxemia ventilator has been adjusted with requiring higher PEEP of 8, patient is not a candidate for rapid weaning and extubation given mediastinal bleeding, labs reviewed medications reviewed radiographic studies reviewed as well, patient has been taken back to OR for reexploration and clot removal for details please look at the operative report Objective - Vital Signs Vital signs: Vital Signs Temp 98.3 F 02/20/18 12:00 Pulse 104 H 02/20/18 14:00 Resp 14 02/20/18 14:00 BP 96/58 02/20/18 14:00 Pulse Ox 93 L 02/20/18 14:00 Intake & Output 02/19/18 02/20/18 02/20/18 18:59 06:59 18:59 Intake Total 610 400 Output Total 785 1760 1360 Balance -175 -1760 -960 Weight 78.2 kg 78.2 kg Intake: IV 100 calcium chloride 100 Oral 200 400 Blood Product 310 Rc As-3 Unit 310 [id number] Output: Chest Tube Drainage 185 210 60 Left pleural chest tube [address] 100 170 60 Urine 600 1550 1300 Other: Voiding Method Toilet Toilet Toilet # Voids 1 0 # Bowel Movements 1 1 ABP, PAP, CO, CI - Last Documented Arterial Blood Pressure 93/55 Pulmonary Artery Pressure 32/16 Cardiac Output 5.7 Cardiac Index 3.3 - Exam - Constitutional General appearance: average body habitus, disheveled, no acute distress - EENT Eyes: anicteric sclerae, dentition normal, normal appearance Ears: bilateral: normal - Neck Neck: normal ROM Carotids: bilateral: upstroke normal Thyroid: bilateral: normal size - Respiratory Respiratory: bilateral: diminished, rales (At the bases), improved air entry bilaterally - Cardiovascular Heart sounds: normal: S1, S2, regular rate rhythm - Gastrointestinal General gastrointestinal: decreased bowel sounds, soft - Integumentary Integumentary: decreased turgor, normal, normal turgor - Neurologic Neurologic: CNII-XII intact - Musculoskeletal Good bilateral strength - Psychiatric Awake and alert, and comfortable - Labs CBC & Chem 7: 02/20/18 04:27 02/20/18 04:27 Labs: Abnormal Lab Results - Last 24 Hours (Table) 02/19/18 02/19/18 02/20/18 Range/Units 16:32 20:28 04:27 RBC 2.45 L (3.80-5.40) m/uL Hgb 7.5 L (11.4-16.0) gm/dL Hct 22.9 L (34.0-46.0) % RDW 16.9 H (11.5-15.5) % Creatinine (0.52-1.04) mg/dL Glucose (74-99) mg/dL POC Glucose (mg/dL) 112 H 151 H (75-99) mg/dL Calcium (8.4-10.2) mg/dL Total Protein (6.3-8.2) g/dL Albumin (3.5-5.0) g/dL 02/20/18 02/20/18 02/20/18 Range/Units 04:27 06:52 12:02 RBC (3.80-5.40) m/uL Hgb (11.4-16.0) gm/dL Hct (34.0-46.0) % RDW (11.5-15.5) % Creatinine 0.43 L (0.52-1.04) mg/dL Glucose 100 H (74-99) mg/dL POC Glucose (mg/dL) 154 H 115 H (75-99) mg/dL Calcium 8.1 L (8.4-10.2) mg/dL Total Protein 4.5 L (6.3-8.2) g/dL Albumin 2.5 L (3.5-5.0) g/dL Assessment and Plan Assessment: 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, status post mitral valve replacement postop day #4 Significant mediastinal bleed anticipated postoperative course, requiring reexploration and removal of clots, postop day #4 Recurrent near-syncope related to severe mitral regurgitation and suboptimal cardiac output Acute blood loss anemia Hypertension hypertensive cardiovascular disease Morbid obesity Plan: Continue supplemental oxygen and adjust FiO2 as tolerated Deep breathing exercises incentive spirometry Blood products as needed follow clinical course closely further recommendations pending, initiate his increasing activity as tolerated We will recommend to remove as tolerated chest tubes Time with Patient: Greater than 30
--- NOTE | 2018-02-20 14:54 | P.PN ---
Subjective Progress Note Date: 02/20/18 Principal diagnosis: Congestive heart failure related to valvular heart disease associated with severe mitral regurgitation, acute blood loss anemia postoperative anticipated complication of mitral valve surgery, status post mitral valve replacement for severe mitral regurgitation, hypertension hypertensive cardiovascular disease 02/20/2018, patient seen eval examined during the rounds on chest tube pacemaker wires have been removed, patient is breathing comfortably on room air denies any chest pain the labs reviewed medications reviewed radiographic studies reviewed as well 02/19/2018, patient seen eval examined during the rounds sitting upright on the bed breathing comfortably patient was able to walk slightly better in terms of strength generalized weakness and fatigue continued to improve some aches and pain at the operative site is present which is stable 02/18/2018, patient seen and evaluated examined during the rounds clinically doing much better breathing more comfortably some discomfort and pain is present the surgical site which is overall stable hemodynamic status stable Ammann does complain of generalized weakness Ammann medications reviewed laboratory data reviewed him a hemoglobin slightly down 6.7 however no source of bleeding is present platelet counts are stable chemistry overall stable [place] the chest x-ray revealed interstitial edema and some subsegmental atelectasis, stable chest tubes, thoracic surgery and remove the left-sided chest tube 02/17/2018, please refer to my dictated report 02/16/2018, patient seen eval examined during the rounds clinically patient has been doing well she has been successfully weaned and extubated sitting upright on the chair breathing relatively more comfortably off of oxygen patient is off of insulin currently on KVO LR, [place]-Abimael catheter is in stable position chest x -ray reviewed borderline cardiomegaly interstitial edema and trace pleural effusion is noted, both mediastinal and pleural chest tube in stable serous sanguinous pleural fluid and mediastinal fluid has been obtained but no significant hemorrhage has been noted, hemoglobin remained stable hemodynamic status stable last hemoglobin check was hemoglobin was 6.9 plan is to monitor observe, likely will keep the chest tube in today patient will be kept in ICU, medications reviewed laboratory data reviewed care plan discussed with cardiothoracic surgery as well as nursing staff at length 02/15/2018, patient seen and evaluated examined during the rounds critical care time spent 35 minutes, patient is supposed up day #2 of mitral valve replacement and evacuation of blood clots from mediastinum afterwards care plan discussed with cardiothoracic surgery as well, patient is on assist control mode with PEEP of 8 respiratory rate is 20 patient is breathing about 20-21 currently she is on propofol also on 1 unit of insulin drip, patient is getting LR on maintenance basis, chest x-ray reviewed the output through the chest tube are minimal, [place]-Abimael catheter in a stable position descending branch PA, noted. Pressure are improved now is 35/24, patient is making urine, does respond to physical stimuli, and labs reviewed medications reviewed radiographic studies reviewed as well 62-year-old female who was seen evaluated examined in the ICU patient is intubated on full ventilator support patient underwent mitral valve replacement for severe mitral regurgitation patient was seen evaluated examined postoperatively in the ICU she just have received the blood products developed some hives it is not clear if they were associated with the cephalosporin or blood products anyhow patient has significant bleeding from the chest tubes as well as which seems to be settling down, ventilator setting reviewed patient has significant hypercapnia hypoxemia ventilator has been adjusted with requiring higher PEEP of 8, patient is not a candidate for rapid weaning and extubation given mediastinal bleeding, labs reviewed medications reviewed radiographic studies reviewed as well, patient has been taken back to OR for reexploration and clot removal for details please look at the operative report Objective - Vital Signs Vital signs: Vital Signs Temp 98.3 F 02/20/18 12:00 Pulse 104 H 02/20/18 14:00 Resp 14 02/20/18 14:00 BP 96/58 02/20/18 14:00 Pulse Ox 93 L 02/20/18 14:00 Intake & Output 02/19/18 02/20/18 02/20/18 18:59 06:59 18:59 Intake Total 610 400 Output Total 785 1760 1360 Balance -175 -1760 -960 Weight 78.2 kg 78.2 kg Intake: IV 100 calcium chloride 100 Oral 200 400 Blood Product 310 Rc As-3 Unit 310 [id number] Output: Chest Tube Drainage 185 210 60 Left pleural chest tube [address] 100 170 60 Urine 600 1550 1300 Other: Voiding Method Toilet Toilet Toilet # Voids 1 0 # Bowel Movements 1 1 ABP, PAP, CO, CI - Last Documented Arterial Blood Pressure 93/55 Pulmonary Artery Pressure 32/16 Cardiac Output 5.7 Cardiac Index 3.3 - Exam - Constitutional General appearance: average body habitus, disheveled, no acute distress - EENT Eyes: anicteric sclerae, dentition normal, normal appearance Ears: bilateral: normal - Neck Neck: normal ROM Carotids: bilateral: upstroke normal Thyroid: bilateral: normal size - Respiratory Respiratory: bilateral: diminished, rales (At the bases), improved air entry bilaterally - Cardiovascular Heart sounds: normal: S1, S2, regular rate rhythm - Gastrointestinal General gastrointestinal: decreased bowel sounds, soft - Integumentary Integumentary: decreased turgor, normal, normal turgor - Neurologic Neurologic: CNII-XII intact - Musculoskeletal Good bilateral strength - Psychiatric Awake and alert, and comfortable - Labs CBC & Chem 7: 02/20/18 04:27 02/20/18 04:27 Labs: Abnormal Lab Results - Last 24 Hours (Table) 02/19/18 02/19/18 02/20/18 Range/Units 16:32 20:28 04:27 RBC 2.45 L (3.80-5.40) m/uL Hgb 7.5 L (11.4-16.0) gm/dL Hct 22.9 L (34.0-46.0) % RDW 16.9 H (11.5-15.5) % Creatinine (0.52-1.04) mg/dL Glucose (74-99) mg/dL POC Glucose (mg/dL) 112 H 151 H (75-99) mg/dL Calcium (8.4-10.2) mg/dL Total Protein (6.3-8.2) g/dL Albumin (3.5-5.0) g/dL 02/20/18 02/20/18 02/20/18 Range/Units 04:27 06:52 12:02 RBC (3.80-5.40) m/uL Hgb (11.4-16.0) gm/dL Hct (34.0-46.0) % RDW (11.5-15.5) % Creatinine 0.43 L (0.52-1.04) mg/dL Glucose 100 H (74-99) mg/dL POC Glucose (mg/dL) 154 H 115 H (75-99) mg/dL Calcium 8.1 L (8.4-10.2) mg/dL Total Protein 4.5 L (6.3-8.2) g/dL Albumin 2.5 L (3.5-5.0) g/dL Assessment and Plan Assessment: 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, status post mitral valve replacement postop day #6 Significant mediastinal bleed anticipated postoperative course, requiring reexploration and removal of clots, postop day #6 Recurrent near-syncope related to severe mitral regurgitation and suboptimal cardiac output Acute blood loss anemia Hypertension hypertensive cardiovascular disease Morbid obesity Plan: Continue supplemental oxygen and adjust FiO2 as tolerated Deep breathing exercises incentive spirometry Blood products as needed follow clinical course closely further recommendations pending, initiate his increasing activity as tolerated Would recommend further evaluation on outpatient setting for developing or development of pulmonary hypertension as well as sleep disorder breathing and sleep apnea further recommendations pending plan of care as per clinical response of the patient Time with Patient: Greater than 30
[2018-02-20 17:44] LABS: Glucose,Whole Blood 100 mg/dL (75-99)
[2018-02-20 21:10] LABS: Glucose,Whole Blood 128 mg/dL (75-99)
[2018-02-20] MEDS: SENNOSIDES-DOCUSATE SODIUM 1 EACH TAB PO SCH (21:40)
[2018-02-21] MEDS: HEPARIN SODIUM,PORCINE 5,000 UNIT/ML 1 ML VIAL SQ SCH ×2 (00:22→09:07)
[2018-02-21] MEDS: ACETAMINOPHEN TAB 325 MG TAB PO PRN ×3 (04:22→15:01)
[2018-02-21 04:41] LABS: Anisocytosis Slight; HCT 27.9 % (34.0-46.0); HGB 8.9 gm/dL (11.4-16.0); Hypochromasia Moderate; MCHC 31.8 g/dL (31.0-37.0); MCV 97.6 fL (80.0-100.0); Macrocytosis Slight; Platelet Count 383 k/uL (150-450); RBC 2.86 m/uL (3.80-5.40); RDW 17.2 % (11.5-15.5); WBC 12.4 k/uL (3.8-10.6)
[2018-02-21 05:02] LABS: ALT 50 U/L (9-52); AST 58 U/L (14-36); Alkaline Phosphatase 70 U/L (38-126); Anion Gap 8 mmol/L; Blood Urea Nitrogen 9 mg/dL (7-17); Calcium 8.1 mg/dL (8.4-10.2); Carbon Dioxide 24 mmol/L (22-30); Chloride 103 mmol/L (98-107); Glucose 100 mg/dL (74-99); Magnesium 2.2 mg/dL (1.6-2.3); Phosphorus 5.1 mg/dL (2.5-4.5); Potassium 4.8 mmol/L (3.5-5.1); Sodium 135 mmol/L (137-145); Total Bilirubin 0.8 mg/dL (0.2-1.3); Total Protein 5.4 g/dL (6.3-8.2)
[2018-02-21 07:33] LABS: Glucose,Whole Blood 100 mg/dL (75-99)
--- NOTE | 2018-02-21 08:00 | XR ---
EXAMINATION TYPE: XR chest 2V DATE OF EXAM: 02/21/2018 COMPARISON: Chest x-ray from yesterday and older studies. HISTORY: Post open cardiac surgery. TECHNIQUE: Frontal and lateral views of the chest are obtained. FINDINGS: Post CABG changes with overlying sternal wires and mediastinal clips are redemonstrated. Th ere is interval removal of right-sided chest tube. There is no significant residual pneumothorax. No sizable left-sided pneumothorax is seen. There is stable mild cardiomegaly. There is persistent right medial basilar opacity. There are suspected tiny bilateral pleural effusions. Osseous structures are intact. IMPRESSION: Interval removal of right-sided chest tube. No sizable pneumothorax. There is persistent mild cardiomegaly with small to tiny bilateral pleural effusions and right medial basilar infiltrate and/or atelectasis all redemonstrated.
--- NOTE | 2018-02-21 08:36 | P.PN ---
Subjective Progress Note Date: 02/21/18 Principal diagnosis: Severe mitral regurgitation. History of asthma, hypertriglyceridemia, and near syncopal event. Obesity. POD #7 complex mitral valve repair with closure of base of P1 and P2 cleft and annuloplasty with 26 mm AnnuloFlex ring, epi-aortic ultrasound, closure of left atrial appendage, transesophageal echocardiogram by anesthesia. Postoperative hemorrhage, an unexpected outcome. POD #7 sternal reexploration with evacuation of hematoma. Postoperative acute blood loss anemia, an expected outcome secondary to cardiopulmonary bypass and hemodilution as well as blood loss after surgery. The patient is currently sitting up in bed in no acute distress. States pain is controlled, denies shortness of breath. Patient has ambulated in the hallway this morning, and has already showered. No new complaints. Orders were placed yesterday for transfer to [address] [place] [address], however bed was not available. Epicardial pacemaker wires and right pleural chest tube were discontinued yesterday. Objective - Vital Signs Vital signs: Vital Signs Temp 98.9 F 02/21/18 04:00 Pulse 98 02/21/18 04:00 Resp 18 02/21/18 04:00 BP 96/52 02/21/18 04:00 Pulse Ox 94 L 02/21/18 04:00 Intake & Output 18 18 02/21/18 18:59 06:59 18:59 Intake Total 725 175 Output Total 2520 820 Balance -1795 -645 Weight 78.2 kg 77.8 kg Intake: Oral 725 175 Output: Chest Tube Drainage 120 20 Left pleural chest tube 60 [address] 60 Urine 2400 800 Other: Voiding Method Toilet Toilet # Voids 0 0 # Bowel Movements 1 ABP, PAP, CO, CI - Last Documented Arterial Blood Pressure 93/55 Pulmonary Artery Pressure 32/16 Cardiac Output 5.7 Cardiac Index 3.3 - Constitutional General appearance: Present: cooperative, no acute distress - Respiratory Details: Lungs sounds diminished bilaterally. Respirations even, nonlabored. Currently on room air with oxygen saturation 94%. Able to achieve 1250 mL on her incentive spirometry. Strong productive cough. - Cardiovascular Details: S1, S2 present. Regular rate and rhythm, sinus rhythm on telemetry. Sternum stable. Palpable peripheral pulses bilaterally. No edema present. No calf pain or tenderness noted. Heart hugger in place with patient demonstrating appropriate use. Antiembolism stockings, SCDs present. - Gastrointestinal Gastrointestinal Comment(s): Abdomen soft, nontender, nondistended. Active bowel sounds 4 quadrants. Tolerating diet. Positive bowel movement. - Genitourinary Genitourinary Comment(s): Continues to void clear, yellow urine. Output overnight 800 mL. - Integumentary Integumentary Comment(s): Skin is warm and dry with evidence of good perfusion. Slight excoriation present from tape/dressings. Anterior chest incision well approximated. - Neurologic Neurologic: Present: CNII-XII intact - Musculoskeletal Musculoskeletal: Present: gait normal, strength equal bilaterally - Psychiatric Psychiatric: Present: A&O x's 3, appropriate affect, intact judgment & insight - Allied health notes Allied health notes reviewed: nursing - Labs CBC & Chem 7: 02/21/18 04:21 02/21/18 04:21 Labs: Abnormal Lab Results - Last 24 Hours (Table) 02/20/18 02/20/18 02/20/18 Range/Units 12:02 17:43 20:44 WBC (3.8-10.6) k/uL RBC (3.80-5.40) m/uL Hgb (11.4-16.0) gm/dL Hct (34.0-46.0) % RDW (11.5-15.5) % Sodium (137-145) mmol/L Creatinine (0.52-1.04) mg/dL Glucose (74-99) mg/dL POC Glucose (mg/dL) 115 H 100 H 128 H (75-99) mg/dL Calcium (8.4-10.2) mg/dL Phosphorus (2.5-4.5) mg/dL AST (14-36) U/L Total Protein (6.3-8.2) g/dL Albumin (3.5-5.0) g/dL 02/21/18 02/21/18 02/21/18 Range/Units 04:21 04:21 07:31 WBC 12.4 H (3.8-10.6) k/uL RBC 2.86 L (3.80-5.40) m/uL Hgb 8.9 L (11.4-16.0) gm/dL Hct 27.9 L (34.0-46.0) % RDW 17.2 H (11.5-15.5) % Sodium 135 L (137-145) mmol/L Creatinine 0.42 L (0.52-1.04) mg/dL Glucose 100 H (74-99) mg/dL POC Glucose (mg/dL) 100 H (75-99) mg/dL Calcium 8.1 L (8.4-10.2) mg/dL Phosphorus 5.1 H (2.5-4.5) mg/dL AST 58 H (14-36) U/L Total Protein 5.4 L (6.3-8.2) g/dL Albumin 3.0 L (3.5-5.0) g/dL - Imaging and Cardiology Chest x-ray: report reviewed, image reviewed Assessment and Plan (1) History of asthma Current Visit: Yes Status: Chronic Code(s): Z87.09 - PERSONAL HISTORY OF OTHER DISEASES OF THE RESPIRATORY SYSTEM SNOMED Code(s): 948500531 (2) Postoperative hemorrhage Current Visit: Yes Status: Acute Code(s): YSL8207 - SNOMED Code(s): 430339685 (3) Severe mitral regurgitation Current Visit: Yes Status: Chronic Code(s): I34.0 - NONRHEUMATIC MITRAL ( VALVE) INSUFFICIENCY SNOMED Code(s): 93302034 Plan: 1. Continue low-dose aspirin, statin, beta roseanne. 2. Encourage incentive spirometry use 10 times every hour while awake. 3. Increase activity, ambulate in hallway. PT/OT/cardiac rehab following. 4. Bronchodilators per pulmonology. 5. Pain control is current medication regimen. 6. No further transfusions at this point. 7. Insulin management per primary care service. 8. GI prophylaxis with Protonix. DVT prophylaxis with subcu heparin, SCDs. 9. Will discharge to home with home care later today. Daughter will be staying with the patient. Time with Patient: Greater than 30
[2018-02-21] MEDS: INSULIN ASPART 100 UNIT/ML 1 ML 10 ML VIAL SQ SCH ×2 (09:03→12:48)
[2018-02-21] MEDS: PANTOPRAZOLE 40 MG TABLET PO SCH (09:07)
[2018-02-21] MEDS: FUROSEMIDE 20 MG TAB PO SCH (09:07)
[2018-02-21] MEDS: ATORVASTATIN 40 MG TAB PO SCH (09:07)
[2018-02-21] MEDS: ASPIRIN 81 MG PO SCH (09:08)
[2018-02-21] MEDS: METOPROLOL TARTRATE 12.5 MG TAB PO SCH (09:12)
[2018-02-21] MEDS: IPRATROPIUM-ALBUTEROL 3 ML NEB INHALATION SCH ×3 (09:31→15:20)
--- NOTE | 2018-02-21 10:43 | P.PN ---
Subjective Progress Note Date: 02/21/18 This is a 62-year-old female, patient of Dr. Olmos. She has a known past medical history of severe mitral regurgitation. Otherwise no real significant other history. She does have some seasonal ALLERGIES. Patient underwent mitral valve repair today with Dr. Red. She's currently in the ICU and intubated. Hemoglobin was 6.1 and she is receiving 1 unit of blood. Patient has been slightly hypotensive and is receiving fluids. Currently not on any vasopressors. We have been consulted for medical management. Patient is currently stable. On 02/15/2018 patient was seen and examined in the intensive care unit, since yesterday she has been extubated, she has been maintained on oxygen via nasal cannula and is tolerating well, she is complaining that she is and able to take a deeper breath, she is complaining of pain at the surgical site but reasonably well-controlled, otherwise she denies any complaints there is no fever or chills no headache or dizziness no chest pain no cough no nausea or vomiting no abdominal pain and no urinary symptoms On 02/16/2018 patient was seen and examined in ICU she is alert and oriented 3 she is maintained on oxygen via nasal cannula and tolerating well she has some pain in the chest wall when moving otherwise she denies any complaints there is no fever or chills no headache or dizziness no shortness of breath no cough no nausea or vomiting no abdominal pain no diarrhea and no urinary symptoms. On 02/17/2018 patient is alert and oriented 3. Patient remains in intensive care unit. Patient did have cordis line removed today. HemoGlobin 6.9. No further blood transfusion per cardiovascular surgical team. Patient was given Lasix 20 mg once. Patient does complain of some chest pain. Patient has been up moving around. Encouraged incentive spirometer use. Denies nausea vomiting or diarrhea. Denies any urinary symptoms On 02/18/2018 patient is alert and oriented 3. Patient remains in the intensive care unit. Patient currently getting a chest tube removed. Hemoglobin 6.7. No further blood transfusion per cardiovascular surgical team. Per nursing staff patient has been up ambulating. Patient denies any chest pain or shortness of breath at this time. Denies nausea vomiting or diarrhea. Denies any urinary symptoms On 02/19/2018 patient is alert and oriented 3. Patient remains in intensive care unit. Patient patient remains sleepy but arousable. Discussed case with Nory anderson per cardiovascular surgery patient will be getting 1 unit of PRBCs today. Patient denies any chest pain or shortness of breath. Patient denies nausea vomiting or diarrhea. Patient denies any urinary symptoms On 02/20/2018 patient is alert and oriented 3. Patient remains in intensive care unit. Patient received 1 unit of packed red blood cells yesterday. Hemoglobin improving to 10.5. Patient states feels less dizzy and less fatigue since receiving the blood product. Per cardiovascular surgical team planning to move patient of the intensive care unit today. Patient denies chest pain or shortness of breath. Patient denies any urinary burning or frequency. Patient denies nausea vomiting or diarrhea. On 02/21/2018 patient is alert and oriented 3. Patient states she is feeling improved. Patient has been using her incentive spirometer and walking. WBC 12.4. Discussed case with Nory anderson PROFESSIONAL POKER PLAYER. Will encourage use of incentive spirometry. Hemoglobin 8.9. Plan for possible discharge home today per cardiovascular surgery Objective - Vital Signs Vital signs: Vital Signs Temp 98.9 F 02/21/18 04:00 Pulse 98 02/21/18 04:00 Resp 18 02/21/18 04:00 BP 96/52 02/21/18 04:00 Pulse Ox 94 L 02/21/18 04:00 Intake & Output 02/20/18 02/21/18 02/21/18 18:59 06:59 18:59 Intake Total 725 175 200 Output Total 2520 820 700 Balance -1795 -645 -500 Weight 78.2 kg 77.8 kg Intake: Oral 725 175 200 Output: Chest Tube Drainage 120 20 Left pleural chest tube 60 [address] 60 Urine 2400 800 700 Other: Voiding Method Toilet Toilet Toilet # Voids 0 0 # Bowel Movements 1 ABP, PAP, CO, CI - Last Documented Arterial Blood Pressure 93/55 Pulmonary Artery Pressure 32/16 Cardiac Output 5.7 Cardiac Index 3.3 - Exam Head normocephalic Neck supple Lungs clear to auscultation bilaterally no wheezing or crackles Heart regular rate and rhythm S1-S2, no rub or gallop Abdomen is soft nontender nondistended positive bowel sounds no hepatosplenomegaly Extremities no edema Neuro alert and orientated to 3 - Labs CBC & Chem 7: 02/21/18 04:21 02/21/18 04:21 Labs: Abnormal Lab Results - Last 24 Hours (Table) 02/20/18 02/20/18 02/20/18 Range/Units 12:02 17:43 20:44 WBC (3.8-10.6) k/uL RBC (3.80-5.40) m/uL Hgb (11.4-16.0) gm/dL Hct (34.0-46.0) % RDW (11.5-15.5) % Sodium (137-145) mmol/L Creatinine (0.52-1.04) mg/dL Glucose (74-99) mg/dL POC Glucose (mg/dL) 115 H 100 H 128 H (75-99) mg/dL Calcium (8.4-10.2) mg/dL Phosphorus (2.5-4.5) mg/dL AST (14-36) U/L Total Protein (6.3-8.2) g/dL Albumin (3.5-5.0) g/dL 02/21/18 02/21/18 02/21/18 Range/Units 04:21 04:21 07:31 WBC 12.4 H (3.8-10.6) k/uL RBC 2.86 L (3.80-5.40) m/uL Hgb 8.9 L (11.4-16.0) gm/dL Hct 27.9 L (34.0-46.0) % RDW 17.2 H (11.5-15.5) % Sodium 135 L (137-145) mmol/L Creatinine 0.42 L (0.52-1.04) mg/dL Glucose 100 H (74-99) mg/dL POC Glucose (mg/dL) 100 H (75-99) mg/dL Calcium 8.1 L (8.4-10.2) mg/dL Phosphorus 5.1 H (2.5-4.5) mg/dL AST 58 H (14-36) U/L Total Protein 5.4 L (6.3-8.2) g/dL Albumin 3.0 L (3.5-5.0) g/dL Assessment and Plan Assessment: 1. Severe mitral regurgitation status post mitral valve repair with Dr. Red. Postop day #7. Patient is progressing well was uneventful post surgical course will continue to follow. Cordis line has been removed. Patient received 1 dose of IV Lasix per her cardioovascular surgical team. 2. Postoperative mechanical ventilation: pulmonary service to manage. Patient currently on room air 3. Expected acute blood loss anemia secondary to surgery. Hemoglobin 6.7 . No blood transfusions at this point per cardiovascular surgical team. Continue Ferrous sulfate. Patient will recieve 1 unit of PRBCs for hemoglobin of 6.6. Hemoglobin 8.9 4. Hyperlipidemia continue Lipitor 5. Hypocalcemia patient receiving calcium chloride 6. Seasonal ALLERGIES 7. Leukocytosis. White blood cell 12.4. Discussed case with Nory anderson NP per cardiovascular surgery continue encouragement of incentive spirometry. Possible DC home today per cardiovascular surgery Patient instructed to follow-up closely with PCP. I performed an examination of the patient and discussed their management with the Nurse Practitioner. I have reviewed the Nurse Practitioner's notes and agree with the documented findings and plan of care
[2018-02-21 11:08] VITALS: PULSE 92
[2018-02-21 11:50] LABS: Glucose,Whole Blood 110 mg/dL (75-99)
[2018-02-21] MEDS: ASCORBIC ACID 500 MG TAB PO SCH (12:50)
[2018-02-21 12:52] VITALS: RESP 16
--- NOTE | 2018-02-21 13:31 | PN ---
PROGRESS NOTE Mrs. Dialy is status post mitral valve repair. Patient is doing very well. She is sitting comfortably by the bedside chair. No respiratory distress is noted. No dysrhythmias are noted. The patient's temperature is 98.9, blood pressure is 96/52 mmHg, oxygen saturation is 94%. First and second heart sounds are normal. No murmurs are heard. Lungs are fairly clear to auscultation and percussion. Electrolytes and creatinine is normal. FINAL IMPRESSION: This patient is status post mitral valve repair. Patient is doing fairly well, clinically stable. There is no evidence of any congestive cardiac failure. We will continue the current medications. MMODL / IJN: [id number] /
[2018-02-21 15:31] VITALS: BP 96/54; TEMP 98.3
--- NOTE | 2018-02-21 15:59 | P.DS ---
Providers Date of admission: 02/14/18 05:35 Expected date of discharge: 02/21/18 Attending physician: Rory Red Consults: 02/14/18 12:40 Consult Physician Routine Consulting Provider: Darron Blackmon Consult Reason/Comments: Java Security Engineer Consult: post cardiac surgery Do you want consulting provider notified?: Yes Consult Physician Routine Consulting Provider: Ariadne Bernardo Consult Reason/Comments: medical managment Do you want consulting provider notified?: Yes Consult Physician Routine Consulting Provider: Zbigniew Mcgowan Consult Reason/Comments: Oral Communication Instructor Consult: post cardiac surgery Do you want consulting provider notified?: Yes Primary care physician: Katya Olmos - Discharge Diagnosis(es) (1) History of asthma Status: Chronic (2) Postoperative hemorrhage Status: Acute (3) Severe mitral regurgitation Status: Chronic Hospital Course: FINAL DIAGNOSIS: 1. Severe mitral regurgitation 2. History of asthma 3. Hypertriglyceridemia 4. History of near syncopal event 5. Obesity 6. Postoperative hemorrhage, and unexpected outcome 7. Postoperative acute blood loss anemia, an expected outcome PRINCIPAL PROCEDURE: 1. Complex mitral valve repair with closure of the base of P1 and 2 cleft and annuloplasty with 26 mm AnnuloFlex ring 2. Epi-aortic ultrasound 3. Closure of the left atrial appendage 4. Transesophageal echocardiogram by anesthesia 5. Sternal reexploration with evacuation of hematoma HISTORY OF PRESENT ILLNESS: This is a 62-year-old female patient who follows with Dr. Katya Olmos on an outpatient basis. She presented to the hospital in January of this year with complaints of severe exertional dyspnea and fatigue. She stated she had great difficulty even climbing a flight stairs or walking any distance and had to stop and rest because of dyspnea. Echocardiogram was completed demonstrating severe mitral regurgitation. 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 The posterior leaflet had prolapse to some extent but without obvious flail. Ventricular function was well-preserved. There was no tricuspid regurgitation and no evidence of left atrial thrombus. The aortic valve appeared normal. Subsequently a heart catheterization was performed which demonstrated no significant coronary artery disease.She was referred to Dr. Red from cardiothoracic surgery. She was recommended to undergo mitral valve repair. The usual perioperative course was explained in great detail to the patient and her family, all risks and benefits were discussed, all questions were answered, and consent was obtained to proceed with surgery. HOSPITAL COURSE: The patient was brought to the hospital on 02/14/2018, taken to the preoperative area, prepared in the usual fashion, and subsequently taken to the operating room where Dr. Red performed a complex mitral valve repair and closure of the base of the 1 and 2 cleft and annuloplasty with 26 mm AnnuloFlex ring, epi-aortic ultrasound, closure of the left atrial appendage, and transesophageal echocardiogram by anesthesia. Upon completion of surgery the patient was transferred to the cardiovascular intensive care unit where she was recovered, monitored hemodynamically, and where she progressed to cardiac rehabilitation phase 1. She did develop postoperative hemorrhage requiring return to the operating room for sternal reexploration with evacuation of hematoma and blood transfusion. She was extubated the following morning, all lines, tubes, and drips were discontinued when appropriate, and orders were placed for transfer to [facility] care for further monitoring and rehabilitation, however no beds were available and she remained in the intensive care unit as a [facility] patient. Her oxygen was titrated down, she continued to work with physical and occupational therapy, she was tolerating oral diet, her pain was controlled, and she was ready to be discharged to home with [facility] on postoperative day #7. She received written and verbal instruction regarding her medications, activity restrictions, signs and symptoms requiring physician notification, and follow- up appointments. COMPLICATIONS: The patient experienced postoperative hemorrhage and acute blood loss anemia, which were treated accordingly. Patient Condition at Discharge: Stable Plan - Discharge Summary Discharge Rx Participant: No New Discharge Prescriptions: New Acetaminophen Tab [Tylenol] 650 mg PO Q4HR PRN tab PRN Reason: moderate Fever and/ or Pain Acetaminophen Tab [Tylenol] 325 mg PO Q4HR PRN tab PRN Reason: mild Fever and/ or Pain Atorvastatin [Lipitor] 40 mg PO DAILY #30 tab Furosemide [Lasix] 20 mg PO DAILY #7 tab Metoprolol Tartrate [Lopressor] 12.5 mg PO BID #60 tab Pantoprazole [Protonix] 40 mg PO AC-BRKFST #30 tablet.dr Gordon Cetirizine HCl [Zyrtec] 10 mg PO QAM PRN PRN Reason: Allergy Symptoms Aspirin 81 mg PO DAILY Triamcinolone Acetonide [Nasacort] 1 spray EA NOSTRIL DAILY PRN PRN Reason: allergies Azelastine HCl [Astepro] 1 spray NASAL BID PRN PRN Reason: allergies Discontinued Ibuprofen [Motrin Ib] 400 mg PO Q8H PRN PRN Reason: Pain Metoprolol Succinate [Toprol XL] 25 mg PO HS Discharge Medication List Cetirizine HCl [Zyrtec] 10 mg PO QAM PRN 01/13/18 [History] Aspirin 81 mg PO DAILY 01/29/18 [History] Triamcinolone Acetonide [Nasacort] 1 spray EA NOSTRIL DAILY PRN 02/11/18 [ History] Azelastine HCl [Astepro] 1 spray NASAL BID PRN 02/13/18 [History] Acetaminophen Tab [Tylenol] 325 mg PO Q4HR PRN tab 02/21/18 [Rx] Acetaminophen Tab [Tylenol] 650 mg PO Q4HR PRN tab 02/21/18 [Rx] Atorvastatin [Lipitor] 40 mg PO DAILY #30 tab 02/21/18 [Rx] Furosemide [Lasix] 20 mg PO DAILY #7 tab 02/21/18 [Rx] Metoprolol Tartrate [Lopressor] 12.5 mg PO BID #60 tab 02/21/18 [Rx] Pantoprazole [Protonix] 40 mg PO AC-BRKFST #30 tablet. 02/21/18 [Rx] Follow up Appointment(s)/Referral(s): Nory Islas NPC [Nurse Practitioner] - 02/25/18 1:00 pm Katya Olmos MD [Primary Care Provider] - 03/06/18 1:15 pm Zbigniew Mcgowan MD [STAFF PHYSICIAN] - 03/11/18 2:15 pm Rory Red MD [STAFF PHYSICIAN] - 03/13/18 1:15 pm [facility], [NON-STAFF] - 1-2 Days Darron Blackmon MD [STAFF PHYSICIAN] - 2 Weeks () Ambulatory/Diagnostic Orders: Complete Blood Count w/diff [LAB.AMB] Time Frame: 3 Days, Location: None Selected Comprehensive Metabolic Panel [LAB.AMB] Time Frame: 3 Days, Location: None Selected Patient Instructions/Handouts: Coronary Artery Bypass Graft (DC) Activity/Diet/Wound Care/Special Instructions: DISCHARGE INSTRUCTIONS: 1. No driving for 4 weeks, or until physician gives their ok. 2. The patient should sleep in their own bed, no medical bed needed. 3. Stairs are not an issue. If the bedroom is upstairs, it is advised that the patient go up at night and down in the morning for the first week. Go slowly, using handrail and take 1 step at a time. 4. MARISA hose are to be worn for 30 days or until physician discontinues. 5. Heart hugger is to be worn 100% of the time until physician discontinues.( except when showering) 6. No lifting, pushing, or pulling more than 10 pounds for 12 weeks. The physician will advise of any restriction changes. 7. The patient is expected to continue the prescribed walking program. 8. Continue pain control per as needed orders. 9. Continue with incentive spirometry and splinting/heart hugger until otherwise directed by the physician. 10. Must shower daily using liquid antibacterial soap and a separate white washcloth for each individual incision. 11. Routine sternal incision care. No powders, lotions, ointments on incisions. 12. Please call surgeon/STEFFEN HOUSE SUPERVISOR for temp greater than 101 F or purulent drainage from incisions. 13. All prescriptions given by surgeon for 30 days. Refills need to be filled through meat counter clerk/primary care physician. 14. A Red armband has been placed on the patient. It should be worn for 30 days post surgery and will be removed by the cardiac surgeons. If an ER visit is necessary, please make sure the number on the Red armband is called. HOME HEALTH SERVICES TO PROVIDE: RN SKILLED HOME CARE SERVICES FOR POST-OP SURGICAL PATIENTS WITH THE FOLLOWING: Coronary Artery Bypass Surgery (CABG), Mitral Valve Replacement/ Repair ( MVR), Aortic Valve Replacement/Repair (AVR) RN TO CONTINUE EDUCATION FROM ``ROAD TO A HEALTH HEART PATIENT EDUCATION MANUAL (GIVEN TO PATIENT IN THE HOSPITAL) MEDICATION RECONCILIATION WITH EDUCATION NEEDED ON FIRST HOME VISIT EMPHASIZE IMPORTANCE OF WEARING BREAST SUPPORT/HEART HUGGER ENCOURAGE USE OF INCENTIVE SPIROMETER 10 X EVERY HOUR WHILE AWAKE ENCOURAGE UTILIZATION OF LOWER EXTREMITY COMPRESSION STOCKINGS/MARISA HOSE and ELEVATE LEGS ABOVE LEVEL OF HEART WHILE AT REST. ENCOURAGE AMBULATION 3-5x/day INCREASING TOLERATES, WHILE AVOID EXTREMES IN TEMPERATURE FREQUENCY: RN TO OPEN THE PATIENT WITHIN 24 HOURS OF DISCHARGE FROM THE HOSPITAL WITH [place] [facility] [place] TO [place]ISIT 2-3 X A WEEK FOR 4 WEEKS ESTABLISHED BY PATIENT NEEDS. LABORATORY: CBC, CMP TO BE DRAWN ON THE THIRD DAY HOME, 02/24/18, (RAN STAT) FAX RESULTS TO [phone]. TELEHEALTH PARAMETERS: WEIGHT: NOTIFY MD OF WEIGHT GAIN OF 2 LBS IN 24 HOURS OR 5 LBS IN ONE WEEK HR: NOTIFY MD OF HR <55 BPM OR HR>100 BPM BP: NOTIFY MD IF BP <90/55 OR BP>140/100 O2 SAT: NOTIFY MD IF PO2<93% ON ROOM AIR SEND TELEHEALTH REPORT TO DIRECTOR OF QUANTITATIVE RESEARCH AND CARDIOVASCULAR SURGEON THE FIRST WEEK OF CARE AND THEN BI-WEEKLY. PLEASE ADDITIONALLY COMMUNICATE ANY ABNORMALS AND NEW FINDINGS TO THE SURGEONS OFFICE. Discharge Disposition: HOME WITH HOME HEALTH SERVICES
--- NOTE | 2018-02-21 17:10 | P.PN ---
Subjective Progress Note Date: 02/21/18 Principal diagnosis: Congestive heart failure related to valvular heart disease associated with severe mitral regurgitation, acute blood loss anemia postoperative anticipated complication of mitral valve surgery, status post mitral valve replacement for severe mitral regurgitation, hypertension hypertensive cardiovascular disease 02/21/2018, patient seen eval examined during the morning rounds clinically patient has been doing awake and alert denies any cough or congestion patient has been able to get up and move around severity or shortness breath has improved significantly very minimal pain at the surgical site is present labs reviewed medications reviewed as well, it appears that patient is being planned for possible discharge later on today 02/20/2018, patient seen eval examined during the rounds on chest tube pacemaker wires have been removed, patient is breathing comfortably on room air denies any chest pain the labs reviewed medications reviewed radiographic studies reviewed as well 02/19/2018, patient seen eval examined during the rounds sitting upright on the bed breathing comfortably patient was able to walk slightly better in terms of strength generalized weakness and fatigue continued to improve some aches and pain at the operative site is present which is stable 02/18/2018, patient seen and evaluated examined during the rounds clinically doing much better breathing more comfortably some discomfort and pain is present the surgical site which is overall stable hemodynamic status stable Ammann does complain of generalized weakness Ammann medications reviewed laboratory data reviewed him a hemoglobin slightly down 6.7 however no source of bleeding is present platelet counts are stable chemistry overall stable [place] the chest x-ray revealed interstitial edema and some subsegmental atelectasis, stable chest tubes, thoracic surgery and remove the left-sided chest tube 02/17/2018, please refer to my dictated report 02/16/2018, patient seen eval examined during the rounds clinically patient has been doing well she has been successfully weaned and extubated sitting upright on the chair breathing relatively more comfortably off of oxygen patient is off of insulin currently on KVO LR, Mayfield-Abimael catheter is in stable position chest x -ray reviewed borderline cardiomegaly interstitial edema and trace pleural effusion is noted, both mediastinal and pleural chest tube in stable serous sanguinous pleural fluid and mediastinal fluid has been obtained but no significant hemorrhage has been noted, hemoglobin remained stable hemodynamic status stable last hemoglobin check was hemoglobin was 6.9 plan is to monitor observe, likely will keep the chest tube in today patient will be kept in ICU, medications reviewed laboratory data reviewed care plan discussed with cardiothoracic surgery as well as nursing staff at length 02/15/2018, patient seen and evaluated examined during the rounds critical care time spent 35 minutes, patient is supposed up day #2 of mitral valve replacement and evacuation of blood clots from mediastinum afterwards care plan discussed with cardiothoracic surgery as well, patient is on assist control mode with PEEP of 8 respiratory rate is 20 patient is breathing about 20-21 currently she is on propofol also on 1 unit of insulin drip, patient is getting LR on maintenance basis, chest x-ray reviewed the output through the chest tube are minimal, Mayfield-Abimael catheter in a stable position descending branch PA, noted. Pressure are improved now is 35/24, patient is making urine, does respond to physical stimuli, and labs reviewed medications reviewed radiographic studies reviewed as well 62-year-old female who was seen evaluated examined in the ICU patient is intubated on full ventilator support patient underwent mitral valve replacement for severe mitral regurgitation patient was seen evaluated examined postoperatively in the ICU she just have received the blood products developed some hives it is not clear if they were associated with the cephalosporin or blood products anyhow patient has significant bleeding from the chest tubes as well as which seems to be settling down, ventilator setting reviewed patient has significant hypercapnia hypoxemia ventilator has been adjusted with requiring higher PEEP of 8, patient is not a candidate for rapid weaning and extubation given mediastinal bleeding, labs reviewed medications reviewed radiographic studies reviewed as well, patient has been taken back to OR for reexploration and clot removal for details please look at the operative report Objective - Vital Signs Vital signs: Vital Signs Temp 98.3 F 02/21/18 14:15 Pulse 92 02/21/18 11:08 Resp 16 02/21/18 14:15 BP 96/54 02/21/18 14:15 Pulse Ox 93 L 02/21/18 14:15 Intake & Output 02/20/18 02/21/18 02/21/18 18:59 06:59 18:59 Intake Total 725 175 200 Output Total 2520 820 700 Balance -1795 -645 -500 Weight 78.2 kg 77.8 kg 77.8 kg Intake: Oral 725 175 200 Output: Chest Tube Drainage 120 20 Left pleural chest tube [address] 60 Urine 2400 800 700 Other: Voiding Method Toilet Toilet Toilet # Voids 0 0 # Bowel Movements 1 ABP, PAP, CO, CI - Last Documented Arterial Blood Pressure 93/55 Pulmonary Artery Pressure 32/16 Cardiac Output 5.7 Cardiac Index 3.3 - Exam - Constitutional General appearance: average body habitus, disheveled, no acute distress - EENT Eyes: anicteric sclerae, dentition normal, normal appearance Ears: bilateral: normal - Neck Neck: normal ROM Carotids: bilateral: upstroke normal Thyroid: bilateral: normal size - Respiratory Respiratory: bilateral: diminished, rales (At the bases), improved air entry bilaterally - Cardiovascular Heart sounds: normal: S1, S2, regular rate rhythm - Gastrointestinal General gastrointestinal: decreased bowel sounds, soft - Integumentary Integumentary: decreased turgor, normal, normal turgor - Neurologic Neurologic: CNII-XII intact - Musculoskeletal Good bilateral strength - Psychiatric Awake and alert, and comfortable - Labs CBC & Chem 7: 02/21/18 04:21 02/21/18 04:21 Labs: Abnormal Lab Results - Last 24 Hours (Table) 02/20/18 02/20/18 02/21/18 Range/Units 17:43 20:44 04:21 WBC 12.4 H (3.8-10.6) k/uL RBC 2.86 L (3.80-5.40) m/uL Hgb 8.9 L (11.4-16.0) gm/dL Hct 27.9 L (34.0-46.0) % RDW 17.2 H (11.5-15.5) % Sodium (137-145) mmol/L Creatinine (0.52-1.04) mg/dL Glucose (74-99) mg/dL POC Glucose (mg/dL) 100 H 128 H (75-99) mg/dL Calcium (8.4-10.2) mg/dL Phosphorus (2.5-4.5) mg/dL AST (14-36) U/L Total Protein (6.3-8.2) g/dL Albumin (3.5-5.0) g/dL 02/21/18 02/21/18 02/21/18 Range/Units 04:21 07:31 11:47 WBC (3.8-10.6) k/uL RBC (3.80-5.40) m/uL Hgb (11.4-16.0) gm/dL Hct (34.0-46.0) % RDW (11.5-15.5) % Sodium 135 L (137-145) mmol/L Creatinine 0.42 L (0.52-1.04) mg/dL Glucose 100 H (74-99) mg/dL POC Glucose (mg/dL) 100 H 110 H (75-99) mg/dL Calcium 8.1 L (8.4-10.2) mg/dL Phosphorus 5.1 H (2.5-4.5) mg/dL AST 58 H (14-36) U/L Total Protein 5.4 L (6.3-8.2) g/dL Albumin 3.0 L (3.5-5.0) g/dL Assessment and Plan Assessment: 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, status post mitral valve replacement postop day #6 Significant mediastinal bleed anticipated postoperative course, requiring reexploration and removal of clots, postop day #6 Recurrent near-syncope related to severe mitral regurgitation and suboptimal cardiac output Acute blood loss anemia Hypertension hypertensive cardiovascular disease Morbid obesity Plan: Continue supplemental oxygen and adjust FiO2 as tolerated Deep breathing exercises incentive spirometry Blood products as needed follow clinical course closely further recommendations pending, initiate his increasing activity as tolerated Would recommend further evaluation on outpatient setting for developing or development of pulmonary hypertension as well as sleep disorder breathing and sleep apnea further recommendations pending plan of care as per clinical response of the patient Time with Patient: Greater than 30
== END 2018-02-21 15:33 | disposition home health service (06) | DRG 220 ==
LOC: 2ORMAIN 05:35 → 6ICU 12:42
PROVIDERS: ADMIT Thoracic Surgery (Cardiothoracic Vascular Surgery); ATTEND Thoracic Surgery (Cardiothoracic Vascular Surgery)
PROC: B246ZZ4 Ultrasonography of Right and Left Heart, Transesophageal (ICD-10-PCS; principal; 2018-02-14 08:00)
PROC: 0WCB0ZZ Extirpation of Matter from Left Pleural Cavity, Open Approach (ICD-10-PCS; principal; 2018-02-14 08:00)
PROC: 02L70ZK Occlusion of Left Atrial Appendage, Open Approach (ICD-10-PCS; principal; 2018-02-14 08:00)
PROC: 0WC90ZZ Extirpation of Matter from Right Pleural Cavity, Open Approach (ICD-10-PCS; principal; 2018-02-14 08:00)
PROC: 02UG0JZ Supplement Mitral Valve with Synthetic Substitute, Open Approach (ICD-10-PCS; principal; 2018-02-14 08:00)
PROC: 5A1221Z Performance of Cardiac Output, Continuous (ICD-10-PCS; principal; 2018-02-14 08:00)
PROC: 4A133B3 Monitoring of Arterial Pressure, Pulmonary, Percutaneous Approach (ICD-10-PCS; 2018-02-15)
PROC: 4A1239Z Monitoring of Cardiac Output, Percutaneous Approach (ICD-10-PCS; 2018-02-15)
PROC: 02HQ32Z Insertion of Monitoring Device into Right Pulmonary Artery, Percutaneous Approach (ICD-10-PCS; 2018-02-15)
PROC: 30233L1 Transfusion of Nonautologous Fresh Plasma into Peripheral Vein, Percutaneous Approach (ICD-10-PCS; 2018-02-15)
PROC: 30233N1 Transfusion of Nonautologous Red Blood Cells into Peripheral Vein, Percutaneous Approach (ICD-10-PCS; 2018-02-15)
PROC: 30233R1 Transfusion of Nonautologous Platelets into Peripheral Vein, Percutaneous Approach (ICD-10-PCS; 2018-02-15)
DX: I08.1 Rheumatic disorders of both mitral and tricuspid valves (principal); D62 Acute posthemorrhagic anemia; I44.2 Atrioventricular block, complete; I97.618 Postprocedural hemorrhage of a circulatory system organ or structure following other circulatory system procedure; D72.829 Elevated white blood cell count, unspecified; E66.01 Morbid (severe) obesity due to excess calories; E78.1 Pure hyperglyceridemia; E78.5 Hyperlipidemia, unspecified; E83.51 Hypocalcemia; I11.0 Hypertensive heart disease with heart failure; I48.91 Unspecified atrial fibrillation; J45.909 Unspecified asthma, uncomplicated; R09.02 Hypoxemia; Z79.82 Long term (current) use of aspirin; Z88.0 Allergy status to penicillin; Z98.51 Tubal ligation status; Z82.49 Family history of ischemic heart disease and other diseases of the circulatory system; Z68.30 Body mass index [BMI] 30.0-30.9, adult; Y83.4 Other reconstructive surgery as the cause of abnormal reaction of the patient, or of later complication, without mention of misadventure at the time of the procedure; I95.9 Hypotension, unspecified
CPT/HCPCS: 71045; 71046; 80051; 80053; 82310; 82330; 82805; 83735; 84100; 84132; 85025; 85027; 85384; 85520; 85610; 85730; 86850; 86880; 86891; 86900; 86901; 86920; 94002; 94003; 94640

== ENCOUNTER 2021-09-03 01:24 | Emergency (ER) | payer MEDICARE, OTHER ==
[2021-09-03 01:40] VITALS: TEMP 97.8
--- NOTE | 2021-09-03 02:03 | ED ---
SOB HPI - General Chief Complaint: Shortness of Breath Stated Complaint: Abdominal pain Time Seen by Provider: 09/03/21 01:54 Source: patient, RN notes reviewed, old records reviewed Mode of arrival: ambulatory Limitations: no limitations - History of Present Illness Initial Comments: This is a 65-year-old female to the emergency department for evaluation. Patient woke up anxiety and panic tonight. Patient has no other complaints no recent travel history no sick contacts. No recent fever cough or congestion felt fine yesterday. Patient has no significant medical history takes no medications. She is anxious and panicky. Patient was also doing some shopping yesterday and throughout the day and had no complaints of breathing during that time. MD Complaint: shortness of breath, cough -: hour(s) Radiation: back Severity: moderate Severity scale (1-10): 4 Quality: aching, sharp Consistency: constant Improves With: nothing Worsens With: nothing Known History Of: other (none) Associated Symptoms: denies other symptoms Treatments Prior to Arrival: none - Related Data Home Medications Medication Instructions Recorded Confirmed Cetirizine HCl [Zyrtec] 10 mg PO QAM PRN 01/13/18 02/14/18 Aspirin 81 mg PO DAILY 01/29/18 02/14/18 Triamcinolone Acetonide [Nasacort] 1 spray EA NOSTRIL DAILY PRN 02/11/18 0 02/14/18 Azelastine HCl [Astepro] 1 spray NASAL BID PRN 02/13/18 02/14/18 Previous Rx's Medication Instructions Recorded Acetaminophen Tab [Tylenol] 325 mg PO Q4HR PRN tab 02/21/18 Acetaminophen Tab [Tylenol] 650 mg PO Q4HR PRN tab 02/21/18 Atorvastatin [Lipitor] 40 mg PO DAILY #30 tab 02/21/18 Furosemide [Lasix] 20 mg PO DAILY #7 tab 02/21/18 Metoprolol Tartrate [Lopressor] 12.5 mg PO BID #60 tab 02/21/18 Pantoprazole [Protonix] 40 mg PO AC-BRKFST #30 tablet. 02/21/18 Allergies Allergy/AdvReac Type Severity Reaction Status Date / Time latex AdvReac Rash/Hives Verified 09/03/21 01:40 mushroom AdvReac CONGESTION Verified 09/03/21 01:40 Penicillins AdvReac Rash/Hives Verified 09/03/21 01:40 Sulfa (Sulfonamide AdvReac Rash/Hives Verified 09/03/21 01:40 Antibiotics) Review of Systems ROS Statement: Those systems with pertinent positive or pertinent negative responses have been documented in the HPI. ROS Other: All systems not noted in ROS Statement are negative. Past Medical History Past Medical History: Chest Pain / Angina Additional Past Medical History / Comment(s): low bp at times, stress test 01-09-18. pt stated she" has a leaky mitral valve", recent admission for episodes of feeling lightheaded, just started new beta roseanne History of Any Multi-Drug Resistant Organisms: None Reported Past Surgical History: Tubal Ligation Additional Past Surgical History / Comment(s): recent EILEEN Past Anesthesia/Blood Transfusion Reactions: No Reported Reaction Past Psychological History: No Psychological Hx Reported Smoking Status: Never smoker Past Alcohol Use History: Rare Past Drug Use History: None Reported - Past Family History Mother Additional Family Medical History / Comment(s): "heart disease" in her 70's Father Additional Family Medical History / Comment(s): "heart disease" in his 70's General Exam General appearance: alert, in no apparent distress, anxious Head exam: Present: atraumatic, normocephalic, normal inspection Eye exam: Present: normal appearance, PERRL, EOMI. Absent: scleral icterus, conjunctival injection, periorbital swelling ENT exam: Present: normal exam, mucous membranes moist Neck exam: Present: normal inspection. Absent: tenderness, meningismus, lymphadenopathy Respiratory exam: Present: normal lung sounds bilaterally. Absent: respiratory distress, wheezes, rales, rhonchi, stridor Cardiovascular Exam: Present: regular rate, normal rhythm, normal heart sounds. Absent: systolic murmur, diastolic murmur, rubs, gallop, clicks GI/Abdominal exam: Present: soft, normal bowel sounds. Absent: distended, tenderness, guarding, rebound, rigid Extremities exam: Present: normal inspection, full ROM, normal capillary refill. Absent: tenderness, pedal edema, joint swelling, calf tenderness Back exam: Present: normal inspection Neurological exam: Present: alert, oriented X3, CN II-XII intact Psychiatric exam: Present: normal affect, normal mood Skin exam: Present: warm, dry, intact, normal color. Absent: rash Course Vital Signs 09/03/21 01:35 Temperature 97.8 F Pulse Rate 65 Respiratory 18 Rate Blood Pressure 135/68 O2 Sat by Pulse 97 Oximetry - Reevaluation(s) Reevaluation #1: 09/03/21 04:27 Medical record is reviewed Reevaluation #2: 09/03/21 04:27 Patient is no significant complaints currently Reevaluation #3: 09/03/21 04:27 Patient symptoms are much improved here in the ER Reevaluation #4: 09/03/21 04:27 Patient informed results questions answered and is okay for discharge Medical Decision Making - Medical Decision Making 65 female to the emergency department for evaluation. Patient has no travel history or sick contacts no fever cough or congestion coming in with shortness of breath no sleep, symptoms are currently resolved. Patient feels well and can be discharged home - Lab Data Result diagrams: 09/03/21 01:57 09/03/21 01:57 Lab Results 09/03/21 09/03/21 09/03/21 Range/Units 01:57 01:57 01:57 WBC 7.8 (3.8-10.6) k/uL RBC 4.52 (3.80-5.40) m/uL Hgb 13.9 (11.4-16.0) gm/dL Hct 43.1 (34.0-46.0) % MCV 95.3 (80.0-100.0) fL MCH 30.7 (25.0-35.0) pg MCHC 32.2 (31.0-37.0) g/dL RDW 12.0 (11.5-15.5) % Plt Count 229 (150-450) k/uL MPV 7.5 Neutrophils % 41 % Lymphocytes % 47 % Monocytes % 7 % Eosinophils % 3 % Basophils % 1 % Neutrophils # 3.2 (1.3-7.7) k/uL Lymphocytes # 3.6 (1.0-4.8) k/uL Monocytes # 0.5 (0-1.0) k/uL Eosinophils # 0.3 (0-0.7) k/uL Basophils # 0.1 (0-0.2) k/uL PT 10.0 (9.0-12.0) sec INR 0.9 (<1.2) APTT 24.7 (22.0-30.0) sec Sodium 136 L (137-145) mmol/L Potassium 3.7 (3.5-5.1) mmol/L Chloride 106 (98-107) mmol/L Carbon Dioxide 22 (22-30) mmol/L Anion Gap 8 mmol/L BUN 18 H (7-17) mg/dL Creatinine 0.56 (0.52-1.04) mg/dL Est GFR (CKD-EPI)AfAm >90 (>60 ml/min/1.73 sqM) Est GFR (CKD-EPI)NonAf >90 (>60 ml/min/1.73 sqM) Glucose 104 H (74-99) mg/dL Plasma Lactic Acid Franco (0.7-2.0) mmol/L Calcium 8.8 (8.4-10.2) mg/dL Total Bilirubin 0.5 (0.2-1.3) mg/dL AST 21 (14-36) U/L ALT 15 (4-34) U/L Alkaline Phosphatase 105 (38-126) U/L Troponin I (0.000-0.034) ng/mL Total Protein 6.7 (6.3-8.2) g/dL Albumin 3.7 (3.5-5.0) g/dL Urine Color Urine Appearance (Clear) Urine pH (5.0-8.0) Ur Specific Ambler (1.001-1.035) Urine Protein (Negative) Urine Glucose (UA) (Negative) Urine Ketones (Negative) Urine Blood (Negative) Urine Nitrite (Negative) Urine Bilirubin (Negative) Urine Urobilinogen (<2.0) mg/dL Ur Leukocyte Esterase (Negative) Urine RBC (0-5) /hpf Urine WBC (0-5) /hpf Ur Squamous Epith Cells (0-4) /hpf 09/03/21 09/03/21 09/03/21 Range/Units 01:57 01:57 02:57 WBC (3.8-10.6) k/uL RBC (3.80-5.40) m/uL Hgb (11.4-16.0) gm/dL Hct (34.0-46.0) % MCV (80.0-100.0) fL MCH (25.0-35.0) pg MCHC (31.0-37.0) g/dL RDW (11.5-15.5) % Plt Count (150-450) k/uL MPV Neutrophils % % Lymphocytes % % Monocytes % % Eosinophils % % Basophils % % Neutrophils # (1.3-7.7) k/uL Lymphocytes # (1.0-4.8) k/uL Monocytes # (0-1.0) k/uL Eosinophils # (0-0.7) k/uL Basophils # (0-0.2) k/uL PT (9.0-12.0) sec INR (<1.2) APTT (22.0-30.0) sec Sodium (137-145) mmol/L Potassium (3.5-5.1) mmol/L Chloride (98-107) mmol/L Carbon Dioxide (22-30) mmol/L Anion Gap mmol/L BUN (7-17) mg/dL Creatinine (0.52-1.04) mg/dL Est GFR (CKD-EPI)AfAm (>60 ml/min/1.73 sqM) Est GFR (CKD-EPI)NonAf (>60 ml/min/1.73 sqM) Glucose (74-99) mg/dL Plasma Lactic Acid Franco 1.6 (0.7-2.0) mmol/L Calcium (8.4-10.2) mg/dL Total Bilirubin (0.2-1.3) mg/dL AST (14-36) U/L ALT (4-34) U/L Alkaline Phosphatase (38-126) U/L Troponin I <0.012 (0.000-0.034) ng/mL Total Protein (6.3-8.2) g/dL Albumin (3.5-5.0) g/dL Urine Color Light Yellow Urine Appearance Clear (Clear) Urine pH 6.5 (5.0-8.0) Ur Specific Ambler 1.005 (1.001-1.035) Urine Protein Negative (Negative) Urine Glucose (UA) Negative (Negative) Urine Ketones Negative (Negative) Urine Blood Negative (Negative) Urine Nitrite Negative (Negative) Urine Bilirubin Negative (Negative) Urine Urobilinogen <2.0 (<2.0) mg/dL Ur Leukocyte Esterase Small H (Negative) Urine RBC 2 (0-5) /hpf Urine WBC 1 (0-5) /hpf Ur Squamous Epith Cells <1 (0-4) /hpf - EKG Data -: EKG Interpreted by Me (EKG is sinus rhythm 68 ID [id number] QRS 93 QTC 429) - Radiology Data Radiology results: report reviewed (Chest x-rays negative for acute disease), image reviewed Disposition Clinical Impression: Shortness of breath Disposition: HOME SELF-CARE Condition: Good Instructions (If sedation given, give patient instructions): Shortness of Breath (ED) Is patient prescribed a controlled substance at d/c from ED?: No Referrals: Katya Olmos MD [Primary Care Provider] - 1-2 days
[2021-09-03 02:11] LABS: Basophils # (A) 0.1 k/uL (0-0.2); Basophils % (A) 1 %; Eosinophils # (A) 0.3 k/uL (0-0.7); Eosinophils % (A) 3 %; HCT 43.1 % (34.0-46.0); HGB 13.9 gm/dL (11.4-16.0); Lymphocytes # (A) 3.6 k/uL (1.0-4.8); Lymphocytes % (A) 47 %; MCH 30.7 pg (25.0-35.0); MCHC 32.2 g/dL (31.0-37.0); MCV 95.3 fL (80.0-100.0); Mean Platelet Volume 7.5; Monocytes # (A) 0.5 k/uL (0-1.0); Monocytes % (A) 7 %; Neutrophils # (A) 3.2 k/uL (1.3-7.7); Neutrophils % (A) 41 %; Platelet Count 229 k/uL (150-450); RBC 4.52 m/uL (3.80-5.40); WBC 7.8 k/uL (3.8-10.6)
[2021-09-03 02:21] LABS: ALT 15 U/L (4-34); AST 21 U/L (14-36); African American GFR (CKD) >90 (>60 ml/min/1.73 sqM); Albumin 3.7 g/dL (3.5-5.0); Alkaline Phosphatase 105 U/L (38-126); Anion Gap 8 mmol/L; Blood Urea Nitrogen 18 mg/dL (7-17); Calcium 8.8 mg/dL (8.4-10.2); Carbon Dioxide 22 mmol/L (22-30); Chloride 106 mmol/L (98-107); Glucose 104 mg/dL (74-99); Non-African American GFR(CKD) >90 (>60 ml/min/1.73 sqM); Potassium 3.7 mmol/L (3.5-5.1); Sodium 136 mmol/L (137-145); Total Bilirubin 0.5 mg/dL (0.2-1.3); Total Protein 6.7 g/dL (6.3-8.2)
--- NOTE | 2021-09-03 02:33 | XR ---
EXAMINATION TYPE: XR chest 1V DATE OF EXAM: 09/03/2021 COMPARISON: 02/21/2018 HISTORY: Short of breath TECHNIQUE: FINDINGS: There is no heart failure nor confluent pneumonic infiltrate. Costophrenic angles are clear . There are sternal wires. Bony thorax is intact. IMPRESSION: No active cardiopulmonary disease. There is clearing of the pleural fluid and mild pulmon mynor congestion compared to old exam.
[2021-09-03 02:39] LABS: INR 0.9 (<1.2); Partial Thromboplastin Time 24.7 sec (22.0-30.0)
[2021-09-03 03:11] LABS: Appearance,Urine Clear (Clear); Bilirubin,Urine Negative (Negative); Blood,Urine Negative (Negative); Color,Urine Light Yellow; Glucose,Urine (UA) Negative (Negative); Ketones,Urine Negative (Negative); Leukocyte Esterase,Urine Small (Negative); Nitrite,Urine Negative (Negative); PH, Urine 6.5 (5.0-8.0); Protein,Urine Negative (Negative); RBC,Urine 2 /hpf (0-5); Specific Gravity,Urine 1.005 (1.001-1.035); Squamous Epithelial Cell,Urine <1 /hpf (0-4); Urobilinogen,Urine <2.0 mg/dL (<2.0); WBC,Urine 1 /hpf (0-5)
[2021-09-03 04:58] VITALS: BP 126/73; PULSE 72; RESP 16
== END 2021-09-03 04:57 | disposition home or self-care (01) ==
LOC: EC 01:24
DX: R06.02 Shortness of breath (principal); Z79.82 Long term (current) use of aspirin; Z91.040 Latex allergy status; Z88.0 Allergy status to penicillin; Z88.2 Allergy status to sulfonamides; Z98.51 Tubal ligation status
CPT/HCPCS: 36415; 71045; 80053; 81001; 83605; 84484; 85025; 85610; 85730; 93005; 99285

== ENCOUNTER → 2022-08-14 | Outpatient (CLI) | payer MEDICARE, OTHER ==
--- NOTE | 2022-08-14 13:36 | BD ---
EXAMINATION TYPE: Axial Bone Density DATE OF EXAM: 08/14/2022 CLINICAL HISTORY: 66 years year old Female. ICD-10 CODE: Z13.820 SCREENING FOR OSTEOPOROSIS Height: 5'2 1/4 Weight: 159 FRAX RISK QUESTIONS: History of Fracture in Adulthood: y Secondary Osteoporosis: RISK FACTORS HISTORY OF: Postmenopausal woman: y MEDICATIONS: Additional Medications: heart Additional History: heart surgery valve repair 2018 EXAM MEASUREMENTS: Bone mineral densitometry was performed using the [employer] System. Bone mineral density as measured about the Lumbar spine is: ----- L1-L4(G/cm2): 1.178 T Score Values are as follows: ----- L1: 0.6 ----- L2: -0.5 ----- L3: 0.1 ----- L4: -0.3 ----- L1-L4: 0.0 Z Score Values are as follows: ----- L1: 2.0 ----- L2: 0.9 ----- L3: 1.5 ----- L4: 1.1 ----- L1-L4: 1.1 Bone mineral density about the R hip (g/cm2): 0.903 Bone mineral density about the L hip (g/cm2): 0.917 T Score values are as follows: -----R Neck: -0.5 -----L Neck: -1.0 -----R Total: -0.8 -----L Total: -0.7 Z Score values are as follows: -----R Neck: 1.0 -----L Neck: 0.5 -----R Total: 0.4 -----L Total: 0.5 FRAX%s: The graph provided illustrates a 8.5% chance for a major osteoporotic fx and a 0.8% chance fo r the hips probability for fx in 10 years time. IMPRESSION: Normal (Values between +1 and -1 indicate normal bone mass). Consider repeating this study in 5 year s or sooner if there is some new clinical indication. NOTE: T-SCORE=SD OF THE YOUNG ADULT MEAN.
--- NOTE | 2022-08-15 09:02 | MM ---
Reason for Exam: Screening (asymptomatic). Last mammogram was performed 7 year(s) and 3 month(s) ago. Patient History: Menarche at age 11. First Full-Term at age 18. Postmenopausal. Patient has history of breast feeding. Risk Values: Vonda 5 year model risk: 1.5%. NCI Lifetime model risk: 5.0%. Prior Study Comparison: 10/25/2006 Screening Mammogram, [facility]. 11/23/2008 Screening Mammogram, [facility]. 05/03/2015 Bilateral Screening Mammogram, [facility]. Tissue Density: There are scattered fibroglandular densities. Analyzed By CAD. Overall Assessment: Benign, BI-RAD 2 Management: Screening Mammogram of both breasts in 1 year. Electronically signed and approved by: Kennedy Moss M.D.
== END | disposition home or self-care (01) ==
LOC: RADBDWWP 12:46
PROVIDERS: ATTEND Family Medicine
DX: Z12.31 Encounter for screening mammogram for malignant neoplasm of breast (principal); Z13.820 Encounter for screening for osteoporosis; Z78.0 Asymptomatic menopausal state
CPT/HCPCS: 77063; 77067; 77080

== ENCOUNTER → 2022-12-17 | Outpatient (CLI) | payer MEDICARE, OTHER ==
--- NOTE | 2022-12-17 09:24 | US ---
EXAMINATION TYPE: US gallbladder DATE OF EXAM: 12/17/2022 COMPARISON: NONE CLINICAL INDICATION: Female, 67 years old with history of K81.1 CHRONIC CHOLECYSTITIS; Pt states ABD pain and pressure post prandial TECHNIQUE: Multiple sonographic images of the right upper quadrant are obtained. FINDINGS: EXAM MEASUREMENTS: Liver Length: 15.2 cm Gallbladder Wall: 0.2 cm CBD: 0.6 cm Right Kidney: 10.2 x 4.6 x 5.3 cm Pancreas: wnl, tail obscured by overlying bowel gas Liver: wnl Gallbladder: Multiple gallstones within lumen, wall not thickened Evidence for sonographic Tong's sign: No CBD: wnl Right Kidney: wnl, lower pole gassed out IMPRESSION: Cholelithiasis.
== END | disposition home or self-care (01) ==
LOC: RADUSWWP 08:24
PROVIDERS: ATTEND Family Medicine
DX: K80.20 Calculus of gallbladder without cholecystitis without obstruction (principal)
CPT/HCPCS: 76705

== ENCOUNTER → 2023-03-25 | Outpatient (CLI) | payer MEDICARE, OTHER ==
--- NOTE | 2023-03-25 16:25 | XR ---
EXAMINATION TYPE: XR lumbosacral spine min 4V DATE OF EXAM: 03/25/2023 4:18 PM INDICATION: Patient age:Female; 67 years old; Reason for study: M25.551 RIGHT HIP, LUMBAR SPINE; [facility]. COMPARISON: None TECHNIQUE: Frontal, lateral , bilateral oblique and coned in L5-S1 lateral views of the spine. FINDINGS: There are 5 lumbar type vertebral bodies identified. No evidence of any acute osseous patho logy. No evidence of loss of vertebral body height is seen. There is normal alignment of the lumbar vertebral bodies. Disc narrowing with endplate sclerosis and anterior osteophytosis at L5-S1. Multile rosa facet arthropathy most pronounced at L5-S1 with a least mild neural foraminal stenosis bilaterall y. IMPRESSION: 1. No acute process. 2. Degenerative disc disease at L5-S1 with facet arthropathy.
--- NOTE | 2023-03-25 16:25 | XR ---
EXAMINATION TYPE: XR Hip Complete RT DATE OF EXAM: 03/25/2023 4:18 PM CLINICAL INDICATION:Female, 67 years old with history of M25.551 RIGHT HIP, LUMBAR SPINE; [facility] COMPARISON: None. TECHNIQUE: XR Hip Complete RT; hip was examined in the frontal and lateral projections FINDINGS: No evidence for acute process, joint dislocation or significant soft tissue swelling. Osteo phyte formation of the superior acetabulum of the hip. Moderate joint space narrowing IMPRESSION: 1. No evidence for acute process. 2. Moderate hip osteoarthrosis.
== END | disposition home or self-care (01) ==
LOC: RADXRMAIN 15:49
PROVIDERS: ATTEND Family Medicine
DX: M51.37 Other intervertebral disc degeneration, lumbosacral region (principal); M47.816 Spondylosis without myelopathy or radiculopathy, lumbar region; M16.11 Unilateral primary osteoarthritis, right hip
CPT/HCPCS: 72110; 73502

== ENCOUNTER → 2023-04-01 | Outpatient (CLI) | payer MEDICARE, OTHER ==
[2023-04-01 16:04] LABS: African American GFR (CKD) >90 (>60 ml/min/1.73 sqM); Blood Urea Nitrogen 12 mg/dL (7-17); Non-African American GFR(CKD) >90 (>60 ml/min/1.73 sqM)
--- NOTE | 2023-04-01 21:01 | CT ---
EXAMINATION TYPE: CT lumbar spine wo/w con CT DLP: 916.6 mGycm, Automated exposure control for dose reduction was used. DATE OF EXAM: 04/01/2023 4:41 PM COMPARISON: None. CLINICAL INDICATION:Female, 67 years old with history of R20.2 PARESTHESIA OF SKIN; [facility], Lower back m uscle spasms, right leg numbness (knee down) x 3 weeks TECHNIQUE: Multiple axial images were obtained from the midportion of T11 through the sacroiliac padmini nts. Soft tissue and bone windows in coronal and sagittal planes were obtained and reviewed. Contrast used: mL of Isovue 300 without and with IV Contrast, none. Oral contrast used: none. FINDINGS: Alignment: There are 5 lumbar type vertebral bodies within normal alignment. Bone: No evidence of fracture is identified. Minimal degeneration changes worse at L5-S1 with osteop hyte which is eccentric right central. Discs: T12-L1: No spinal canal or neural foraminal stenosis is identified. L1-L2: No spinal canal or neural foraminal stenosis is identified. L2-L3: No spinal canal or neural foraminal stenosis is identified. L3-L4: Facet joint arthropathy and disc bulging result with mild spinal canal stenosis and mild bilat eral neural foraminal stenosis. L4-L5: Facet joint arthropathy and disc bulging result with mild spinal canal stenosis and mild bilat eral neural foraminal stenosis. L5-S1: Osteophyte complex which impresses upon the forming right nerves series 6 image 65. This would be the exiting right S1-S2 nerves. No spinal canal or neural foraminal stenosis is identified. Other: Layering gallstones in the gallbladder lumen. IMPRESSION: 1. No evidence for spinal fracture. 2. Large osteophyte which impresses upon the forming nerves at L5-S1/exiting right nerve S1/S2 3. Cholelithiasis.
== END | disposition home or self-care (01) ==
LOC: RADCTMAIN 15:18
PROVIDERS: ATTEND Family Medicine
DX: M79.604 Pain in right leg (principal); R53.1 Weakness; R20.2 Paresthesia of skin; M25.78 Osteophyte, vertebrae; K80.20 Calculus of gallbladder without cholecystitis without obstruction
CPT/HCPCS: 82565; 84520; 72133; 36415; Q9967

== ENCOUNTER 2024-01-28 13:30 | Observation (INO) | payer MEDICARE, OTHER ==
[2024-01-28 13:57] LABS: Glucose,Whole Blood 93 mg/dL (70-110)
[2024-01-28] MEDS: SODIUM CHLORIDE 0.9% 1,000 ML IV ONE (14:06)
--- NOTE | 2024-01-28 14:20 | ED ---
General Adult HPI - General Chief complaint: Altered Mental Status Stated complaint: Confusion,Weakness Time Seen by Provider: 01/28/24 13:35 Source: patient, EMS, RN notes reviewed, old records reviewed Mode of arrival: EMS Limitations: altered mental status - History of Present Illness Initial comments: Patient is a 68-year-old female who presents emergency department for altered mental status. States she cannot recall anything that occurred today. Does not remember calling EMS despite calling EMS. She is not sure why she is here. Cu rrently has no complaints. Per EMS, was called due to weakness and confusion. She denies any chest pain, shortness of breath, abdominal pain with nausea, vomiting. Denies any fevers, chills, cough. No other acute complaints at this time. Presents for further evaluation at this time. - Related Data Home Medications Medication Instructions Recorded Confirmed Cetirizine HCl [Zyrtec] 10 mg PO QAM PRN 01/13/18 02/14/18 Aspirin 81 mg PO DAILY 01/29/18 02/14/18 Triamcinolone Acetonide [Nasacort] 1 spray EA NOSTRIL DAILY PRN 02/11/18 02/14/18 Azelastine HCl [Astepro] 1 spray NASAL BID PRN 02/13/18 02/14/18 Previous Rx's Medication Instructions Recorded Acetaminophen Tab [Tylenol] 325 mg PO Q4HR PRN tab 02/21/18 Acetaminophen Tab [Tylenol] 650 mg PO Q4HR PRN tab 02/21/18 Atorvastatin [Lipitor] 40 mg PO DAILY #30 tab 02/21/18 Furosemide [Lasix] 20 mg PO DAILY #7 tab 02/21/18 Metoprolol Tartrate [Lopressor] 12.5 mg PO BID #60 tab 02/21/18 Pantoprazole [Protonix] 40 mg PO AC-BRKFST #30 tablet. 02/21/18 Allergies Allergy/AdvReac Type Severity Reaction Status Date / Time latex AdvReac Rash/Hives Verified 01/28/24 14:14 mushroom AdvReac CONGESTION Verified 01/28/24 14:14 Penicillins AdvReac Rash/Hives Verified 01/28/24 14:14 Sulfa (Sulfonamide AdvReac Rash/Hives Verified 01/28/24 14:14 Antibiotics) Review of Systems ROS Statement: Those systems with pertinent positive or pertinent negative responses have been documented in the HPI. Review of Systems: CONST: Denies fever EYES: Denies blurry vision ENT: Denies nasal congestion C/V: Denies Chest pain RESP: Denies shortness of breath GI: Denies abdominal pain : Denies dysuria SKIN: Denies rash. MSK: Denies joint pain. NEURO: Denies headache ROS Other: All systems not noted in ROS Statement are negative. Past Medical History Past Medical History: Chest Pain / Angina Additional Past Medical History / Comment(s): low bp at times, stress test 01-09-18. pt stated she" has a leaky mitral valve", recent admission for episodes of feeling lightheaded, just started new beta roseanne History of Any Multi-Drug Resistant Organisms: None Reported Past Surgical History: Tubal Ligation Additional Past Surgical History / Comment(s): recent EILEEN Past Anesthesia/Blood Transfusion Reactions: No Reported Reaction Past Psychological History: No Psychological Hx Reported Smoking Status: Never smoker Past Alcohol Use History: Rare Past Drug Use History: None Reported - Past Family History Mother Additional Family Medical History / Comment(s): "heart disease" in her 70's Father Additional Family Medical History / Comment(s): "heart disease" in his 70's General Exam - General Exam Comments Initial Comments: General: Appears in no acute distress. HEAD: Normal with no signs of head trauma. EYES: PERRLA, EOMI, conjunctiva normal, no discharge. Pupils are 3 mm and equal bilaterally. ENT: Hearing grossly intact, normal oropharynx. RESPIRATORY: Clear breath sounds bilaterally. No wheezes, rales, or rhonchi. C/V: Regular rate and rhythm. S1 and S2 auscultated, no edema, peripheral pulses 2+ and intact throughout ABD: Abd is soft, nontender, nondistended EXT: Normal range of motion, no obvious deformity SKIN: No rashes or lesions observed on exposed skin. NEURO: Alert and oriented x 4. Cranial nerves II-XII intact. No focal sensory or strength deficits. GCS of 15. Does appear to have some amnesia regarding activities that occurred today. Cerebellar function is intact as limited by normal finger-nose testing, [id number] testing. Absence of d ysdiadochokinesia. Limitations: altered mental status Course Vital Signs 01/28/24 13:50 Temperature 97.9 F Pulse Rate 81 Respiratory 17 Rate Blood Pressure 154/75 O2 Sat by Pulse 100 Oximetry Medical Decision Making - Medical Decision Making Was pt. sent in by a medical professional or institution (JASPAL Gayle, PATHOLOGY MANAGER, urgent care, hospital, or correction...) When possible be specific @ -No Did you speak to anyone other than the patient for history (EMS, parent, family, police, friend...)? What history was obtained from this source @ -No Did you review nursing and triage notes (agree or disagree)? Why? @ -I reviewed and agree with nursing and triage notes Were old charts reviewed (outside hosp., previous admission, EMS record, old EKG, old radiological studies, urgent care reports/EKG's, correction records)? Report findings @ -No old charts were reviewed Differential Diagnosis (chest pain, altered mental status, abdominal pain women, abdominal pain men, vaginal bleeding, weakness, fever, dyspnea, syncope, headache, dizziness, GI bleed, back pain, seizure, CVA, palpatations, mental health, musculoskeletal)? @ -Differential Altered Mental Status: Hypoglycemia, DKA, hypercapnia, ETOH, overdose, CO poisoning, trauma, myxedema coma, HTN encephalopathy, infection, encephalitis, psychosis, intercranial hemorrhage, hepatic encephalopathy, meningitis, CVA, this is not meant to be an all-inclusive list EKG interpreted by me (3pts min.). @ -As above X-rays interpreted by me (1pt min.). @ -Chest x-ray reveals no obvious acute cardiopulmonary process. CT interpreted by me (1pt min.). @ -CT brain reveals no obvious acute intracranial process. U/S interpreted by me (1pt. min.). @ -None done What testing was considered but not performed or refused? (CT, X-rays, U/S, labs)? Why? @ -None What meds were considered but not given or refused? Why? @ -None Did you discuss the management of the patient with other professionals (professionals i.e. JASPAL Gayle, PATHOLOGY MANAGER, lab, RT, psych nurse, geriatric social work professor, typing bookkeeper, teacher, chief knowledge officer, correctional counselor/case manager)? Give summary @ -No Was smoking cessation discussed for >3mins.? @ -No Was critical care preformed (if so, how long)? @ -No Were there social determinants of health that impacted care today? How? (Homelessness, low income, unemployed, alcoholism, drug addiction, transportation, low edu. Level, literacy, decrease access to med. care, custodial, rehab)? @ -No Was there de-escalation of care discussed even if they declined (Discuss DNR or withdrawal of care, Hospice)? DNR status @ -No What co-morbidities impacted this encounter? (DM, HTN, Smoking, COPD, CAD, Can cer, CVA, ARF, Chemo, Hep., AIDS, mental health diagnosis, sleep apnea, morbid obesity)? @ -None Was patient admitted / discharged? Hospital course, mention meds given and route, prescriptions, significant lab abnormalities, going to OR and other pertinent info. @ -Patient presents for altered mental status. Vital signs within acceptable limits. Currently has no acute complaints. Altered mental status seems to stem from the fact that she has some amnesia regarding events at home prior to ar rival. Does not recall calling EMS. Was called for weakness and confusion. Currently ANO x 4. No obvious findings on exam. Vitals within acceptable limits. We will obtain altered mental status workup. Patient in agreement this plan. EKG shows no signs of acute ischemia. Accu-Chek is within normal limits.Imaging unremarkable. Labs unremarkable. Still waiting on urinalysis. On reevaluation, patient is still having some confusion to events from today. Family is at the bedside. States that other than this, she is acting normal baseline. I would like to admit her for altered mental status at this time. They were in agreement this plan. Urology will be consulted. I spoke with Dr. Bernardo who accepted the admission. Undiagnosed new problem with uncertain prognosis? @ -No Drug Therapy requiring intensive monitoring for toxicity (Heparin, Nitro, Insulin, Cardizem)? @ -No Were any procedures done? @ -No Diagnosis/symptom? @ -Altered mental status, confusion Acute, or Chronic, or Acute on Chronic? @ -Acute Uncomplicated (without systemic symptoms) or Complicated (systemic symptoms)? @ -Complicated Side effects of treatment? @ -None Exacerbation, Progression, or Severe Exacerbation] @ -No Poses a threat to life or bodily function? @ -Potentially, yes - Lab Data Result diagrams: 01/28/24 14:10 01/28/24 14:10 Lab Results 01/28/24 01/28/2401/27/24 Range/Units 13:56 14:10 14:10 WBC 8.1 (3.8-10.6) k/uL RBC 3.96 (3.80-5.40) m/uL Hgb 12.6 (11.4-16.0) gm/dL Hct 37.6 (34.0-46.0) % MCV 95.0 (80.0-100.0) fL MCH 31.8 (25.0-35.0) pg MCHC 33.5 (31.0-37.0) g/dL RDW 12.5 (11.5-15.5) % Plt Count 257 (150-450) k/uL MPV 8.0 Neutrophils % 58 % Lymphocytes % 33 % Monocytes % 5 % Eosinophils % 2 % Basophils % 0 % Neutrophils # 4.7 (1.3-7.7) k/uL Lymphocytes # 2.7 (1.0-4.8) k/uL Monocytes # 0.4 (0-1.0) k/uL Eosinophils # 0.2 (0-0.7) k/uL Basophils # 0.0 (0-0.2) k/uL PT 10.2 (10.0-12.5) sec INR 0.9 (<1.2) APTT 24.0 (22.0-30.0) sec Sodium (137-145) mmol/L Potassium (3.5-5.1) mmol/L Chloride (98-107) mmol/L Carbon Dioxide (22-30) mmol/L Anion Gap mmol/L BUN (7-17) mg/dL Creatinine (0.52-1.04) mg/dL Est GFR (CKD-EPI)AfAm (>60 ml/min/1.73 sqM) Est GFR (CKD-EPI)NonAf (>60 ml/min/1.73 sqM) Glucose (74-99) mg/dL POC Glucose (mg/dL) 93 (70-110) mg/dL POC Glu Head Bellhop Captain ID September Calcium (8.4-10.2) mg/dL Total Bilirubin (0.2-1.3) mg/dL AST (14-36) U/L ALT (4-34) U/L Alkaline Phosphatase (38-126) U/L Troponin I (0.000-0.034) ng/mL Total Protein (6.3-8.2) g/dL Albumin (3.5-5.0) g/dL Serum Alcohol mg/dL 01/28/24 01/28/24 Range/Units 14:10 14:10 WBC (3.8-10.6) k/uL RBC (3.80-5.40) m/uL Hgb (11.4-16.0) gm/dL Hct (34.0-46.0) % MCV (80.0-100.0) fL MCH (25.0-35.0) pg MCHC (31.0-37.0) g/dL RDW (11.5-15.5) % Plt Count (150-450) k/uL MPV Neutrophils % % Lymphocytes % % Monocytes % % Eosinophils % % Basophils % % Neutrophils # (1.3-7.7) k/uL Lymphocytes # (1.0-4.8) k/uL Monocytes # (0-1.0) k/uL Eosinophils # (0-0.7) k/uL Basophils # (0-0.2) k/uL PT (10.0-12.5) sec INR (<1.2) APTT (22.0-30.0) sec Sodium 138 (137-145) mmol/L Potassium 3.8 (3.5-5.1) mmol/L Chloride 108 H (98-107) mmol/L Carbon Dioxide 21 L (22-30) mmol/L Anion Gap 9 mmol/L BUN 11 (7-17) mg/dL Creatinine 0.52 (0.52-1.04) mg/dL Est GFR (CKD-EPI)AfAm >90 (>60 ml/min/1.73 sqM) Est GFR (CKD-EPI)NonAf >90 (>60 ml/min/1.73 sqM) Glucose 101 H (74-99) mg/dL POC Glucose (mg/dL) (70-110) mg/dL POC Glu Head Bellhop Captain ID Calcium 9.1 (8.4-10.2) mg/dL Total Bilirubin 0.8 (0.2-1.3) mg/dL AST 20 (14-36) U/L ALT 12 (4-34) U/L Alkaline Phosphatase 132 H (38-126) U/L Troponin I <0.012 (0.000-0.034) ng/mL Total Protein 6.5 (6.3-8.2) g/dL Albumin 3.9 (3.5-5.0) g/dL Serum Alcohol <10 mg/dL - EKG Data -: EKG Interpreted by Me EKG Comments: 12-lead Electrocardiogram Interpretation Note EKG was reviewed and interpreted by myself. 12-lead ECG performed at 1348 is interpreted by me as revealing normal sinus rhythm at a rate of 70 beats per minute. Brandon is normal. VA interval is 169 ms, QRS duration is 93 ms, QTc is 4 to 36 ms.. There were no ST or T wave abnormalities to suggest myocardial ischemia or injury. R wave progression across the precordium was satisfactory. By my interpretation this EKG is non-diagnostic for acute ischemia. Disposition Clinical Impression: Altered mental status Disposition: ADMITTED IP TO THIS [facility] Condition: Stable Referrals: Katya Olmos MD [Primary Care Provider] - 1-2 days Time of Disposition: 15:00
[2024-01-28 14:24] LABS: Basophils % (A) 0 %; Eosinophils # (A) 0.2 k/uL (0-0.7); Eosinophils % (A) 2 %; HCT 37.6 % (34.0-46.0); HGB 12.6 gm/dL (11.4-16.0); Lymphocytes # (A) 2.7 k/uL (1.0-4.8); Lymphocytes % (A) 33 %; MCH 31.8 pg (25.0-35.0); MCHC 33.5 g/dL (31.0-37.0); Monocytes # (A) 0.4 k/uL (0-1.0); Monocytes % (A) 5 %; Neutrophils # (A) 4.7 k/uL (1.3-7.7); Neutrophils % (A) 58 %; Platelet Count 257 k/uL (150-450); RBC 3.96 m/uL (3.80-5.40); RDW 12.5 % (11.5-15.5); WBC 8.1 k/uL (3.8-10.6)
--- NOTE | 2024-01-28 14:33 | XR ---
EXAMINATION TYPE: XR chest 2V DATE OF EXAM: 01/28/2024 2:25 PM COMPARISON: Chest radiographs from 09/03/2021 TECHNIQUE: XR chest 2V Frontal and lateral views of the chest. CLINICAL INDICATION:Female, 68 years old with history of altered mental status; FINDINGS: Lungs/Pleura: There is no evidence of pleural effusion, focal consolidation, or pneumothorax. Pulmonary vascularity: Unremarkable. Heart/mediastinum: Cardiomediastinal silhouette is unremarkable. Musculoskeletal: No acute osseous pathology. Midline sternotomy wires are noted and stable. IMPRESSION: No acute cardiopulmonary disease/process.
--- NOTE | 2024-01-28 14:35 | CT ---
EXAMINATION TYPE: CT brain wo con CT DLP: 1095.4 mGycm, Automated exposure control for dose reduction was used. DATE OF EXAM: 01/28/2024 2:24 PM COMPARISON: Prior CT Brain from 01/13/2018. CLINICAL INDICATION:Female, 68 years old with history of Altered mental status, TECHNIQUE: Brain: Multiple axial CT images of the brain were obtained without IV contrast. . Coronal and sagitta l reformats reviewed. FINDINGS: Brain: Extra-axial spaces: No abnormal extra-axial fluid collections. Ventricular system: Within normal limits Cerebral parenchyma: No acute intraparenchymal hemorrhage or mass effect. The keller-white junction is well differentiated. Cerebellum: Unremarkable. Mass effect: No evidence of midline shift. Intracranial vasculature: Atherosclerotic calcifications of the intracranial vessels. Soft tissues: Normal. Calvarium/osseous structures: No depressed skull fracture. Paranasal sinuses and mastoid air cells: Clear Visualized orbits: Right aphakia IMPRESSION: No acute intracranial process.
[2024-01-28 14:37] LABS: ALT 12 U/L (4-34); AST 20 U/L (14-36); African American GFR (CKD) >90 (>60 ml/min/1.73 sqM); Albumin 3.9 g/dL (3.5-5.0); Alcohol <10 mg/dL; Alkaline Phosphatase 132 U/L (38-126); Anion Gap 9 mmol/L; Blood Urea Nitrogen 11 mg/dL (7-17); Calcium 9.1 mg/dL (8.4-10.2); Carbon Dioxide 21 mmol/L (22-30); Chloride 108 mmol/L (98-107); Glucose 101 mg/dL (74-99); Non-African American GFR(CKD) >90 (>60 ml/min/1.73 sqM); Potassium 3.8 mmol/L (3.5-5.1); Sodium 138 mmol/L (137-145); Total Bilirubin 0.8 mg/dL (0.2-1.3); Total Protein 6.5 g/dL (6.3-8.2)
[2024-01-28 14:41] LABS: INR 0.9 (<1.2); Prothrombin Time 10.2 sec (10.0-12.5)
[2024-01-28] MEDS ORDERED: ONDANSETRON 4 MG/2 ML VIAL IVP PRN (15:08)
[2024-01-28] MEDS ORDERED: NALOXONE 0.4 MG/ML 1 ML VIAL IV PRN (15:08)
[2024-01-28 15:36] LABS: Appearance,Urine Clear (Clear); Bilirubin,Urine Negative (Negative); Blood,Urine Negative (Negative); Color,Urine Colorless; Glucose,Urine (UA) Negative (Negative); Ketones,Urine Negative (Negative); Leukocyte Esterase,Urine Negative (Negative); Nitrite,Urine Negative (Negative); Protein,Urine Negative (Negative); Specific Gravity,Urine 1.005 (1.001-1.035); Urobilinogen,Urine <2.0 mg/dL (<2.0)
[2024-01-28 15:46] LABS: Amphetamine Screen,Urine Not Detected (NotDetected); Barbiturate Screen,Urine Not Detected (NotDetected); Benzodiazepines Screen,Urine Not Detected (NotDetected); Cocaine Screen,Urine Not Detected (NotDetected); Methadone Screen, Urine Not Detected (NotDetected); Opiate Screen,Urine Detected (NotDetected); Oxycodone Screen, Urine Not Detected (NotDetected); Phencyclidine Screen,Urine Not Detected (NotDetected); Tricyclic Antidepressant,Urine Not Detected (NotDetected); Urn Cannabinoid Scrn Not Detected (NotDetected)
[2024-01-28 16:33] LABS: Lactic Acid, Venous 2.3 mmol/L (0.7-2.0)
[2024-01-28] MEDS: SODIUM CHLORIDE 0.9% 1,000 ML IV SCH (17:00)
[2024-01-29] MEDS: ACETAMINOPHEN TAB 325 MG TAB PO PRN (03:55)
[2024-01-29 09:25] LABS: ALT 9 U/L (8-44); AST 13 U/L (13-35); Albumin 3.6 g/dL (3.8-4.9); Albumin/Globulin Ratio 1.89 Ratio (1.60-3.17); Alkaline Phosphatase 106 U/L (41-126); BUN/Creat Ratio 15.83 Ratio (12.00-20.00); Blood Urea Nitrogen 9.5 mg/dL (9.0-27.0); Calcium 8.7 mg/dL (8.7-10.3); Carbon Dioxide 21.5 mmol/L (21.6-31.8); Chloride 109 mmol/L (96-109); Globulin 1.9 g/dL (1.6-3.3); Glucose 98 mg/dL (70-110); Sodium 142 mmol/L (135-145); Total Bilirubin 0.4 mg/dL (0.3-1.2); Total Protein 5.5 g/dL (6.2-8.2)
[2024-01-29 09:37] LABS: Basophils # (A) 0.03 X 10*3/uL (0.00-0.10); Basophils % (A) 0.4 %; Eosinophils # (A) 0.21 X 10*3/uL (0.04-0.35); Eosinophils % (A) 2.7 %; HCT 34.9 % (37.2-46.3); HGB 11.4 g/dL (12.0-15.0); Lymphocytes # (A) 3.71 X 10*3/uL (0.90-5.00); Lymphocytes % (A) 47.6 %; MCH 31.7 pg (27.0-32.0); MCHC 32.7 g/dL (32.0-37.0); MCV 96.9 FL (80.0-97.0); Mean Platelet Volume 10.6 FL (9.5-12.2); Monocytes # (A) 0.91 X 10*3/uL (0.20-1.00); Monocytes % (A) 11.7 %; NRBC Per 100 WBC 0 X 10*3/uL (0.00-0.01); Neutrophils # (A) 2.92 X 10*3/uL (1.80-7.70); Neutrophils % (A) 37.3 %; Platelet Count 253 X 10*3/uL (140-440); RDW 12.2 % (11.5-14.5)
--- NOTE | 2024-01-29 09:47 | P.HPIM ---
History of Present Illness H&P Date: 01/29/24 Yuko Daily is a 68-year-old female patient of Dr. Gonzalez who presented with concerns of altered mental status changes. Patient reports that she does not recall the events of yesterday. Denies any other neurological symptoms. Patient has a past medical history of chest pain, hypotension, mitral valve repair. Patient reports she follows regularly with cardiology services recently had a 2D echo with Dr. Peralta. Chest x-ray completed in ER showing no acute pulmonary disease. Head CT completed showing no acute intracranial process. EKG completed showing normal sinus rhythm. Lab work revealing white blood cell 7.80, hemoglobin 11.4. Initial lactic acid 2.3 repeat 1.6 UA negative. Influe nza, RSV and COVID-19 negative. Creatinine 0.6 upon 9.5. Drug screen positive for opioids. Patient denies taking any opioids denies any new medication. At this time patient is sitting comfortably in bed daughter at bedside. Patient reports the feeling of lightheadedness but denies any other neurological symptoms. At this time neurology and cardiology services will be consulted. Carotid Doppler ordered. Thyroid levels ordered. Repeat labs ordered. Patient denies any recent illness. Patient denies chest pain or shortness of breath. Patient denies nausea vomiting or diarrhea. Patient denies any urinary burning or frequency Review of Systems Please refer to HPI otherwise unremarkable Past Medical History Past Medical History: Chest Pain / Angina Additional Past Medical History / Comment(s): low bp at times, stress test 8-9-18. pt stated she" has a leaky mitral valve", recent admission for episodes of feeling lightheaded, just started new beta roseanne History of Any Multi-Drug Resistant Organisms: None Reported Past Surgical History: Tubal Ligation Additional Past Surgical History / Comment(s): mitral valve repair Past Anesthesia/Blood Transfusion Reactions: No Reported Reaction Past Psychological History: No Psychological Hx Reported Additional Psychological History / Comment(s): pt is independant. lives alone has 1 pet cat. drives. no medical equipment used. 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 Smoking Status: Never smoker Past Alcohol Use History: Rare Additional Past Alcohol Use History / Comment(s): pt exposed to 2nd hand smoke while growing up -both parents were heavy smokers. Past Drug Use History: None Reported - Past Family History Mother Additional Family Medical History / Comment(s): "heart disease" in her 70's Father Additional Family Medical History / Comment(s): "heart disease" in his 70's Medications and Allergies Home Medications Medication Instructions Recorded Confirmed Type Levocetirizine Dihydrochloride 5 mg PO HS 01/28/24 01/28/24 History [Xyzal] Metoprolol Succinate (ER) [Toprol 50 mg PO HS 01/28/24 01/28/24 History Xl] Allergies Allergy/AdvReac Type Severity Reaction Status Date / Time latex Allergy Rash/Hives Verified 01/28/24 15:37 mold Allergy Rash/Hives Verified 01/28/24 15:37 Sulfa (Sulfonamide Allergy Rash/Hives Verified 01/28/24 15:37 Antibiotics) mushroom AdvReac CONGESTION Verified 01/28/24 14:14 Penicillins AdvReac Rash/Hives Verified 01/28/24 15:37 Physical Exam Vitals: Vital Signs Temp Pulse Resp BP Pulse Ox 01/29/24 06:55 62 18 114/57 99 01/29/24 03:57 70 17 126/66 99 01/29/24 00:35 64 17 112/63 99 01/28/24 22:12 73 17 141/65 97 01/28/24 17:00 97.9 F 82 16 131/70 96 01/28/24 13:50 97.9 F 81 17 154/75 100 Intake and Output 01/28/24 01/29/24 01/29/24 22:59 06:59 14:59 Other: Weight 68.039 kg Head normocephalic Neck supple Lungs clear to auscultation bilaterally no wheezing or crackles Heart regular rate and rhythm S1-S2, no rub or gallop Abdomen is soft nontender nondistended positive bowel sounds no hepatosplen omegaly Extremities no edema Neuro alert and orientated to 3 Results CBC & Chem 7: 01/29/24 02:59 01/29/24 02:59 Labs: Abnormal Lab Results - Last 24 Hours (Table) 01/28/24 01/28/24 01/28/24 Range/Units 14:10 14:10 15:28 RBC (4.10-5.20) X 10*6/uL Hgb (12.0-15.0) g/dL Hct (37.2-46.3) % Chloride 108 H (98-107) mmol/L Carbon Dioxide 21 L (22-30) mmol/L Glucose 101 H (74-99) mg/dL Plasma Lactic Acid Franco 2.3 H* (0.7-2.0) mmol/L Alkaline Phosphatase 132 H (38-126) U/L Total Protein (6.2-8.2) g/dL Albumin (3.8-4.9) g/dL Urine Opiates Screen Detected H (NotDetected) 01/29/24 01/29/24 Range/Units 02:59 02:59 RBC 3.60 L (4.10-5.20) X 10*6/uL Hgb 11.4 L (12.0-15.0) g/dL Hct 34.9 L (37.2-46.3) % Chloride (98-107) mmol/L Carbon Dioxide 21.5 L (22-30) mmol/L Glucose (74-99) mg/dL Plasma Lactic Acid Franco (0.7-2.0) mmol/L Alkaline Phosphatase (38-126) U/L Total Protein 5.5 L (6.2-8.2) g/dL Albumin 3.6 L (3.8-4.9) g/dL Urine Opiates Screen (NotDetected) Thrombosis Risk Factor Assmnt - Choose All That Apply Other Risk Factors: Yes Each Risk Factor Represents 2 Points: Age 61-74 years Thrombosis Risk Factor Assessment Total Risk Factor Score: 2 Thrombosis Risk Factor Assessment Level: Low Risk Assessment and Plan Assessment: 1. Episode of altered mental status changes. 2. History of mitral valve repair 3. History of episodes of hypotension 4. Positive opioits on urine drug screen DVT prophylaxis Lovenox. GI prophylaxis Protonix Cardiology and neurology services consulted Carotid Doppler ordered Thyroid panel ordered Repeat labs ordered Time with Patient: Greater than 30 (Greater than 60% of the total time spent in counseling and coordination of care)
--- NOTE | 2024-01-29 10:20 | US ---
EXAMINATION TYPE: US carotid duplex BILAT DATE OF EXAM: 01/29/2024 COMPARISON: 01/14/2018 CLINICAL INDICATION: Female, 68 years old with history of possible TIA; Altered mental status. Mel sanders, TAMEKA TECHNIQUE: Carotid duplex ultrasound examination. Indirect Doppler criteria was utilized. FINDINGS: EXAM MEASUREMENTS: RIGHT: Peak Systolic Velocity (PSV) cm/sec ----- Right CCA: 90.3 ----- Right ICA: 110 ----- Right ECA: 110 ICA/CCA ratio: 1.22 RIGHT: End Diastole cm/sec ----- Right CCA: 26.0 ----- Right ICA: 30.4 ----- Right ECA: 17.2 LEFT: Peak Systolic Velocity (PSV) cm/sec ----- Left CCA: 99.4 ----- Left ICA: 118 ----- Left ECA: 117 ICA/CCA ratio: 1.19 LEFT: End Diastole cm/sec ----- Left CCA: 25.3 ----- Left ICA: 24.7 ----- Left ECA: 11.7 VERTEBRALS (direction of flow): Right Vertebral: Antegrade Left Vertebral: Antegrade Rhythm: Normal LEAK DETECTION ENGINEER NOTES: Mild plaque bilateral bifurcations. No evidence of increased velocities IMPRESSION: No significant hemodynamic stenosis. Criteria for Assigning % of Stenosis / Diameter reduction (Estimation based on the indirect measurements of the internal carotid artery velocities (ICA PSV). 1. Normal (no stenosis)=ICA PSV < 125 cm/s: ratio < 2.0: ICA EDV<40 cm/s. 2. Less than 50% stenosis=ICA PSV < 125 cm/s: ratio < 2.0: ICA EDV<40 cm/s. 3. 50 to 69% stenosis=ICA PSV of 125 to 230 cm/s: ration 2.0 ? 4.0: ICA EDV 40-100 cm/s. 4. Greater than 70% stenosis to near occlusion= ICA PSV > 230 cm/s: ratio > 4.0: ICA EDV > 100 cm/s. 5. Near occlusion= ICA PSV velocities may be low or undetectable: variable ratio and ICA EDV. 6. Total occlusion=unable to detect flow.
--- NOTE | 2024-01-29 17:09 | P.CNNES ---
History of Present Illness Consult date: 01/29/24 Requesting physician: Faisal Melvin Reason for Consult: ams History of Present Illness: A 68-year-old woman presented emergency department because of "disorientation". Patient stated yesterday she was preparing for lunch and she felt funny. She called her neighbor and she does not remember what happened afterwards. She stated that afterwards around 230 she remembers being in the hospital accompanied by her children. She does not recall what transpired in between. She denies any chest pain feeling lightheaded. She stated that she had a headache towards the end of the night and it was throughout the whole head was 7 out of 10 aching lasted probably for 4 hours denies any nausea or vomiting denies any photophobia or phonophobia. She denies any history of seizure in the past or stroke in the past. Denies any fever. Denies any sick contacts. She has a history of mitral valve repair about 6 years ago. She feels better today but she does not remember what transpired yesterday. She denies any urinary or bowel incontinence or tongue bite. Some of the workup during this hospital visit consisted of: CBC with differential is unremarkable Plasma lactic acid venous 2.3 repeat is 1.6 Sodium is 138, calcium is 9.1, AST ALT is within normal limits Ammonia is less than 9 Serum glucose is 1 1 BUN/creatinine is within normal limits Urine drug screen is positive for opiates otherwise serum alcohol and others are nondetectable CT head is reported as no acute intracranial process. I personally reviewed the CT and agree with the report Carotid duplex: No significant stenosis. EKG is reported as sinus rhythm. Normal EKG. Review of Systems The positive and negative as per HPI. Past Medical History Past Medical History: Chest Pain / Angina Additional Past Medical History / Comment(s): low bp at times, stress test 8-9-18. pt stated she" has a leaky mitral valve", recent admission for episodes of feeling lightheaded, just started new beta roseanne History of Any Multi-Drug Resistant Organisms: None Reported Past Surgical History: Tubal Ligation Additional Past Surgical History / Comment(s): mitral valve repair Past Anesthesia/Blood Transfusion Reactions: No Reported Reaction Past Psychological History: No Psychological Hx Reported Additional Psychological History / Comment(s): pt is independant. lives alone has [address]. no medical equipment used. 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 Smoking Status: Never smoker Past Alcohol Use History: Rare Additional Past Alcohol Use History / Comment(s): pt exposed to 2nd hand smoke while growing up -both parents were heavy smokers. Past Drug Use History: None Reported - Past Family History Mother Additional Family Medical History / Comment(s): "heart disease" in her 70's Father Additional Family Medical History / Comment(s): "heart disease" in his 70's Medications and Allergies Home Medications Medication Instructions Recorded Confirmed Type Levocetirizine Dihydrochloride 5 mg PO HS 01/28/24 01/28/24 History [Xyzal] Metoprolol Succinate (ER) [Toprol 50 mg PO HS 01/28/24 01/28/24 History Xl] Allergies Allergy/AdvReac Type Severity Reaction Status Date / Time latex Allergy Rash/Hives Verified 01/28/24 15:37 mold Allergy Rash/Hives Verified 01/28/24 15:37 Sulfa (Sulfonamide Allergy Rash/Hives Verified 01/28/24 15:37 Antibiotics) mushroom AdvReac CONGESTION Verified 01/28/24 14:14 Penicillins AdvReac Rash/Hives Verified 01/28/24 15:37 Physical Examination - Vital Signs Vital Signs: Vital Signs Temp Pulse Resp BP Pulse Ox 01/29/24 16:23 84 18 110/62 98 01/29/24 12:08 56 L 16 109/59 97 01/29/24 06:55 62 18 114/57 99 01/29/24 03:57 70 17 126/66 99 01/29/24 00:35 64 17 112/63 99 01/28/24 22:12 73 17 141/65 97 01/28/24 17:00 97.9 F 82 16 131/70 96 GENERAL: The patient is lying in bed and is not in acute distress. NEUROLOGICAL: Higher mental function: The patient is awake, alert, oriented to self, place and time. Patient is following commands. No aphasia and no neglect. Cranial nerves: The pupils are round, equal and reactive to light and accommodation. Visual perez are full to confrontation throughout. Extraocular movement is intact no nystagmus is noted. Facial sensation is normal to touch throughout. The facial strength is normal throughout. Hearing is normal bilaterally to hand rub. Tongue is midline and moved [id number] without any difficulty. No dysarthria is noted. Shoulder shrug is normal bilaterally. Motor: The strength is 5 over 5 throughout. Normal tone and bulk. Cerebellum: Normal finger to nose heel to daniels bilaterally. Sensation: Sensation is normal to touch throughout. Reflexes (right/left):Limited on right lower because of pain (stated has chronic radiculopathy). But otherwise 2+ throughout. Plantars are downgoing bilaterally. Results - Laboratory Findings CBC and BMP: 01/29/24 02:59 01/29/24 02:59 Abnormal Lab Findings: Abnormal Labs 01/28/24 01/28/24 01/28/24 14:10 14:10 15:28 RBC Hgb Hct Chloride 108 H Carbon Dioxide 21 L Glucose 101 H Plasma Lactic Acid Franco 2.3 H* Alkaline Phosphatase 132 H Total Protein Albumin Urine Opiates Screen Detected H 01/29/24 01/29/24 02:59 02:59 RBC 3.60 L Hgb 11.4 L Hct 34.9 L Chloride Carbon Dioxide 21.5 L Glucose Plasma Lactic Acid Franco Alkaline Phosphatase Total Protein 5.5 L Albumin 3.6 L Urine Opiates Screen Assessment and Plan Assessment: This is a 68-year-old woman who presented emergency department because of confusion. She stated that she felt disoriented and yesterday she felt off when she was preparing for lunch called on her neighbor then she does not remember what transpired from noon to 2:30 PM yesterday. Had elevated lactic acid level Transient global amnesia of unknown etiology History of mitral valve repair about 6 years ago Plan: I ordered MRI of the brain with and without, routine EEG TSH is ordered. I ordered vitamin B12 Cardiology is consulted for lightheadedness. Continue neurochecks Cardiac monitoring Will defer the rest of the medical management to primary and other specialist The plan is discussed with patient. Thank you for the consultation. Time with Patient: Greater than 30
[2024-01-29] MEDS: LORATADINE 10 MG TAB PO SCH (19:37)
[2024-01-29] MEDS: METOPROLOL SUCCINATE (ER) 50 MG TAB.ER.24H PO SCH (19:37)
--- NOTE | 2024-01-29 20:48 | EEG ---
ELECTROENCEPHALOGRAM REPORT CLINICAL HISTORY: This is a 68-year-old woman with transient amnesia. The video EEG is obtained to evaluate for seizure epileptiform activity. RELEVANT MEDICATION: The patient is not on any antiseizure medication. EEG TYPE: This is a routine 21-channel EEG with video using the 10/20 electrode placement system. DESCRIPTION: Wakefulness is obtained. During awake state, the posterior-dominant rhythm consists of [id number] voltage of 9 to 9.5 hertz activity that is well modulated, well sustained. There is no physiological stage 2 sleep architecture. There is no focal slowing. Interictal and ictal, there is highly suspicious sharp/spike over the left druze as well as phase reversal over the T3. There is no seizure noted during the study. ACTIVATION PROCEDURE: Photic stimulation did not evoke a posterior driving response. There is no abnormality during the photic stimulation. Hyperventilation is not performed. CLINICAL INTERPRETATION: This is an abnormal routine EEG. The background is normal. There is highly suspicion of discharges over the left temporal, specifically T3 which can increase risk for focal seizure or status epilepticus. No seizures noted during the study. There is no focal slowing. Clinical correlation is recommended. MMODL / IJN: [id number] / MTDJennifer
[2024-01-30] MEDS: PANTOPRAZOLE 40 MG TABLET PO SCH (06:14)
[2024-01-30] MEDS: ENOXAPARIN 40 MG/0.4 ML SYRINGE SQ SCH (08:11)
[2024-01-30 10:57] LABS: Basophils # (A) 0.05 X 10*3/uL (0.00-0.10); Basophils % (A) 0.6 %; Eosinophils # (A) 0.34 X 10*3/uL (0.04-0.35); HCT 38.1 % (37.2-46.3); HGB 12.4 g/dL (12.0-15.0); Lymphocytes # (A) 4.09 X 10*3/uL (0.90-5.00); Lymphocytes % (A) 48.7 %; MCH 31.3 pg (27.0-32.0); MCHC 32.5 g/dL (32.0-37.0); MCV 96.2 FL (80.0-97.0); Mean Platelet Volume 10.5 FL (9.5-12.2); Monocytes # (A) 0.69 X 10*3/uL (0.20-1.00); Monocytes % (A) 8.2 %; NRBC Per 100 WBC 0 X 10*3/uL (0.00-0.01); Neutrophils # (A) 3.21 X 10*3/uL (1.80-7.70); Neutrophils % (A) 38.3 %; Platelet Count 283 X 10*3/uL (140-440); RBC 3.96 X 10*6/uL (4.10-5.20); RDW 12.1 % (11.5-14.5)
[2024-01-30 11:30] LABS: ALT 9 U/L (8-44); AST 17 U/L (13-35); Albumin 4.1 g/dL (3.8-4.9); Albumin/Globulin Ratio 1.78 Ratio (1.60-3.17); Alkaline Phosphatase 113 U/L (41-126); Calcium 9.4 mg/dL (8.7-10.3); Carbon Dioxide 21.4 mmol/L (21.6-31.8); Chloride 108 mmol/L (96-109); Globulin 2.3 g/dL (1.6-3.3); Glucose 97 mg/dL (70-110); Potassium 4.2 mmol/L (3.5-5.5); Sodium 140 mmol/L (135-145); Total Bilirubin 0.7 mg/dL (0.3-1.2); Total Protein 6.4 g/dL (6.2-8.2)
[2024-01-30] MEDS: levETIRAcetam 250 MG TAB PO SCH (16:09)
--- NOTE | 2024-01-30 17:18 | P.PN ---
Subjective Progress Note Date: 01/30/24 I am following up with the patient and she is accompanied with her daughter. She still does not recall what transpired from her house to the hospital. I spoke with her daughter was at bedside as well as the other daughter ([place], [place]) via phone. Went to the daughter patient has multiple episodes in past with panic attack with confusion and the patient does acknowledge that is unusual for her. Currently she feels back to baseline. Objective - Vital Signs Vital signs: Vital Signs Temp 97.6 F 01/30/24 15:00 Pulse 69 01/30/24 15:00 Resp 16 01/30/24 15:00 BP 144/79 01/30/24 15:00 Pulse Ox 96 01/30/24 15:00 FiO2 Intake & Output 01/29/24 01/30/24 01/30/24 18:59 06:59 18:59 Intake Total 118 110 Balance 118 110 Intake: Oral 118 110 Other: Voiding Method Toilet Toilet Toilet # Voids 1 1 - Exam GENERAL: The patient is sitting up in bed and is not in acute distress. NEUROLOGICAL: Higher mental function: The patient is awake, alert, oriented to self, place and time. Patient is following commands. No aphasia and no neglect. Cranial nerves: The pupils are round, equal and reactive to light and accommodation. Visual perez are full to confrontation throughout. Extraocular movement is intact no nystagmus is noted. Facial sensation is normal to touch throughout. The facial strength is normal throughout. Hearing is normal bilaterally to hand rub. Tongue is midline and moved [id number] without any difficulty. No dysarthria is noted. Shoulder shrug is normal bilaterally. Motor: Gait is normal. The strength is 5 over 5 throughout. Normal tone and bulk. Cerebellum: Normal finger to nose heel to daniels bilaterally. Sensation: Sensation is normal to touch throughout. Some of the workup during this hospital visit consisted of: CBC with differential is unremarkable Plasma lactic acid venous 2.3 repeat is 1.6 Sodium is 138, calcium is 9.1, AST ALT is within normal limits Ammonia is less than 9 Serum glucose is 1 1 BUN/creatinine is within normal limits Urine drug screen is positive for opiates otherwise serum alcohol and others are nondetectable CT head is reported as no acute intracranial process. I personally reviewed the CT and agree with the report Carotid duplex: No significant stenosis. EKG is reported as sinus rhythm. Normal EKG. Routine EEG: Is abnormal. The background is normal. There is highly suspicion for discharges over the left temporal, specifically T3 which can increase risk for focal seizure and status epileptificus. There is no focal slowing or seizure noted during this study. - Labs CBC & Chem 7: 01/30/24 07:26 01/30/24 07:26 Labs: Abnormal Lab Results - Last 24 Hours (Table) 01/30/24 01/30/24 Range/Units 07:26 07:26 RBC 3.96 L (4.10-5.20) X 10*6/uL Carbon Dioxide 21.4 L (21.6-31.8) mmol/L Assessment and Plan Assessment: This is a 68-year-old woman who presented emergency department because of confusion. She stated that she felt disoriented and yesterday she felt off when she was preparing for lunch called on her neighbor then she does not remember what transpired from noon to 2:30 PM yesterday. Had elevated lactic acid level Transient global amnesia: Seems suspicious for new onset seizure since on EEG has discharges over the left temporal region. No seizure on EEG. History of multiple episodes of panic attack with confusion (per patient that is unusual): I am concerned if these episodes were seizure in nature that presented with panic attack. History of mitral valve repair about 6 years ago Plan: Pending MRI of the brain with and without I discussed with patient and her daughters about the EEG finding and patient was reluctant of starting anti-seizure medication but towards the end was in agreement with low dose Keppra 250mg bid (she does not want to be on 500mg bid). She was notified of side-effect of behavioral/irritability. Seizure precaution and pads. I notified the patient that per [place] DMV for seizure, to avoid driving for 6 months until seizure free, avoid heights, swim unassisted or use heavy machinery. Recommend a repeat routine EEG as outpatient but recommend that is sleep deprived or prolonged EEG. TSH and vitamin B12 Cardiology is consulted for lightheadedness. Continue neurochecks Cardiac monitoring Will defer the rest of the medical management to primary and other specialist Upon discharge, recommend the patient to follow-up with patient as outpatient within 1-2 weeks. The plan is discussed with patient and her two daughters in length. Also discussed with her nurse. Total time of care was 60 minutes. Time with Patient: Greater than 30
--- NOTE | 2024-01-30 17:41 | P.PN ---
Subjective Progress Note Date: 01/30/24 Yuko Daily is a 68-year-old female patient of Dr. Gonzalez who presented with concerns of altered mental status changes. Patient reports that she does not recall the events of yesterday. Denies any other neurological symptoms. Patient has a past medical history of chest pain, hypotension, mitral valve repair. Patient reports she follows regularly with cardiology services recently had a 2D echo with Dr. Peralta. Chest x-ray completed in ER showing no acute pulmonary disease. Head CT completed showing no acute intracranial process. EKG completed showing normal sinus rhythm. Lab work revealing white blood cell 7.80, hemoglobin 11.4. Initial lactic acid 2.3 repeat 1.6 UA negative. Influenza, RSV and COVID-19 negative. Creatinine 0.6 upon 9.5. Drug screen positive for opioids. Patient denies taking any opioids denies any new medication. At this time patient is sitting comfortably in bed daughter at bedside. Patient reports the feeling of lightheadedness but denies any other neurological symptoms. At this time neurology and cardiology services will be consulted. Carotid Doppler ordered. Thyroid levels ordered. Repeat labs ordered. Patient denies any recent illness. Patient denies chest pain or shortness of breath. Patient denies nausea vomiting or diarrhea. Patient den ies any urinary burning or frequency On 01/30/2024 patient was seen and examined on the medical floor she is alert and oriented x 3 in no apparent distress there is no fever or chills no headache or dizziness no chest pain no shortness of breath no cough no nausea or vomiting no abdominal pain no diarrhea and no urinary symptoms. Patient had an abnormal EEG, she was evaluated by neurology and was started on Keppra, we are awaiting MRI of the brain at this time. Objective - Vital Signs Vital signs: Vital Signs Temp 97.6 F 01/30/24 15:00 Pulse 69 01/30/24 15:00 Resp 16 01/30/24 15:00 BP 144/79 01/30/24 15:00 Pulse Ox 96 01/30/24 15:00 FiO2 Intake & Output 01/29/24 01/30/24 01/30/24 18:59 06:59 18:59 Intake Total 118 110 Balance 118 110 Intake: Oral 118 110 Other: Voiding Method Toilet Toilet Toilet # Voids 1 1 - Exam Head normocephalic Neck supple Lungs clear to auscultation bilaterally no wheezing or crackles Heart regular rate and rhythm S1-S2, no rub or gallop Abdomen is soft nontender nondistended positive bowel sounds no hepatosplenomegaly Extremities no edema Neuro alert and orientated to 3 - Labs CBC & Chem 7: 01/30/24 07:26 01/30/24 07:26 Labs: Abnormal Lab Results - Last 24 Hours (Table) 01/30/24 01/30/24 Range/Units 07:26 07:26 RBC 3.96 L (4.10-5.20) X 10*6/uL Carbon Dioxide 21.4 L (21.6-31.8) mmol/L Assessment and Plan Plan: 1. Episode of altered mental status changes. 2. History of mitral valve repair 3. History of episodes of hypotension 4. Positive opioids on urine drug screen 5. Abnormal EEG during this admission, patient was evaluated by neurology and was started on Keppra DVT prophylaxis Lovenox. GI prophylaxis Protonix Cardiology and neurology services consulted Carotid Doppler ordered Thyroid panel ordered Repeat labs ordered
--- NOTE | 2024-01-31 09:18 | P.CRDCN ---
History of Present Illness History of present illness: HISTORY OF PRESENT ILLNESS: This is a 68-year-old female with a past medical history significant for valvular heart disease with mitral valve repair, cardiomyopathy, hypertension, and sinus tachycardia. Patient follows in the office with Dr. Mcgowan. We have been asked to see the patient in consultation for dizziness. Patient examined at the bedside. Patient states she was confused for 3-4 hours. She called her neighbor and 911 but she does not remember this. She states she was feeling weak. She reports feeling lightheaded but denied having dizziness. She states she is feeling back to her baseline this morning. Denies CP or SOB. Vital signs are stable. DIAGNOSTICS: - EKG reveals sinus mechanism with no signs of acute ischemia. - Chest xray negative for acute process -Carotid Doppler: No significant hemodynamic stenosis bilaterally - Laboratory data: WBC 7.8. Hemoglobin 11.4. Platelet count 253. Sodium 140. Potassium 4.0. BUN 9.5. Creatinine 0.6. - Current home cardiac medications include metoprolol succinate 50 mg at night. - Most recent echocardiogram obtained in September 2023 revealing EF 40 to 45%, mild MR, repair of mitral valve - Cardiac catheterization history: February 2018 revealing normal coronary arteries REVIEW OF SYSTEMS: At the time of my exam: CONSTITUTIONAL: Denies fever or chills. HEENT: Denies blurred vision, vision changes, or eye pain. Denies hemoptysis CARDIOVASCULAR: Denies chest pain. Denies orthopnea. Denies PND. Denies palpitations RESPIRATORY: Denies shortness of breath. GASTROINTESTINAL: Denies abdominal pain. Denies nausea or vomiting. HEMATOLOGIC: Denies bleeding disorders. GENITOURINARY: Denies any blood in urine. SKIN: Denies pruitis. Denies rash. PHYSICAL EXAM: VITAL SIGNS: Reviewed. GENERAL: Well-developed in no acute distress. HEENT: Head is normocephalic. Pupils are equal, round. Sclerae anicteric. Mucous membranes of the mouth are moist. Neck supple. No JVD or thyromegaly LUNGS: Respirations even and unlabored. Lungs essentially clear to auscultation bilaterally. HEART: Regular rate and rhythm. S1 and S2 heard. ABDOMEN: Soft. Nondistended. Nontender. EXTREMITIES: Normal range of motion. No clubbing or cyanosis. Peripheral pulses intact. No lower extremity edema NEUROLOGIC: Awake and alert. Oriented x 3. ASSESSMENT: Altered mental status, resolved Dizziness, patient denies Normal coronary arteries, per cardiac catheterization 2018 Valvular heart disease, status post mitral valve repair, 2018 Nonischemic cardiomyopathy, 40-45% Urine drug screen positive for opioids, patient denies use of opioids PLAN: Obtain 2D echo to assess cardiac structure and function Continue home cardiac medications Continue telemetry monitoring Further recommendations pending patient course Nurse practitioner note has been reviewed by physician. Signing provider agrees with the documented findings, assessment, and plan of care documented by MISSILE TRACKING TECHNICIAN as a scribe. Past Medical History Past Medical History: Chest Pain / Angina Additional Past Medical History / Comment(s): low bp at times, stress test 01-09-18. pt stated she" has a leaky mitral valve", recent admission for episodes of feeling lightheaded, just started new beta roseanne History of Any Multi-Drug Resistant Organisms: None Reported Past Surgical History: Tubal Ligation Additional Past Surgical History / Comment(s): mitral valve repair Past Anesthesia/Blood Transfusion Reactions: No Reported Reaction Past Psychological History: No Psychological Hx Reported Additional Psychological History / Comment(s): pt is independant. lives alone has [address] drives. no medical equipment used. 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 Smoking Status: Never smoker Past Alcohol Use History: Rare Additional Past Alcohol Use History / Comment(s): pt exposed to 2nd hand smoke while growing up -both parents were heavy smokers. Past Drug Use History: None Reported - Past Family History Mother Additional Family Medical History / Comment(s): "heart disease" in her 70's Father Additional Family Medical History / Comment(s): "heart disease" in his 70's Medications and Allergies Home Medications Medication Instructions Recorded Confirmed Type Levocetirizine Dihydrochloride 5 mg PO HS 01/28/24 01/28/24 History [Xyzal] Metoprolol Succinate (ER) [Toprol 50 mg PO HS 01/28/24 01/28/24 History Xl] Allergies Allergy/AdvReac Type Severity Reaction Status Date / Time latex Allergy Rash/Hives Verified 01/28/24 15:37 mold Allergy Rash/Hives Verified 01/28/24 15:37 Sulfa (Sulfonamide Allergy Rash/Hives Verified 01/28/24 15:37 Antibiotics) mushroom AdvReac CONGESTION Verified 01/28/24 14:14 Penicillins AdvReac Rash/Hives Verified 01/28/24 15:37 Physical Exam Vitals: Vital Signs Temp Pulse Resp BP Pulse Ox 01/29/24 12:08 56 L 16 109/59 97 01/29/24 06:55 62 18 114/57 99 01/29/24 03:57 70 17 126/66 99 01/29/24 00:35 64 17 112/63 99 01/28/24 22:12 73 17 141/65 97 01/28/24 17:00 97.9 F 82 16 131/70 96 01/28/24 13:50 97.9 F 81 17 154/75 100 Intake and Output 01/28/24 01/29/24 01/29/24 22:59 06:59 14:59 Other: Weight 68.039 kg Results 01/30/24 07:26 01/30/24 07:26 Cardiac Enzymes 01/28/24 01/28/24 01/29/24 Range/Units 14:10 14:10 02:59 AST 20 13 (14-36) U/L Troponin I <0.012 (0.000-0.034) ng/mL Coagulation 01/28/24 Range/Units 14:10 PT 10.2 (10.0-12.5) sec APTT 24.0 (22.0-30.0) sec CBC 01/28/24 01/29/24 Range/Units 14:10 02:59 WBC 8.1 7.80 (3.8-10.6) k/uL RBC 3.96 3.60 L (3.80-5.40) m/uL Hgb 12.6 11.4 L (11.4-16.0) gm/dL Hct 37.6 34.9 L (34.0-46.0) % Plt Count 257 253 (150-450) k/uL Comprehensive Metabolic Panel 01/28/24 01/29/24 Range/Units 14:10 02:59 Sodium 138 142 (137-145) mmol/L Potassium 3.8 4.0 (3.5-5.1) mmol/L Chloride 108 H 109 (98-107) mmol/L Carbon Dioxide 21 L 21.5 L (22-30) mmol/L BUN 11 9.5 (7-17) mg/dL Creatinine 0.52 0.6 (0.52-1.04) mg/dL Glucose 101 H 98 (74-99) mg/dL Calcium 9.1 8.7 (8.4-10.2) mg/dL AST 20 13 (14-36) U/L ALT 12 9 (4-34) U/L Alkaline Phosphatase 132 H 106 (38-126) U/L Total Protein 6.5 5.5 L (6.3-8.2) g/dL Albumin 3.9 3.6 L (3.5-5.0) g/dL Current Medications Generic Name Dose Route Start Last Admin Trade Name Freq PRN Reason Stop Dose Admin Acetaminophen 650 mg 01/28/24 15:08 01/29/24 03:55 Acetaminophen Tab 325 Mg Tab PO 325 mg Q6HR PRN Administration Mild Pain or Fever > 100.5 Enoxaparin Sodium 40 mg 01/30/24 09:00 Enoxaparin 40 Mg/0.4 Ml Syringe SQ DAILY DYLAN Sodium Chloride 1,000 mls @ 75 mls/hr 01/28/24 15:15 01/29/24 03:59 Saline 0.9% IV Not Given .[id number] DYLAN Loratadine 10 mg 01/29/24 21:00 Loratadine 10 Mg Tab PO HS DYLAN Metoprolol Succinate 50 mg 01/29/24 21:00 Metoprolol Succinate (Er) 50 Mg Tab.Er.24h PO HS DYLAN Naloxone HCl 0.2 mg 01/28/24 15:08 Naloxone 0.4 Mg/Ml 1 Ml Vial IV Q2M PRN Opioid Reversal Ondansetron HCl 4 mg 01/28/24 15:08 Ondansetron 4 Mg/2 Ml Vial IVP Q8HR PRN Nausea And Vomiting Pantoprazole Sodium 40 mg 01/30/24 07:30 Pantoprazole 40 Mg Tablet PO [id number] DYLAN Intake and Output 01/28/24 01/29/24 01/29/24 22:59 06:59 14:59 Other: Weight 68.039 kg 01/29/24 02:59 01/29/24 02:59
--- NOTE | 2024-01-31 10:35 | CA ---
Transthoracic Echo Report Name: Yuko Daily Age: 68 Gender: F : 1955 Exam Date: 01/30/2024 14:19 Exam Location: [facility] Ht (in): 63 Wt (lb): 130 Ordering Physician: Raisa Da Silva Attending/Referring Phys: [id number], Rekha Ship Manager Codie Dorsey, SONAM Procedure CPT: Indications: LV function, confusion Cardiac Hx: Technical Quality: Fair Contrast 1: Definity Total Dose (mL): 2 Contrast 2: Total Dose (mL): MEASUREMENTS (Male / Female) Normal Values 2D ECHO LV Diastolic Diameter PLAX 5.1 cm 4.2 - 5.9 / 3.9 - 5.3 cm LV Systolic Diameter PLAX 3.1 cm IVS Diastolic Thickness 1.0 cm 0.6 - 1.0 / 0.6 - 0.9 cm LVPW Diastolic Thickness 1.1 cm 0.6 - 1.0 / 0.6 - 0.9 cm LV Relative Wall Thickness 0.4 RV Internal Dim ED PLAX 2.1 cm LA Systolic Diameter LX 4.6 cm 3.0 - 4.0 / 2.7 - 3.8 cm LV Diastolic Volume MOD BP 77.5 cm??? 67 - 155 / 56 - 104 cm??? LV Systolic Volume MOD BP 33.2 cm??? 22 - 58 / 19 - 49 cm??? LV Ejection Fraction MOD BP 57.1 % >= 55 % LV Cardiac Index MOD BP 2067.9 cm???/min???m??? LV Diastolic Volume MOD 4C 72.8 cm??? LV Systolic Volume MOD 4C 29.4 cm??? LV Ejection Fraction MOD 4C 59.6 % LV Cardiac Index MOD 4C 2027.2 cm???/min???m??? LV Diastolic Length 4C 7.1 cm LV Systolic Length 4C 6.5 cm LV Diastolic Volume MOD 2C 82.5 cm??? LV Systolic Volume MOD 2C 34.6 cm??? LV Ejection Fraction MOD 2C 58.1 % LV Cardiac Index MOD 2C 2241.0 cm???/min???m??? LV Diastolic Length 2C 7.0 cm LV Systolic Length 2C 6.0 cm M-MODE Aortic Root Diameter MM 2.9 cm LA Systolic Diameter MM 4.4 cm LA Ao Ratio MM 1.5 AV Cusp Separation MM 2.1 cm DOPPLER MV Peak Velocity 202.1 cm/s MV Peak Gradient 16.3 mmHg MV Mean Velocity 112.6 cm/s MV Mean Gradient 5.9 mmHg MV Velocity Time Integral 63.9 cm Mitral E Point Velocity 163.8 cm/s Mitral A Point Velocity 79.9 cm/s Mitral E to A Ratio 2.1 MV Deceleration Time 444.8 ms TR Peak Velocity 262.0 cm/s TR Peak Gradient 27.5 mmHg Right Ventricular Systolic Press 37.5 mmHg FINDINGS Left Ventricle Left ventricular ejection fraction is estimated at 55-60 %. Mildly increased septal wall thickness. Mildly increased posterior wall thickness. No obvious regional wall motion abnormalities. Right Ventricle Mild right ventricular dilatation. Mild pulmonary hypertension. Right Atrium Mild right atrial dilatation. Left Atrium Moderately increased left atrial diameter. Mitral Valve MV Repair, Mean PG 5.9mmHg. Mild mitral regurgitation. Aortic Valve Trileaflet aortic valve. No aortic stenosis. Trace aortic regurgitation. Tricuspid Valve Structurally normal tricuspid valve. Mild tricuspid regurgitation. Pulmonic Valve Structurally normal pulmonic valve. Mild pulmonic regurgitation. No pulmonic stenosis. Pericardium No pericardial effusion. Aorta Normal size aortic root and proximal ascending aorta. CONCLUSIONS Left ventricular ejection fraction 55-60% Mildly increased left ventricular wall thickness RVSP 37 Mildly dilated left atrium Status post mitral valve repair Mild mitral stenosis with mean gradient 5.9 mmHg at a heart rate 62 bpm Mild mitral regurgitation Mild tricuspid regurgitation Previewed by: Dr. Cali Michael DO (Electronically Signed) Final Date: 31 January 2024 10:34
--- NOTE | 2024-01-31 11:12 | MR ---
EXAMINATION TYPE: MR brain wo/w con DATE OF EXAM: 01/31/2024 10:36 AM CLINICAL INDICATION: Female, 68 years old with history of encephalopathy unknown; PHH, Loss of balanc e, vertigo, encephalopathy COMPARISON: CT brain 01/28/2024 TECHNIQUE: Multi planar, multi sequence imaging was performed through the brain including: T1, T2, In version recovery, susceptibility weighted imaging and gradient echo imaging and Diffusion weighted im aging. The patient was then given intravenous contrast and multi planar, T1 fat-saturation images wer e obtained. IV Contrast: 7 cc Gadavist FINDINGS: The keller-white junctions, ventricular system, basal cisterns appear unremarkable. Diffusion-weighted imaging shows no evidence of restricted diffusion to suggest acute/subacute infarct. Intracranial ar terial flow voids are maintained. Midline structures show no abnormality. The susceptibility weighted images do not reveal any evidence for micro-hemorrhage. After administration of gadolinium, no abnor mal enhancement is seen. The bone marrow signal is within normal limits. Paranasal sinuses and mastoid air cells: No significant paranasal sinus disease. Visualized orbits: Orbital contents are intact. IMPRESSION: 1. No evidence of intracranial mass, acute/subacute infarct, or abnormal enhancement.
--- NOTE | 2024-01-31 12:23 | P.PN ---
Subjective HISTORY OF PRESENT ILLNESS: This is a 68-year-old female with a past medical history significant for valvular heart disease with mitral valve repair, cardiomyopathy, hypertension, and sinus tachycardia. Patient follows in the office with Dr. Mcgowan. We have been asked to see the patient in consultation for dizziness. Patient examined at the bedside. Patient states she was confused for 3-4 hours. She called her neighbor and 911 but she does not remember this. She states she was feeling weak. She reports feeling lightheaded but denied having dizziness. She states she is feeling back to her baseline this morning. Denies CP or SOB. Vital signs are stable. DIAGNOSTICS: - EKG reveals sinus mechanism with no signs of acute ischemia. - Chest xray negative for acute process -Carotid Doppler: No significant hemodynamic stenosis bilaterally - Laboratory data: WBC 7.8. Hemoglobin 11.4. Platelet count 253. Sodium 140. Potassium 4.0. BUN 9.5. Creatinine 0.6. - Current home cardiac medications include metoprolol succinate 50 mg at night. - Most recent echocardiogram obtained in September 2023 revealing EF 40 to 45%, mild MR, repair of mitral valve - Cardiac catheterization history: February 2018 revealing normal coronary arteries 01/31/2024 Patient examined this morning at the bedside. Patient denies chest pain or pressure. She denies shortness of breath. Vital signs are stable. Blood pressure 135/77. 2D echo remains pending. She continues to report episodes of confusion this morning. Patients EEG was abnormal and she was started on Keppra. PHYSICAL EXAM: VITAL SIGNS: Reviewed. GENERAL: Well-developed in no acute distress. HEENT: Head is normocephalic. Pupils are equal, round. Sclerae anicteric. Mucous membranes of the mouth are moist. Neck supple. No JVD or thyromegaly LUNGS: Respirations even and unlabored. Lungs essentially clear to auscultation bilaterally. HEART: Regular rate and rhythm. S1 and S2 heard. ABDOMEN: Soft. Nondistended. Nontender. EXTREMITIES: Normal range of motion. No clubbing or cyanosis. Peripheral pulses intact. No lower extremity edema NEUROLOGIC: Awake and alert. Oriented x 3. ASSESSMENT: Altered mental status, resolved Dizziness, patient denies Normal coronary arteries, per cardiac catheterization 2018 Valvular heart disease, status post mitral valve repair, 2018 Nonischemic cardiomyopathy, 40-45% Urine drug screen positive for opioids, patient denies use of opioids Abnormal EEG, started on Keppra PLAN: 2D echo remains pending Continue home cardiac medications Continue telemetry monitoring Further recommendations pending patient course Nurse practitioner note has been reviewed by physician. Signing provider agrees with the documented findings, assessment, and plan of care documented by [employer]IST as a scribe. Objective - Vital Signs Vital signs: Vital Signs Temp 97.7 F 01/31/24 02:00 Pulse 73 01/31/24 09:30 Resp 16 01/31/24 02:00 BP 135/77 01/31/24 09:30 Pulse Ox 99 01/31/24 09:30 FiO2 Intake & Output 01/30/24 01/31/24 01/31/24 18:59 06:59 18:59 Intake Total 228 480 Balance 228 480 Intake: Oral 228 480 Other: Voiding Method Toilet Toilet # Voids 6 3 - Labs CBC & Chem 7: 01/30/24 07:26 01/30/24 07:26 Labs: Abnormal Lab Results - Last 24 Hours (Table) 01/30/24 01/30/24 Range/Units 07:26 07:26 RBC 3.96 L (4.10-5.20) X 10*6/uL Carbon Dioxide 21.4 L (21.6-31.8) mmol/L
--- NOTE | 2024-01-31 12:34 | P.PN ---
Subjective Progress Note Date: 01/31/24 Yuko Daily is a 68-year-old female patient of Dr. Gonzalez who presented with concerns of altered mental status changes. Patient reports that she does not recall the events of yesterday. Denies any other neurological symptoms. Patient has a past medical history of chest pain, hypotension, mitral valve repair. Patient reports she follows regularly with cardiology services recently had a 2D echo with Dr. Peralta. Chest x-ray completed in ER showing no acute pulmonary disease. Head CT completed showing no acute intracranial process. EKG completed showing normal sinus rhythm. Lab work revealing white blood cell 7.80, hemoglobin 11.4. Initial lactic acid 2.3 repeat 1.6 UA negative. Influenza, RSV and COVID-19 negative. Creatinine 0.6 upon 9.5. Drug screen positive for opioids. Patient denies taking any opioids denies any new medication. At this time patient is sitting comfortably in bed daughter at bedside. Patient reports the feeling of lightheadedness but denies any other neurological symptoms. At this time neurology and cardiology services will be consulted. Carotid Doppler ordered. Thyroid levels ordered. Repeat labs ordered. Patient denies any recent illness. Patient denies chest pain or shortness of breath. Patient denies nausea vomiting or diarrhea. Patient den ies any urinary burning or frequency On 01/30/2024 patient was seen and examined on the medical floor she is alert and oriented x 3 in no apparent distress there is no fever or chills no headache or dizziness no chest pain no shortness of breath no cough no nausea or vomiting no abdominal pain no diarrhea and no urinary symptoms. Patient had an abnormal EEG, she was evaluated by neurology and was started on Keppra, we are awaiting MRI of the brain at this time. On 01/31/2024 patient is alert and oriented x 3. Patient did have MRI but reports that she is feeling off like she might have another episode. At this time we will keep patient and have patient reevaluated by neurology patient rem ains on Keppra. Patient denies chest pain or shortness of breath. Patient denies nausea vomiting or diarrhea. Patient denies any urinary burning or frequency Objective - Vital Signs Vital signs: Vital Signs Temp 97.7 F 01/31/24 02:00 Pulse 73 01/31/24 09:30 Resp 16 01/31/24 02:00 BP 135/77 01/31/24 09:30 Pulse Ox 99 01/31/24 09:30 FiO2 Intake & Output 01/30/24 01/31/24 01/31/24 18:59 06:59 18:59 Intake Total 228 480 118 Balance 228 480 118 Intake: Oral 228 480 118 Other: Voiding Method Toilet Toilet # Voids 6 3 - Exam Head normocephalic Neck supple Lungs clear to auscultation bilaterally no wheezing or crackles Heart regular rate and rhythm S1-S2, no rub or gallop Abdomen is soft nontender nondistended positive bowel sounds no hepatosplenomegaly Extremities no edema Neuro alert and orientated to 3 - Labs CBC & Chem 7: 01/30/24 07:26 01/30/24 07:26 Assessment and Plan Assessment: 1. Episode of altered mental status changes. Likely secondary to seizures. Patient started on Keppra 2. History of mitral valve repair 3. History of episodes of hypotension 4. Positive opioits on urine drug screen DVT prophylaxis Lovenox. GI prophylaxis Protonix Cardiology and neurology services consulted MRI has been ordered Repeat labs ordered
--- NOTE | 2024-01-31 15:54 | P.PN ---
Subjective Progress Note Date: 01/31/24 I am following-up with patient and today in the morning she had an episode where she fell off not herself and somewhat confused. But denies having any amnesia episode like a few days ago. No jerking of any extremities. The episode lasted a few hours then resolved. Currently feels back to baseline. Objective - Vital Signs Vital signs: Vital Signs Temp 97.7 F 01/31/24 02:00 Pulse 73 01/31/24 09:30 Resp 16 01/31/24 02:00 BP 135/77 01/31/24 09:30 Pulse Ox 99 01/31/24 09:30 FiO2 Intake & Output 01/30/24 01/31/24 01/31/24 18:59 06:59 18:59 Intake Total 228 480 118 Balance 228 480 118 Intake: Oral 228 480 118 Other: Voiding Method Toilet Toilet # Voids 6 3 - Exam GENERAL: The patient is sitting up in bed and is not in acute distress. NEUROLOGICAL: Higher mental function: The patient is awake, alert, oriented to self, place and time. Patient is following commands. No aphasia and no neglect. Cranial nerves: The pupils are round, equal and reactive to light and accommodation. Visual perez are full to confrontation throughout. Extraocular movement is intact no nystagmus is noted. Facial sensation is normal to touch throughout. The facial strength is normal throughout. Hearing is normal bilaterally to hand rub. Tongue is midline and moved [id number] without any difficulty. No dysarthria is noted. Shoulder shrug is normal bilaterally. Motor: Gait is normal. The strength is 5 over 5 throughout. Normal tone and bulk. Cerebellum: Normal finger to nose heel to daniels bilaterally. Sensation: Sensation is normal to touch throughout. Some of the workup during this hospital visit consisted of: CBC with differential is unremarkable Plasma lactic acid venous 2.3 repeat is 1.6 Sodium is 138, calcium is 9.1, AST ALT is within normal limits Ammonia is less than 9 Serum glucose is 1 1 BUN/creatinine is within normal limits Urine drug screen is positive for opiates otherwise serum alcohol and others are nondetectable CT head is reported as no acute intracranial process. I personally reviewed the CT and agree with the report Carotid duplex: No significant stenosis. EKG is reported as sinus rhythm. Normal EKG. Routine EEG: Is abnormal. The background is normal. There is highly suspicion for discharges over the left temporal, specifically T3 which can increase risk for focal seizure and status epileptificus. There is no focal slowing or seizure noted during this study. MRI Brain is negative for evidence of intracranial mass, acute/subacute infarct or abnormal enhancement. - Labs CBC & Chem 7: 01/30/24 07:26 01/30/24 07:26 Assessment and Plan Assessment: This is a 68-year-old woman who presented emergency department because of confusion. She stated that she felt disoriented and yesterday she felt off when she was preparing for lunch called on her neighbor then she does not remember what transpired from noon to 2:30 PM yesterday. Had elevated lactic acid level Transient global amnesia: Seems suspicious for new onset seizure since on EEG has discharges over the left temporal region. No seizure on EEG. MRI Brain is negative for acute or subacute stroke or mass. Today patient had another episode of feeling off and somewhat confused early in the morning lasted few hours that resolved History of multiple episodes of panic attack with confusion (per patient that is unusual): I am concerned if these episodes were seizure in nature that presented with panic attack. History of mitral valve repair about 6 years ago Plan: I discussed with patient and her daughters about the EEG findings yesterday and patient was reluctant of starting anti-seizure medication but towards the end was in agreement with low dose Keppra 250mg bid (she does not want to be on 500mg bid). Patient was in agreement if she has any further episodes of confusion or the panic attacks with confusion then she will go up on Keppra from 250 mg twice daily to a total of 500 mg twice daily. She was notified if by tomorrow no further episodes she is clear from a neurologic perspective but if she is discharged then she can take 2 tablets of the 250 mg twice daily as an outpatient to assess if those help especially since you are on a low-dose. She was notified of side-effect of behavioral/irritability. Seizure precaution and pads. I notified the patient that per [place] DMV for seizure, to avoid driving for 6 months until seizure free, avoid heights, swim unassisted or use heavy machinery. Recommend a repeat routine EEG as outpatient but recommend that is sleep deprived or prolonged EEG. Cardiology is consulted for lightheadedness. Continue neurochecks Cardiac monitoring Pending Vitamin B12 and TSH. Will defer the rest of the medical management to primary and other specialist Upon discharge, recommend the patient to follow-up with patient as outpatient within 1-2 weeks. The plan is discussed with patient and her nurse. If by tomorrow no further episode of confusion then she is cleared from a neurologic perspective. Dr. Deras will resume neurology service tomorrow A.M. Time with Patient: Less than 30
[2024-02-01 07:51] VITALS: BP 113/76; PULSE 61; RESP 15; TEMP 98.3
[2024-02-01 09:51] LABS: Basophils # (A) 0.05 X 10*3/uL (0.00-0.10); Basophils % (A) 0.7 %; Eosinophils # (A) 0.27 X 10*3/uL (0.04-0.35); Eosinophils % (A) 3.8 %; HCT 37.6 % (37.2-46.3); HGB 12.3 g/dL (12.0-15.0); Lymphocytes # (A) 3.48 X 10*3/uL (0.90-5.00); Lymphocytes % (A) 48.3 %; MCH 30.8 pg (27.0-32.0); MCHC 32.7 g/dL (32.0-37.0); MCV 94.2 FL (80.0-97.0); Mean Platelet Volume 10.1 FL (9.5-12.2); Monocytes # (A) 0.64 X 10*3/uL (0.20-1.00); Monocytes % (A) 8.9 %; NRBC Per 100 WBC 0 X 10*3/uL (0.00-0.01); Neutrophils # (A) 2.73 X 10*3/uL (1.80-7.70); Neutrophils % (A) 37.9 %; Platelet Count 263 X 10*3/uL (140-440); RBC 3.99 X 10*6/uL (4.10-5.20)
[2024-02-01 10:07] LABS: ALT 10 U/L (8-44); AST 14 U/L (13-35); Albumin/Globulin Ratio 1.82 Ratio (1.60-3.17); Alkaline Phosphatase 111 U/L (41-126); Blood Urea Nitrogen 14.1 mg/dL (9.0-27.0); Calcium 9.1 mg/dL (8.7-10.3); Carbon Dioxide 22.1 mmol/L (21.6-31.8); Chloride 107 mmol/L (96-109); Globulin 2.2 g/dL (1.6-3.3); Glucose 87 mg/dL (70-110); Potassium 4.1 mmol/L (3.5-5.5); Sodium 140 mmol/L (135-145); Total Bilirubin 0.5 mg/dL (0.3-1.2); Total Protein 6.2 g/dL (6.2-8.2)
--- NOTE | 2024-02-01 11:51 | P.DS ---
Providers Date of admission: 01/28/24 15:09 Expected date of discharge: 02/01/24 Attending physician: Ariadne Bernardo Consults: 01/28/24 15:08 Consult Physician Routine Consulting Provider: Ramon Lama Consult Reason/Comments: AMS Do you want consulting provider notified?: Yes 01/29/24 09:38 Consult Physician Routine Consulting Provider: Zbigniew Mcgowan Consult Reason/Comments: lightheadedness Do you want consulting provider notified?: Yes Primary care physician: Katya Olmos Hospital Course: Diagnosis on discharge: 1. Episode of altered mental status changes. Likely secondary to seizures. Patient started on Keppra 2. History of mitral valve repair 3. History of episodes of hypotension 4. Positive opioits on urine drug screen Hospital course: Yuko Daily is a 68-year-old female patient of Dr. Gonzalez who presented with concerns of altered mental status changes. Patient reports that she does not recall the events of yesterday. Denies any other neurological symptoms. Patient has a past medical history of chest pain, hypotension, mitral valve repair. Patient reports she follows regularly with cardiology services recently had a 2D echo with Dr. Peralta. Chest x-ray completed in ER showing no acute pulmonary disease. Head CT completed showing no acute intracranial process. EKG completed showing normal sinus rhythm. Lab work revealing white blood cell 7.80, hemoglobin 11.4. Initial lactic acid 2.3 repeat 1.6 UA negative. Influenza, RSV and COVID-19 negative. Creatinine 0.6 upon 9.5. Drug screen positive for opioids. Patient denies taking any opioids denies any new medication. At this time patient is sitting comfortably in bed daughter at bedside. Patient reports the feeling of lightheadedness but denies any other neurological symptoms. At this time neurology and cardiology services will be consulted. Carotid Doppler ordered. Thyroid levels ordered. Repeat labs ordered. Patient denies any recent illness. Patient denies chest pain or shortness of breath. Patient denies nausea vomiting or diarrhea. Patient denies any urinary burning or frequency On 01/30/2024 patient was seen and examined on the medical floor she is alert and oriented x 3 in no apparent distress there is no fever or chills no headache or dizziness no chest pain no shortness of breath no cough no nausea or vomiting no abdominal pain no diarrhea and no urinary symptoms. Patient had an abnormal EEG, she was evaluated by neurology and was started on Keppra, we are awaiting MRI of the brain at this time. On 01/31/2024 patient is alert and oriented x 3. Patient did have MRI but reports that she is feeling off like she might have another episode. At this time we will keep patient and have patient reevaluated by neurology patient remains on Keppra. Patient denies chest pain or shortness of breath. Patient denies nausea vomiting or diarrhea. Patient denies any urinary burning or freq uency On 02/01/2024, patient was seen and examined on the medical floor she is alert and oriented x 3 in no apparent distress she denies any new episodes of confusion or mental status changes, MRI of the brain was done and did not reveal any abnormality, patient was evaluated by neurology, recommendation is to increase Keppra to 500 mg twice daily, patient is very hesitant to do so, wants to continue his Keppra 250 mg twice daily, she was counseled regarding neurology recommendation, she was given prescription for Keppra 250 and 500 mg, she stated that she will increase to 500 mg twice daily if she has any new episodes of confusion or mental status changes. She will follow-up with her primary care physician Dr. Olmos within 1 week, she should also follow-up with neurology as outpatient. Patient Condition at Discharge: Stable Plan - Discharge Summary New Discharge Prescriptions: New levETIRAcetam [Keppra] 500 mg PO Q12HR #0 tab Continue Metoprolol Succinate (ER) [Toprol XL] 50 mg PO HS Levocetirizine Dihydrochloride [Xyzal] 5 mg PO HS Discharge Medication List Levocetirizine Dihydrochloride [Xyzal] 5 mg PO HS 01/28/24 [History] Metoprolol Succinate (ER) [Toprol XL] 50 mg PO HS 01/28/24 [History] levETIRAcetam [Keppra] 500 mg PO Q12HR #0 tab 02/01/24 [Rx] Follow up Appointment(s)/Referral(s): Katya Olmos MD [Primary Care Provider] - 1-2 days Patient Instructions/Handouts: Seizure/Epilepsy Discharge Instructions & Follow-Up
[2024-02-01] MEDS ORDERED: levETIRAcetam 500 MG TAB PO SCH (21:00)
== END 2024-02-01 12:13 | disposition home or self-care (01) ==
LOC: EC 13:30 → 6NMEDSUR 15:09
PROVIDERS: ADMIT Internal Medicine; ATTEND Internal Medicine
DX: G45.4 Transient global amnesia (principal); R42 Dizziness and giddiness; R94.01 Abnormal electroencephalogram [EEG]; I38 Endocarditis, valve unspecified; I42.8 Other cardiomyopathies; I10 Essential (primary) hypertension; Z11.52 Encounter for screening for COVID-19; Z95.4 Presence of other heart-valve replacement; Z79.82 Long term (current) use of aspirin; Z79.899 Other long term (current) drug therapy; Z88.0 Allergy status to penicillin; Z88.2 Allergy status to sulfonamides; Z91.040 Latex allergy status
CPT/HCPCS: 36415; 70450; 70553; 71046; 80053; 80306; 80320; 81003; 82140; 82607; 83605; 84443; 84484; 85025; 85610; 85730; 87636; 93005; 93306; 93880; 95816; 96360; 96361; 99285

== ENCOUNTER 2024-03-03 03:02 | Emergency (ER) | payer MEDICARE, OTHER ==
[2024-03-03 03:20] VITALS: TEMP 98.1
--- NOTE | 2024-03-03 03:29 | ED ---
General Adult HPI - General Chief complaint: Dizziness Stated complaint: Dizziness Time Seen by Provider: 03/03/24 03:23 Source: patient, EMS Mode of arrival: EMS Limitations: no limitations - History of Present Illness Initial comments: Patient is a pleasant 68-year-old female presenting today for concern for impending seizure. States she was admitted for similar [place] of this year and ultimately diagnosed with seizures. Patient states this evening she was asleep began feeling left-sided headache. She woke up and felt like she was going to have a seizure; she states what it felt like prior to when she was diagnosed with seizures in january, which she describes as a feeling of "not dizziness but like the floor is tilting". States she called her son and began having a panic attack. EMS arrived and patient was not having any seizure like activity. BG 111. Pt states symptoms are similar to prior episodes when she was told she had a seizure, but states intermittent left sided dull headaches are new after discharge. Denies changes in vision, numbness, weakness, slurred speech, chest pain, shortness of breath, fevers. Headache has since resolved. Is taking keprra as prescribed. 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 - Related Data Home Medications Medication Instructions Recorded Confirmed Levocetirizine Dihydrochloride 5 mg PO HS 01/28/24 01/28/24 [Xyzal] Metoprolol Succinate (ER) [Toprol 50 mg PO HS 01/28/24 01/28/24 XL] Previous Rx's Medication Instructions Recorded levETIRAcetam [Keppra] 500 mg PO Q12HR #0 tab 02/01/24 ALPRAZolam [Xanax] 0.25 mg PO Q8HR PRN 3 Days #9 tab 03/03/24 Allergies Allergy/AdvReac Type Severity Reaction Status Date / Time latex Allergy Rash/Hives Verified 01/28/24 15:37 mold Allergy Rash/Hives Verified 01/28/24 15:37 Sulfa (Sulfonamide Allergy Rash/Hives Verified 01/28/24 15:37 Antibiotics) mushroom AdvReac CONGESTION Verified 01/28/24 14:14 Penicillins AdvReac Rash/Hives Verified 01/28/24 15:37 Review of Systems ROS Statement: Those systems with pertinent positive or pertinent negative responses have been documented in the HPI. ROS Other: All systems not noted in ROS Statement are negative. Constitutional: Denies: fever Eyes: Denies: vision change Respiratory: Denies: dyspnea Cardiovascular: Denies: chest pain Gastrointestinal: Denies: abdominal pain, nausea, vomiting Neurological: Reports: headache. Denies: weakness, numbness, paresthesias, vertigo Psychiatric: Reports: anxiety Past Medical History Past Medical History: Chest Pain / Angina Additional Past Medical History / Comment(s): low bp at times, stress test 01-09-18. pt stated she" has a leaky mitral valve", recent admission for episodes of feeling lightheaded, just started new beta roseanne History of Any Multi-Drug Resistant Organisms: None Reported Past Surgical History: Tubal Ligation Additional Past Surgical History / Comment(s): mitral valve repair Past Anesthesia/Blood Transfusion Reactions: No Reported Reaction Past Psychological History: No Psychological Hx Reported Smoking Status: Never smoker Past Alcohol Use History: Rare Past Drug Use History: None Reported - Past Family History Mother Additional Family Medical History / Comment(s): "heart disease" in her 70's Father Additional Family Medical History / Comment(s): "heart disease" in his 70's General Exam - General Exam Comments Initial Comments: PE: CONSTITUTIONAL: No apparent distress, well appearing SKIN: Warm, dry, no jaundice, hives or petechiae EYES: Pupils are equally round, extraocular movements intact without nystagmus, clear conjunctiva, non-icteric sclera HENT: Normocephalic, atraumatic, moist mucus membranes, oropharynx clear without exudates NECK: , Full range of motion, normal appearance PULMONARY: Clear to auscultation without wheezes, rhonchi, or rales, normal excursion, no accessory muscle use and no stridor CARDIOVASCULAR: Regular rate, rhythm, normal S1 and S2. No appreciated murmurs, rubs or gallops. Strong radial pulses with intact distal perfusion. No lower extremity edema MUSCULOSKELETAL: Extremities have no gross deformity, no edema, redness, or swelling. NEUROLOGIC:_a/o x 3, GCS 15, normal mentation and speech. Moves all extremities x 4 without motor or sensory deficit; cranial nerves: II (visual perez without defects), III, IV and (extraocular movements are intact, pupils are equal w ith normal reaction to light), V (intact facial sensation and jaw opening), VII (no facial droop), IX and X (normal palate movement, midline uvula, normal voice), XI (symmetrical shoulder shrug and lateral head rotation against resistance), XII (midline tongue protrusion). Motor strength is 5/5 in all extremities. No abnormal movements. Normal muscle tone. Sensation to light touch is intact bilaterally. No cerebellar signs ([id number], [id number] normal) PSYCHIATRIC:_normal mood and affect, thought process is clear and linear Limitations: no limitations Course Vital Signs 03/03/24 03/03/24 03:04 05:42 Temperature 98.1 F Pulse Rate 70 88 Respiratory 18 20 Rate Blood Pressure 142/79 112/59 O2 Sat by Pulse 97 99 Oximetry Medical Decision Making - Medical Decision Making Was pt. sent in by a medical professional or institution (, PA, HOT DIMPLING MACHINE OPERATOR, urgent care, hospital, or fpc...) When possible be specific @ -No Did you speak to anyone other than the patient for history (EMS, parent, family, police, friend...)? What history was obtained from this source @ -No Did you review nursing and triage notes (agree or disagree)? Why? @ -I reviewed and agree with nursing and triage notes Were old charts reviewed (outside hosp., previous admission, EMS record, old EKG, old radiological studies, urgent care reports/EKG's, fpc records)? Report findings @ -Reviewed EEG, done during recent admission in January, EEG showed abnormal finding near left temporal lobe, T3, neurology note noted concern that could cause seizures, MRI normal, patient ultimately discharged home on Keprra Differential Diagnosis (chest pain, altered mental status, abdominal pain women, abdominal pain men, vaginal bleeding, weakness, fever, dyspnea, syncope, headache, dizziness, GI bleed, back pain, seizure, CVA, palpatations, mental health, musculoskeletal)? @Differential diagnosis remains broad however top considerations include BPPV, seizure, intracranial mass, hypovolemia, hypoglycemia, arrythmia, this is not all inclusive list EKG interpreted by me (3pts min.). @ -Sinus rhythm, rate 65 bpm, CO interval 204 ms, QRS duration 98 ms, QT/QTc 416/428 ms, normal axis, no ST elevations or depressions, no arrhythmia X-rays interpreted by me (1pt min.). @ -None done CT interpreted by me (1pt min.). @CT brain shows no hemorrhage or mass effect U/S interpreted by me (1pt. min.). @ -None done What testing was considered but not performed or refused? (CT, X-rays, U/S, labs)? Why? @ -I did consider obtaining CBC, CMP however patient has already had extensive workup for today's symptoms and has known history of the same, I discussed this with patient and discussed with patient obtaining EKG, POC glucose, CT brain, pt agreeable with this and foregoing additional labs at this time What meds were considered but not given or refused? Why? @ -Considered Tylenol for patient's headache however patient states it is improving and she already took aspirin so politely declined this Did you discuss the management of the patient with other professionals (professionals i.e. , PA, HOT DIMPLING MACHINE OPERATOR, lab, RT, psych nurse, foster care social worker, blood donor recruiter supervisor, teacher, flight communications officer, major case detective)? Give summary @ -No Was smoking cessation discussed for >3mins.? @ -No Was critical care preformed (if so, how long)? @ -No Were there social determinants of health that impacted care today? How? (Homelessness, low income, unemployed, alcoholism, drug addiction, transportatio n, low edu. Level, literacy, decrease access to med. care, halfway, rehab)? @ -No Was there de-escalation of care discussed even if they declined (Discuss DNR or withdrawal of care, Hospice)? @ -No What co-morbidities impacted this encounter? (DM, HTN, Smoking, COPD, CAD, Cancer, CVA, ARF, Chemo, Hep., AIDS, mental health diagnosis, sleep apnea, morbid obesity)? @ -None Was patient admitted / discharged? Hospital course, mention meds given and route, prescriptions, significant lab abnormalities, going to OR and other pertinent info. @ -Hospital course discharged Patient is a pleasant 68-year-old female history recently diagnosed seizure disorder on Keppra mitral valve disorder presenting today for feeling like she is going to have a seizure similar to prior episodes. On my assessment patient is well appearing and in no acute distress. Vital signs stable. Neurologic exam reassuring with no focal neurologic deficits. I discussed with patient plan of care for Keppra load, IV fluids CT brain EKG [id number] glucose. We did discuss obtaining comprehensive labs however we also discussed that she was recently here for similar and symptoms are essentially unchanged from prior with exception of new headache that is already improving. Patient was agreeable with her going labs at this time and obtaining the above workup. On reassessment patient states her symptoms have improved. I discussed negative CT brain. Patient did raise concern that shortly after the onset of her symptoms today she experienced a panic attack. She states that this has happened each time she is experiencing symptoms and feels that she has difficulty with symptoms of her panic attack from symptoms that should bring her to the emergency department. She states typically she can call one of her children if they come sit with her her symptoms improved. We discussed trialing as needed xanax to help with symptoms of panic attack and if her symptoms do not improve shortly after taking Xanax she should consider returning to the ED. I did discuss with her this is a controlled substance and to only take as needed. She is agreeable and understanding of this. We discussed the importance of following up with her primary care provider as well as her neurologist regarding today's visit. We discussed send symptoms warranting return to the emergency department. All questions were answered patient was discharged in stable condition. In my medical judgment there is currently no evidence of an immediate life- threatening or surgical condition. Discharge is therefore indicated at this ti me. Discharge treatment instructions, follow up instructions, and appropriate emergency department return precautions were discussed with the patient and/or medical decision maker. Patient and/or medical decision maker expressed understanding of and agreed with the treatment plan, follow up instructions, and emergency department return precaution. All patient's and/or medical decision maker's questions were answered. Undiagnosed new problem with uncertain prognosis? @ -No Drug Therapy requiring intensive monitoring for toxicity (Heparin, Nitro, Insulin, Cardizem)? @ -No Were any procedures done? @ -No Diagnosis/symptom? @ -Headache, dizziness Acute, or Chronic, or Acute on Chronic? @Acute Uncomplicated (without systemic symptoms) or Complicated (systemic symptoms)? @ -Uncomplicated Side effects of treatment? @ -No Exacerbation, Progression, or Severe Exacerbation? @ -No Poses a threat to life or bodily function? How? (Chest pain, [place], [place], pneumonia, PE, COPD, DKA, ARF, appy, cholecystitis, CVA, Diverticulitis, Homicidal, Suicidal, threat to staff... and all critical care pts) @ -No Disposition Clinical Impression: Dizziness Disposition: HOME SELF-CARE Condition: Good Additional Instructions: Every disease is a spectrum and a small chance still exists that a serious condition could develop, for this reason, please monitor yourself closely for new, changing or worsening symptoms, sudden onset headache, worst headache of your life, changes vision, slurred speech, new numbness or weakness of your extremities fever, inability to tolerate/keep down fluids or your medications, inability to follow up with outpatient providers as instructed and should you experience these symptoms or should you have any further concerns for your wellbeing please return to the ED or call 911 immediately. PLEASE call your primary care physician as soon as possible to arrange / discuss plan for followup appointment. Appointment in the next 1-3 days is strongly encouraged if possible. PLEASE let us know here before you leave if there is anything further we can do to be of any assistance. Take care and feel Better! Prescriptions: ALPRAZolam [Xanax] 0.25 mg PO Q8HR PRN 3 Days #9 tab PRN Reason: Anxiety Is patient prescribed a controlled substance at d/c from ED?: Yes When asked, does pt state using other controlled substances?: No If prescribed controlled substance>3 days was MAPS reviewed?: Prescribed <3 Days Referrals: Katya Olmos MD [Primary Care Provider] - 1-2 days
[2024-03-03] MEDS: MECLIZINE 25 MG TAB PO STA (04:18)
[2024-03-03] MEDS: SODIUM CHLORIDE 0.9% 1,000 ML IV ONE (04:18)
[2024-03-03] MEDS: levETIRAcetam IV 3,000 MG in SODIUM CHLORIDE 0.9% 250 ML IVPB ONE (04:28)
[2024-03-03] MEDS: levETIRAcetam IV 500 MG/5 ML VIAL IVP STA (04:36)
--- NOTE | 2024-03-03 05:02 | CT ---
EXAM: CT Head Without Intravenous Contrast CLINICAL HISTORY: ITS.REASON CT Reason: dizziness, left sided ALVES TECHNIQUE: Axial computed tomography images of the head/brain without intravenous contrast. CTDI is 49.2 mGy and DLP is 1154.4 mGy-cm. This CT exam was performed using one or more of the following dose reduction techniques: automated exposure control, adjustment of the mA and/or kV according to patient size, and/or use of iterative reconstruction technique. COMPARISON: No relevant prior studies available. FINDINGS: Brain: No hemorrhage or mass effect. Ventricles: No hydrocephalus. Bones/joints: Unremarkable. Soft tissues: Unremarkable. Sinuses: No air fluid level. Mastoid air cells: Clear. IMPRESSION: No acute hemorrhage, hydrocephalus, or mass effect.
[2024-03-03 05:44] VITALS: BP 112/59; PULSE 88; RESP 20
[2024-03-06 15:05] LABS: Glucose,Whole Blood 111 mg/dL (70-110)
== END 2024-03-03 06:10 | disposition home or self-care (01) ==
LOC: EC 03:02
DX: R42 Dizziness and giddiness (principal); R51.9 Headache, unspecified; Z88.0 Allergy status to penicillin; Z88.2 Allergy status to sulfonamides; Z91.040 Latex allergy status; Z91.018 Allergy to other foods
CPT/HCPCS: 93005; 36415; 70450; 99285; 96365; J1953